=== PATIENT | female | born 1985 | race Caucasian/White ===

== ENCOUNTER 2022-08-06 08:09 | Emergency (ER) | payer BC, SELFPAY ==
[2022-08-06 08:20] VITALS: BP 102/70; PULSE 54; RESP 18; TEMP 36.7; O2SAT 97; BMI 25.9
--- NOTE | 2022-08-06 08:32 | EXP.UTC ---
Discharge Plan Disposition Patient Disposition: Home, Self-Care Condition: Good Prescriptions Prescriptions: New amoxicillin 875 mg tablet 875 mg PO BID Qty: 20 0RF innowaca-fziptwcgn-KJ 3.5-10,000-1 mg/mL-unit/mL-% drops,suspension 4 drp otic (ear) Q8H 7 Days Qty: 10 0RF Rx Instructions: in right ear as directed No Action hydrocodone-acetaminophen 5-325 mg tablet 1 tab PO Q4HP PRN (Reason: CRPS) gabapentin 300 mg capsule 600 mg PO DAILY Referrals Follow up/Referrals: Provider,Referral, MD [Primary Care Provider] - See instructions Activity Restrictions/Add. Instructions Additional Instructions/Restrictions: Use drops as prescribed Take oral medication as prescribed Follow up with your Family Doctor if no improvement or any worsening of symptoms Return if needed Clinical Impressions Clinical Impression: Otitis media Instructions Patient Instructions: Middle Ear Infection, DI for Otitis Externa Discharge ED Provider: Divya Forbes [facility] General Stated complaint: ear pain Mode of Arrival: Ambulatory Source of Information: Patient Limitations: No Limitations Time Seen by Provider: 08/06/22 08:32 Description of Symptoms (Recalled from Triage Doc. by RN): PATIENT C/O RIGHT EAR PAIN X 2 DAYS HEENT Symptoms (Recalled from RN notes): Yes Resp Symptoms (Recalled from RN notes): No Skin Symptoms (Recalled from RN notes): No MS Symptoms (Recalled from RN notes): No Functional Status (Recalled from RN notes): WNL History of Present Illness Provider Complaint: Patient states that she has been having pain in her right ear that has continued to get worse over the last couple of days and waking her up in the middle of the night hurting States that her ear is throbbing and starting to feel tender on the outside when she touches it so she came in to get it checked Related Data Home Medications Medication Instructions Recorded Confirmed gabapentin 300 mg capsule 600 mg PO DAILY CRPS 08/06/22 08/06/22 hydrocodone 5 mg-acetaminophen 325 1 tab PO Q4HP PRN CRPS 08/06/22 08/06/22 mg tablet Previous Rx's Medication Instructions Recorded amoxicillin 875 mg tablet 875 mg PO BID #20 tabs 08/06/22 scvhbtfh-cuxjltlwl-ztmjoptjn 3.5 4 drp otic (ear) Q8H 7 days #10 mL 08/06/22 mg-10,000 unit/mL-1 % ear drops,susp Allergies Allergy/AdvReac Type Severity Reaction Status Date / Time ciprofloxacin Allergy Verified 08/06/22 08:31 oxycodone [From Percocet] Allergy Verified 08/06/22 08:31 venlafaxine Allergy Verified 08/06/22 08:31 Worker's Comp Is this a Worker's Comp case?: No [facility] Disclaimer: The information contained in this section may have been updated after the patient was seen, as this information can be updated by other users. Medical History (Updated 08/06/22 @ 08:41 by Divya Forbes APRN) History of anemia Hypotension Migraine Urinary tract infection Surgical History (Updated 08/06/22 @ 08:33 by Ewelina Barnes RN) History of section History of hysterectomy History of tonsillectomy History of tubal ligation Social History Smoking Status: Unknown if ever smoked alcohol intake: never current occupational status: employed Travel in the last 8 weeks: None ROS Obtained: Yes All systems reviewed & no additional complaints except as documented and Yes Systems reviewed as appropriate & no additional complaints except as documented Constitutional Constitutional: Reports system reviewed and no additional complaints, except as documented and Reports as per HPI Eyes Eyes: Reports system reviewed and no additional complaints, except as documented and Reports as per HPI ENT Ears, Nose, Mouth, and Throat: Reports system reviewed and no additional complaints, except as documented, Reports as per HPI and Reports otalgia Cardiovascular Cardiovascular: Reports system reviewed and no additional complaints, except as documented and R
[2022-08-06 08:40] VITALS: BP 102/70; PULSE 54; RESP 18; TEMP 36.7; O2SAT 97
== END 2022-08-06 08:45 | disposition home or self-care (01) ==
PROVIDERS: Emergency Provider Nurse Practitioner
DX: H66.91 Otitis media, unspecified, right ear (principal)
CPT/HCPCS: 99204; 99212; G0463

== ENCOUNTER 2022-10-10 16:26 | Emergency (ER) | payer BC, SELFPAY ==
[2022-10-10 16:50] VITALS: BP 108/68; PULSE 67; RESP 19; TEMP 36.5; O2SAT 99; BMI 25.7
--- NOTE | 2022-10-10 16:50 | XR_ITS ---
PROCEDURE INFORMATION: Exam: XR Right Shoulder Exam date and time: 10/10/2022 4:58 PM Age: 37 years old Clinical indication: Patient HX: Right shoulder pain all day today, no known injury. ; Additional info: R shoulder pain, previous dislocation TECHNIQUE: Imaging protocol: Radiologic exam of the right shoulder. Views: 2 or more views. COMPARISON: No relevant prior studies available. FINDINGS: Bones/joints: No acute fracture or dislocation. Soft tissues: Normal. IMPRESSION: No acute osseous abnormality.
--- NOTE | 2022-10-10 16:51 | HMH.EDGENADL ---
Discharge Plan Disposition Patient Disposition: Home, Self-Care Chief Complaint: PAIN Prescriptions Prescriptions: No Action hydrocodone-acetaminophen 5-325 mg tablet 1 tab PO Q4HP PRN (Reason: CRPS) gabapentin 300 mg capsule 600 mg PO DAILY amoxicillin 875 mg tablet 875 mg PO BID Qty: 20 0RF lgpijqwc-dgwoywszf-WI 3.5-10,000-1 mg/mL-unit/mL-% drops,suspension 4 drp otic (ear) Q8H 7 Days Qty: 10 0RF Rx Instructions: in right ear as directed Referrals Follow up/Referrals: Provider,Referral, [Primary Care Provider] - See instructions Castillo Rome DO [Staff Physician] - See instructions Activity Restrictions/Add. Instructions Additional Instructions/Restrictions: At this time is felt you are safe to be discharged home. If new or worsening symptoms please not hesitate to return the emergency department. Please call and schedule an appointment with Dr. Rome for continued evaluation. Clinical Impressions Clinical Impression: Acute shoulder pain Discharge ED Provider: Noel Goldstein General Adult HPI General Chief complaint: PAIN Stated complaint: RT shoulder pain Time Seen by Provider: 10/10/22 16:38 History of Present Illness HPI narrative: Patient is a 37-year-old female with past medical history of scapular dyskinesia, previous right-sided shoulder dislocation, thoracic outlet syndrome, complex regional pain syndrome of her lower extremity on Lortab who presents emergency department for evaluation of shoulder pain. Patient states that this morning she had pain and she feels as if her shoulder is out . It is similar to previous dislocation pain. She has limited active range of motion at the shoulder secondary to this pain. She denies trauma. No other acute complaints at this time. Related Data Home Medications Medication Instructions Recorded Confirmed gabapentin 300 mg capsule 600 mg PO DAILY CRPS 08/06/22 08/06/22 hydrocodone 5 mg-acetaminophen 325 1 tab PO Q4HP PRN CRPS 08/06/22 08/06/22 mg tablet Previous Rx's Medication Instructions Recorded amoxicillin 875 mg tablet 875 mg PO BID #20 tabs 08/06/22 ndgfefvq-bsdpbocva-rfpbmkpjd 3.5 4 drp otic (ear) Q8H 7 days #10 mL 08/06/22 mg-10,000 unit/mL-1 % ear drops,susp Allergies Allergy/AdvReac Type Severity Reaction Status Date / Time ciprofloxacin Allergy Verified 08/06/22 08:31 oxycodone [From Percocet] Allergy Verified 08/06/22 08:31 venlafaxine Allergy Verified 08/06/22 08:31 [facility] Disclaimer: The information contained in this section may have been updated after the patient was seen, as this information can be updated by other users. Medical History (Updated 10/10/22 @ 17:54 by Noel Goldstein MD) History of anemia Hypotension Migraine Urinary tract infection Surgical History (Updated 08/06/22 @ 08:33 by Ewelina Barnes RN) History of section History of hysterectomy History of tonsillectomy History of tubal ligation Social History (Updated 08/06/22 @ 08:41 by Divya Forbes APRN) Smoking Status: Never smoker alcohol intake: never current occupational status: employed Travel in the last 8 weeks: None ROS Obtained: Yes Systems reviewed as appropriate & no additional complaints except as documented Physical Exam General General appearance: alert and in no apparent distress Head Head exam: atraumatic and normocephalic Eye Eye exam: Present PERRL ENT ENT exam: Present mucous membranes moist Neck Neck exam: Present normal inspection Chest Chest inspection: Present normal inspection and symmetric chest wall rise Respiratory Respiratory exam: Present normal lung sounds bilaterally; Absent respiratory distress Cardiovascular Cardiovascular exam: Present regular rate and normal rhythm Abdominal Exam Abdominal exam: Present soft Extremities Exam Extremities exam: Present normal inspection and other (Limited active range of motion of the shou
[2022-10-10 17:30] VITALS: BP 100/68; PULSE 54; RESP 18; O2SAT 98
[2022-10-10 18:00] VITALS: BP 101/70; PULSE 54; RESP 18; TEMP 36.8; O2SAT 98
--- NOTE | 2022-10-17 02:45 | PC.NURSE ---
chart accessed for demographics for ortho papers
== END 2022-10-10 18:00 | disposition home or self-care (01) ==
PROVIDERS: Emergency Provider Emergency Medicine
DX: M25.511 Pain in right shoulder (principal); G43.909 Migraine, unspecified, not intractable, without status migrainosus
CPT/HCPCS: 73030; 99283

== ENCOUNTER 2023-01-02 14:19 | Emergency (ER) | payer BC, SELFPAY ==
[2023-01-02 14:25] VITALS: BP 116/66; PULSE 74; RESP 22; TEMP 36.6; O2SAT 98; BMI 23.5
--- NOTE | 2023-01-02 14:41 | CA_ITS ---
FINAL REPORT TECHNIQUE: Color Doppler, duplex Doppler and compression sonography of the left lower extremity deep venous systems was performed. CLINICAL HISTORY: BRUISING TO LEFT LEG, CRPS, Hx- childhood vasculitits FINDINGS: There is no evidence of deep venous thrombosis from the level of the groin to the calf. The veins are patent and compressible. IMPRESSION: No evidence of deep venous thrombosis left lower extremity. Reviewed, Interpreted and Dictated by Messi Valentine III, MD Transcribed by Kiah Orozco Authenticated and [facility]
--- NOTE | 2023-01-02 14:50 | EXP.UTC ---
Discharge Plan Disposition Patient Disposition: Home, Self-Care Condition: Good Prescriptions Prescriptions: No Action hydrocodone-acetaminophen 5-325 mg tablet 1 tab PO Q4HP PRN (Reason: CRPS) gabapentin 300 mg capsule 600 mg PO DAILY amoxicillin 875 mg tablet 875 mg PO BID Qty: 20 0RF zwztalwa-zdyoxfuub-UD 3.5-10,000-1 mg/mL-unit/mL-% drops,suspension 4 drp otic (ear) Q8H 7 Days Qty: 10 0RF Rx Instructions: in right ear as directed Referrals Follow up/Referrals: Gadiel Anaya [Primary Care Provider] - See instructions Activity Restrictions/Add. Instructions Additional Instructions/Restrictions: Furhter instructions per your Physician Return if needed I was unable to contact them by phone make sure to contact them and they can request your results Straight to ER if any life threatening symptoms Clinical Impressions Clinical Impression: Contusion of left leg Qualifiers: Encounter type: initial encounter Qualified Code(s): S80.12XA - Contusion of left lower leg, initial encounter Instructions Patient Instructions: Contusion, DI for Contusion Discharge ED Provider: Divya Forbes [facility] [place] HPI General Stated complaint: DOCTOR SAID BLOOD WORK FOR PLATELETS Mode of Arrival: Ambulatory Source of Information: Patient Limitations: No Limitations Time Seen by Provider: 01/02/23 14:50 Description of Symptoms (Recalled from Triage Doc. by RN): PATIENT C/O BRUISING TO LEFT UPPER LEG X 1 WEEK. SHE STATES HER PAIN MANAGEMENT DOCTOR WANTED HER TO HAVE BLOOD WORK DONE INCLUDING A PLATELET COUNT HEENT Symptoms (Recalled from RN notes): No Resp Symptoms (Recalled from RN notes): No Skin Symptoms (Recalled from RN notes): No MS Symptoms (Recalled from RN notes): No Functional Status (Recalled from RN notes): WNL History of Present Illness Provider Complaint: Patient states that she has been having bruising to her left upper leg for about a week States that she seen her pain management doctor earlier today and they wanted her to come in and get some blood work/platelet count worried that she may have a blood clot but she wasnt sure what labs they wanted her to get besides the platelets he didnt give her a list but he wants to be called with the results Related Data Home Medications Medication Instructions Recorded Confirmed gabapentin 300 mg capsule 600 mg PO DAILY CRPS 08/06/22 08/06/22 hydrocodone 5 mg-acetaminophen 325 1 tab PO Q4HP PRN CRPS 08/06/22 08/06/22 mg tablet Previous Rx's Medication Instructions Recorded amoxicillin 875 mg tablet 875 mg PO BID #20 tabs 08/06/22 tgphzgbt-zprykwfei-vbyhjbacc 3.5 4 drp otic (ear) Q8H 7 days #10 mL 08/06/22 mg-10,000 unit/mL-1 % ear drops,susp Allergies Allergy/AdvReac Type Severity Reaction Status Date / Time ciprofloxacin Allergy Verified 08/06/22 08:31 oxycodone [From Percocet] Allergy Verified 08/06/22 08:31 venlafaxine Allergy Verified 08/06/22 08:31 Worker's Comp Is this a Worker's Comp case?: No [facility] Disclaimer: The information contained in this section may have been updated after the patient was seen, as this information can be updated by other users. Medical History (Updated 01/02/23 @ 15:54 by Divya Forbes APRN) History of anemia Hypotension Migraine Urinary tract infection Surgical History (Updated 08/06/22 @ 08:33 by Ewelina Barnes RN) History of section History of hysterectomy History of tonsillectomy History of tubal ligation Social History (Updated 08/06/22 @ 08:41 by Divya Forbes APRN) Smoking Status: Never smoker alcohol intake: never current occupational status: employed Travel in the last 8 weeks: None ROS Obtained: Yes All systems reviewed & no additional complaints except as documented and Yes Systems reviewed as appropriate & no additional complaints except as documented ENT Ears, Nose, Mouth, and Throat: Reports system reviewed and no additional compl
[2023-01-02 15:42] LABS: Basophils % 0.4 % (0.1-2.0); Eosinophils # 0.1 K/mm3 (0.0-0.4); Eosinophils % 1.6 % (0.1-12.0); Hematocrit 39.4 % (37.0-47.0); Hemoglobin 13.5 g/dL (12.2-16.2); Lymphocytes # 1.5 K/mm3 (0.7-4.5); Lymphocytes % 26.3 % (10-50); Mean Corpuscular HGB Conc 34.3 g/dL (31.8-35.4); Mean Corpuscular Hemoglobin 30.2 pg (27.0-31.2); Mean Corpuscular Volume 87.8 fl (81-99); Mean Platelet Volume 9.1 fl (7.4-10.4); Monocytes # 0.2 K/mm3 (0.1-1.0); Monocytes % 4.1 % (1.7-9.3); Neutrophils # 3.7 K/mm3 (1.8-7.8); Neutrophils % 67.6 % (37.0-80.0); Platelet Count 184 K/mm3 (142-424); Red Blood Count 4.48 M/mm3 (4.20-5.40); Red Cell Distribution Width 12.7 % (11.5-17.5); White Blood Count 5.5 K/mm3 (4.8-10.8)
[2023-01-02 15:54] VITALS: BP 116/66; PULSE 74; RESP 22; TEMP 36.6; O2SAT 98
== END 2023-01-02 15:57 | disposition home or self-care (01) ==
PROVIDERS: Emergency Provider Nurse Practitioner; PCP Anesthesiology Pain Medicine
DX: S70.12XA Contusion of left thigh, initial encounter (principal); X58.XXXA Exposure to other specified factors, initial encounter
CPT/HCPCS: 85025; 93971; 99212; 99214; G0463

== ENCOUNTER 2023-02-01 08:09 | Emergency (ER) | payer BC, SELFPAY ==
[2023-02-01 08:20] VITALS: BP 119/83; PULSE 80; RESP 20; TEMP 36.9; O2SAT 97; BMI 25.0
--- NOTE | 2023-02-01 08:30 | XR_ITS ---
FINAL REPORT TECHNIQUE: Chest PA & Lateral CLINICAL HISTORY: cough COMPARISON: None FINDINGS: 2 views of the chest were performed. The heart size is normal. The mediastinum is within normal limits. There is no acute cardiopulmonary process. There are no pleural effusions. There is no pneumothorax. The bony thorax appears intact. IMPRESSION: No acute cardiopulmonary process. Reviewed, Interpreted and Dictated by Kendall Singer MD Transcribed by Enedelia Lobo Authenticated and [facility]
--- NOTE | 2023-02-01 08:36 | EXP.UTC ---
Discharge Plan Disposition Patient Disposition: Home, Self-Care Condition: Good Prescriptions Prescriptions: New amoxicillin [amoxicillin] 875 mg tablet 875 mg PO Q12H Qty: 20 0RF methylprednisolone 4 mg Tablets,Dose Pack 4 mg PO DIRECTED Qty: 21 0RF albuterol sulfate [Ventolin HFA] 90 mcg/actuation HFA aerosol inhaler 2 puff inhalation Q6H PRN (Reason: shortness of breath or wheezing) Qty: 6.7 0RF guaifenesin [Mucinex] 600 mg tablet extended release 12hr 600 - 1,200 mg PO BIDP PRN (Reason: Congestion) Qty: 30 0RF promethazine-DM 6.25-15 mg/5 mL Syrup 5 ml PO Q6H PRN (Reason: Cough) Qty: 240 0RF No Action gabapentin 300 mg capsule 600 mg PO HS hydrocodone-acetaminophen 5-325 mg tablet 1 tab PO Q6HP PRN (Reason: Pain) methocarbamol 750 mg tablet 750 mg PO DAILY baclofen 10 mg tablet 10 mg PO DAILY Referrals Follow up/Referrals: Penny Armstrong APRN [Primary Care Provider] - See instructions Activity Restrictions/Add. Instructions Additional Instructions/Restrictions: Drink plenty of fluids. Take tylenol or ibuprofen for pain or fever. Take the medications as directed. Follow up with your regular doctor. GO TO THE ER FOR ANY WORSENING SYMPTOMS The cough medication (promethazine dm) will make you drowsy, so don't drive or operate heavy machinery after taking it. Clinical Impressions Clinical Impression: Acute bronchitis Instructions Patient Instructions: Acute Bronchitis, Promethazine Discharge ED Provider: Bob Ventura [facility] General Stated complaint: congested,dry cough Mode of Arrival: Ambulatory Source of Information: Patient Limitations: No Limitations Time Seen by Provider: 02/01/23 08:27 Description of Symptoms (Recalled from Triage Doc. by RN): PATIENT C/O CONGESTION AND DRY COUGH X 2 DAYS HEENT Symptoms (Recalled from RN notes): No Resp Symptoms (Recalled from RN notes): Yes Skin Symptoms (Recalled from RN notes): No MS Symptoms (Recalled from RN notes): No Functional Status (Recalled from RN notes): WNL History of Present Illness Provider Complaint: She states that she has ran a fever, had chills, malaise and fever for the past 2 days. She usually gets pneumonia once per year around this time and that is what she feels like is happening now. Related Data Home Medications Medication Instructions Recorded Confirmed gabapentin 300 mg capsule 600 mg PO HS CRPS 08/06/22 02/01/23 baclofen 10 mg tablet 10 mg PO DAILY 02/01/23 02/01/23 hydrocodone 5 mg-acetaminophen 325 1 tab PO Q6HP PRN Pain 02/01/23 02/01/23 mg tablet methocarbamol 750 mg tablet 750 mg PO DAILY 02/01/23 02/01/23 Previous Rx's Medication Instructions Recorded albuterol sulfate 90 mcg/actuation 2 puff inhalation Q6H PRN 02/01/23 aerosol inhaler (Ventolin HFA) shortness of breath or wheezing #6.7 grams amoxicillin 875 mg tablet 875 mg PO Q12H #20 tabs 02/01/23 guaifenesin 600 mg tablet, 600 - 1,200 mg PO BIDP PRN 02/01/23 extended release 12 hr (Mucinex) Congestion #30 tabs methylprednisolone 4 mg tablets in 4 mg PO DIRECTED #21 tabs 02/01/23 a dose pack promethazine-DM 6.25 mg-15 mg/5 mL 5 ml PO Q6H PRN Cough #240 mL 02/01/23 oral syrup Allergies Allergy/AdvReac Type Severity Reaction Status Date / Time ciprofloxacin Allergy Verified 08/06/22 08:31 oxycodone [From Percocet] Allergy Verified 08/06/22 08:31 tizanidine [From Zanaflex] Allergy Verified 02/01/23 08:33 venlafaxine Allergy Verified 08/06/22 08:31 Worker's Comp Is this a Worker's Comp case?: No [facility] Disclaimer: The information contained in this section may have been updated after the patient was seen, as this information can be updated by other users. Medical History (Updated 02/01/23 @ 09:10 by Bob Ventura APRN) History of anemia Hypotension Migraine Urinary tract infection Surgical History (Updated 08/06/22 @ 08:33 by Ewelina Barnes
[2023-02-01 08:43] VITALS: BP 119/83; PULSE 80; RESP 20; TEMP 36.9; O2SAT 97
== END 2023-02-01 09:14 | disposition home or self-care (01) ==
PROVIDERS: Emergency Provider Nurse Practitioner Family; PCP Nurse Practitioner Family
DX: J20.9 Acute bronchitis, unspecified (principal); R05.9 Cough, unspecified; R09.89 Other specified symptoms and signs involving the circulatory and respiratory systems
CPT/HCPCS: 71046; 99212; 99214; G0463

== ENCOUNTER 2023-02-16 16:24 | Emergency (ER) | payer BC, SELFPAY ==
--- NOTE | 2023-02-16 16:34 | ED_ITS ---
Discharge Plan Disposition Patient Disposition: Home, Self-Care Condition: Good Prescriptions Prescriptions: New prednisone 10 mg tablet 10 mg PO DIRECTED 9 Days Qty: 21 0RF Rx Instructions: Take 4 tablets daily for 3 days, then take 2 tablets daily for 3 days, then take 1 tablet daily for 3 days, then stop. benzonatate [benzonatate] 100 mg capsule 100 mg PO TIDP PRN (Reason: Cough) Qty: 30 0RF cefdinir 300 mg capsule 300 mg PO BID Qty: 20 0RF guaifenesin [Mucinex] 600 mg tablet extended release 12hr 600 - 1,200 mg PO BIDP PRN (Reason: Congestion) Qty: 30 0RF No Action gabapentin 300 mg capsule 600 mg PO HS baclofen 10 mg tablet 10 mg PO DAILY Referrals Follow up/Referrals: Penny Armstrong APRN [Primary Care Provider] - See instructions Activity Restrictions/Add. Instructions Additional Instructions/Restrictions: Drink plenty of fluids. Take tylenol or ibuprofen for pain or fever. Take the medications as directed. Follow up with your regular doctor. GO TO THE ER FOR ANY WORSENING SYMPTOMS Don't start the oral steroids until tomorrow, since you had the shot here today. Clinical Impressions Clinical Impression: Acute bronchitis Instructions Patient Instructions: Acute Bronchitis, DI for Acute Bronchitis Discharge ED Provider: Bob Ventura [facility] General Stated complaint: chest congestion, wheezing Time Seen by Provider: 02/16/23 16:34 History of Present Illness Provider Complaint: She is here today with continued complaints of cough and congestion. Related Data Home Medications Medication Instructions Recorded Confirmed gabapentin 300 mg capsule 600 mg PO HS CRPS 08/06/22 02/16/23 baclofen 10 mg tablet 10 mg PO DAILY 02/01/23 02/16/23 Previous Rx's Medication Instructions Recorded benzonatate 100 mg capsule 100 mg PO TIDP PRN Cough #30 caps 02/16/23 cefdinir 300 mg capsule 300 mg PO BID #20 caps 02/16/23 guaifenesin 600 mg tablet, 600 - 1,200 mg PO BIDP PRN 02/16/23 extended release 12 hr (Mucinex) Congestion #30 tabs prednisone 10 mg tablet 10 mg PO DIRECTED 9 days #21 02/16/23 tabs Allergies Allergy/AdvReac Type Severity Reaction Status Date / Time ciprofloxacin Allergy Verified 08/06/22 08:31 oxycodone [From Percocet] Allergy Verified 08/06/22 08:31 tizanidine [From Zanaflex] Allergy Verified 02/01/23 08:33 venlafaxine Allergy Verified 08/06/22 08:31 [facility] Disclaimer: The information contained in this section may have been updated after the patient was seen, as this information can be updated by other users. Medical History (Updated 02/16/23 @ 17:20 by Bob Ventura APRN) History of anemia Hypotension Migraine Urinary tract infection Surgical History (Updated 08/06/22 @ 08:33 by Ewelina Barnes RN) History of section History of hysterectomy History of tonsillectomy History of tubal ligation Social History (Updated 08/06/22 @ 08:41 by Divya Forbes APRN) Smoking Status: Never smoker alcohol intake: never current occupational status: employed Travel in the last 8 weeks: None ROS Obtained: Yes All systems reviewed & no additional complaints except as documented Constitutional Constitutional: Denies fever(s) and Reports poor appetite Eyes Eyes: Reports system reviewed and no additional complaints, except as documented ENT Ears, Nose, Mouth, and Throat: Reports as per HPI Cardiovascular Cardiovascular: Reports system reviewed and no additional complaints, except as documented and Denies chest pain Respiratory Respiratory: Denies shortness of breath, Reports chest congestion, Reports cough, Denies stridor and Denies wheezing Gastrointestinal Gastrointestingal: Reports system reviewed and no additional complaints, except as documented; Denies abdominal pain, diarrhea or vomiting Musculoskeletal Musculoskeletal: Reports system reviewed and no additional complaints, except as documented and Denies arthralgias Integumentary/Breasts Skin/Breast: Reports system reviewed and no additional complaints, except as documented and Denies rash Neurologic Neurologic: Denies paresthesias Allergic/Immunologic Allergic/Immunologic: Denies wheezing Physical Exam General General appearance: alert and in no apparent distress Eye Eye exam: Present normal appearance, PERRL and EOMI ENT ENT exam: Present mucous membranes moist and normal external ear exam Expanded ENT Exam External ear exam: Present normal external inspection TM/Canal exam: Bilateral TM: erythema and bulging Nose exam: Absent sinus tenderness Nasal speculum exam: Bilateral: normal Mouth exam: Present normal external inspection; Absent drooling Teeth exam: Present normal inspection Throat exam: Present tonsillar erythema and tonsillomegaly Neck Neck exam: Present normal inspection, full ROM and trachea midline; Absent tenderness, lymphadenopathy or thyromegaly Chest Chest inspection: Present normal inspection and symmetric chest wall rise; Absent tenderness or rash Respiratory Respiratory exam: Present normal lung sounds bilaterally; Absent respiratory distress, wheezes, stridor or accessory muscle use Cardiovascular Cardiovascular exam: Present regular rate, normal rhythm and normal heart sounds Abdominal Exam Abdominal exam: Present soft; Absent distention, tenderness, guarding, rebound or rigidity Extremities Exam Extremities exam: Present normal inspection, full ROM and normal capillary refill; Absent tenderness or calf tenderness Back Exam Back exam: Present normal inspection and full ROM; Absent tenderness Neurological Exam Neurological exam: Present alert and oriented X3 Psychiatric Psychiatric exam: Present normal affect and normal mood Skin Skin exam: Present warm, dry, intact and normal color Lymphatic Lymphatic Findings: no adenopathy Medical Decision Making Medical Records Medical records reviewed: No I reviewed the patient's medical records. Reji Inquiry Pt receiving controlled substance: No Radiology Data #1: Image(s): Chest Image Reviewed: Yes I reviewed the patient's radiology image and Yes I have reviewed radiologist's interpretation Preliminary Findings: No Infiltrates Seen PROCEDURE INFORMATION: Exam: XR Chest Exam date and time: 02/16/2023 4:55 PM Age: 37 years old Clinical indication: Cough and wheezing; Patient HX: Recent pneumonia dx, continued SOA, wheezing, cough; Additional info: Cough, congestion TECHNIQUE: Imaging protocol: Radiologic exam of the chest. Views: 2 views. COMPARISON: CR XR CHEST 2V 02/01/2023 8:35 AM FINDINGS: Lungs: Unremarkable. No consolidation. Pleural spaces: Unremarkable. No pleural effusion. No pneumothorax. Heart/Mediastinum: Unremarkable. No cardiomegaly. Bones/joints: Unremarkable. IMPRESSION: No acute findings.
[2023-02-16 16:35] VITALS: BP 108/72; PULSE 64; RESP 19; TEMP 36.8; O2SAT 99; BMI 24.9
--- NOTE | 2023-02-16 16:58 | XR_ITS ---
PROCEDURE INFORMATION: Exam: XR Chest Exam date and time: 02/16/2023 4:55 PM Age: 37 years old Clinical indication: Cough and wheezing; Patient HX: Recent pneumonia dx, continued SOA, wheezing, cough; Additional info: Cough, congestion TECHNIQUE: Imaging protocol: Radiologic exam of the chest. Views: 2 views. COMPARISON: CR XR CHEST 2V 02/01/2023 8:35 AM FINDINGS: Lungs: Unremarkable. No consolidation. Pleural spaces: Unremarkable. No pleural effusion. No pneumothorax. Heart/Mediastinum: Unremarkable. No cardiomegaly. Bones/joints: Unremarkable. IMPRESSION: No acute findings.
[2023-02-16 17:22] VITALS: BP 108/72; PULSE 64; RESP 19; TEMP 36.8; O2SAT 99
[2023-02-16] MEDS: cefTRIAXone 1GM VIAL 1 GM IM (17:30)
[2023-02-16] MEDS: DEXAMETHASONE 4MG/ML 1ML VIAL 8 MG IM (17:30)
[2023-02-16] MEDS: LIDOCAINE 1% 5ML PF VIAL IM (17:30)
== END 2023-02-16 17:54 | disposition home or self-care (01) ==
PROVIDERS: Emergency Provider Nurse Practitioner Family; PCP Nurse Practitioner Family
DX: J20.9 Acute bronchitis, unspecified (principal); R06.2 Wheezing; R05.8 Other specified cough; R09.89 Other specified symptoms and signs involving the circulatory and respiratory systems
CPT/HCPCS: 71046; 96372; 99212; 99214; G0463; J0696

== ENCOUNTER 2023-03-15 12:40 | Outpatient (CLI) | payer BC, SELFPAY ==
--- NOTE | 2023-03-15 12:44 | CT_ITS ---
FINAL REPORT TECHNIQUE: Axial imaging of the chest was obtained without contrast. Reformatted images were also obtained and reviewed.This study was performed with techniques to keep radiation doses as low as reasonably achievable, (ALARA). Individualized dose reduction technique using automated exposure control or adjustment of mA and/or kV according to the patient's size were employed. CLINICAL HISTORY: LT LOWER LOBE CONSOLIDATION,WHEEZING, PRODUCTIVE YELLOW COUGH FINDINGS: There is no axillary adenopathy. There is no hilar or mediastinal mass or adenopathy. Heart size is normal. There is no pericardial or pleural effusion. Limited images of the upper abdomen are unremarkable. No suspicious infiltrate or nodule is identified on lung window images. IMPRESSION: No acute process. Reviewed, Interpreted and Dictated by Tom Allen MD Transcribed by Sheyla Welch Authenticated and [facility]
== END 2023-03-15 23:59 ==
LOC: RAD 12:40
PROVIDERS: PCP Nurse Practitioner Family; Visit Provider Nurse Practitioner Family
DX: J18.1 Lobar pneumonia, unspecified organism (principal)
CPT/HCPCS: 71250

== ENCOUNTER 2023-10-05 08:11 | Emergency (ER) | payer BC, SELFPAY ==
[2023-10-05 09:15] VITALS: BP 114/75; PULSE 63; RESP 20; TEMP 36.7; O2SAT 98; BMI 26.5
--- NOTE | 2023-10-05 09:22 | EXP.UTC ---
Discharge Plan Disposition Patient Disposition: Home, Self-Care Condition: Good Prescriptions Prescriptions: New ondansetron 4 mg Tablet,Disintegrating 4 mg PO Q8H PRN (Reason: Nausea) Qty: 12 0RF No Action prednisone 10 mg tablet 10 mg PO DIRECTED 9 Days Qty: 21 0RF Rx Instructions: Take 4 tablets daily for 3 days, then take 2 tablets daily for 3 days, then take 1 tablet daily for 3 days, then stop. benzonatate [benzonatate] 100 mg capsule 100 mg PO TIDP PRN (Reason: Cough) Qty: 30 0RF cefdinir 300 mg capsule 300 mg PO BID Qty: 20 0RF guaifenesin [Mucinex] 600 mg tablet extended release 12hr 600 - 1,200 mg PO BIDP PRN (Reason: Congestion) Qty: 30 0RF gabapentin 300 mg capsule 600 mg PO HS baclofen 10 mg tablet 10 mg PO DAILY Referrals Follow up/Referrals: Melva Foley MD [Primary Care Provider] - See instructions Activity Restrictions/Add. Instructions Additional Instructions/Restrictions: Drink plenty of fluids. Take tylenol or ibuprofen for pain or fever. Take the medications as directed. Follow up with your regular doctor. GO TO THE ER FOR ANY WORSENING SYMPTOMS Clinical Impressions Clinical Impression: Acute viral syndrome Stand Alone Forms Stand Alone Forms: Work/School Release Instructions Patient Instructions: DI for Viral Syndrome, Ondansetron Print Language Print Language: Kyrgyz Discharge ED Provider: Bob Ventura [facility] HPI General Stated complaint: nausea, headache Mode of Arrival: Ambulatory Source of Information: Patient Limitations: No Limitations Time Seen by Provider: 10/05/23 09:22 Description of Symptoms (Recalled from Triage Doc. by RN): c/o nausea and medina since Sunday HEENT Symptoms (Recalled from RN notes): Yes Resp Symptoms (Recalled from RN notes): No Skin Symptoms (Recalled from RN notes): No MS Symptoms (Recalled from RN notes): No Functional Status (Recalled from RN notes): wnl Related Data Home Medications ?Medication ?Instructions ?Recorded ?Confirmed gabapentin 300 mg capsule 600 mg PO HS CRPS 08/06/22 02/16/23 baclofen 10 mg tablet 10 mg PO DAILY 02/01/23 02/16/23 Previous Rx's ?Medication ?Instructions ?Recorded benzonatate 100 mg capsule 100 mg PO TIDP PRN Cough #30 caps 02/16/23 cefdinir 300 mg capsule 300 mg PO BID #20 caps 02/16/23 guaifenesin 600 mg tablet, 600 - 1,200 mg (1 - 2 x 600 mg) PO 02/16/23 extended release 12 hr (Mucinex) BIDP PRN Congestion #30 tabs prednisone 10 mg tablet 10 mg PO DIRECTED 9 days #21 02/16/23 tabs ondansetron 4 mg disintegrating 4 mg PO Q8H PRN Nausea #12 tabs 10/05/23 tablet Allergies Allergy/AdvReac Type Severity Reaction Status Date / Time ciprofloxacin Allergy Verified 08/06/22 08:31 oxycodone [From Percocet] Allergy Verified 08/06/22 08:31 tizanidine [From Zanaflex] Allergy Verified 02/01/23 08:33 venlafaxine Allergy Verified 08/06/22 08:31 Worker's Comp Is this a Worker's Comp case?: No [facility] Disclaimer: The information contained in this section may have been updated after the patient was seen, as this information can be updated by other users. Medical History (Updated 10/05/23 @ 09:30 by Bob Ventura APRN) Hypotension History of anemia Urinary tract infection Migraine Surgical History (Updated 08/06/22 @ 08:33 by Ewelina Barnes RN) History of tubal ligation History of tonsillectomy History of hysterectomy History of section Social History (Updated 08/06/22 @ 08:41 by Divya Forbes APRN) Smoking Status: Never smoker alcohol intake: never current occupational status: employed Travel in the last 8 weeks: None ROS Obtained: Yes All systems reviewed & no additional complaints except as documented Constitutional Constitutional: Reports chills and Reports fever(s) Eyes Eyes: Denies eye discharge ENT Ears, Nose, Mouth, and Throat: Reports as per HPI Cardiovascular Cardiovascul
[2023-10-05 10:02] VITALS: BP 114/75; PULSE 63; RESP 16; TEMP 36.7; O2SAT 98
== END 2023-10-05 10:03 | disposition home or self-care (01) ==
PROVIDERS: Emergency Provider Nurse Practitioner Family; PCP Family Medicine Addiction Medicine
DX: R51.9 Headache, unspecified (principal); R11.0 Nausea; B34.9 Viral infection, unspecified
CPT/HCPCS: 87635; 99212; 99214; G0463

== ENCOUNTER 2024-02-09 08:04 | Emergency (ER) | payer BC, SELFPAY ==
--- NOTE | 2024-02-09 08:26 | ED_ITS ---
Discharge Plan Disposition Patient Disposition: Home, Self-Care Condition: Good Prescriptions Prescriptions: New ibuprofen 600 mg tablet 600 mg PO Q6HP PRN (Reason: Mild Pain) Qty: 30 0RF No Action prednisone 10 mg tablet 10 mg PO DIRECTED 9 Days Qty: 21 0RF Rx Instructions: Take 4 tablets daily for 3 days, then take 2 tablets daily for 3 days, then take 1 tablet daily for 3 days, then stop. benzonatate [benzonatate] 100 mg capsule 100 mg PO TIDP PRN (Reason: Cough) Qty: 30 0RF cefdinir 300 mg capsule 300 mg PO BID Qty: 20 0RF guaifenesin [Mucinex] 600 mg tablet extended release 12hr 600 - 1,200 mg PO BIDP PRN (Reason: Congestion) Qty: 30 0RF gabapentin 300 mg capsule 600 mg PO HS baclofen 10 mg tablet 10 mg PO DAILY ondansetron 4 mg Tablet,Disintegrating 4 mg PO Q8H PRN (Reason: Nausea) Qty: 12 0RF Referrals Follow up/Referrals: Castillo Rome DO [Staff Physician] - See instructions Melva Foley MD [Primary Care Provider] - See instructions Activity Restrictions/Add. Instructions Additional Instructions/Restrictions: Rest the extremity. Wear the arm sling for comfort, but only wear it for the next 2 days. If you wear it longer it will cause your shoulder to stiffen and you will have worse pain. Take ibuprofen for pain. I sent in a prescription to your pharmacy. Take it regularly for the next 3 days to help decrease the inflammation in your shoulder. Follow up with Dr. Rome (orthopedics). I put in a referral but you need to call his office and schedule an appointment. Follow up with your regular doctor. GO TO THE ER FOR ANY WORSENING SYMPTOMS Clinical Impressions Clinical Impression: shoulder, Right shoulder pain Instructions Patient Instructions: How to Use a Sling, DI for Shoulder Pain, DI for AC Joint Separation Print Language Print Language: Upper Sorbian Discharge ED Provider: Bob Ventura [facility] General Stated complaint: AO 02/03 right shoulder pain swelling weakness Time Seen by Provider: 02/09/24 08:25 History of Present Illness Provider Complaint: She states that yesterday morning she went to feed her farm animals and lifted a very heavy bucket with her right arm. This pulled her shoulder down and caused it to start having pain and decreased rom. She denies any other injury. She has had pain in that shoulder before, but never as bad as her symptoms are now. She denies any other injury or complaints. Related Data Home Medications ?Medication ?Instructions ?Recorded ?Confirmed gabapentin 300 mg capsule 600 mg PO HS CRPS 08/06/22 02/16/23 baclofen 10 mg tablet 10 mg PO DAILY 02/01/23 02/16/23 Previous Rx's ?Medication ?Instructions ?Recorded benzonatate 100 mg capsule 100 mg PO TIDP PRN Cough #30 caps 02/16/23 cefdinir 300 mg capsule 300 mg PO BID #20 caps 02/16/23 guaifenesin 600 mg tablet, 600 - 1,200 mg (1 - 2 x 600 mg) PO 02/16/23 extended release 12 hr (Mucinex) BIDP PRN Congestion #30 tabs prednisone 10 mg tablet 10 mg PO DIRECTED 9 days #21 02/16/23 tabs ondansetron 4 mg disintegrating 4 mg PO Q8H PRN Nausea #12 tabs 10/05/23 tablet ibuprofen 600 mg tablet 600 mg PO Q6HP PRN Mild Pain #30 02/09/24 tabs Allergies Allergy/AdvReac Type Severity Reaction Status Date / Time ciprofloxacin Allergy Verified 08/06/22 08:31 oxycodone (From Percocet) Allergy Verified 08/06/22 08:31 tizanidine (From Zanaflex) Allergy Verified 02/01/23 08:33 venlafaxine Allergy Verified 08/06/22 08:31 PFS PFSH Disclaimer: The information contained in this section may have been updated after the patient was seen, as this information can be updated by other users. Medical History (Updated 02/09/24 @ 09:03 by Bob Ventura APRN) Hypotension History of anemia Urinary tract infection Migraine Surgical History (Updated 08/06/22 @ 08:33 by Ewelina Barnes RN) History of tubal ligation History of tonsillectomy History of hysterectomy History of section Social History (Updated 08/06/22 @ 08:41 by Divya Forbes APRN) Smoking Status: Never smoker alcohol intake: never current occupational status: employed Travel in the last 8 weeks: None Have you lived/traveled outside [place] in past 30 days?: No Contact w/someone who lives/traveled outside US past 30 days?: No Exposure to someone with infectious disease in past 14 days?: No Do you have a fever (greater than 100.4 F or 38 C)?: No Have you tested positive for COVID-19: No Exposed to someone with COVID-19 in past 14 days?: No Do you have a sore throat?: No Do you have a cough?: No Do you have any weakness?: No Do you have any diarrhea?: No Are you experiencing any unusual bleeding?: No Do you have any muscle aches/pain?: No Do you have any abdominal pain?: No Are you experiencing loss of taste or smell?: No ROS Obtained: Yes All systems reviewed & no additional complaints except as documented Constitutional Constitutional: Denies chills and Denies fever(s) Eyes Eyes: Denies eye discharge ENT Ears, Nose, Mouth, and Throat: Denies dizziness, Denies otalgia and Denies sore throat Cardiovascular Cardiovascular: Denies chest pain Respiratory Respiratory: Denies shortness of breath, Denies chest congestion, Denies cough, Denies stridor and Denies wheezing Gastrointestinal Gastrointestingal: Denies nausea or vomiting Musculoskeletal Musculoskeletal: Reports as per HPI Integumentary/Breasts Skin/Breast: Denies rash Neurologic Neurologic: Denies dizziness and Denies paresthesias Allergic/Immunologic Allergic/Immunologic: Denies wheezing Physical Exam General General appearance: alert and in no apparent distress Head Head exam: atraumatic, normocephalic and normal inspection Eye Eye exam: Present normal appearance, PERRL and EOMI ENT ENT exam: Present normal exam, normal oropharynx, mucous membranes moist, TM's normal bilaterally and normal external ear exam Neck Neck exam: Present normal inspection, full ROM and trachea midline; Absent meningismus or lymphadenopathy Chest Chest inspection: Present normal inspection and symmetric chest wall rise; Absent tenderness Respiratory Respiratory exam: Present normal lung sounds bilaterally; Absent respiratory distress Cardiovascular Cardiovascular exam: Present regular rate and normal rhythm; Absent JVD Abdominal Exam Abdominal exam: Present soft and normal bowel sounds; Absent distention, tenderness or guarding Extremities Exam Extremities exam: Present normal capillary refill; Absent calf tenderness Expanded Upper Extremity Exam Right: Shoulder exam: Present tenderness; Absent full ROM, swelling, abrasion, laceration, ecchymosis, deformity, crepitus, dislocation, erythema or tenderness over AC joint Arm exam: Present normal inspection and full ROM; Absent tenderness Elbow exam: Present normal inspection and full ROM; Absent tenderness, pain w/ pronation/supination or tenderness over radial head Forearm/Wrist exam: Present normal inspection and full ROM; Absent tenderness Hand exam: Present normal inspection and full ROM; Absent tenderness Neuromotor exam: Normal wrist extension, thumb opposition, thumb IP flexion, thumb adduction and fingers 2-5 abduction Neurosensory exam: Normal radial nerve, ulnar nerve and median nerve Vascular exam: Normal capillary refill, radial pulse and ulnar pulse Back Exam Back exam: Present normal inspection; Absent tenderness Neurological Exam Neurological exam: Present alert and oriented X3 Psychiatric Psychiatric exam: Present normal affect and normal mood Skin Skin exam: Present warm, dry, intact and normal color Lymphatic Lymphatic Findings: no adenopathy Medical Decision Making Medical Records Medical records reviewed: No I reviewed the patient's medical records. Screening: Per USPSTF and CDC recommendations, given the prevalence of disease in our region, it is our hospital?s policy to screen for HIV and viral Hepatitis for all patients aged 18 and over and those with ongoing risk factors. Reji Inquiry Pt receiving controlled substance: No Radiology Data #1: Image(s): Shoulder Image Reviewed: Yes I reviewed the patient's radiology image and Yes I have reviewed radiologist's interpretation Preliminary Findings: No Fracture Seen Accession No. : [id number] Patient Name / ID : Cally Burks / [id number] Exam Date : 02/09/2024 08:35:08 ( Final ) Study Comment : Sex / Age : F / 38Y Creator : NEMESIO TOLEDO MD Dictator : Chemical Production Engineer : Reinsurance Analyst : NEMESIO TOLEDO MD Approver2 : Report Date : 02/09/2024 11:12:45 My Comment : PROCEDURE INFORMATION: Exam: XR Right Shoulder Exam date and time: 02/09/2024 8:35 AM Age: 38 years old Clinical indication: Pain; Shoulder; Right; Patient HX: PT was carrying a 5 gal bucket water when injured; Additional info: Injury TECHNIQUE: Imaging protocol: Radiologic exam of the right shoulder. Views: 2 or more views. Total images: 3 COMPARISON: CR XR SHOULDER RT MIN 2V 10/10/2022 4:58 PM FINDINGS: Bones/joints: No evidence of acute fracture or dislocation. Soft tissues: Soft tissues are within normal limits. IMPRESSION: No evidence of acute fracture or dislocation. Procedures Risk/Benefits of Procedure(s) Were Explained: Yes Orthopedic Splinting/Casting Injury #1: Side: right Upper Extremity Injury Location: shoulder, upper arm, elbow and forearm Upper Extremity Immobilizer: sling and applied by nurse/dr kemp Post Cast/Splinting Neuro Status: intact and no change Post Cast/Splinting Vasc Status: intact and no change
[2024-02-09 08:32] VITALS: BP 104/62; PULSE 72; RESP 18; TEMP 37; O2SAT 98; BMI 26.5
--- NOTE | 2024-02-09 08:36 | XR_ITS ---
PROCEDURE INFORMATION: Exam: XR Right Shoulder Exam date and time: 02/09/2024 8:35 AM Age: 38 years old Clinical indication: Pain; Shoulder; Right; Patient HX: PT was carrying a 5 gal bucket water when injured; Additional info: Injury TECHNIQUE: Imaging protocol: Radiologic exam of the right shoulder. Views: 2 or more views. Total images: 3 COMPARISON: CR XR SHOULDER RT MIN 2V 10/10/2022 4:58 PM FINDINGS: Bones/joints: No evidence of acute fracture or dislocation. Soft tissues: Soft tissues are within normal limits. IMPRESSION: No evidence of acute fracture or dislocation.
[2024-02-09 09:04] VITALS: BP 104/62; PULSE 72; RESP 18; TEMP 37
== END 2024-02-09 09:13 | disposition home or self-care (01) ==
PROVIDERS: Emergency Provider Nurse Practitioner Family; PCP Family Medicine Addiction Medicine
DX: M62.011 Separation of muscle (nontraumatic), right shoulder (principal); M25.511 Pain in right shoulder; M25.311 Other instability, right shoulder; M25.411 Effusion, right shoulder
CPT/HCPCS: 73030; 99212; G0381

== ENCOUNTER 2024-08-22 06:54 | Outpatient (CLI) | payer BC, SELFPAY ==
--- OUTSIDE RECORDS SUMMARY | 2024-06-24 09:07 | XMS_ITS | Encounter Summary ---
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 Name Role Phone Unavailable Primary Care Provider Unavailabl e Reason for Referral * Other (Routine) - Closed Specialty Diagnoses / Procedures Referred By Contact Referred To Contact Interventional Pain Medicine Diagnoses Complex regional pain syndrome i of right lower limb Procedures CARDIAC CATH - INJECTIONS Gadiel Anaya MD [address] [place] [address] Phone: tel: fax: [facility] NURSING SERVICE DIRECTOR [address] [place] [address] Phone: tel: Referral ID Status Reason Start Date Expiration Date Visits Re quested Visits Authorized [id number] Closed 06/17/2024 06/17/2025 1 1 Reason for Visit * Other (Routine) - Closed Specialty Diagnoses / Procedures Referred By Contact Referred To Contact Interventional Pain Medicine Diagnoses Complex regional pain syndrome i of right lower limb Procedures CARDIAC CATH - INJECTIONS Gadiel Anaya MD [address] [place] [address] Phone: tel: fax: [facility] NURSING SERVICE DIRECTOR [address] [place] [address] Phone: tel: Referral ID Status Reason Start Date Expiration Date Visits Re quested Visits Authorized [id number] Closed 06/17/2024 06/17/2025 1 1 Encounter Details Date Type Department Care Team (Latest Contact Info) Description 06/24/2024 9:07 AM EDT - 06/24/2024 11:59 PM EDT Hospital Encounter [facility] Cardiac Catheterization Lab [address] [place] [address] Gadiel Anaya MD [address] [place] [address] Complex regional pain syndrome i of right lower limb Discharge Disposition: Home or Self Care Social History Tobacco Use Types Packs/Day Years Used Date Smoking Tobacco: Never Smokeless Tobacco: Never Alcohol Use Standard Drinks/Week Comments Never 0 (1 standard drink = 0.6 oz pur e alcohol) Family and Community Support Answer [place] e Recorded Help with Day to Day Activities Not on file 06/12/2023 Feeling Lonely or Isolated Not on file 06/11 Educational Attainment Answer Date Hemal rded Speak language other than [place] Citizen at home Not on file 06/12/2023 Want help with school or training Not on file 06/12/2023 Substance Use Answer Date Recorded Used prescription meds for non-medical reasons N ot on file 06/12/2023 Used illegal drugs past 12 months Not on file 06/12/2023 Comments No Sex and Gender Information Value Date Recorded Sex Assigned at Not on file Legal Sex Female 5:38 PM CDT Gender Identity Not on file Sexual Orientation Not on file documented as of this encounter Last Filed Vital Signs Vital Sign Reading Time Taken Comments Blood Pressure 110/63 06/24/2024 10:45 AM EDT Pulse 57 06/24/2024 10:45 AM EDT Temperature 36.6 C (97.9 F) 06/24/2024 10:45 AM EDT Respiratory Rate 16 06/24/2024 10:45 AM EDT Oxygen Saturation 98% 06/24/2024 10:45 AM EDT Inhaled Oxygen Concentration - - Weight 76.7 kg (169 lb) 06/24/2024 9:17 AM EDT Height 162.6 cm (5' 4 ) 06/24/2024 9:17 AM EDT Body Mass Index 29.01 06/24/2024 9:17 AM EDT documented in this encounter Medications at Time of Discharge fluvoxaMINE (LUVOX) 25 MG tablet Take 2 tablets (50 mg total) by mouth nightly. gabapentin (NEURONTIN) 600 MG tablet Take 1 tablet (600 mg total) by mouth daily. HYDROcodone-aceta minophen (NORCO 5-325) 5-325 mg per tablet Take 1 tablet by mouth every 6 (six) hours as needed for pain. multivitamin per tablet Take 1 tablet by mouth daily. ondansetron (ZOFRAN) 4 MG tablet Take 1 tablet (4 mg total) by mouth every 8 (eight) hours as needed for nausea or vomiting. calcium citrate-vitamin D3 (CITRACAL-D3) 200 mg-6.25 mcg (250 unit) tablet Take by mouth. lactobacillus rhamnosus, GG, (CULTURELLE) 10 billion cell capsule Take 1 capsule by mouth daily. cholecalciferol, vitamin D3, 1,250 mcg (50,000 unit) tab Take 1 tablet (50,000 Units total) by mouth once a week. 07/15/2024 documented as of this encounter Progress Notes * Adri Aguilar RN - 06/24/2024 9:30 AM EDT 1052-Reinforced post procedural instructions including s/sx that warrant immediate attention, pt dc'd stable condition, in w/c accompanied by Rn to family vehicle documented in this encounter H&P Notes * Gadiel Anaya MD - 06/24/2024 9:30 AM EDT History of Present Illness History Of Present Illness Dayna Alamo is a 39 y.o. female presenting with left lower extremity pain, scheduled today for lumbar sympathetic block. Past Medical History She has a past medical history of Asthma, CRPS (complex regional pain syndrome type I), Hypotension, Pituitary adenoma (HCC), Renal stones, and Tubular adenoma. Surgical History She has a past surgical history that includes Tonsillectomy; section (N/A); Tubal ligation(N/A); and Hysterectomy. Social History She reports that she has never smoked. She has never used smokeless tobacco. She reports that she does not drink alcohol and does not use drugs. Family History Her Family history is unknown by patient. Allergies Cardamom (Elettaria Cardamomum), Naomi, Percocet [Oxycodone-Acetaminophen], Turmeric, Zanaflex [Tizanidine], and Latex Medications Current Outpatient Medications Medication Instructions calcium citrate-vitamin D3 (CITRACAL-D3) 200 mg-6.25 mcg (250 unit) tablet Take by mouth. cholecalciferol (vitamin D3) 50,000 Units, Weekly fluvoxaMINE (LUVOX) 50 mg, Every Night gabapentin (NEURONTIN) 600 mg, Daily HYDROcodone-acetaminophen (NORCO 5-325) 5-325 mg per tablet 1 tablet, Every 6 hours PRN lactobacillus rhamnosus, GG, (CULTURELLE) 10 billion cell capsule 1 capsule, Daily multivitamin per tablet 1 tablet, Daily ondansetron (ZOFRAN) 4 mg, Every 8 hours PRN Review of Systems Review of Systems Constitutional: Negative for activity change and appetite change. HENT: Negative. Eyes: Negative. Respiratory: Positive for cough. Cardiovascular: Positive for leg swelling. Gastrointestinal: Positive for constipation. Genitourinary: Positive for frequency. Musculoskeletal: Positive for arthralgias, back pain and gait problem. Skin: Negative. Neurological: Positive for weakness, numbness and headaches. Hematological: Negative. Psychiatric/Behavioral: Positive for agitation and sleep disturbance. All other systems reviewed and are negative. Last Recorded Vitals Blood pressure 124/67, pulse 64, temperature 98.1 ??F (36.7 ??C), resp. rate 17, height 1.626 m (5'4 ), weight 76.7 kg (169 lb), SpO2 96%. Physical Exam Diagnostic Results No visits with results within 1 Day(s) from this visit. Latest known visit with results is: No results found for any previous visit. CARDIAC CATH - INJECTIONS </PROCEDURE/> Lumbar facet block Under Fluoroscopy </LEVELS/> Lateral L4-5 and L5-S1 </SEDATION/> None </DIAGNOSIS/> Lumbosacral spondylosis. </PROCEDURE SUMMARY/> After explaining the risks and benefits of the procedure, an informed consent was obtained. The patient was transferred to the procedure room and placed in prone position. Prior to beginning the procedure, a timeout was performed. Noninvasive monitors were applied per the procedural room nurse prepped and draped in sterile fashion. Using fluoroscopic guidance, the target areas were visualized. The skin and tissues overly was numbed with mixture of 1% Lidocaine and bicarbonate using a 25 gauge 1.5 needle. A 25-gauge 3.5 inch spinal needle was advanced into the lumbar facet with negative aspiration for blood and/or CSF. 0.25 mL of Contrast was used to highlight the joint and ruled out blood vessels. Then, 0.5 mL of a mixture containing 4 mL of 0.25% bupivacaine and 80 mg of Kenalog into lumbar facet joints, for the levels as listed above. The needle was withdrawn and a dressing was used to cover the injection sites. Upon completion of the procedure, the needle was then withdrawn and the injection site covered with band aid. The patient was transferred to recovery area in stable condition. The patient was monitored per protocol and discharged from the clinic neurologically intact and with Patient was instructed to contact my office with any questions or difficulties. We will see the patient after 2-4 weeks to re-evaluate. Pre and post procedure pain levels are documented in the chart The patient???s vital signs were monitored with noninvasive monitor throughout the procedure and in the recovery area Specimens removed: None Estimated Blood loss : less than 1ml Assessment & Plan Active Problems: There are no active Hospital Problems. CRPS of the left lower extremity Lumbar sympathetic block under fluoroscopy Electronically signed by: Gadiel Anaya MD, 06/24/2024 at 10:17 AM documented in this encounter Procedure Notes * Gadiel Anaya MD - 06/24/2024 9:30 AM EDT Pre Sedation Assessment Allergies reviewed, medications reviewed, drug/alcohol assessment, family history reviewed, patientsummary reviewed, pertinent labs reviewed, problem list reviewed and social history reviewed. No history of anesthetic complications ASA: 2 Mallampati: II Sedation plan: moderate sedation Patient reassessed immediately prior to procedure; continue with plan Gadiel Anaya MD 06/24/2024 10:18 AM documented in this encounter Plan of Treatment Not on file documented as of this encounter Procedures Procedure Name Priority Date/Time Associated Diagnosis Comments CARDIAC CATH - INJECTIONS Routine 06/24/2024 10:39 AM EDT Complex regional pain syndrome i of right lower limb documented in this encounter Results * CARDIAC CATH - INJECTIONS (06/24/2024 10:39 AM EDT) Anatomical Region Laterality Modality Vascular Other Narrative 06/24/2024 10:48 AM EDT </PROCEDURE/> Lumbar sympathetic block Under Fluoroscopy </DIAGNOSIS/> Chronic regional pain syndrome (CRPS) of the lower extremity. </SEDATION/> 2 mg of Versed and 100 mics of fentanyl </PROCEDURE SUMMARY/> After explaining the risks and benefits of the procedure, an informed consent was obtained. The patient was transferred to the procedure room and placed in prone position. Prior to beginning the procedure, a timeout was performed. Noninvasive monitors were applied per the procedural room nurse prepped and draped in sterile fashion. Using fluoroscopic guidance, the L3 vertebral body and transverse process of L3 was identified were anesthetized with 1% lidocaine mixed with bicarbonate using a 27-gauge needle. A 22-gauge 6-inch Chiba needle was introduced to direct fluoroscopic guidance, confirming correct needle placement. Aspiration was negative for blood and/or CSF. 5 mL of Contrast w identify the spread of medication to the anterior border of the L3 vertebra. AP, lateral and oblique views were obtained careful aspiration, 8 mL of 1% lidocaine mixed with bicarbonate, 8 mL of bupivacaine 0.25%, and 10 mg dexamethazone was injected. Upon completion of the procedure, the needle was then withdrawn and the injection site covered with band aid. The patient was transferred to recovery area in stable condition. The patient was monitored per protocol and discharged from the clinic neurologically intact and with Patient was instructed to contact my office with any questions or difficulties. We will see the patient after 2-4 weeks to re-evaluate. Pre and post procedure pain levels are documented in the chart The patient s vital signs were monitored with noninvasive monitor throughout the procedure and in the recovery area Specimens removed: None Estimated Blood loss : less than 1ml us Gadiel Anaya MD CV CARDIAC CATH ORDERABLES Jeana castellano Result documented in this encounter Visit Diagnoses Diagnosis Complex regional pain syndrome i of right lower limb documented in this encounter Administered Medications Inactive Administered Medications - up to 3 most recent administrations Medication Order MAR Action Action Date Dose Rate Site BUPivacaine (PF) (MARCAINE) injection IMG once as needed, other - see admin instructions/comments, Starting on Sun06/24/24 at 1032, For 1 dose, Intra-op Given 06/24/2024 10:32 AM EDT 6 mLs dexAMETHasone (DECADRON) injection IMG once as needed, Starting on Sun06/24/24 at 1032, For 1 dose, Intra-op Given 06/24/2024 10:32 AM EDT 10 mg fentaNYL PF (SUBLIMAZE) injection IMG once as needed, intravenous, Starting on Sun06/24/24 at 1029, For 1 dose, Intra-op Given 06/24/2024 10:29 AM EDT 50 mcg iopamidoL (ISOVUE-M) 300 mg iodine /mL (61 %) intrathecal injection IMG once as needed, Starting on Sun06/24/24 at 1032, For 1 dose, Intra-op Given 06/24/2024 10:32 AM EDT 5 mLs lidocaine (PF) injection 10 mg/mL (1%) IMG once as needed, intradermal, Starting on Sun06/24/24 at 1030, For 1 dose, Intra-op Given 06/24/2024 10:30 AM EDT 20 mLs midazolam (PF) (VERSED) injection IMG once as needed, intravenous, Starting on Sun06/24/24 at 1029, For 1 dose, Intra-op Given 06/24/2024 10:29 AM EDT 2 mg sodium bicarbonate 1 mEq/mL (8.4 %) injection vial IMG once as needed, Starting on Sun06/24/24 at 1031, For 1 dose, Intra-op Given 06/24/2024 10:31 AM EDT 2 mEq documented in this encounter
--- OUTSIDE RECORDS SUMMARY | 2024-07-15 09:01 | XMS_ITS | Encounter Summary ---
Author Organization [employer] ([place], [place], [place], [place]) Address [address] [place] [address] Care Team Providers Care Computer Aided Design Operator Name Role Phone Unavailable Primary Care Provider Unavailabl e Reason for Referral * Other (Routine) - Closed Specialty Diagnoses / Procedures Referred By Contact Referred To Contact Interventional Pain Medicine Diagnoses Sacroiliitis, not elsewhere classified (HCC) Procedures CARDIAC CATH - INJECTIONS Gadiel Anaya MD [address] [place] [address] Phone: tel: fax: [facility]IE[facility] CLERK [address] [place] [address] Phone: tel: Referral ID Status Reason Start Date Expiration Date Visits Re quested Visits Authorized [id number] Closed 07/04/2024 07/04/2025 1 1 Reason for Visit * Other (Routine) - Closed Specialty Diagnoses / Procedures Referred By Contact Referred To Contact Interventional Pain Medicine Diagnoses Sacroiliitis, not elsewhere classified (HCC) Procedures CARDIAC CATH - INJECTIONS Gadiel Anaya MD [address] [place] [address] Phone: tel: fax: [facility] CLERK [address] [place] [address] Phone: tel: Referral ID Status Reason Start Date Expiration Date Visits Re quested Visits Authorized [id number] Closed 07/04/2024 07/04/2025 1 1 Encounter Details Date Type Department Care Team (Latest Contact Info) Description 07/15/2024 9:01 AM EDT - 07/15/2024 11:59 PM EDT Hospital Encounter [facility] Cardiac Catheterization Lab [address] [place] [address] Gadiel Anaya MD [facility] [place] [address] Sacroiliitis, not elsewhere classified (HCC) Discharge Disposition: Home or Self Care Social [...] Date Hemal rded Speak language other than [place] at home Not on file 06/12/2023 Want [...] Sign Reading Time Taken Comments Blood Pressure 101/63 07/15/2024 10:01 AM EDT Pulse 50 07/15/2024 10:01 AM EDT Temperature 36.9 C (98.4 F) 07/15/2024 10:01 AM EDT Respiratory Rate 18 07/15/2024 10:01 AM EDT Oxygen Saturation 96% 07/15/2024 10:01 AM EDT Inhaled Oxygen Concentration - - Weight 76.7 kg (169 lb) 07/15/2024 9:16 AM EDT Height 160 cm (5' 3 ) 07/15/2024 9:16 AM EDT Body Mass Index 29.94 07/15/2024 9:16 AM EDT documented in this encounter Medications at Time of Discharge cholecalciferol (Vitamin D3) 125 mcg (5,000 unit) tablet Take 6,000 Units by mouth daily. fluvoxaMINE (LUVOX) 25 MG tablet Take 2 [...] capsule Take 1 capsule by mouth daily. documented as of this encounter Progress Notes * Grace Bautista RN - 07/15/2024 9:45 AM EDT Patient tolerated her procedure. Vital signs were stable. Discharge instructions given to patient and her family and they verbalized an understanding. Patient was taken to her car via wheelchair. documented in this encounter H&P Notes * Gadiel Anaya MD - 07/15/2024 9:45 AM EDT I reviewed the H&P above, no changes Source Note - Gadiel Anaya MD - 06/24/2024 9:30 AM [...] at 10:17 AM documented in this encounter Plan of Treatment Not on file documented as of this encounter Procedures Procedure Name Priority Date/Time Associated Diagnosis Comments CARDIAC CATH - INJECTIONS Routine 07/15/2024 9:57 AM EDT Sacroiliitis, not elsewhere classified (HCC) documented in this encounter Results * CARDIAC CATH - INJECTIONS (07/15/2024 9:57 AM EDT) Anatomical Region Laterality Modality Vascular Other Narrative 07/15/2024 10:02 AM EDT </PROCEDURE/> Sacroiliac joint injection Under Fluoroscopy </SIDE/> Right side </SEDATION/> None </DIAGNOSIS/> Sacroiliac arthropathy. </PROCEDURE SUMMARY/> After explaining the risks and [...] bicarbonate using a 25 gauge 1.5 needle. Using C-arm fluoroscopic guidance, the most inferior aspect of the SI joint target area was detected. A 25-gauge 3.5G spinal needle was directed towards the inferior aspect of the Sacroiliac joint with the x-ray guidance. After Aspiration was negative for blood and 0.25 mL of Contrast was injected for arthrogram avoiding blood vessels was obtained, then I inject of 1 ml of 5ml of mixture containing 0.25% Bupivacaine and 40 mg of Kenalog. We repeat the procedure in the superior aspect of the SI joint and inject the same amount. Upon completion of the procedure, the needle [...] documented in this encounter Visit Diagnoses Diagnosis Sacroiliitis, not elsewhere classified (HCC) Sacroiliitis, not elsewhere classified documented in this encounter Administered Medications Inactive Administered Medications - up to 3 most recent administrations Medication Order MAR Action Action Date Dose Rate Site BUPivacaine (PF) (MARCAINE) injection IMG once as needed, other - see admin instructions/comments, Starting on Sun07/15/24 at 0954, For 1 dose, Intra-op Given 07/15/2024 9:54 AM EDT 2 mLs diazePAM (VALIUM) tablet 10 mg 10 mg Once, oral, On Sun07/15/24 at 1000, For 1 dose Given 07/15/2024 9:15 AM EDT 10 mg iopamidoL (ISOVUE-M) 300 mg iodine /mL (61 %) intrathecal injection IMG once as needed, Starting on Sun07/15/24 at 0954, For 1 dose, Intra-op Given 07/15/2024 9:54 AM EDT 3 mLs lidocaine (PF) injection 10 mg/mL (1%) IMG once as needed, intradermal, Starting on Sun07/15/24 at 0953, For 1 dose, Intra-op Given 07/15/2024 9:53 AM EDT 8 mLs lidocaine (PF) injection 10 mg/mL (1%) IMG once as needed, intradermal, Starting on Sun07/15/24 at 0954, For 1 dose, Intra-op Given 07/15/2024 9:54 AM EDT 2 mLs sodium bicarbonate 1 mEq/mL (8.4 %) injection vial IMG once as needed, Starting on Sun07/15/24 at 0953, For 1 dose, Intra-op Given 07/15/2024 9:53 AM EDT 2 mEq triamcinolone acetonide suspension (KENALOG-40) 40 mg/mL injection IMG once as needed, Starting on Sun07/15/24 at 0954, For 1 dose, Intra-op Given 07/15/2024 9:54 AM EDT 40 mg documented in this encounter
--- OUTSIDE RECORDS SUMMARY | 2024-07-17 08:00 | XMS_ITS | Encounter Summary ---
Author Organization [facility] Address [address] [id number] Care Team Providers Care International Account Executive Name Role Phone Penny Armstrong APRN Primary Care Provider [phone] Reason for Referral * Imaging (Routine) - Pending Review Specialty Diagnoses / Procedures Referred By Zeus jackson Referred To Contact Gastroenterology Diagnoses Encounter for screening colonoscopy Procedures Colonoscopy Colonoscopy Penny Armstrong APRN [address] [place] [address] Phone: tel: fax: Referral ID Status Reason Start Date Expiration Date Visits Requested Visits Authorized [id number] Pending Review Specialty Services Required 07/17/2024 01/16/2026 1 1 Reason for Visit * Reason Comments Annual Exam Gynecologic Exam [facility] sees [facility] Encounter Details Date Type Department Care Team (Latest Contact Info) Description 07/17/2024 8:00 AM EDT Office Visit [facility] [address] [place] [address] Penny Armstrong APRN [address] [place] [address] Annual physical exam (Primary Dx); Prolactinoma (CMS/HCC); Nontoxic multinodular goiter; Complex regional pain syndrome type 1, affecting unspecified site; Need for hepatitis C screening test; Encounter for screening colonoscopy; Need for Tdap vaccination; Screening for human immunodeficiency virus; Encounter for screening mammogram for breast cancer; Healthcare maintenance Social History Tobacco Use Types Packs/Day Years Used Date Smoking Tobacco: Never Passive Smoke Exposure: Never Smokeless Tobacco: Never Tobacco Cessation:Counseling Given: Not Answered PHQ-2 Answer Date Recorded Patient Health Questionnaire-2 Score 0 07/17/2024 Housing Stability Vital Sign Answer [place] e Recorded In the last 12 months, was t here a time when you were not able to pay the mortgage or rent on time? Patient refused 03/05/19 24 Number of Places Lived in the Last Year Not on f ile 03/05/2023 In the last 12 months, was t here a time when you did not have a steady place to sleep or slept in a half-way (including now)? Patient refused 03/05/2023 PHQ-9 Answer Date Recorded Patient Health Questionnaire-9 Score 0 07/17/2024 Humiliation, Afraid, Rape, and Kick questionnair e Answer Date Recorded Within the last year, have y ou been afraid of your partner or ex-partner? Patient declined 07/17/2024 Within the last year, have y ou been humiliated or emotionally abused in other ways by your partner or ex-partner? Patient declined 07/17/2024 Within the last year, have y ou been kicked, hit, slapped, or otherwise physically hurt by your partner or ex-partner? Patient declined 07/17/2024 Within the last year, have y ou been raped or forced to have any kind of sexual activity by your partner or ex-partner? Patient declined 07/17/2024 Hunger Vital Sign Answer Date Recorded Within the past 12 months, y ou worried that your food would run out before you got the money to buy more. Patient declined Within the past 12 months, t he food you bought just didn't last and you didn't have money to get more. Patient declined 06/2024 PRAPARE - Transportation Answer Date Re corded In the past 12 months, has l ack of transportation kept you from medical appointments or from getting medications? Patient declined 07/17/2024 In the past 12 months, has l ack of transportation kept you from meetings, work, or from getting things needed for daily living? Patient declined 07/17/2024 Housing Stability Vital Sign Answer [place] e Recorded In the last 12 months, was t here a time when you were not able to pay the mortgage or rent on time? Patient declined 07/18/19 Number of Times Moved in the Last Year Not on fi le 07/17/2024 At any time in the past 12 m [facility], were you homeless or living in a half-way (including now)? Patient declined 07/17/2024 Safety and Environment Answer Date Hemal rded Do you worry that your child may have been physically abused? Patient refused 03/05/2023 Do you worry that your child may have been sexually abused? Patient refused 03/05/2023 Are there any guns kept in o r around your home or where your child spends time? Patient refused 03/05/2023 Guns Unloaded or Locked Away Not on file Utilities Answer Date Recorded In the past 12 months has [facility] [employer], gas, oil, or water company threatened to shut off services in your home? Patient declined 07/17/2024 Comments Unknown Sex and Gender Information Value Date Recorded Sex Assigned at Not on file Legal Sex Female 7:55 PM EDT Gender Identity Not on file Sexual Orientation Not on file documented as of this encounter Last Filed Vital Signs Vital Sign Reading Time Taken Comments Blood Pressure 100/70 07/17/2024 8:04 AM EDT Pulse 62 07/17/2024 8:04 AM EDT Temperature 37 C (98.6 F) 07/17/2024 8:04 AM EDT Respiratory Rate 14 07/17/2024 8:04 AM EDT Oxygen Saturation 98% 07/17/2024 8:04 AM EDT Inhaled Oxygen Concentration - - Weight 77.8 kg (171 lb 8.3 oz) 07/17/2024 8:04 A M EDT Height 157.5 cm (5' 2 ) 07/17/2024 8:04 AM EDT Body Mass Index 31.37 07/17/2024 8:04 AM EDT documented in this encounter Functional Status * Over the past 2 weeks, how often have you been bothered by any of the following problems? Question Answer Date of Assessment Author Little interest or pleasure in doing things Not at all 07/17/2024 8:07 AM EDT Caroline Niño Feeling down, depressed, or hopeless Not at all 06/2024 8:07 AM Caroline Lin Patient Health Questionnaire-2 Score 0 0 06/2024 8:07 AM Caroline Lin * Question Answer Date of Assessment Author Trouble falling or staying a sleep, or sleeping too much Not at all 07/17/2024 8:07 AM Caroline Lin Feeling tired or having little energy Not at all 06/2024 8:07 AM Caroline Lin Poor appetite or overeating Not at all 07/17/2024 8: 07 AM Caroline Lin Feeling bad about yourself - or that you are a failure or have let yourself or your family down Not at all 07/17/2024 8:07 AM EDMaria Esther Inman Trouble concentrating on thi ngs, such as reading the newspaper or watching television Not at all 07/17/2024 8:07 AM Caroline Lin Moving or speaking so slowly that other people could have noticed? Or the opposite - being so fidgety or restless that you have been moving around a lot more than usual. Not at all 07/17/2024 8:07 AM Doug Lin Thoughts that you would be b ja off or hurting yourself in some way Not at all 07/17/2024 8:07 AM Caroline Lin Patient Health Questionnaire-9 Score 0 06/2024 8:07 AM Caroline Lin * Calculated C-SSRS Risk Score (Lifetime/Recent) Answer Date of Assessment Author No Risk Indicated 07/17/2024 8:07 AM Doug Lin * If you checked off any problems on this questionnaire so far, Question Answer Date of Assessment Author How difficult have these problems made it for you to do your work, take care of things at home, or get along with other people? Not difficult at all 07/17/2024 8:07 AM Caroline Lin * Question Answer Date of Assessment Author 1. Wish to be (Past 1 Month) No 025 8:07 AM Caroline Lin 2. Non-Specific Active Suici gemma Thoughts (Past 1 Month) No 07/17/2024 8:07 AM EDT Caroline Niño 6. Suicidal Behavior (Lifetime) No 8:07 AM EDT Caroline Niño documented as of this encounter Miscellaneous Notes * Progress Notes - Penny Armstrong, ONCOLOGY REGISTRAR - 07/17/2024 8:00 AM EDT Subjective Dayna Alamo HPI Ms. Alamo is here today for their annual visit. Former patient of Dr Issa. Will now transitioningcare over to myself as PCP. Hx of asthma. Uses albuterol as needed. Hx of CRPS. Follows with pain management. Hx of OCD. Currently taking Fluoxetine. Seeing Dr Aida Anderson. Hx of prolactinoma. Desires to have hormones and prolactin level checked today. Does not wish to have repeat MRI. Also has Hx of nontoxic multinodular goiter. Had formerly followed with Endo for [facility]of these conditions at [facility]. Has not been to see them since 2021. --FH reviewed with patient and updated in chart. --Denies any tobacco, alcohol, or drug use history. --Is s/p hysterectomy in 2019 due to AUB. Still has ovaries. --Reports that she had a Colonoscopy around 2020 at [facility] and had findings of tubular adenoma. It was recommended she follow up with repeat in 3-5 years. Would like to have next at . --Had mammogram completed in 06/2023 which revealed probably benign cyst. Recommended 6 months diagnostic. Pt reports that she was unable to get this scheduled due to insurance coverage. Now that shehas turned 39, is due to have screening mammograms anyway. Would like to get this scheduled. --Last Tdap vaccination: unknown --Is up to date on dental and vision screenings within the past year. Problem List[1] Past Medical History[2] Surgical History[3] Family History[4] Medications Ordered Prior to Encounter[5] Allergies[6] All medications have been reviewed today. The following portions of the patient's chart were reviewed in this encounter and updated as appropriate: past medical history, surgical history, family history, tobacco history, allergies, and medications Over the last 2 weeks, how often have you been bothered by any of the following problems? Little interest or pleasure in doing things: Not at all Feeling down, depressed, or hopeless: Not at all Trouble falling or staying asleep, or sleeping too much: Not at all Feeling tired or having little energy: Not at all Poor appetite or overeating: Not at all Feeling bad about yourself - or that you are a failure or have let yourself or your family down: Not at all Trouble concentrating on things, such as reading the newspaper or watching television: Not at all Moving or speaking so slowly that other people could have noticed? Or the opposite - being so fidgety or restless that you have been moving around a lot more than usual.: Not at all Thoughts that you would be better off or hurting yourself in some way: Not at all Patient Health Questionnaire-9 Score: 0 Review of Systems A 14 point ROS reviewed and is otherwise negative except as per HPI. Objective Vitals: 07/17/24 0804 BP: 100/70 Pulse: 62 Resp: 14 Temp: 37 ??C (98.6 ??F) SpO2: 98% Physical Exam Vitals reviewed. Constitutional: General: She is not in acute distress. Appearance: Normal appearance. Neck: Thyroid: Thyromegaly (thyroid fullness) present. No thyroid mass. Cardiovascular: Rate and Rhythm: Normal rate and regular rhythm. Pulmonary: Effort: Pulmonary effort is normal. Breath sounds: Normal breath sounds. No wheezing, rhonchi or rales. Musculoskeletal: Right lower leg: No edema. Left lower leg: No edema. Neurological: Mental Status: She is alert and oriented to person, place, and time. Psychiatric: Mood and Affect: Mood normal. Behavior: Behavior normal. Thought Content: Thought content normal. Judgment: Judgment normal. Assessment/Plan Diagnoses and all orders for this visit: Annual physical exam Established patient. No acute abnormal findings on physical exam today other than those noted above. Will order routine screening blood work to be completed, will assess results for any abnormalities/deficiencies, and will call patient with results when available. - CBC W/O Differential - Comprehensive Metabolic Panel, Plasma - Hemoglobin A1c - Lipid Profile, Plasma - TSH Reflex FT4 Prolactinoma (CMS/HCC) Reported history. No acute concerns regarding this today. Will update blood work in office today. - Prolactin level - Estradiol - FSH - Luteinizing hormone Nontoxic multinodular goiter Reported history. No acute concerns regarding this today. Will update blood work in office today. - TSH Reflex FT4 - Thyroid Peroxidase Antibody Complex regional pain syndrome type 1, affecting unspecified site Chronic, stable condition. Doing well on current medications managed by specialist. Encounter for screening colonoscopy Discussed benefits of routine screenings. Encouraged patient to consider updating CRC screening. Patient agreeable to plan. Will order for scheduling. - Colonoscopy; Future Need for Tdap vaccination Immunizations reviewed. I personally counseled patient on vaccines recommended for age. Recommendedpatient consider updating Tdap vaccination. Patient does wish to receive in clinic today. Ordered and administered. - Tdap (BoostRIX) 5-2.5-18.5 LF-MCG/0.5 vaccine 0.5 mL Need for hepatitis C screening test Due for a one time screening in low risk patient. Will order along with other routine blood work angelina collected. Will notify patient of results once available. - Hepatitis C Antibody w/Reflex to HCV Quant PCR Screening for human immunodeficiency virus Due for a one time screening in low risk patient. Will order along with other routine blood work angelina collected. Will notify patient of results once available. - HIV 1 & 2 Antibody/Antigen Screen w/Reflex to HIV 1/2 Differentiation Encounter for screening mammogram for breast cancer Discussed benefits of routine screenings. Encouraged patient to consider updating mammography screening. Patient agreeable to plan. Will order for scheduling. - Mammography Breast Screening Tomosynthesis Bilateral; Future Healthcare maintenance Healthcare maintenance discussed with patient. Patient counseled on the following measures: --Nutrition: Stressed importance of moderation in sodium/caffeine intake, saturated fat and cholesterol, caloric balance, sufficient intake of fresh fruits, vegetables, fiber, calcium, and iron. --Discussed the issue of vitamin and supplement use. --Exercise: Stressed the importance of regular exercise. --Substance Abuse: Discussed cessation/primary prevention of tobacco, alcohol, or other drug use; driving or other dangerous activities under the influence; availability of treatment for abuse. --Sexuality: Discussed sexually transmitted diseases, partner selection, use of condoms, avoidance of unintended and contraceptive alternatives. --Injury prevention: Discussed safety belts, safety helmets, and smoke detector use within the household. --Dental health: Discussed importance of regular tooth brushing, flossing, and dental visits. --BMI is above average. The patient received The patient received dietary education because they have an above normal BMI. and The patient received exercise education because they have an above normal BMI. because they have an above normal BMI. Penny Armstrong APRN [1] Patient Active Problem List Diagnosis Chronic insomnia Complex regional pain syndrome I Migraine without aura and without status migrainosus, not intractable Prolactinoma (CMS/HCC) OCD (obsessive compulsive disorder) Situational mixed anxiety and depressive disorder Hirsutism Nontoxic multinodular goiter [2] Past Medical History: Diagnosis Date Peripheral tear of medial meniscus, current injury, left knee, subsequent encounter Peripheral tear of medial meniscus of left knee as current injury, subsequent encounter Personal history of diseases of the blood and blood-forming organs and certain disorders involving the immune mechanism History of Henoch-Schonlein purpura Personal history of other diseases of the respiratory system History of asthma Personal history of other endocrine, nutritional and metabolic disease History of goiter [3] Past Surgical History: Procedure Laterality Date SECTION, LOW TRANSVERSE N/A section from [facility] HYSTERECTOMY N/A Hysterectomy from [facility] TONSILLECTOMY N/A Tonsillectomy from [facility] TUBAL LIGATION N/A Tubal ligation from [facility] [4] Family History Problem Relation Name Age of Onset Stroke Paternal Grandmother COPD Mother Coronary artery disease Maternal Grandfather Coronary artery disease Mother's Sister Hyperlipidemia Maternal Grandmother Hypertension Mother Hypertension Maternal Grandfather Hypertension Maternal Grandmother Hypothyroidism Mother Hypothyroidism Maternal Grandmother Hypothyroidism Mother's Sister [5] Current Outpatient Medications on File Prior to Visit Medication Sig Dispense Refill albuterol (2.5 MG/3ML) 0.083% nebulizer solution Take 3 mL (2.5 mg) by nebulization every 6 (six) hours if needed for wheezing. 75 mL 11 budesonide-formoterol (Symbicort) 80-4.5 MCG/ACT inhaler Inhale 2 puffs 1 (one) time each day. Rinse mouth with water after use to reduce aftertaste and incidence of candidiasis. Do not swallow. 6.9 g 0 Calcium Citrate 1040 MG tablet TAKE 3 TABLET Daily cholecalciferol (Vitamin D-3) 50 MCG (1999 UT) capsule TAKE 3 CAPSULE Daily gabapentin (Neurontin) 300 MG capsule Take 300 mg by mouth 2 (two) times a day. HYDROcodone-acetaminophen ([place]) 5-325 MG tablet polyethylene glycol (Miralax) 17 g packet Take 17 g by mouth twice a day. albuterol (2.5 MG/3ML) 0.083% nebulizer solution INHALE 1 UNIT BY NEBULIZATION ROUTE EVERY 8 HOURS NEEDED (Patient not taking: Reported on 07/17/2024) ascorbic acid (Vitamin C) 250 MG tablet Take 500 mg by mouth 1 (one) time each day. (Patient not taking: Reported on 07/17/2024) Baclofen 5 MG tablet Take 1 tablet (5 mg) by mouth every night. (Patient not taking: Reported on 07/17/2024) gabapentin (Neurontin) 100 MG capsule TAKE TAKE 1 TWICE DAILY (Patient not taking: Reported on 07/17/2024) methocarbamol (Robaxin) 750 MG tablet (Patient not taking: Reported on 07/17/2024) ondansetron ODT (Zofran-ODT) 4 MG disintegrating tablet (Patient not taking: Reported on 07/17/2024) No current facility-administered medications on file prior to visit. [6] Allergies Allergen Reactions Naomi Swelling SWELLING AND BLISTERS Latex Rash RASH Oxycodone-Acetaminophen Other - please document in the comment field shakes Tizanidine Hcl Other - please document in the comment field documented in this encounter Plan of Treatment Scheduled Orders Name Type Priority Associated Diagnoses Orde r Schedule Mammography Breast Screening Tomosynthesis Bilateral Imaging Routine Encounter for screening mammogram for breast cancer Expected: 07/17/2024 (Approximate), Expires: 01/18/2026 Colonoscopy Endoscopy Routine Encounter for screening colonoscopy Expected: 07/17/2024 (Approximate), Expires: 01/16/2026 documented as of this encounter Procedures Procedure Name Priority Date/Time Associated Diagnosis Comments ESTRADIOL, ADULT PREMENOPAUSAL, FEMALE Routine 07/17/2024 2:38 PM EDT Prolactinoma (CMS/HCC) THYROID PEROXIDASE ANTIBODY Routine 07/17/2024 2:14 PM EDT Nontoxic multinodular goiter LUTEINIZING HORMONE, SERUM Routine 07/17/2024 1:59 PM EDT Prolactinoma (CMS/HCC) FOLLICLE STIMULATING HORMONE, SERUM Routine 07/17/2024 1:59 PM EDT Prolactinoma (CMS/HCC) TSH REFLEX FT4 Routine 07/17/2024 1:32 PM EDT Annual physical exam Nontoxic multinodular goiter LIPID PROFILE, PLASMA Routine 07/17/2024 1:32 PM EDT Annual physical exam COMPREHENSIVE METABOLIC PANEL, PLASMA Routine 07/17/2024 1:32 PM EDT Annual physical exam HIV 1/2 ANTIBODY/ANTIGEN SCREEN W/REFLEX TO HIV 1/2 ANTIBODY DIFFERENTIATION Routine 07/17/2024 1:31 PM EDT Screening for human immunodeficiency virus HIV 1/2 ANTIBODY/ANTIGEN SCREEN WITH REFLEX TO HIV I/II DIFFERENTIATION Routine 07/17/2024 1:31 PM EDT Screening for human immunodeficiency virus HEPATITIS C ANTIBODY W/REFLEX TO HCV QUANT PCR Routine 07/17/2024 1:31 PM EDT Need for hepatitis C screening test PROLACTIN, SERUM Routine 07/17/2024 1:25 PM EDT Prolactinoma (CMS/HCC) CBC W/O DIFFERENTIAL Routine 07/17/2024 1:13 PM EDT Annual physical exam HEMOGLOBIN A1C Routine 07/17/2024 8:46 AM EDT Annual physical exam documented in this encounter Results * Estradiol (07/17/2024 2:38 PM EDT) Estradiol 199 pg/mL 07/17/2024 2:3 8 PM EDT [facility] Blood Venous blood specimen / Unknown 07/17/2024 8:47 AM EDT Narrative [facility] - 07/17/2024 2:38 PM EDT Females >17 Y (pg/mL): Follicular Phase 26 -233 Ovulatory Peak Phase 60 - 600 Luteal Phase 30 - 305 Post-Menopausal <138 Penny Ludin Patti ONCOLOGY REGISTRAR LAB BLOOD ORDERABLES Final Result Performing Organization Address [facility]/ZIP Co de Phone Number [facility] [address] [place] [address] * Thyroid Peroxidase Antibody (07/17/2024 2:14 PM EDT) Thyroid Peroxidase Antibody <5 <=8 IU/mL 07/17/2024 2:14 PM EDT [facility] Blood Venous blood specimen / Unknown 07/17/2024 8:47 AM EDT Penny Armstrong ONCOLOGY REGISTRAR LAB BLOOD ORDERABLES Final Result Performing Organization Address [facility] de Phone Number [facility] [address] [place] [address] * Luteinizing hormone (07/17/2024 1:59 PM EDT) Luteinizing Hormone 30 mIU/mL 07/17/2024 1:59 PM EDT [facility] Blood Venous blood specimen / Unknown 07/17/2024 8:47 AM EDT Narrative [facility] - 07/17/2024 1:59 PM EDT Female Reference Ranges: Allan Stage 1: < 9.4 mIU/mL Allan Stage 2: < 16.1 mIU/mL Allan Stage 3: < 23.1 mIU/mL Allan Stage 4-5: < 19.2 mIU/mL Adult Female >17 years: Follicular: 2.4 - 12.6 mIU/mL Midcycle: 14.0 - 95.6 mIU/mL Luteal: 1.0 - 11.5 mIU/mL Postmenopause: 7.7 - 58.5 mIU/mL Penny Armstrong APRN LAB BLOOD ORDERABLES Final Result [facility] [address] [place] [address] * FSH (07/17/2024 1:59 PM EDT) FSH 10.2 mIU/mL 07/17/2024 1:5 9 PM EDT [facility] Blood Venous blood specimen / Unknown 07/17/2024 8:47 AM EDT Narrative [facility] - 07/17/2024 1:59 PM EDT FSH Female Reference Ranges: Allan Stage 1: 0.6 - 8.4 mIU/mL Allan Stage 2: 0.6 - 8.9 mIU/mL Allan Stage 3: 0.5 - 8.9 mIU/mL Allan Stage 4-5: 0.7 - 9.3 mIU/mL Adult Female >17 years: Follicular: 3.5 - 12.5 mIU/mL Midcycle: 4.7 - 21.5 mIU/mL Luteal: 1.7 - 7.7 mIU/mL Postmenopause: 25.8 - 134.8 mIU/mL : low to undetectable Penny Armstrong APRN LAB BLOOD ORDERABLES Final Result [facility] [address] [place] [address] * TSH Reflex FT4 (07/17/2024 1:32 PM EDT) Thyroid Stimulating Hormone, Plasma 1.16 0.40 - 4.20 uIU/mL 07/17/2024 1:32 PM EDT [facility] Blood Venous blood specimen / Unknown 07/17/2024 8:47 AM EDT Narrative [facility] - 07/17/2024 1:32 PM EDT Trimester Specific Ranges TSH ( IU/mL) 1st Trimester 0.1 - 3.0 2nd Trimester 0.19 - 4.06 3rd Trimester 0.3 - 3.7 us Penny Armstrong ONCOLOGY REGISTRAR LAB BLOOD ORDERABLES Final Result [facility] [address] [place] [address] * (ABNORMAL) Lipid Profile, Plasma (07/17/2024 1:32 PM EDT) Cholesterol, Plasma 206(H) <200 mg/dL 07/17/2024 1:32 PM EDT [facility] Comment: Cholesterol Reference Range (age >17 years): Desirable <200 mg/dL Borderline 200 to 239 mg/dL Undesirable >239 mg/dL HDL 62 >=50 mg/dL 07/17/2024 1:32 PM EDT [facility] Comment: HDL Cholesterol Reference Ranges (age >17 years): Female, acceptable > or = 50 mg/dL Male, acceptable > or = 40 mg/dL Triglycerides, Plasma 61 <150 mg/dL 07/17/2024 1:32 PM EDT [facility] Comment: Triglyceride Reference Range (age >17 years): Desirable: <150 mg/dL Borderline high: 150 to 199 mg/dL High: 200 to 499 mg/dL Very high: >499 mg/dL Increased risk of pancreatitis: >1000 mg/dL Cholesterol/HDL Ratio 3 07/17/2024 1:32 PM EDT [facility] LDL, Calculated 133(H) <100 mg/dL 1:32 PM EDT [facility] Comment: LDL Cholesterol Reference Range (age >17 years): Optimal: <100 mg/dL Near or above optimal: 100 - 129 mg/dL Borderline high: 130 - 159 mg/dL High: 160 - 189 mg/dL Very high: >189 mg/dL LDL Cholesterol Reference Range (age <18 years): Desirable: <110 mg/dL Borderline: 110 - 129 mg/dL Undesirable: >130 mg/dL LDL Cholesterol is calculated using the Soto/NIH equation. Fasting greater than or equal to 12 hours? Unknown 07/17/2024 1:32 PM EDT [facility] Blood Venous blood specimen / Unknown 07/17/2024 8:47 AM EDT us Penny Armstrong ONCOLOGY REGISTRAR LAB BLOOD ORDERABLES Final Result [facility] [address] [place] [address] * Comprehensive Metabolic Panel, Plasma (07/17/2024 1:32 PM EDT) Glucose, Plasma 82 74 - 99 mg/dL 07/17/2024 1:32 PM EDT [facility] BUN, Plasma 17 7 - 21 mg/dL 07/17/2024 1:32 PM EDT [facility] Creatinine, Plasma 0.63 0.60 - 1.10 mg/dL 07/17/2024 1:32 PM EDT [facility] BUN/Creatinine Ratio 27 07/17/2024 1:32 PM EDT [facility] Sodium, Plasma 140 136 - 145 mmol/L 07/17/2024 1:32 PM EDT [facility] Potassium, Plasma 3.8 3.6 - 4.9 mmol/L 07/17/2024 1:32 PM EDT [facility] Chloride, Plasma 105 97 - 107 mmol/L 07/17/2024 1:32 PM EDT [facility] CO2, Plasma 25 22 - 29 mmol/L 07/17/2024 1:32 PM EDT [facility] Anion Gap 10 6 - 16 mmol/L 07/17/2024 1:32 PM EDT [facility] Total Calcium, Plasma 9.1 8.9 - 10.2 mg/dL 07/17/2024 1:32 PM EDT [facility] Total Protein 6.8 6.3 - 7.9 g/dL 07/17/2024 1:32 PM EDT [facility] Albumin, Plasma 4.4 3.5 - 5.2 g/dL 07/17/2024 1:32 PM EDT [facility] AST, Plasma 19 10 - 35 U/L 07/17/2024 1:32 PM EDT [facility] ALT, Plasma 12 10 - 35 U/L 07/17/2024 1:32 PM EDT [facility] Alkaline Phosphatase, Plasma 53 35 - 104 U/L 07/17/2024 1:32 PM EDT [facility] Total Bilirubin, Plasma 0.4 0.2 - 1.1 mg/dL 07/17/2024 1:32 PM EDT [facility] eGFRcr 115.2 mL/min/1.7 3m*2 07/17/2024 1:32 PM EDT [facility] Comment:Reported eGFRcr in m L/min/1.73m2 is based the CKD-EPI 2020 equation that does not use a race coefficient. Blood Venous blood specimen / Unknown 07/17/2024 8:47 AM EDT Penny Armstrong APRN LAB BLOOD ORDERABLES Final Result Performing Organization Address City/[facility]/ZIP Co de Phone Number [facility] [address] [place] [address] * HIV 1 & 2 Antibody/Antigen Screen (07/17/2024 1:31 PM EDT) Pathologist [facility] HIV 1 & 2 Antibody/Antigen Screen Non Reactive Non Reactive 07/17/2024 1:31 PM EDT [facility] Comment:Screening for HIV 1 & 2 antibodies, and P24 antigen is NONREACTIVE. No confirmatory testing is required. Blood Venous blood specimen / Unknown 07/17/2024 8:47 AM EDT Penny Armstrong ONCOLOGY REGISTRAR LAB BLOOD ORDERABLES Final Result Performing Organization Address City/[facility]/ZIP Co de Phone Number [facility] [address] [place] [address] * Hepatitis C Antibody w/Reflex to HCV Quant PCR (07/17/2024 1:31 PM EDT) Hepatitis C Antibody Negative Negative 07/17/2024 1:31 PM EDT [facility] Blood Venous blood specimen / Unknown 07/17/2024 8:47 AM EDT Penny Armstrong APRN LAB BLOOD ORDERABLES Final Result Performing Organization Address [facility]/ZIP Co de Phone Number [facility] [address] [place] [address] * Prolactin level (07/17/2024 1:25 PM EDT) Prolactin, Serum 11.9 4.4 - 23.3 ng/mL 07/17/2024 1:25 PM EDT [facility] Blood Venous blood specimen / Unknown 07/17/2024 8:47 AM EDT Narrative [facility] - 07/17/2024 1:25 PM EDT Performed by Alyssa electrochemiluminescent immunoassay which is traceable to the Prolactin 3rd IRP (WHO 84/500). Results obtained with different test methods or kits cannot be used interchangeably. Penny Armstrong APRN LAB BLOOD ORDERABLES Final Result Performing Organization Address [facility] Co de Phone Number [facility] [address] [place] [address] * CBC W/O Differential (07/17/2024 1:13 PM EDT) WBC Count 4.47 3.70 - 10.30 10*3/uL LAB HEMATOLOGY METHOD 07/17/2024 1:13 PM EDT [facility] RBC Count 4.28 3.90 - 5.20 10*6/uL LAB HEMATOLOGY METHOD 07/17/2024 1:13 PM EDT [facility] HGB 12.8 11.2 - 15.7 g/dL LAB HEMATOLOGY METHOD 07/17/2024 1:13 PM EDT [facility] HCT 38.5 34.0 - 45.0 % LAB HEMATOLOGY METHOD 07/17/2024 1:13 PM EDT [facility] Platelet Count 209 155 - 369 10*3/uL LAB HEMATOLOGY METHOD 07/17/2024 1:13 PM EDT [facility] MCV 90 79 - 98 fL LAB HEMATOLOGY METHOD 07/17/2024 1:13 PM EDT [facility] MCH 29.9 26.0 - 32.0 pg LAB HEMATOLOGY METHOD 07/17/2024 1:13 PM EDT [facility] MCHC 33.2 30.7 - 35.5 g/dL LAB HEMATOLOGY METHOD 07/17/2024 1:13 PM EDT [facility] RDW 12.5 11.5 - 14.5 % LAB HEMATOLOGY METHOD 07/17/2024 1:13 PM EDT [facility] MPV 11.9 8.8 - 12.5 fL LAB HEMATOLOGY METHOD 07/17/2024 1:13 PM EDT [facility] nRBC 0.0 <=0.0 per 100 WBCs LAB HEMATOLOGY METHOD 07/17/2024 1:13 PM EDT [facility] Blood Venous blood specimen / Unknown 07/17/2024 8:47 AM EDT us Penny Armstrong APRN LAB BLOOD ORDERABLES Final Result Performing Organization Address City/State/[facility] Co de Phone Number [facility] [address] [place] [address] * Hemoglobin A1c (07/17/2024 8:46 AM EDT) Hemoglobin A1c 4.7 <5.7 % 07/17/2024 2:30 PM EDT [facility] Blood Venous blood specimen / Unknown 07/17/2024 8:46 AM EDT 07/17/2024 8:47 AM EDT Narrative [facility] - 07/17/2024 2:30 PM EDT HA1C Interpretive Data: Diagnosis of Diabetes: Diabetic > or = 6.5% Pre-diabetic 5.7 to 6.4% Non-diabetic < or = 5.6% Glycemic Targets for Type I and Type II Diabetics: Non- Adults <7.0% Adults <6.0% Children and Adolescents <7.5% Source: [place] [employer]. Standards of medical care in diabetes,2017. Diabetes Care.2017:40 (suppl 1):S1-S135. 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) Nontoxic multinodular goiter Complex regional pain syndrome type 1, affecting unspecified site Need for hepatitis C screening test Special screening examination for other specified viral diseases Encounter for screening colonoscopy Need for Tdap vaccination Need for prophylactic vaccination with combined gpntdhlurh-boaabrk-jerioykhv (DTP) vaccine Screening for human immunodeficiency virus Special screening examination for other specified viral diseases Encounter for screening mammogram for breast cancer Healthcare maintenance documented in this encounter Additional Health Concerns Assessment Noted Time PHQ-9 Depression Total Score: 0 07/18/19 25 8:07 AM EDT A fall risk assessment has been complete d for the patient 03/22/2021 12:36 PM EST A Body Mass Index follow-up plan has been documented for the patient 03/05/2023 2:23 PM EST documented as of this encounter Care Teams International Account Executive Relationship Specialty Start Date End Date Penny Armstrong APRN [address] [place] [address] PCP - General Family Medicine 09/24/23 documented as of this encounter
--- OUTSIDE RECORDS SUMMARY | 2024-08-14 11:00 | XMS_ITS | Encounter Summary ---
Author Organization [facility] Address [address] [id number] Care Team Providers Care Checkering Machine Adjuster Name Role Phone Penny Armstrong APRN Primary Care Provider [phone] Reason for Referral * Consultation (Routine) - Authorized Specialty Diagnoses / Procedures Referred By Zeus jackson Referred To Contact General, Endocrine & Minimally Invasive Surgery / General Surgery Diagnoses Generalized abdominal pain Hernia Landon James MD [address] [place] [phone] Phone: tel: fax: Referral ID Status Reason Start Date Expiration Date Visits Requested Visits Authorized [id number] Authorized Specialty Services Required 08/14/2024 02/13/2026 1 1 * Imaging (Routine) - Authorized Specialty Diagnoses / Procedures Referred By Zeus jackson Referred To Contact Diagnoses Generalized abdominal pain Hernia Procedures CT Abdomen Pelvis wo IV Contrast Landon James MD [address] [place] [phone] Phone: tel: fax: Referral ID Status Reason Start Date Expiration Date V isits Requested Visits Authorized [id number] Authorized 08/14/2024 02/13/2026 1 1 Reason for Visit * Reason Comments Hernia Abdomen pain, nausea , dizzy, room spinning, started as little lump, starting to affect bowels, worse when laying down or rolling over, thinks possible hernia Care Gap Closure Postpone Covid vacci ne Encounter Details Date Type Department Care Team (Late st Contact Info) Description 08/14/2024 11:00 AM EDT Office Visit [facility] [address] [place] [phone] Landon James MD [address] [phone] Nausea (Primary Dx); Vertigo; Generalized abdominal pain; Hernia Social History Tobacco Use Types Packs/Day Years Used Date Smoking Tobacco: Never Passive Smoke Exposure: Past Smokeless Tobacco: Never Tobacco Cessation:Counseling Given: Not Answered Alcohol Use Standard Drinks/Week Comments Never 0 (1 standard drink = 0.6 oz pur e alcohol) PHQ-2 Answer Date Recorded Patient Health Questionnaire-2 [...] place to sleep or slept in a care home (including now)? Patient refused 03/05/2023 PHQ-9 Answer [...] your partner or ex-partner? Patient declined 07/17/2024 AUDIT-C Answer Date Recorded Q1: How often do you have a drink containing alcohol? Never 08/14/2024 Q2: How many drinks containi ng alcohol do you have on a typical day when you are drinking? Patient does not drink Q3: How often do you have si x or more drinks on one occasion? Never 08/14/2024 Hunger Vital Sign Answer Date Recorded Within [...] any time in the past 12 m [facility], were you homeless or living in a care home (including now)? Patient declined 07/17/2024 Safety and [...] Recorded In the past 12 months has th e electric, gas, oil, or water company threatened to shut off services in your home? Patient declined 07/17/2024 Comments No Sex and Gender Information Value Date Recorded Sex Assigned at Not on file Legal Sex Female 7:55 PM EDT Gender Identity Not on file Sexual Orientation Not on file documented as of this encounter Last Filed Vital Signs Vital Sign Reading Time Taken Comments Blood Pressure 101/62 08/14/2024 11:17 AM EDT Pulse 74 08/14/2024 11:17 AM EDT Temperature 36.8 C (98.2 F) 08/14/2024 11:17 AM EDT Respiratory Rate 18 08/14/2024 11:17 AM EDT Oxygen Saturation 99% 08/14/2024 11:17 AM EDT Inhaled Oxygen Concentration - - Weight 77.7 kg (171 lb 4.8 oz) 08/14/2024 11:17 AM EDT Height 160 cm (5' 3 ) 08/14/2024 11:17 AM EDT Body Mass Index 30.34 08/14/2024 11:17 AM EDT documented in this encounter Functional Status * AUDIT-C Score Answer Date of Assessment Author 0 08/14/2024 11:20 AM EDT Caitlyn Horne * Question Answer Date of Assessment Author Q1: How often do you have a drink containing alcohol? Never 08/14/2024 11:20 AM EDT Kam Duron Q2: How many drinks containing alcohol do you have on a typical day when you are drinking? Patient does not drink 08/14/2024 11:20 AM EDT Caitlyn Duron Q3: How often do you have six or more drinks on one occasion? Never 08/14/2024 11:20 AM EDT Kam Duron L * Calculated C-SSRS Risk Score (Lifetime/Recent) Answer Date of Assessment Author No Risk Indicated 08/14/2024 11:28 AM EDT Caitlyn Vallejo * Question Answer Date of Assessment Author 1. Wish to be (Past 1 Month) No 08/14/2024 11:28 AM EDT Kam Duron 2. Non-Specific Active Suici gemma Thoughts (Past 1 Month) No 08/14/2024 11:28 AM EDT Caitlyn Duron 6. Suicidal Behavior (Lifetime) No 11:28 AM EDT Caitlyn Duron documented as of this encounter Miscellaneous Notes * Progress Notes - Landon James MD - 08/14/2024 11:00 AM EDT Subjective Patient ID: Dayna Alamo is a 39 y.o. female. Chief Complaint Patient presents with Hernia Abdomen pain, nausea, dizzy, room spinning, started as little lump, starting to affect bowels, worse when laying down or rolling over, thinks possible hernia Care Gap Closure Postpone Covid vaccine HPI Has been having trouble with abdominal pain, nausea, dizziness and from spinning symptoms. First noted a little lump when laying down or rolling over and wonders if they are related. Right lower and upper quadrant abdominal pain, which intensified for past 2 weeks. Lump has been present for months and is growing. It's a supraumbilical hernia that seems to be where a post-op incision from davinci robot procedure in the past, hysterectomy. Has been having vertigo when going from sitting and standing. The following portions of the chart were reviewed this encounter and updated as appropriate: Tobacco Allergies Meds Problems Med Hx Surg Hx Fam Hx Review of Systems Constitutional: Negative for fatigue and fever. Respiratory: Negative for cough and shortness of breath. Cardiovascular: Negative for chest pain. Gastrointestinal: Positive for abdominal pain, constipation and nausea. Negative for diarrhea. Neurological: Negative for headaches. Objective Physical Exam Constitutional: Appearance: Normal appearance. She is not ill-appearing. HENT: Head: Normocephalic and atraumatic. Cardiovascular: Rate and Rhythm: Normal rate and regular rhythm. Heart sounds: Normal heart sounds. No murmur heard. Pulmonary: Effort: Pulmonary effort is normal. No respiratory distress. Breath sounds: Normal breath sounds. No wheezing or rhonchi. Neurological: General: No focal deficit present. Mental Status: She is alert. Mental status is at baseline. Psychiatric: Mood and Affect: Mood normal. Behavior: Behavior normal. Assessment/Plan Assessment & Plan Nausea Vertigo Generalized abdominal pain Hernia Strongly suspect abdominal pain is from hernia. She has a very likely post- surgical hernia above the umbilicus. Will get a CT scan and refer to surgery. Pain is more generalized. Nausea is with vertigo and with abdominal pain. Note to patient: The Century Cures Act makes medical notes like these available to patients inthe interest of transparency. However, be advised this is a medical document. It is intended as peer to peer communication. It is written in medical language and may contain abbreviations or verbiagethat are unfamiliar. It may appear blunt or direct. Medical documents are intended to carry relevant information, facts as evident, and the clinical opinion of the practitioner. documented in this encounter Plan of Treatment Scheduled Orders Name Type Priority Associated Diagnoses Orde r Schedule CT Abdomen Pelvis wo IV Contrast Imaging Routine Generalized abdominal pain Hernia Expected: 08/14/2024 (Approximate), Expires: 02/15/2026 Scheduled Referrals Name Type Priority Associated Diagnoses Order Schedule Ambulatory referral to General Surgery Outpatient Referral Routine Generalized abdominal pain Hernia 1 Occurrences starting 08/14/2024 until 02/15/2026 documented as of this encounter Visit Diagnoses Diagnosis Nausea- Primary Nausea alone Vertigo Dizziness and giddiness Generalized abdominal pain Abdominal pain, generalized Hernia documented in this encounter Additional Health Concerns Assessment Noted Time PHQ-9 Depression Total Score: 0 07/18/19 25 8:07 AM EDT A fall risk assessment has been complete d for the patient 03/22/2021 12:36 PM EST A Body Mass Index follow-up plan has been documented for the patient 08/14/2024 12:00 PM EDT documented as of this encounter Care Teams Checkering Machine Adjuster Relationship Specialty Start Date End Date Penny Armstrong APRN [address] [place] [phone] PCP - General Family Medicine 09/24/23 documented as of this encounter
--- OUTSIDE RECORDS SUMMARY | 2024-08-22 06:56 | XMS_ITS | Encounter Summary ---
Author Organization [facility] ([place], [place], [place], [place]) Address [address] [place] [address] Care Team Providers Care Storm Chaser Name Role Phone Unavailable Primary Care Provider Unavailabl e Encounter Details Date Type Department Care Team (Late st Contact Info) Description 08/25/2019 Transcribed Document [facility] [address] [place] [phone] ProviderLuh MD [address] [place] [id number] Social History Tobacco Use Types Packs/Day Years Used Date Smoking Tobacco: Never Assessed Comments Unknown Sex and Gender Information Value Date Recorded Sex Assigned at Not on file Legal Sex Female 5:38 PM CDT Gender Identity Not on file Sexual Orientation Not on file documented as of this encounter Miscellaneous Notes * Cerner Conversion Note - Historical ProviderMD - 08/25/2019 1:03 PM CDT DATE OF ADMISSION: 08/25/2019 HISTORY OF PRESENT ILLNESS: This is a 34-year-old female with a chief complaint of chronic left lower extremity pain for several years' duration, who is seen today for a followup visit. The patient is following up after we did a lumbar sympathetic block for her on July 09, 2019. She denies any complications from the procedure and reports she is getting ongoing relief of about 75%. The patient says that she has been able to increase her activity level and she is pleased with that. She says that after the flare up of knee pain that she had after an accident that she needed to repeat the lumbar sympathetic block. However, she says she normally does well with having that done once yearly. The patient says that she does continue, however, to have some moderate pain in the left lower extremity. She says that she is currently taking gabapentin for that and would like to have a refill of that today. She does say that she has to use a cane to help with mobility. She reports her pain is a burning sensation. She says that she does try to keep the lower extremity active in addition to doing injections here at the clinic and taking her gabapentin to help with the pain. She says that Dr. Anaya did start her on 100 mg during the day that seems to be helping with some neuropathic pain that she was having in the upper extremities. The patient says that the gabapentin 300 mg that she is taking 2 tablets at bedtime is helping her with the complex regional pain syndrome, discomfort that she is having in the left lower extremity. She reports that she is tolerating the medication well and she denies any adverse effects including toxic effect, sedation, driving problems, or GI problems. REVIEW OF SYSTEMS: The patient says she currently on antibiotics for sinus infection. Otherwise, constitutional, respiratory, cardiovascular, ophthalmology, gastrointestinal, genitourinary, ENT, musculoskeletal, integumentary, neurology, psychiatry, endocrine, hematology were not changed from her last visit on July 09, 2019. PHYSICAL EXAMINATION: VITAL SIGNS: Blood pressure 107/61, weight 141, height 63 inches, heart rate 65, respiratory rate 16, O2 saturation 100%, temperature 97.5. Pain level 6, hours of sleep 5 to 6. No change in physical and neurological exam. Muscle tone, power, sensory, and deep tendon reflexes were unchanged. The nurse's notes, vital signs, and medication were reviewed and evaluated. No sign of impairment or toxicity to medicine. The patient psych evaluation, urine drug screen, and TY were appropriate for taking opioid medication. ASSESSMENT: 1. Chronic left lower extremity pain consistent with complex regional pain syndrome type 1. 2. Status post crush injury 2008 of the left lower extremity. 3. Osteoarthritis of the bilateral knees. 4. Long-term use of high-risk medication on gabapentin. PLAN: 1. The patient has been fairly well controlled on current medication. The patient has a good compliance with pain clinic regulation in regard to urine drug screen, TY, psych evaluation. We spent more than half of the time discussing the risks, benefits of the medication, how to keep it in a safe place, not to share with other people, not to mix with alcohol, or self-escalate it. 2. I am pleased that the patient was able to get significant ongoing relief from the lumbar sympathetic block that we did for her on July 08. She has been able to increase her activity level and she is very pleased with results. We are going to continue to repeat those as needed. 3. We are going to continue the patient's gabapentin 100 mg in the morning and 600 mg at night. The patient was unable to tolerate any higher dose of that, so the dose is tolerable for her. She says it is giving her some help and relief, so we are going to continue that for now. 4. We are going to see the patient back in 3 months to re-evaluate. 5. The patient has been screened for symptoms or risk factors related to COVID-19 both prior to arrival for the visit and upon arrival at the clinic for the visit today. No risk factors or symptoms are identified at today's visit and the patient has been afebrile. 6. The assessment and plan for today's visit have been reviewed by Dr. Anaya, however, I have prescribed the medications for this patient's treatment plan today. /[id number] Suzan Maharaj APRN HUMBERTO/AQ / HUMBERTO / MODL CC: Anthony Pritchett MD Electronically signed by Yesy, [facility] Conversion Student Activities Director Lucas at 06/01/2022 10:34 AM CDT documented in this encounter Plan of Treatment Not on file documented as of this encounter Visit Diagnoses Not on filedocumented in this encounter
--- OUTSIDE RECORDS SUMMARY | 2024-08-22 06:56 | XMS_ITS | Encounter Summary ---
Author Organization [facility] ([place], [place], [place], [place]) Address [address] [place] [address] Care Team Providers Care Business Line Controller Name Role Phone Unavailable Primary Care Provider Unavailabl e Encounter Details Date Type Department Care Team (Late st Contact Info) Description 01/22/2020 Transcribed Document [facility] [place] Medicine [address] [place] [address] ProviderLuh MD [address] [place] [address] [id number] Social History Tobacco Use Types Packs/Day Years Used Date Smoking Tobacco: Never Assessed Comments Unknown Sex and Gender Information Value Date Recorded Sex Assigned at Not on file Legal Sex Female 5:38 PM CDT Gender Identity Not on file Sexual Orientation Not on file documented as of this encounter Miscellaneous Notes * Cerner Conversion Note - Historical ProviderMD - 01/22/2020 9:09 AM SCHOOL OFFICE MANAGER DATE OF ADMISSION: 01/21/2020 HISTORY OF PRESENT ILLNESS: This is a 34-year-old female with a chief complaint of chronic left lower extremity pain secondary to complex regional pain syndrome. The patient is status post crush injury in 2008 to the lower extremities. The patient had good response to multiple lumbar sympathetic blocks. She is now stabilized on her gabapentin. She is taking 300 mg take 2 of them at night and 100 mg in the morning. The patient is able to accomplish so many things at home and outside the house and following all the rule and regulation with regard to using controlled medicine in our clinic. She denied any major side effects to her medication which include toxic effects, sedation, driving problem, or GI problem. REVIEW OF SYSTEMS: Constitutional, respiratory, cardiovascular, ophthalmology, gastrointestinal, genitourinary, ENT, musculoskeletal, integumentary, neurology, psychiatry, endocrine, hematology were not changed from her last visit on December 15, 2019. PHYSICAL EXAMINATION: VITAL SIGNS: Blood pressure is 94/57, heart rate is 66, respirations 16, saturation 98%, temperature 97.8. Pain level 6. Hours of sleep 7. No change in physical and neurological exam. Muscle tone, power, sensory, and deep tendon reflexes were unchanged. The nurse's notes, vital signs, and medication were reviewed and evaluated. No sign of impairment or toxicity to medicine. The patient psych evaluation, urine drug screen, and TY were appropriate for taking opioid medication. ASSESSMENT: 1. Chronic left lower extremity pain secondary to complex regional pain syndrome type 1 in the left lower extremity. 2. The patient is status post a crush injury in 2008 to the left lower extremity. 3. Osteoarthritis, bilateral knee. 4. Long-term use of gabapentin. PLAN: 1. We are going to continue with gabapentin 100 mg take in the morning and 300 mg take 2 tablets at night. 2. Encouraged the patient to continue exercise to improve the range of movement of the lower extremities. 3. The patient is taking Robaxin 500 mg twice a day as needed. 4. Compound cream apply 3-4 times a day. 5. The patient has been fairly well controlled [...] to mix with alcohol, or self-escalate it. 6. I am going to give the patient refill for 2 months and then I will re-evaluate the patient after that. The patient has been screened for symptoms or risk factors related to COVID-19 both prior to arrival for the visit and upon arrival at the clinic for the visit today. No risk factors or symptoms are identified at today's visit and the patient has been afebrile. /[id number] Gadiel Anaya MD, JULIO C Pain Certified KR/AQ / KR / MODL CC: MD Joana Fountain Electronically signed by [facility], [facility] Conversion Maintenance Supervisor 2Nd Shift Cerner at 06/01/2022 10:30 AM CDT documented in this encounter Plan of Treatment Not on file documented as of this encounter Visit Diagnoses Not on filedocumented in this encounter
--- OUTSIDE RECORDS SUMMARY | 2024-08-22 06:56 | XMS_ITS | Patient Health Record ---
Author Organization [facility] Address [address] [facility] [address] [place] [address] Care Team Providers Care Grade And Center Marker Name Role Phone Rosalia Ovalle Unavailable [phone] Allergies Allergen (clinical drug ingredient) Drug/Non Drug Allergy documented on EMR Reaction Allergy Type Onset Date Status LATEX EXAM GLOVES (DISPOSABLE GLOVES) Unspecified Drug Allergy 03/20/2018 Active Reason For Referral No Information Medications Medication SIG (Take, Route, Frequency, Duration) Notes Start Date End Date Status Gabapentin 300 MG Capsule TAKE 1 CAPSULE BY MOUTH TWICE DAILY Oral; Duration: 30 Days Active HYDROcodone-Acetaminophen 5-325 MG Tablet TAKE 1 TABLET BY MOUTH DAILY NEEDED Oral; Duration: 30 Days Active Albuterol Sulfate (2.5 MG/3ML) 0.083% Nebulization Solution Inhalation; Duration: 6 Days Active Promethazine-DM 6.25-15 MG/5ML Syrup Oral; Duration: 12 Days Acti ve Social History Tobacco Use: Social History Observation Description Date Details (start date - stop date) Never Smoker NA - NA Social History Tobacco Use: Social Info Question Answer Notes Tobacco Control (Standard) Tobacco use: Nonsmoker Problems Problem Type SNOMED Code ICD Code Onset Dates Problem Status W/U Status Risk Notes Problem Noninflammatory disorder of the vagina (47169223) Bloody vaginal discharge (N89.8) 020 Active confirmed Vaginal discharge Problem Noninflammatory disorder of the vagina (52826883) Bloody vaginal discharge (N89.8) 020 Active confirmed Vaginal irritation Problem Gynecological examination abnormal (226468733731164) *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 exam with abnormal finding (Code also - abnormal finding(s) (Z01.411) 021 Active confirmed Annual with abnormal findings Problem Disorder of breast (42443367) Abnormal breast bud (N64.89) Active confirmed Skin disorder of breast Problem Gynecological examination normal (337274931339363) Cervical smear, as part of routine gynecological examination (Z01.419) Active confirmed Annual without abnormal findings Plan Of Treatment No Information Insurance Providers Payer Name Payer Address Payer Phone Subscriber Number Group Number Insured Name Patient Relationship to Insured Coverage Start Date Coverage End Date [employer] PPO [address] [place] [address] [id number] Dayna [place] Self - patient is the insured Medical (General) History Medical History History ICD Code anxiety chronic pelvic pain endometriosis fibroids obesity PCOS UTI yeast infection Tubular adenoma on colonoscopy Surgical History Surgery Date(Month/Year) 06-13-18 TRAVH BS BTL C/S tonsillectomy
--- OUTSIDE RECORDS SUMMARY | 2024-08-22 06:56 | XMS_ITS | Encounter Summary ---
Author Organization [facility] ([place], [place], [place], [place]) Address [address] [place] [address] Care Team Providers Care Spray Dyer Name Role Phone Unavailable Primary Care Provider Unavailabl e Encounter Details Date Type Department Care Team (Late st Contact Info) Description 07/09/2019 Transcribed Document [facility] [place] Family Medicine [address] [place] [address] ProviderLuh MD [address] [place] [address] [id number] Social History Tobacco Use Types Packs/Day Years Used Date Smoking Tobacco: Never Assessed Comments Unknown Sex and Gender Information Value Date Recorded Sex Assigned at Not on file Legal Sex Female 5:38 PM CDT Gender Identity Not on file Sexual Orientation Not on file documented as of this encounter Miscellaneous Notes * Cerner Conversion Note - Luh Oliveros MD - 07/09/2019 12:05 PM CDT DATE OF PROCEDURE: 07/09/2019 SURGEON: Gadiel Anaya MD, JULIO C Pain Certified PROCEDURE: Lumbar sympathetic block. DIAGNOSIS: Chronic regional pain syndrome (CRPS) of the lower extremity. SEDATION: 10/325 mg of Percocet and 10 mg of diazepam orally. PREPROCEDURE PAIN LEVEL: 8/10. POSTPROCEDURE PAIN LEVEL: 5/10. PROCEDURE SUMMARY: After discussing with the risks and benefits of the procedure, an informed consent was obtained. The patient was taken to the procedure room and placed prone on the procedure room table. Noninvasive monitors were applied by the procedural room nurse and monitored per standard protocol. Prior to the start of the procedure, a time-out was performed. The lumbar area was prepped and draped in sterile fashion. Using C-arm fluoroscopic guidance, the L2 vertebra was identified. The skin and tissues overlying the target area were anesthetized with 1% lidocaine mixed with bicarbonate and a 27-gauge needle. After negative aspiration, a 22-gauge 6-inch Chiba needle was introduced to the anterior side of the L2 vertebra bilaterally. 5 mL of Isovue was injected to verify needle placement. A spread of was visualized at the anterior border of the L2 vertebra and down to the L3 vertebra. AP, lateral and oblique views were obtained. After negative aspiration, 20 mL of a mixture containing 8 mL of 1% lidocaine mixed with bicarbonate, 8 mL of bupivacaine 0.5%, and 80 mg of Depo-Medrol were injected. Upon completion of the procedure, the needle was withdrawn and the procedural site covered with a dressing. The patient tolerated the procedure well and without incident. Upon completion of the procedure, the patient was transferred to recovery in stable condition. The patient was monitored per protocol and discharged from the clinic neurologically intact and with appropriate discharge instructions. The patient has been instructed to contact my office with any questions or difficulties. Pre and post procedure pain levels are documented in the chart. Total fluoroscopy time is 1 minute and 38 seconds. PLAN: We are going to continue with the same plan. 1. Hydrocodone 5/325 1-2 a day. 2. Gabapentin 100 mg take 1 in the morning and 1 at noon. 3. Continue with the compound cream. 4. I am going to see the patient after 1 month to re-evaluate her. We screened the patient for any signs and symptoms related to COVID-19 before we brought the patient to the clinic. /[id number] Gadiel Anaya MD, JULIO C Pain Certified ELAINE/JOE / KR / MODL /[id number] Electronically signed by Yesy, [facility] Conversion Box Covering Machine Operator Cerner at 06/01/2022 10:28 AM CDT documented in this encounter Plan of Treatment Not on file documented as of this encounter Visit Diagnoses Not on filedocumented in this encounter
--- OUTSIDE RECORDS SUMMARY | 2024-08-22 06:56 | XMS_ITS | Data Portability ---
Author Organization [facility] MONTICELLO CLOSED Address [address] [place] [address] Care Team Providers Care Shipping Support Name Role Phone GRACEDONYA NOVAK Pain Management JINA HEARN Primary Care Provider [phone] Assessment Encounter Date Assessment Date Assessment LastModified by Organization Details LastModified Time 09/28/2023 09/28/2023 Note to patient: The Cures Act makes medical notes like these available to patients in the interest of transparency. However, be advised this is a medical document. It is intended as peer to peer communication. It is written in medical language and may contain abbreviations or verbiage that are unfamiliar. It may appear blunt or direct. Medical documents are intended to carry relevant information, facts as evident, and the clinical opinion of the practitioner. [email or web address] Not available 09/27/2023 08:40:02 10/29/2023 10/29/2023 Note to patient: The Cures Act makes medical notes like these available to patients in the interest of transparency. However, be advised this is a medical document. It is intended as peer to peer communication. It is written in medical language and may contain abbreviations or verbiage that are unfamiliar. It may appear blunt or direct. Medical documents are intended to carry relevant information, facts as evident, and the clinical opinion of the practitioner. [email or web address] Not available 10/26/2023 07:57:11 Plan of Treatment Reminders Order Date Submit Date Provider Last Modified By Organization Details Last Modified Time Details Appointments None recorded. Lab TSH, serum, reflex free T4 2023 024 [facility], [address] [place] [address], [id number], 4 19:13:49 vitamin D, 25-hydroxy, total, serum 2023 024 [facility], [address] [place] [address], [address], 4 19:22:24 lipid panel, serum 2023 024 [facility], [address] [place] [address], [address], 4 19:20:33 CBC w/ auto diff 2023 024 [facility], [address] [place] [address], [address], 4 20:18:17 CMP, serum or plasma 2023 024 [facility], [address] [place] [address], [address], 4 19:20:30 glycohemogl obin, total, blood 2023 024 [facility], [address] [place] [address], [address], 4 19:03:00 iron + total iron-bindin g capacity (TIBC), serum 2023 024 [facility], [address] [place] [address], [address], 4 19:20:29 ferritin, serum or plasma 2023 024 [facility], [address] [place] [address], [address], 4 19:20:32 vitamin B12 + folate, serum or blood 2023 024 [facility], [address] [place], [address], 19:22:26 Referral None recorded. Procedures holter monitor placement (PROC) 2023 [email or web address] Not available 11:17:49 Surgeries None recorded. Imaging None recorded. Medication Orders duloxetine 30 mg capsule,del ayed release 2023 [facility], [address] [place] [address], [address], 11:31:00 Patient TargetsNo targets recorded. Patient Instructions Encounter Date Encounter Id Patient Instructions Last Modified By Organization Details Last Modified Time 09/28/2023 [id number] Body Mass Index: Care Instructions- Not available 09/28/2023 10:18:06 Reason for Referral None Reported. Results Created Date Observation Date Name Description Value Unit Range Abnormal Flag Note LastModifiedBy Organization Detail LastModifiedTime 09/28/1909/28/2023 GLYCO HEMOG LOBIN A1C glyco HGB A1C 4.6 % 0.0-5. 6 normal Not Available [facility] [address] [place] [address], [id number], 09/28/2023 19:03:00 09/28/19 24 09/28/2023 GLYCO HEMOG LOBIN A1C estimated avg. glucose 85 mg/dL _(fiordaliza c) normal A1c value s betwe en 5.7% to 6.4% indic ate predi abete s. Resul ts 6.5% or great er is diagn ostic of diabe gregory. Ameri can [employer]abe gregory [employer] iatio n (diab etes. org) Not Available [facility] [address] [place] [address], [address], 09/28/2023 19:03:00 09/28/19 24 09/28/2023 TSH WITH REFLE X FT4 TSH with reflex FT4 0.850 u[IU] /mL 0.270- 4.200 normal Not Available [facility] [address] [place] [address], [address], 09/28/2023 19:13:48 09/28/19 24 09/28/2023 IRON PANEL -TOTA L AND TIBC iron 78 ug/dL 37-145 normal Not Available [facility] [address] [place] [address], [address], 09/28/2023 19:20:29 09/28/19 24 09/28/2023 IRON PANEL -TOTA L AND TIBC total iron binding cap. 264 ug/dL _(fiordaliza c) 250-45 0 normal Not Available [facility] [address] [place] [address], [address], 09/28/2023 19:20:29 09/28/19 24 09/28/2023 IRON PANEL -TOTA L AND TIBC unsat.iron binding cap. 186 ug/dL 112-34 7 normal Not Available [facility] [address] [place] [address], [address], 09/28/2023 19:20:29 09/28/19 24 09/28/2023 IRON PANEL -TOTA L AND TIBC % saturation 30 %_(ca lc) 15-50 normal Not Available [facility] [address] [place] [address], [address], 09/28/2023 19:20:29 09/28/19 24 09/28/2023 COMP. METAB OLIC PANEL glucose 87 mg/dL 74-100 normal Not Available [facility] [address] [place] [address], [address], 09/28/2023 19:20:30 09/28/19 24 09/28/2023 COMP. METAB OLIC PANEL blood urea nitrogen 13 mg/dL 6-20 normal Not Available [facility] [address] [place] [address], [address], 09/28/2023 19:20:30 09/28/19 24 09/28/2023 COMP. METAB OLIC PANEL creatinine 0.70 mg/dL 0.50-0 .95 normal Not Available [facility] [address] [place] [address], [address], 09/28/2023 19:20:30 09/28/19 24 09/28/2023 COMP. METAB OLIC PANEL BUN/creatini ne ratio 19 (calc ) 10-20 normal Not Available [facility] [address] [place] [address], [address], 09/28/2023 19:20:30 09/28/19 24 09/28/2023 COMP. METAB OLIC PANEL sodium 140 mmol/ L 136-14 5 normal Not Available [facility] [address] [place] [address], [address], 09/28/2023 19:20:30 09/28/19 24 09/28/2023 COMP. METAB OLIC PANEL potassium 4.2 mmol/ L 3.4-5. 0 normal Not Available [facility] [address] [place] [address], [address], 09/28/2023 19:20:30 09/28/19 24 09/28/2023 COMP. METAB OLIC PANEL chloride 105 mmol/ L 98-107 normal Not Available [facility] [address] [place] [address], [address], 09/28/2023 19:20:30 09/28/19 24 09/28/2023 COMP. METAB OLIC PANEL carbon dioxide 25 mmol/ L 22-31 normal Not Available [facility] [address] [place] [address], [address], 09/28/2023 19:20:30 09/28/19 24 09/28/2023 COMP. METAB OLIC PANEL anion gap 10 (calc ) 7-25 normal Not Available [facility] [address] [place] [address], [address], 09/28/2023 19:20:30 09/28/19 24 09/28/2023 COMP. METAB OLIC PANEL calcium 9.3 mg/dL 8.6-10 .2 normal Not Available [facility] [address] [place] [address], [address], 09/28/2023 19:20:30 09/28/19 24 09/28/2023 COMP. METAB OLIC PANEL total protein 7.2 g/dL 6.4-8. 3 normal Not Available [facility] [address] [place] [address], [address], 09/28/2023 19:20:30 09/28/19 24 09/28/2023 COMP. METAB OLIC PANEL albumin 4.3 g/dL 3.5-5. 2 normal Not Available [facility] [address] [place] [address], [address], 09/28/2023 19:20:30 09/28/19 24 09/28/2023 COMP. METAB OLIC PANEL globulin 2.9 1.5-4. 5 normal Not Available [facility] [address] [place] [address], [address], 09/28/2023 19:20:30 09/28/19 24 09/28/2023 COMP. METAB OLIC PANEL albumin/glob ulin ratio 1.5 (calc ) 1.1-2. 5 normal Not Available [facility] [address] [place] [address], [address], 09/28/2023 19:20:30 09/28/19 24 09/28/2023 COMP. METAB OLIC PANEL bilirubin, total 0.5 mg/dL 0.1-1. 2 normal Not Available [facility] [address] [place] [address], [address], 09/28/2023 19:20:30 09/28/19 24 09/28/2023 COMP. METAB OLIC PANEL alkaline phosphatase 52 U/L 30-121 normal Not Available [facility] [address] [place] [address], [address], 09/28/2023 19:20:30 09/28/19 24 09/28/2023 COMP. METAB OLIC PANEL AST 25 U/L 0-32 normal Not Available [facility] [address] [place], [address], 09/28/2023 19:20:30 09/28/19 24 09/28/2023 COMP. METAB OLIC PANEL ALT 14 U/L 0-33 normal Not Available [facility] [address] [place], [address], 09/28/2023 19:20:30 09/28/19 24 09/28/2023 COMP. METAB OLIC PANEL GFR 112 >= 60 normal NOT E New calcu latio n for GFR (CKD- EPI 2020) is formu lated witho ut race adjus tment facto rs at the recom menda tion of the Janet Bautista y Analia lynch and Zach Cornejo ty of Nephr ology . This calcu latio n has not been valid ated in pregn ant women . For pedia tric patie nts refer to https ://candace vargas.romana kaba/kilo harris s/MARLYN QI/gf r_cal culat orPed Not Available [facility] [address] [place] [address], [address], 09/28/2023 19:20:30 09/28/19 24 09/28/2023 FELA TIN ferritin 36 NG/mL 13-157 normal Not Available [facility] [address] [place], [address], 09/28/2023 19:20:32 09/28/19 24 09/28/2023 LIPID PROFI LE HDL cholesterol 55 mg/dL 50-242 normal Not Available [facility] [address] [place], [address], 09/28/2023 19:20:33 09/28/19 24 09/28/2023 LIPID PROFI LE triglyceride s 57 mg/dL 0-149 normal TRIGL YCERI DE RANGE S NOAH L: < 150 BORDE RLINE HIGH: 150 - 199 HIGH: 200 - 499 VERY HIGH: > OR = 500 Not Available [facility] [address] [place] [address], [address], 09/28/2023 19:20:33 09/28/19 24 09/28/2023 LIPID PROFI LE cholesterol 164 mg/dL 0-199 normal ABDIRAHMAN STERO L (TOTA L) RANGE S PURNIMA ABLE: < 200 BORDE RLINE : 200 - 239 HIGHE R RISK: > 239 Not Available [facility] [address] [place] [address], [address], 09/28/2023 19:20:33 09/28/19 24 09/28/2023 LIPID PROFI LE LDL cholesterol 98 mg/dL _(fiordaliza c) 0-99 normal LDL ABDIRAHMAN STERO L RANGE S OPTIM AL: < 100 NEAR/ ABOVE OPTIM AL: 100 - 129 BORDE RLINE HIGH: 130 - 159 HIGH: 160 - 189 VERY HIGH: > OR = 190 Not Available [facility] [address] [place] [address], [address], 09/28/2023 19:20:33 09/28/19 24 09/28/2023 VITAM IN D 25-OH vitamin D 25-oh, total 51 NG/mL >=30 NG/mL normal Not Available [facility] [address] [place] [address], [address], 09/28/2023 19:22:24 09/28/19 24 09/28/2023 B12/F OLIC ACID PANEL folic acid 18.6 NG/mL 4.6-34 .8 normal Not Available [facility] [address] [place] [address], [address], 09/28/2023 19:22:26 09/28/19 24 09/28/2023 B12/F OLIC ACID PANEL vitamin B12 523 pg/mL 232-12 45 normal Not Available [facility] [address] [place] [address], [address], 09/28/2023 19:22:26 09/28/19 24 09/28/2023 COMPL ETE BLOOD COUNT white blood cells 3.5 10*3/ uL 3.8-10 .8 low Not Available [facility] [address] [place] [address], [address], 09/28/2023 20:18:17 09/28/19 24 09/28/2023 COMPL ETE BLOOD COUNT red blood cells 4.38 10*6/ uL 3.80-5 .20 normal Not Available [facility] [address] [place] [address], [address], 09/28/2023 20:18:17 09/28/19 24 09/28/2023 COMPL ETE BLOOD COUNT hemoglobin 13.3 g/dL 12.0-1 6.0 normal Not Available [facility] [address] [place] [address], [address], 09/28/2023 20:18:17 09/28/19 24 09/28/2023 COMPL ETE BLOOD COUNT hematocrit 38.0 % 35.0-4 7.0 normal Not Available [facility] [address] [place] [address], [address], 09/28/2023 20:18:17 09/28/19 24 09/28/2023 COMPL ETE BLOOD COUNT MCV 87 fL 80-100 normal Not Available [facility] [address] [place] [address], [address], 09/28/2023 20:18:17 09/28/19 24 09/28/2023 COMPL ETE BLOOD COUNT MCH 31 pg 26-35 normal Not Available [facility] [address] [place] [address], [address], 09/28/2023 20:18:17 09/28/19 24 09/28/2023 COMPL ETE BLOOD COUNT MCHC 35 g/dL 32-36 normal Not Available [facility] [address] [place] [address], [address], 09/28/2023 20:18:17 09/28/19 24 09/28/2023 COMPL ETE BLOOD COUNT RDW 12.9 % 11.0-1 5.0 normal Not Available [facility] [address] [place] [address], [address], 09/28/2023 20:18:17 09/28/19 24 09/28/2023 COMPL ETE BLOOD COUNT MPV 11.1 fL 6.2-10 .5 high Not Available [facility] [address] [place] [address], [address], 09/28/2023 20:18:17 09/28/19 24 09/28/2023 COMPL ETE BLOOD COUNT platelet count 189 10*3/ uL 150-40 0 normal Not Available [facility] [address] [place] [address], [address], 09/28/2023 20:18:17 09/28/19 24 09/28/2023 COMPL ETE BLOOD COUNT neutrophil,a bsolute 2.1 10*3/ uL 1.6-8. 4 normal Not Available [facility] [address] [place] [address], [address], 09/28/2023 20:18:17 09/28/19 24 09/28/2023 COMPL ETE BLOOD COUNT lymphocyte,a bsolute 1.1 10*3/ uL 0.4-5. 1 normal Not Available [facility] [address] [place] [address], [address], 09/28/2023 20:18:17 09/28/19 24 09/28/2023 COMPL ETE BLOOD COUNT monocyte,abs olute 0.2 10*3/ uL 0.0-1. 2 normal Not Available [facility] [address] [place] [address], [address], 09/28/2023 20:18:17 09/28/19 24 09/28/2023 COMPL ETE BLOOD COUNT eosinophil,a bsolute 0.1 10*3/ uL 0.0-0. 8 normal Not Available [facility] [address] [place] [address], [address], 09/28/2023 20:18:17 09/28/19 24 09/28/2023 COMPL ETE BLOOD COUNT basophil,abs olute 0.0 10*3/ uL 0.0-0. 3 normal Not Available [facility] [address] [place] [address], [address], 09/28/2023 20:18:17 09/28/19 24 09/28/2023 COMPL ETE BLOOD COUNT % neutrophils 59.6 % 42.0-7 8.0 normal Not Available [facility] [address] [place] [address], [address], 09/28/2023 20:18:17 09/28/19 24 09/28/2023 COMPL ETE BLOOD COUNT % lymphocytes 31.3 % 11.0-4 7.0 normal Not Available [facility] [address] [place] [address], [address], 09/28/2023 20:18:17 09/28/19 24 09/28/2023 COMPL ETE BLOOD COUNT % monocytes 6.4 % 0.0-11 .0 normal Not Available [facility] [address] [place] [address], [address], 09/28/2023 20:18:17 09/28/19 24 09/28/2023 COMPL ETE BLOOD COUNT % eosinophils 1.8 % 0.0-7. 0 normal Not Available [facility] [address] [place] [address], [address], 09/28/2023 20:18:17 09/28/19 24 09/28/2023 COMPL ETE BLOOD COUNT % basophils 0.9 % 0.0-3. 0 normal Not Available [facility] [address] [place] [address], [address], 09/28/2023 20:18:17 09/28/19 24 09/28/2023 COMPL ETE BLOOD COUNT nucleated red cells 0.0 % 0.0-0. 9 normal Not Available [facility] [address] [place], [address], 09/28/2023 20:18:17 09/28/19 24 09/28/2023 COMPL ETE BLOOD COUNT nucleated RBCs, absolute 0.00 10*3/ uL not estab. normal Not Available [facility] [address] [place], [address], 09/28/2023 20:18:17 06/17/19 20 06/16/2019 XR, knee, 4 or more view No observ ation record ed. [email or web address] [place] [address] (Main) 1 [facility] , [place], [address], 06/17/2019 16:35:45 11/30/19 24 10/28/[address] or place ment (PROC ) No observ ation record ed. BARCODE Not Available 2023 10:26:12 02/09/20 24 02/09/2024 XR, shoul justin, 2 or more view No observ ation record ed. [facility] (Med Record) [address], [place], [address], 02/11/2024 08:22:04 Result Notes None recorded. Problems Name Problem SNOMED Code Status Onset Date Resolution Date Notes Provider Name and Address Organization Details Recorded Time Pain in left knee Active 2019 Pamela reno, [facility] 0 13:57:38 Chronic pain syndrome 921870298 Active 2023 JINA HEARN MD [address] [place] [address], [address] , [facility] 4 07:59:28 Allergic rhinitis 88312623 Active 2023 JINA HEARN MD [address] [place] [address], [address], [facility] 4 10:05:01 Mild intermitte nt asthma 431820850 Active 2023 JINA HEARN MD [address] [place] [address], [address], [facility] 4 10:05:28 Obsessive- compulsive disorder 170162451 Active 2023 JINA HEARN MD [address] [place] [address], [address], [facility] 4 10:06:05 Vitamin D deficiency 12171824 Active 2023 JINA HEARN MD [address] [place] [address], [address], [facility] 4 10:14:21 Cobalamin deficiency 048386395 Active 2023 JINA HEARN MD [address] [place] [address], [address], [facility] 4 10:14:26 Iron deficiency anemia 71390270 Active 2023 JINA HEARN MD [address] [place] [address], [address], [facility] 4 10:14:30 Palpitatio ns 12216964 Active 2023 JINA HEARN MD [address] [place] [address], [address] 1, [facility] 4 10:14:53 History of vasculitis 744876022 Active 2023 History of IgA vasculitis JINA HEARN MD [address] [place] [address], [address], [facility] 4 10:36:16 Problem Notes None recorded. Procedures Surgical History Date Name Laterality Status Provider Name and Address Organization Details Recorded Time 06/18/19 24 Most Recent Mammogram completed JINA HEARN MD [address] [place] [address], [address], [facility] 09/25/2023 08:01:05 06/23/19 20 Injection Joint/Bursa, Major completed C KEY CRUZ PA-C [address] [place], [address], [facility] 06/23/2019 14:15:47 Total Hysterectomy completed [facility] 10/03/2023 16:13:55 Tonsillectomy completed [facility] 10/03/2023 16:14:03 Tubal Ligation completed [facility] 10/03/2023 16:14:10 section completed [facility] 10/03/2023 16:14:20 Imaging Results None recorded. Procedure Notes None recorded. Medical Equipment None Reported. Allergies Allergen ID Allergen Name Allergen Category Reaction Reaction Severity Criticality Documentation Date Start Date Code Code System Note Provider Name and Address Organization Details Recorded Time 122289 Zanaflex medicatio n vomiting Not available Not available 09/28/2023 95744 6 RxNorm [facility] 4 09:54:02 894355 acetamino phen / oxycodone medicatio n Not available Not available Not available 09/28/2023 38784 3 RxNorm anxio [facility] 4 09:54:26 Medications Name Sig Start Date Stop Date Status Note LastModified by Organization Details LastModified Time ketamine gabapentin lidocaine amitriptyli ne bupivacaine meloxicam # 10% 6% 5% 2% 2% 0.1% topical APPLY 1-2 GRAMS TO AFFECTED AREAS 3-4 TIMES DAILY 09/27 completed Not Available Not Available Not Available ketamine gabapentin lidocaine amitriptyli ne bupivacaine meloxicam 10% 6% 5% 2% 2% 0.1% topical # APPLY 1-2 GRAMS TO AFFECTED AREAS 3-4 TIMES DAILY 09/27 completed Not Available Not Available Not Available amoxicillin 500 mg capsule 09/27 completed Not Available Not Available Not Available promethazin e-DM 6.25 mg-15 mg/5 mL oral syrup 09/27 completed Not Available Not Available Not Available prednisone 10 mg tablet 09/27 completed Not Available Not Available Not Available gabapentin 600 mg tablet Take 1 tablet every day by oral route. 09/27 completed Not Available Not Available Not Available albuterol sulfate 2.5 mg/3 mL (0.083 %) solution for nebulizatio n 09/27 completed Not Available Not Available Not Available hydrocodone 5 mg-acetamin ophen 325 mg tablet TAKE 1 TABLET BY MOUTH DAILY NEEDED active Not Available Not Available No t Available meloxicam 15 mg tablet 09/27 completed Not Available Not Available Not Available methylpredn isolone 4 mg tablet 09/27 completed Not Available Not Available Not Available amoxicillin 875 mg tablet 09/27 completed Not Available Not Available Not Available methocarbam ol 750 mg tablet 09/27 completed Not Available Not Available Not Available baclofen 10 mg tablet TAKE 1 TABLET BY MOUTH EVERY DAY DIRECTED 09/27 completed Not Available Not Available Not Available benzonatate 100 mg capsule 09/27 completed Not Available Not Available Not Available gabapentin 300 mg capsule Take 2 capsules every day by oral route at bedtime. active Not Available Not Available No t Available Advil 200 mg tablet Take 1 tablet every day by oral route. 09/27 completed Not Available Not Available Not Available albuterol sulfate HFA 90 mcg/actuati on aerosol inhaler 09/27 completed Not Available Not Available Not Available ondansetron 4 mg disintegrat ing tablet active Not Available Not Available N ot Available cefdinir 300 mg capsule 09/27 completed Not Available Not Available Not Available duloxetine 30 mg capsule,del ayed release Take 1 capsule every day by oral route. 10/28 completed Not Available Not Available Not Available chlorhexidi ne gluconate 0.12 % mouthwash 09/27 completed Not Available Not Available Not Available calcium 900 mg once a day active Not Available Not Available No t Available Vitamin D3 600 mg once a day active Not Available Not Available No t Available Probiotic once a day active Not Available Not Available No t Available Multi For Her once a day active Not Available Not Available No t Available Vitals Date Recorded Body height Body mass index (BMI) Body weight Provider Name and Address Organization Details Last Updated DateTime 06/23/2019 162.56 cm 24 kg/m2 70731.93 g Pamela TOMPKINS [facility] 06/23/2019 13:55:41 Date Recorded Body weight Body mass index (BMI) Body height Body temperature Heart rate Oxygen saturation Oxygen saturation in Arterial blood by Pulse oximetry Systolic And Diastolic Provider Name and Address Organization Details Last Updated DateTime 4 64806.6 2 g 26.5 kg/m2 162.56 cm 97.1 [degF] 64 /min 98 % 98 % 122/78 mm[Hg] Joana Gonzáles [facility] 4 10:01:06 Date Recorded Body height Body mass index (BMI) Body weight Body temperature Heart rate Oxygen saturation Oxygen saturation in Arterial blood by Pulse oximetry Systolic And Diastolic Provider Name and Address Organization Details Last Updated DateTime 4 162.56 cm 27.2 kg/m2 56529.3 9 g 97.1 [degF] 68 /min 99 % 99 % 128/76 mm[Hg] Joana Gonzáles [facility] 4 10:51:50 Social History Question Answer Notes LastModified by Organizat ion Details LastModified Time Tobacco Smoking Status [facility] 13:57:46 What Is Your Level Of Caffeine Consumption? None [email or web address] Information not available 06/23/2019 How Much Tobacco Do You Chew? None [email or web address] Information not available 06/23/2019 What Is The Highest Grade Or Level Of School You Have Completed Or The Highest Degree You Have Received? [id number] Information not available 10/03/2023 Date Of Injury: 02/2019 [email or web address] Informati on not available 06/23/2019 Have You Been Treated For This Problem Before? Yes [email or web address] Information not available 06/23/2019 Will This Be Filed As Workers' Compensation? No [email or web address] Information not available 06/23/2019 What Was The Date Of Your Most Recent Tobacco Screening? 09/28/2023 Information not available 09/28/2023 How Many Children Do You Have? 2 Information not available 10/03/2023 What Is Your Relationship Status? Information not available 10/03/2023 Has Tobacco Cessation Counseling Been Provided? No Information not available 09/28/2023 Work Related Injury? No [email or web address] Information not available 06/23/2019 Sex: Unknown Functional Status Question Answer Note LastModified by Organizat ion Details LastModified Time Do you use any illicit or recreational drugs? No [email or web address] Information not available 06/23/2019 Do you or have you ever used any other forms of tobacco or nicotine? No Information not available 09/28/2023 What is your level of alcohol consumption? None [email or web address] Information not available 06/23/2019 Are you currently employed? No Information not available 10/03/2023 Do you or have you ever used e-cigarettes or vape? Never used electronic cigarettes [email or web address] Information not available 06/23/2019 Mental Status None recorded. Family History Relationship Description Onset Age of this Age Resolved Age Notes LastModified by Organization Details LastModified Time Father No current problems or disability [email or web address] Not available 06/22 13:57:42 Mother No current problems or disability [email or web address] Not available 06/22 13:57:42 Mother Asthma Not available 16:09:44 Mother Hypertensive disorder grandm other Not available 10/03/2023 16:11:42 Mother Disorder of stomach grandm other, aunt and great aunt Not available 10/03/2023 16:12:28 Mother Disorder of thyroid gland Not available 2023 16:13:11 Maternal Grandfather Malignant neoplastic disease Not available 2023 16:10:11 Maternal Grandmother Malignant neoplastic disease Not available 2023 16:10:11 Maternal Aunt Malignant neoplastic disease Not available 2023 16:10:11 Maternal Aunt Diabetes mellitus Not available 2023 16:10:20 Unspecified Relation Myocardial infarction aunt and grandf ather Not available 10/03/2023 16:10:44 Unspecified Relation Heart disease grandf ather and grandm other Not available 10/03/2023 16:11:05 Unspecified Relation Hyperlipidem ia grandm other Not available 10/03/2023 16:11:25 Unspecified Relation Kidney disease grandm other Not available 10/03/2023 16:11:56 Unspecified Relation Cerebrovascu lar accident grandm other Not available 10/03/2023 16:12:41 Unspecified Relation Disorder of thyroid gland aunt, grandm other and great aunt. Not available 10/03/2023 16:13:11 Unspecified Relation Tuberculosis grandm other Not available 10/03/2023 16:13:24 Sister Migraine Not available 0 10/03/2023 16:12:03 Sister Disorder of thyroid gland Not available 2023 16:13:11 Medical History Condition Response Arthritis Y Kidney Stones Y Asthma Y Blood Transfusion Y Gynecological History Statement/Question Response Date of Last Pap Smear Date of Last Mammogram Date of Last Colonoscopy Most Recent Mammogram 06/18/2023 # of Births 2 Obstetrics History GPAL:G 0 P 0 0 0 0 Immunizations Vaccine Type Date Status Note Provider Nam e and Address Organization Details Recorded Time Influenza, MDCK, quadrivalent, PF [facility] 09[facility] COVID-19, mRNA, LNP-S, PF, 30 mcg/0.3 mL dose 05/01/2020 completed Joana Gonzáles [facility] 09/28/2023 09:51:38 COVID-19, mRNA, LNP-S, PF, 30 mcg/0.3 mL dose 05/21/2020 completed Joana Gonzáles [facility] 09/28/2023 09:51:38 Influenza, split virus, quadrivalent, PF 11/26/2017 completed Joana Gonzáles [facility] 09/28/2023 09:51:38 Influenza, split virus, quadrivalent, PF 12/10/2019 completed Joana Gonzáles [facility] 09/28/2023 09:51:38 Past Encounters Encounter ID Performer Location Encounter Start Date Encounter Closed Date Diagnosis/Indication Diagnosis SNOMED-CT Code Diagnosis ICD10 Code Diagnosis Note [id number] C KEY CRUZ PA-C [facility] [address] [place] [id number] 06/23/2019 13:43:25 06/23/2019 14:36:33 Knee pain 12942176 M25.569 knee pain status post fall. possible medial meniscal tear. diagnostic injection revealed no benefit, if anything exacerbati on of her pain. Patient is a poor surgical candidate due to her complex regional pain syndrome and edwards positive physical exam. ultimately I don't feel there is any tool that orthopedic surgery has the offer that will be of benefit. She will call if in days from now the steroid does make a positive influence on her pain. Otherwise I would follow-up with her she. [id number] JINA HEARN MD [facility] [address] [place] [address] 09/28/2023 09:46:31 09/28/2023 10:35:35 Obsessive-compulsive disorder 860459435 F42.9 Patient identified triggers for anxiety and impact of anxiety and anxious thinking on functionin g. Discussed strategies to regulate symptoms and compliance with treatment. We discussed trial of duloxetine to see if that would also help with her chronic pain syndrome. She will follow-up in 1 month or sooner if needed. Endocrine/ metabolic screening [id number] Z13.228 Vitamin D deficiency 347 03736 E55.9 Cobalamin deficiency 190 578047 E53.8 Screening for cardiovascular system disease 553502071 Z13.6 Diabetes m ellitus screening [id number] Z13.1 Body mass index 25-29 - overweight 292190078 Z68.26 Iron defic iency anemia 95137927 D50.9 Palpitations 70626603 R0 0.2 ER precaution s discussed. Will place Holter monitor [id number] JINA HEARN MD [facility] [address] [place] [address] 10/29/2023 10:43:41 10/29/2023 10:59:03 Obsessive-compulsive disorder [id number] F42.9 Patient identified triggers for anxiety and impact of anxiety and anxious thinking on functionin g. Discussed strategies to regulate symptoms and compliance with treatment. Psych appointmen t Nov 12. States unable to tolerate duloxetine due to side effects. She is frustrated about trial and error approach of medication management . She would like to wait to see psychiatry on November 12. Palpitations [id number] R0 0.2 ER precaution s discussed. Pending Holter monitor results. We will contact her when we receive these results to determine further care. Health Concerns Section Related Observation LastModified by Organization Detai ls LastModified Time None Recorded Concern Status LastModified by Organization Details LastModified Time None Recorded Advance Directives Directive None Recorded Payers Insurance Date Sequence Insurance Name Policy Number Policy Wisdom Covered Member ID Wisdom Member ID Guarantor Name 10/26/2023 1 [employer] [id number] Eric Alamo [id number] 20 Dayna Alamo Notes Date Note Type Note Provider Name and Address Organization Details Recorded Time 06/23/2019 text/html 5 month history of left knee pain. Fell backwards in her shower in February, fell onto left knee. Patient rates pain 9 /10 on average. Pain is located on medial, anterior knee. Pain does radiate up/down leg. Patient endorses popping/grinding. Patient reports occasional swelling. Patient endorses catching/locking. Patient endorses feeling of instability/weaknes s. Patient complains pain with rest. Pain is exacerbated by pain at night, she has tried sleeping with a pillow between her knees, pain with straightening the knee, She was to use crutches for stability but using them today. is currently taking Advil, with relief. Currently taking gabapentin 600 mg at night for any pain. Previously received no injections . Tried two months of recent physical therapy with [facility] and no relief. No previous surgeries on this knee. Ludin CRUZ PA-C [facility] [place], [address], [facility] access hospital 06/23/2019 14:34:26 09/28/2023 text/html Presents to establish care. Past medical history significant for OCD, mild intermittent asthma, and chronic pain syndrome. She was previously taking fluoxetine for OCD from teenage years until age 29 when she became . States she would like to resume medication treatment. States at 1 point she restarted fluoxetine and had adverse reactions with increased anxiety. States when she was a teenager, she did try a different medication but cannot recall the name. She also complains of palpitations that have been occurring for the past year. States she has a quick second of a dropped heartbeat and a feeling of pain in her chest when this occurs. States only lasts a second. States she then gets a fluttery sensation afterwards that she describes as her heart trying to catch up. She reports she also gets the fluttery sensation about every other day. Reports the missed beat sensation about twice a month. No previous workup completed. She is also concerned about iron deficiency as she has spooning of her toenails. 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 Reports history of low vitamin D as well as B12 deficiency in the past. JINA HEARN MD [address] [place] [address], [phone], [facility] access hospital 09/28/2023 10:40:49 10/29/2023 text/html Presents to follow-up on OCD as well as palpitations. We started duloxetine to help with OCD as well as chronic pain. States that she only took the medication for 4 days and was unable to tolerate side effects. States it caused quite a bit of nausea and feeling dizzy and disoriented. States it was significant enough to the point where she could not drive. She has previously failed fluoxetine and 1 other medication that she cannot recall the name. She does have an upcoming appointment with psychiatry on November 12. States palpitations continue and are somewhat painful at times. She did complete Holter monitor but results are pending at this time. JINA HEARN MD [address] [place] [address], [phone], Critical access hospital 10/29/2023 11:02:00 OBGyn Episode No OBEpisode recorded.
--- OUTSIDE RECORDS SUMMARY | 2024-08-22 06:56 | XMS_ITS | Encounter Summary ---
Author Organization [facility] ([place], [place], [place], [place]) Address [address] [place] [address] Care Team Providers Care Day Haul Youth Supervisor Name Role Phone Unavailable Primary Care Provider Unavailabl e Encounter Details Date Type Department Care Team (Late st Contact Info) Description 01/27/2019 Transcribed Document [facility] [place] [address] [place] [address] ProviderLuh MD [address] [place] [id number] Social History Tobacco Use Types Packs/Day Years Used Date Smoking Tobacco: Never Assessed Comments Unknown Sex and Gender Information Value Date Recorded Sex Assigned at Not on file Legal Sex Female 5:38 PM CDT Gender Identity Not on file Sexual Orientation Not on file documented as of this encounter Miscellaneous Notes * Cerner Conversion Note - Luh Oliveros MD - 01/27/2019 5:04 PM VP PUBLISHER DEVELOPMENT DATE OF PROCEDURE: 01/27/2019 SURGEON: Gadiel Anaya MD, JULIO C Pain Certified PROCEDURE: Lumbar sympathetic block. DIAGNOSIS: Chronic regional pain syndrome (CRPS) of the lower extremity. SEDATION: 2 mg of Versed, 100 mcg of fentanyl. PREPROCEDURE PAIN LEVEL: 8/10. POSTPROCEDURE PAIN LEVEL: 4/10. PROCEDURE SUMMARY: After discussing with the risks [...] pain levels are documented in the chart. I encouraged the patient to see a sound art instructor as well as see the neurologist, then I will be happy to see the patient after one month to re-evaluate her. /[id number] Gadiel Anaya MD, JULIO C Pain Certified ELAINE/JOE / ELAINE / MODL /[id number] Electronically signed by Yesy [facility] Conversion Trim Stencil Maker Cerner at 06/01/2022 10:29 AM CDT documented in this encounter Plan of Treatment Not on file documented as of this encounter Visit Diagnoses Not on filedocumented in this encounter
--- OUTSIDE RECORDS SUMMARY | 2024-08-22 06:56 | XMS_ITS | Encounter Summary ---
Author Organization [facility] ([place], [place], [place], [place]) Address [address] [place] [address] Care Team Providers Care Senior Revenue Accountant Name Role Phone Unavailable Primary Care Provider Unavailabl e Encounter Details Date Type Department Care Team (Late st Contact Info) Description 02/24/2019 Transcribed Document [facility] [place] [address] [place] [address] ProviderLuh MD [address] [place] [address] [id number] Social History Tobacco Use Types Packs/Day Years Used Date Smoking Tobacco: Never Assessed Comments Unknown Sex and Gender Information Value Date Recorded Sex Assigned at Not on file Legal Sex Female 5:38 PM CDT Gender Identity Not on file Sexual Orientation Not on file documented as of this encounter Miscellaneous Notes * Cerner Conversion Note - Historical ProviderMD - 02/24/2019 3:39 PM INTERNET MARKETING CONSULTANT DATE OF ADMISSION: 02/24/2019 SUBJECTIVE: This is a 33-year-old female with a chief complaint of chronic right lower extremity pain, came today for followup. The patient has been responding well to the lumbar sympathetic block. The last one we did on January 27, 2019. The patient has her symptoms moving to a different extremities, so for that reason, we scheduled her to see a assistant manager airside operations and neurologist. She is going to see Rheumatology on March 05, 2019. We also sent her to see at the [facility] neurologist and they are going to see her on May of 2019. The patient had good response to the lumbar sympathetic block for her lower extremities, and her pain level is doing better, but still on 07/22. She denied any major aggravation of her pain or any neurological deficit. REVIEW OF SYSTEMS: Constitutional, respiratory, cardiovascular, ophthalmology, gastrointestinal, genitourinary, ENT, musculoskeletal, integumentary, neurology, psychiatry, endocrine, hematology were not changed from her last visit on January 27, 2019. PHYSICAL EXAMINATION: VITAL SIGNS: Blood pressure 96/53, heart rate is 60, respirations 16, saturation 98%, temperature 96.8. Pain level, 6. Hours of sleep, 6. No change in physical and neurological exam. Muscle tone power sensory and deep tendon reflexes were unchanged. The nurse's notes, vital signs, and medication were reviewed and evaluated. No sign of impairment or toxicity to medicine. The patient psych evaluation, urine drug screen, and TY were appropriate for taking opioid medication. ASSESSMENT: 1. Chronic lower extremity pain. The patient had a history of CRPS 1 to the lower extremities. 2. The patient had recent flare up of her lower extremities as well as now she has bilateral wrist pain. 3. The patient is status post injury in 2008 that causing her complex regional pain. 4. The patient is not tolerating opioid medication. PLAN: 1. I had a lengthy discussion with the patient in regard to her condition, I am pleased with the result of the repeated lumbar sympathetic block on January 27, 2019, that gave the patient good help and relief with her pain. 2. I encouraged the patient to keep her appointment with Rheumatology on March 05, 2019, as well as neurologist in the end of May. 3. I am going to send the patient for physical therapy to start the patient with increasing range of movement of back and increase the strength of the lower extremities. 4. I am going to start the patient on gabapentin 300 mg at night, can be increased to 600 mg at night and then later on, we are going to try to increase it to three times a day and then readjust the dose after that. /[id number] Gadiel Anaay MD, JULIO C Pain Certified ELAINE/JOE / KR / MODL CC: Anthony Pritchett MD Electronically signed by Interface, [facility] Conversion Passenger Relations Representative Cerner at 06/01/2022 10:10 AM CDT documented in this encounter Plan of Treatment Not on file documented as of this encounter Visit Diagnoses Not on filedocumented in this encounter
--- OUTSIDE RECORDS SUMMARY | 2024-08-22 06:56 | XMS_ITS | Encounter Summary ---
Author Organization [facility] ([place], [place], [place], [place]) Address [address] [place] [address] Care Team Providers Care Mate Relief Name Role Phone Unavailable Primary Care Provider Unavailabl e Encounter Details Date Type Department Care Team (Late st Contact Info) Description 01/20/2019 Transcribed Document [facility] [place] [address] [place] [address] ProviderLuh MD [address] [place] [address] [id number] Social History Tobacco Use Types Packs/Day Years Used Date Smoking Tobacco: Never Assessed Comments Unknown Sex and Gender Information Value Date Recorded Sex Assigned at Not on file Legal Sex Female 5:38 PM CDT Gender Identity Not on file Sexual Orientation Not on file documented as of this encounter Miscellaneous Notes * Cerner Conversion Note - Historical ProviderMD - 01/20/2019 7:18 AM DIAL SCREW ASSEMBLER DATE OF ADMISSION: 01/17/2019 HISTORY: This is a 33-year-old female with a chief complaint of chronic bilateral lower extremity pain for several years' duration. The patient is well known to our clinic. We evaluate her off and on for her symptoms related to complex regional syndrome for the lower extremities and we helped her with the lumbar sympathetic block. She had the first block on January 2016, followed by December 2017, and since that time, the patient is doing very well with the procedure. The patient cannot tolerate opioid, that was causing her more issue and problem. The patient is status post injury in 2008 that is causing her symptoms with the CRPS. The patient mentioned that recently she started feeling more of the pain in her fingers and she mentioned that there is a possibility that the CRPS now is spreading to the hand and fingers. She denied any swelling, discoloration, or aggravation of major symptoms of her CRPS except she had more of the leg pain and now she had more of bilateral hands and fingers pain. REVIEW OF SYSTEMS: OPHTHALMOLOGY: Sensitivity to light. GASTROINTESTINAL: Constipation. MUSCULOSKELETAL: Joint pain, muscle ache, joint stiffness, limping. INTEGUMENTARY: Bruising. Skin, hair, and nail changes. NEUROLOGY: Weakness, numbness, difficulty walking, burning, tingling. ENDOCRINE: Hot flashes, cold intolerance, and fatigue. Constitutional, respiratory, cardiovascular, ophthalmology, gastrointestinal, genitourinary, ENT, musculoskeletal, integumentary, neurology, psychiatry, endocrine, hematology were not changed from her last visit January 11, 2018. PHYSICAL EXAMINATION: VITAL SIGNS: Blood pressure 106/56, heart rate 62, temperature 96.2, respirations 16, saturation 98%, height 5 feet 4 inches, her weight is 130. Visual analogue scale of pain 7 to 8. I did not see much aggravation of her CRPS with no swelling, discoloration, or hair changes. The patient is alert, oriented to people, time, place. Patient has mild to moderate pain behavior and discomfort. The rest of physical examination including HEENT, heart, lungs and abdomen were unremarkable. ASSESSMENT: 1. Chronic lower extremities pain secondary to complex regional pain syndrome. 2. The patient is status post injury in 2008 causing her complex regional pain syndrome. 3. The patient is not tolerating opioid medication. PLAN: 1. I had a lengthy discussion with the patient in regard to her condition, I mentioned to her that since she had a good response to two lumbar sympathetic blocks in the past that gave her more than one year of help and relief, I am going to schedule her to repeat the lumbar sympathetic block to give the patient additional help and relief. 2. The patient mentioned that she thinks that the CRPS is now spreading to both fingers and hands and I did not see any major signs and symptoms related to CRPS. However, I mentioned to her that we need to rule out any major connective tissue disease or systemic disease that is causing aggravation of her problem. I am going to send her to Rheumatology consult to rule out any connective tissue disease that is causing the symptoms. I am also going to send her to the [facility] to rule out any systemic neurological deficit including multiple sclerosis that is causing these symptoms. 3. Once we get the patient some help and relief, we will start her on intense physical therapy to improve the range of movement of the upper and lower extremities. /[id number] Gadiel Anaya MD, JULIO C Pain Certified ELAINE/JOE / KR / MODL CC: Anthony Pritchett Electronically signed by Yesy, [facility] Conversion Fraud Investigator Cerner at 06/01/2022 10:09 AM CDT documented in this encounter Plan of Treatment Not on file documented as of this encounter Visit Diagnoses Not on filedocumented in this encounter
--- OUTSIDE RECORDS SUMMARY | 2024-08-22 06:56 | XMS_ITS | Encounter Summary ---
Author Organization [employer] ([place], [place], [place], [place]) Address [address] [place] [address] Care Team Providers Care Welt Drawer Name Role Phone Unavailable Primary Care Provider Unavailabl e Encounter Details Date Type Department Care Team (Late st Contact Info) Description 12/15/2019 Transcribed Document [facility] [place] [address] [place] [address] ProviderLuh MD [address] [place] [address] [id number] Social History Tobacco Use Types Packs/Day Years Used Date Smoking Tobacco: Never Assessed Comments Unknown Sex and Gender Information Value Date Recorded Sex Assigned at Not on file Legal Sex Female 5:38 PM CDT Gender Identity Not on file Sexual Orientation Not on file documented as of this encounter Miscellaneous Notes * Cerner Conversion Note - Historical ProviderMD - 12/15/2019 1:21 PM POT FISHER DATE OF ADMISSION: 12/15/2019 HISTORY OF PRESENT ILLNESS: This is a 34-year-old female with a chief complaint of chronic left lower extremity pain for several years' duration who is seen today for a followup visit. The patient is following up today for medication refills of her gabapentin. She is taking 100 mg in the morning and 600 mg at bedtime. The patient says that she is also having some pain in the right lower extremity from the knee down to the ankle. She says that she is having charley horses in her left thigh that is going down the back of her left leg, down towards her knee. She reports her pain is a burning stabbing sensation that is moderate. She says that she is using heat in addition to her gabapentin to help with her pain. The patient says that she is unable to tolerate cold or TENS unit. She says that Dr. Medeiros did want her to do physical therapy, however, she has not done that yet due to COVID. She says that her has some autoimmune disorder and she is concerned about him getting that. She says that she would be willing to do a medication for the muscle spasms. She says that she also has the home exercises from physical therapy that she did at home; however, she is unable to do the weightbearing. She says it causes her significant pain in her left leg. She reports that she did follow up with Dr. Medeiros who had done an MRI of the left knee. She says that he mentioned that there was no tear and she wanted to be sure that we had a copy of that report. The nurses were able to get that and the patient does have some strain in the vastus lateralis muscle with edema along the distal IT band. The patient says that she is continuing to have pain in that area. She reports that the compound cream is helping her significantly with that. The patient says that she is taking her medication as prescribed and she denies any adverse effects including toxic effect, sedation, driving problems, or GI problems. REVIEW OF SYSTEMS: Constitutional, respiratory, cardiovascular, ophthalmology, gastrointestinal, genitourinary, ENT, musculoskeletal, integumentary, neurology, psychiatry, endocrine, hematology were not changed from her last visit on November 17, 2019. PHYSICAL EXAMINATION: VITAL SIGNS: Blood pressure 123/62, weight 140, height 63 inches, heart rate 79, respiratory rate 16, O2 saturation 97%, temperature 97.9. Pain level 5 to 6. Hours of sleep 4 to 5. No change in physical and neurological exam. Muscle tone, power, sensory, and deep tendon reflexes were unchanged. The nurse's notes, vital signs, and medication were reviewed and evaluated. No sign of impairment or toxicity to medicine. The patient psych evaluation, urine drug screen, and TY were appropriate for taking opioid medication. ASSESSMENT: 1. Chronic left lower extremity pain due to complex regional pain syndrome type 1 of the lower extremities. 2. Status post crush injury in 2008 of the lower extremities. 3. Osteoarthritis of the bilateral knees. 4. Long-term use of gabapentin. PLAN: 1. The patient has been [...] mix with alcohol, or self-escalate it. 2. Continue gabapentin 100 mg in the morning and 300 mg 2 of those tablets at bedtime. 3. I have encouraged the patient to continue heat and other measures to help with her pain. 4. I have had a lengthy discussion with the patient in regard to physical therapy. I have educated her on some specific stretching exercises that she can do to help with sciatic nerve pain as well as some of the strain that she has in the vastus lateralis muscle. The patient has voiced understanding. 5. We are going to add Robaxin 500 mg twice daily as needed. 6. Continue compound cream 3 to 4 times daily as needed. 7. We are going to see the patient back in 1 month to re-evaluate. 8. The assessment and plan for today's visit have been reviewed by Dr. Anaya, however, I have prescribed the medications for this patient's treatment plan today. The patient has been screened for symptoms or risk factors related to COVID-19 both prior to arrival for the visit and upon arrival at the clinic for the visit today. No risk factors or symptoms are identified at today's visit and the patient has been afebrile. /[id number] ADITYA Knight/JOE / HUMBERTO / MODL CC: Anthony Pritchett MD documented in this encounter Plan of Treatment Not on file documented as of this encounter Visit Diagnoses Not on filedocumented in this encounter
--- OUTSIDE RECORDS SUMMARY | 2024-08-22 06:56 | XMS_ITS | Encounter Summary ---
Author Organization [employer] ([place], [place], [place], [place]) Address [address] [place] [address] Care Team Providers Care Body Art Technician Name Role Phone Unavailable Primary Care Provider Unavailabl e Encounter Details Date Type Department Care Team (Late st Contact Info) Description 11/17/2019 Transcribed Document [facility] [place] Family Medicine [address] [place] [address] ProviderLuh MD [address] [place] [phone] Social History Tobacco Use Types Packs/Day Years Used Date Smoking Tobacco: Never Assessed Comments Unknown Sex and Gender Information Value Date Recorded Sex Assigned at Not on file Legal Sex Female 5:38 PM CDT Gender Identity Not on file Sexual Orientation Not on file documented as of this encounter Miscellaneous Notes * Cerner Conversion Note - Historical ProviderMD - 11/17/2019 12:53 PM CDT DATE OF ADMISSION: 11/17/2019 HISTORY OF PRESENT ILLNESS: This is a 34-year-old female with a chief complaint of chronic left knee pain and left lower extremity pain for several years' duration, who is seen today for a followup visit. The patient is following up today for medication refills of her gabapentin. She reports that she also needs a refill of compound cream. The patient says that she is continuing to have left knee pain that is moderate. She reports it is a burning, aching, throbbing sensation. She says that she is doing home exercises and that her activity level is increased since her last visit. She says that she is taking her gabapentin 100 mg at noon, and 600 mg at bedtime. She says that she uses the compound cream several times daily. The patient says that she tolerates her medication well and does not have any adverse effects including toxic effect, sedation, driving problems or GI problems. She says that she feels like it is an adequate dose for her and it does give her some significant relief from her pain. She says that she does have a Neurology appointment scheduled on November [address] Anaya had referred her to. The patient says that she has had a rapid change since having an injection done with Orthopedic physician for the left knee in the past. She said that since then, she is having some indention in the lateral aspect of the knee. She says that she also has muscle wasting, but that is not new. She says that this indention is a new issue that is being progressively getting worse. She says that she has only had x-rays and Dr. Medeiros did an MRI. She says that we have not received a copy of the MRI. The patient says that she was hoping to determine if this was related to the CRPS or if this was a new issue. Otherwise, the patient says that she is doing well. REVIEW OF SYSTEMS: Constitutional, respiratory, cardiovascular, ophthalmology, gastrointestinal, genitourinary, ENT, musculoskeletal, integumentary, neurology, psychiatry, endocrine, hematology were not changed from her last visit on August 25, 2019. PHYSICAL EXAMINATION: VITAL SIGNS: Blood pressure 99/61, weight 140, height 63 inches, heart rate 61, respiratory rate 16, O2 saturation 99%, temperature 97.8. Pain level 5, hours of sleep 4 to 5. No change [...] due to complex regional pain syndrome type 1. 2. Status post crush injury 2008 in the left lower extremity. 3. Osteoarthritis of [...] self-escalate it. 2. Continue gabapentin 100 mg at noon, and 300 mg capsules two of those at bedtime. 3. Continue compound cream 3 to 4 times daily as needed. 4. I have reviewed the electronic medical record and the paper medical record for the patient to see if we have a copy of the MRI that was done by Dr. Medeiros's office. So we are going to contact them to see if we can get a copy of that so we can further evaluate that with her. 5. I have encouraged the patient to continue her home exercise program that she has been doing successfully. 6. We are going to bring the patient back in 1 month to re-evaluate. 7. I have made the patient aware that we can repeat the lumbar sympathetic block whenever she needs that done again. She says that she would like to postpone that for now. 8. The assessment and plan for today's [...] visit and the patient has been afebrile. /[id number] ADITYA Knight/JOE / HUMBERTO / MODL CC: Anthony Pritchett MD documented in this encounter Plan of Treatment Not on file documented as of this encounter Visit Diagnoses Not on filedocumented in this encounter
--- OUTSIDE RECORDS SUMMARY | 2024-08-22 06:56 | XMS_ITS | Encounter Summary ---
Author Organization [employer] ([place], [place], [place], [place]) Address [address] [place] [address] Care Team Providers Care C Software Developer Name Role Phone Unavailable Primary Care Provider Unavailabl e Encounter Details Date Type Department Care Team (Late st Contact Info) Description 07/03/2019 Transcribed Document [facility] Family Medicine [address] [place] [phone] ProviderLuh MD [address] [place] [address] [id number] Social History Tobacco Use Types Packs/Day Years Used Date Smoking Tobacco: Never Assessed Comments Unknown Sex and Gender Information Value Date Recorded Sex Assigned at Not on file Legal Sex Female 5:38 PM CDT Gender Identity Not on file Sexual Orientation Not on file documented as of this encounter Miscellaneous Notes * Cerner Conversion Note - Historical ProviderMD - 07/03/2019 2:07 PM CDT DATE OF ADMISSION: 07/03/2019 HISTORY OF PRESENT ILLNESS: She is a 34-year-old female with a chief complaint of chronic left lower extremity pain for several years' duration related to CRPS. The patient has been stable in her pain condition after we tried different lumbar sympathetic blocks, the last one in January 2019. She also has been stabilized on compound cream as well as gabapentin 300 mg take 2 of them at night and ibuprofen 600 mg twice a day. The patient mentioned she cannot take Neurontin during the day and she kept using it at night because she will have to be more focused during the day with her children. However, recently, she saw an orthopedic physician and was evaluated by him and she had left knee injection that flared up all her symptoms and now she has more severe symptoms in the left knee, left thigh, and leg. He also got x-ray to the knee which does not show any major injury or damage. The patient came today. She had more pain reached up to 9/10 to 10/10 with more localized in the left lower extremity besides her knee. She had a feeling of burning sensation and aching sensation. She mentioned that she might need to repeat the sympathetic block to give her quick help and relief. She also is asking if she can get some pain medicine until she get the injection to help her with her pain. She does not think gabapentin has given her much of help after this flare-up. REVIEW OF SYSTEMS: Not changed more from 06/16/2019 except for musculoskeletal more flare-up in the left lower extremity related to Orthopedic injecting her knee and flare-up of her CRPS. Constitutional, respiratory, cardiovascular, ophthalmology, gastrointestinal, genitourinary, ENT, integumentary, neurology, psychiatry, endocrine, hematology were not changed from 06/16/2019. PHYSICAL EXAMINATION: VITAL SIGNS: Her blood pressure 125/65, heart rate is 88, respirations 18, saturation 97%, temperature 97.4. Pain level 9/10 to 10/10. Hours of sleep is very little. Examination of the left lower extremity showed no swelling, some reddish discoloration; however, there is positive allodynia and paresthesia. Movement of the leg is mildly to moderately limited related to her pain. No change in physical and neurological exam. Muscle tone power sensory and deep tendon reflexes were unchanged. The nurse's notes, vital signs, and medication were reviewed and evaluated. No sign of impairment or toxicity to medicine. The patient psych evaluation, urine drug screen, and TY were appropriate for taking opioid medication. ASSESSMENT: 1. Chronic left lower extremity pain, more consistent with CRPS-1. 2. Status post crush injury in 2008, causing these symptoms. 3. The patient has symptoms related to osteoarthritis of the knees. 4. The patient has recent flare-up with Orthopedic after they injected her knee. 5. Long-term high-risk medication gabapentin. PLAN: 1. I had a lengthy discussion with the patient in regard to her condition, the patient clearly gave the same symptoms of flare-up from her CRPS-1 after she had knee injection a few days ago from her orthopedic physician. I am going to schedule her to repeat lumbar sympathetic block to see if that will give the patient some help and relief. 2. I am going to start the patient temporary on hydrocodone 5/325, take one or two a day. I gave her a dispense of 30 pills. 3. I am going to change the gabapentin 200 mg in the morning, 100 mg at noon, and 600 mg at night. 4. I am going to re-evaluate the patient after 2 to 4 weeks. We screened the patient for any signs and symptoms related to COVID-19. /[id number] Gadiel Anaya MD, JULIO C Pain Certified KR/AQ / KR / MODL CC: Dr. Anthony Pritchett Electronically signed by Yesy, [facility] Conversion Change House Attendant Cerner at 06/01/2022 10:24 AM CDT documented in this encounter Plan of Treatment Not on file documented as of this encounter Visit Diagnoses Not on filedocumented in this encounter
--- OUTSIDE RECORDS SUMMARY | 2024-08-22 06:56 | XMS_ITS | Encounter Summary ---
Author Organization [employer] ([place], [place], [place], [place]) Address [address] [place] [address] Care Team Providers Care Infantry Unit Leader Name Role Phone Unavailable Primary Care Provider Unavailabl e Encounter Details Date Type Department Care Team (Late st Contact Info) Description 06/16/2019 Transcribed Document [facility] [place] Family Medicine [address] [place] [address] ProviderLuh MD [address] [place] [address] [phone] Social History Tobacco Use Types Packs/Day Years Used Date Smoking Tobacco: Never Assessed Comments Unknown Sex and Gender Information Value Date Recorded Sex Assigned at Not on file Legal Sex Female 5:38 PM CDT Gender Identity Not on file Sexual Orientation Not on file documented as of this encounter Miscellaneous Notes * Cerner Conversion Note - Historical ProviderMD - 06/16/2019 1:52 PM CDT DATE OF ADMISSION: 06/16/2019 HISTORY OF PRESENT ILLNESS: This is a 34-year-old female with a chief complaint of chronic left lower extremity pain related to complex regional pain syndrome and history of arthritis, came today for followup. The patient mentioned that now most of her pain is more localized in the left knee and she does not think that the pain is related to irritation to the CRPS. She has been following up with us since 2016, and we managed the patient's pain with Celebrex and gabapentin. However, the patient mentioned that her physical therapy is making her pain worse and she is no longer taking the Celebrex. She was wishing if she can get left knee x-ray to help her to find out what is going on with her knee. She also saw Rheumatology, Dr. Pitts who told her that she is deficient for B12 and D and she had osteoarthritis. She is also reschedule for neurologist from May to November 2019. She denied any recent neurological deficit. She is using her gabapentin, which is a dose of 600 mg, takes one at night and she denied any major side effects to her medication which include toxic effects, sedation, driving problem, or GI problem. The patient had urine drug screen last visit which showed appropriate for the patient taking her medication. REVIEW OF SYSTEMS: Constitutional, respiratory, cardiovascular, ophthalmology, gastrointestinal, genitourinary, ENT, integumentary, neurology, psychiatry, hematology were not changed from March 24, 2019. MUSCULOSKELETAL: She had osteoarthritis of the knee. ENDOCRINE: She had deficiency of B12 and vitamin D. PHYSICAL EXAMINATION: VITAL SIGNS: Blood pressure 114/65, heart rate is 74, respirations 16, saturation 98%, temperature 97.6. Pain level 8. Hours of sleep 5. No change in physical and neurological exam. Muscle tone power sensory and deep tendon reflexes were unchanged. The nurse's notes, vital signs, and medication were reviewed and evaluated. No sign of impairment or toxicity to medicine. The patient psych evaluation, urine drug screen, and TY were appropriate for taking opioid medication. ASSESSMENT: 1. Chronic right lower extremity pain. Patient possibly had symptoms correlated to CRPS-1 to lower extremities. 2. The patient is status post crushing injury in 2008 causing these symptoms. 3. The patient has symptoms related to osteoarthritis to the right knee. 4. The patient on long-term high risk medication, gabapentin. PLAN: 1. I had a lengthy discussion with the patient regard to her condition, the patient used to have symptoms correlated with CRPS going all the way down to the left foot and she responded well to the lumbar sympathetic block to help her with her CRPS symptoms. However, the patient clearly has now different symptoms. It only radiated to the front of the left thigh to the knee without further radiation to her foot. She still have some allodynia and paresthesia around the thigh area and she has some issue and problem with her left knee. 2. I am going to send her for left knee x-ray to rule out any major injury to the knee that causing her pain. 3. I am going to send her for an orthopedic physician, Dr. Guan, to evaluate her. I am going to increase the gabapentin from 600 mg at night to 300 mg in the morning, 300 mg at noon, and 600 mg at night. 4. I am going to stop the Celebrex since the patient is not using it and start with ibuprofen 600 mg take it twice a day. 5. I am going to start with compound cream to apply to her thigh, apply three times a day. 6. The patient does not want to continue physical therapy because it hurts her more, so I encouraged her to continue home exercise, stretching, and walking. 7. I am going to see the patient after one month to re-evaluate her. We screen the patient for sign and symptoms for Covid 19 before bring the patient to the clinic /[id number] Gadiel Anaya MD, JULIO C Pain Certified KR/JOE / ELAINE / MODL CC: Anthony Pritchett MD Electronically signed by Yesy, [facility] Conversion Hygiene Teacher Cerner at 06/01/2022 10:12 AM CDT documented in this encounter Plan of Treatment Not on file documented as of this encounter Visit Diagnoses Not on filedocumented in this encounter
--- OUTSIDE RECORDS SUMMARY | 2024-08-22 06:56 | XMS_ITS | Encounter Summary ---
Author Organization [employer] ([place], [place], [place], [place]) Address [address] [place] [address] Care Team Providers Care Sand Slinger Operator Name Role Phone Unavailable Primary Care Provider Unavailabl e Encounter Details Date Type Department Care Team (Late st Contact Info) Description 03/24/2019 Transcribed Document [facility] [place] Family Medicine [address] [place] [address] ProviderLuh MD [address] [place] [address] [id number] Social History Tobacco Use Types Packs/Day Years Used Date Smoking Tobacco: Never Assessed Comments Unknown Sex and Gender Information Value Date Recorded Sex Assigned at Not on file Legal Sex Female 5:38 PM CDT Gender Identity Not on file Sexual Orientation Not on file documented as of this encounter Miscellaneous Notes * Cerner Conversion Note - Historical ProviderMD - 03/24/2019 1:48 PM DIRECTOR OF OCCUPATIONAL HEALTH DATE OF ADMISSION: 03/24/2019 HISTORY OF PRESENT ILLNESS: This is a 33-year-old female with a chief complaint of chronic left hip and right lower extremity pain related to CRPS, came today for followup. The patient had showed good response to the lumbar sympathetic block that gave her good help and relief. She was also placed on gabapentin that she has tolerated and gave her good help, and she is up now to 600 mg at night. We also scheduled the patient for neurologist and steamboat pilot consult, and she has followup with them. She has also started physical therapy, and she is going more periodically. She denied any major aggravation or any neurological symptoms. She denied any major side effects to her medication which include toxic effects, sedation, driving problem, or GI problem. REVIEW OF SYSTEMS: Constitutional, respiratory, cardiovascular, ophthalmology, gastrointestinal, genitourinary, ENT, musculoskeletal, integumentary, neurology, psychiatry, endocrine, hematology were not changed from February 24, 2019. PHYSICAL EXAMINATION: VITAL SIGNS: Blood pressure 112/63, heart rate is 61, respirations 16, saturation 98%, temperature 96.6. Pain level 5-6. Hours of sleep 6. No change in physical and neurological [...] pain. The patient had a history of CRPS-1 to the lower extremities. 2. The patient is status post crushing injury in 2008, causing complex regional pain. 3. The patient does not tolerate opioids. 4. The patient is able to tolerate gabapentin. PLAN: 1. The patient has been [...] mix with alcohol, or self-escalate it. 2. Since the patient has been stabilized on the gabapentin, I am going to change the tablet from 300 mg 2 tablets at night to 1 tablet of 600 mg 1 at night. 3. I am going to start the patient on anti-inflammatory medicine, Celebrex 200 mg once a day. 4. I am awaiting for the results of steamboat pilot and neurologist recommendations. to give me more idea about her peripheral joint and nerve issue and problem. 5. I am going to see the patient after 3 months to re-evaluate her. /[id number] Gadiel Anaya MD, JULIO C Pain Certified KR/JOE / KR / MODL CC: Anthony Pritchett MD documented in this encounter Plan of Treatment Not on file documented as of this encounter Visit Diagnoses Not on filedocumented in this encounter
--- OUTSIDE RECORDS SUMMARY | 2024-08-22 06:56 | XMS_ITS | Data Portability ---
Author Organization [facility] Address [address] [place] [id number] Care Team Providers Care District Captain Name Role Phone DHIRAJ JINA Primary Care Provider Assessment No assessment recorded. Plan of Treatment Reminders Order Date Submit Date Provider Last Modified By Organization Details Last Modified Time Details Appointments Office Visit15 2024 01:00P Dean Arguelles, [employer] MAN Not available Not available Not available Lab drug screen, urine - Meds: norco gabapenti n 2024 025 john Resendez MD [facility] ([facility] House [facility]), [address] [place] [address], [address], 07/11/2024 10:42:38 drug screen, urine - Meds: norco gabapenti n 2023 025 SHAHRIAR Resendez MD [facility] ([facility]), [address] [place] [address], [address], 03/20/2024 15:57:15 CBC w/ auto diff 2023 025 john Resendez MD [facility] ([facility]), [address] [place] [address], [address], 03/17/2024 11:53:35 hepatic function panel, serum 2023 025 john Resendez MD [facility] ([facility]), [address] [place], [address], 03/17/2024 11:53:35 gamma-glu tamyl transfera se (ggt), serum 2023 025 john Resendez MD [facility] ([facility]), [address] [place], [address], 03/17/2024 11:53:35 venipunct ure 2023 025 john Resendez MD [facility] ([facility]), [address] [facility], [place], [address], 03/17/2024 11:53:35 drug screen, urine - Meds: norco gabapenti n 2023 024 SHAHRIAR Resendez MD [facility] ([facility]), [address] [place], [address], 11/27/2023 08:37:49 Referral None recorded. Procedures facet joint injection , lumbar (PROC) - Order # [id number] Bilateral L4/5, L5/S1 2023 024 [email or web address] [facility], [address] [facility], [place], [address], 12/14/2023 15:39:15 facet joint injection , lumbar (PROC) - Order # [id number] Bilateral L4/5, L5/S1 #2 MBB 2023 024 [email or web address] [facility], [address] [place], [address], 05/15/2024 11:45:44 Surgeries None recorded. Imaging None recorded. Medication Orders hydrocodo ne 5 mg-acetam inophen 325 mg tablet 2024 025 [facility] #[id number], [address] , [place], [place], [id number], 07/09/2024 14:32:00 compounde d medicatio n 2024 025 [facility] #25491, [address], [place], [place], [id number], 07/09/2024 14:32:01 gabapenti n 300 mg capsule 2024 025 [facility] #43406, [address], [place], [place], [id number], 07/09/2024 14:32:01 hydrocodo ne 5 mg-acetam inophen 325 mg tablet 2024 025 [facility] #42492, [address], [id number], 07/09/2024 14:32:10 hydrocodo ne 5 mg-acetam inophen 325 mg tablet 2024 025 [facility] #70818, [address], [place], [place], [id number], 05/05/2024 12:41:01 gabapenti n 300 mg capsule 2024 025 [facility] #11341, [address] [place], [place], [id number], 05/05/2024 12:41:00 hydrocodo ne 5 mg-acetam inophen 325 mg tablet 2024 025 [facility] #70407, [address] [place], [place], [id number], 05/05/2024 12:40:59 gabapenti n 300 mg capsule 2024 025 [facility], [address] [place] [address], [address], 03/12/2024 14:33:18 hydrocodo ne 5 mg-acetam inophen 325 mg tablet 2024 025 [facility], [address] [place] [address], [address], 03/12/2024 14:33:15 hydrocodo ne 5 mg-acetam inophen 325 mg tablet 2024 025 [facility], [address] [place] [address], [address], 03/12/2024 14:33:10 Neuropath ic Pain Cream 3 2024 025 [facility], [address] [place], [address], 03/12/2024 14:31:32 gabapenti n 300 mg capsule 2023 024 [facility], [address] [place] [address], [address], 11/07/2023 15:00:08 hydrocodo ne 5 mg-acetam inophen 325 mg tablet 2023 024 [facility], [address] [place] [address], [address], 11/07/2023 15:00:11 hydrocodo ne 5 mg-acetam inophen 325 mg tablet 2023 024 [facility], [address] [place] [address], [address], 11/07/2023 15:00:03 gabapenti n 300 mg capsule 2023 024 [facility], [address] [place] [address], [address], 10/08/2023 13:13:17 hydrocodo ne 5 mg-acetam inophen 325 mg tablet 2023 024 [facility], [address] [place] [address], [address], 10/08/2023 13:13:13 Patient TargetsNo targets recorded. Patient Instructions Encounter Date Encounter Id Patient Instructions Last Modified By Organization Details Last Modified Time 11/07/[id number] CONSIDER COOL RF TO THE LEFT GTB [email or web address] Not available 11/07/2023 14:53:09 05/05/2024 [id number] 1. continue healthy lifestyles 2. stretching/yoga/w alking as tolerated 3. take pain medications as prescribed 4. call with any concerns [email or web address] Not available 05/05/2024 11:56:02 Patient seen today incident to a physician s previously established diagnosis and plan of care. Follow-up care provided today under the plan of care of: Gadiel Anaya MD and supervision of: Alexey Resendez MD. [email or web address] Not available 05/05/2024 11:56:20 Reason for Referral None Reported. Results Created Date Observation Date Name Description Value Unit Range Abnormal Flag Note LastModifiedBy Organization Detail LastModifiedTime 11/07/19 24 11/07/2023 GABAP ENTIN abnormal status abnormal Not Available Yg Resendez MD [facility] ([facility]) [address] [place] [address], [address], 11/27/2023 08:37:51 11/07/19 24 11/07/2023 GABAP ENTIN abnormal status low Not Available Yg Resendez MD [facility] ([facility]) [address] [place] [address], [address], 11/27/2023 08:37:51 11/07/19 24 11/26/2023 OPIAT E DEFIN ITIVE PANEL LC/MS codeine 0.0 NG/mL <75.0 Not Available Fauzia Resendez MD [facility] ([facility]) [address] [place] [address], [address], 11/27/2023 08:37:50 11/07/19 24 11/26/2023 OPIAT E DEFIN ITIVE PANEL LC/MS morphine 0 NG/mL <75.0 Not Available Fauzia Resendez MD [facility] ([facility]) [address] [place] [address], [address], 11/27/2023 08:37:50 11/07/19 24 11/26/2023 OPIAT E DEFIN ITIVE PANEL LC/MS 6-DALTON 0 NG/mL <15.0 Not Available Fauzia Resendez MD [facility] ([facility]) [address] [place] [address], [address], 11/27/2023 08:37:50 11/07/19 24 11/26/2023 OPIAT E DEFIN ITIVE PANEL LC/MS hydromorphon e 0 NG/mL <75.0 Not Available Yg Resendez MD [facility] ([facility]) [address] [place] [address], [address], 11/27/2023 08:37:50 11/07/19 24 11/26/2023 OPIAT E DEFIN ITIVE PANEL LC/MS hydrocodone 37.1 NG/mL <75.0 Not Available Yg Resendez MD [facility] ([facility]) [address] [place] [address], [address], 11/27/2023 08:37:50 11/07/19 24 11/26/2023 OPIAT E DEFIN ITIVE PANEL LC/MS norhydrocodo ne 119.7 NG/mL <75.0 abnormal Not Available Yg Resendez MD [facility] ([facility]) [address] [place] [address], [address], 11/27/2023 08:37:50 11/07/19 24 11/26/2023 GABAP ENTIN DEFIN ITIVE PANEL -LC/M S gabapentin >56736 NG/mL <5000. 0 abnormal Not Available Fauzia Resendez MD [facility] ([facility]) [address] [place] [address], [address], 11/27/2023 08:37:49 11/07/19 24 11/07/2023 D-PRE SUMPT FABIANA URINE DRUG REPOR T amphetamine NEGATI VE NG/mL <1000. 0 Not Available Fauzia Resendez MD [facility] ([facility]) [address] [place] [address], [address], 11/27/2023 08:37:49 11/07/19 24 11/07/2023 D-PRE SUMPT FABIANA URINE DRUG REPOR T benzodiazepi ne <3.3 NG/mL <200.0 Curre nt metho d may not detec t low level s of Klono pin Not Available Fauzia Resendez MD [facility] ([facility]) [address] [place] [address], [address], 11/27/2023 08:37:49 11/07/19 24 11/07/2023 D-PRE SUMPT FABIANA URINE DRUG REPOR T buprenorphin e NEGATI VE NG/mL <10.0 Not Available Fauzia Resendez MD [facility] ([facility]) [address] [place] [address], [address], 11/27/2023 08:37:49 11/07/19 24 11/07/2023 D-PRE SUMPT FABIANA URINE DRUG REPOR T cannabinoid NEGATI VE NG/mL <50.0 Not Available Fauzia Resendez MD [facility] ([facility]) [address] [place] [address], [address], 11/27/2023 08:37:49 11/07/19 24 11/07/2023 D-PRE SUMPT FABIANA URINE DRUG REPOR T cocaine NEGATI VE NG/mL <300.0 Not Available Fauzia Resendez MD [facility] ([facility]) [address] [place] [address], [address], 11/27/2023 08:37:49 11/07/19 24 11/07/2023 D-PRE SUMPT FABIANA URINE DRUG REPOR T ethanol NEGATI VE mg/dL <50.0 Not Available Fauzia Resendez MD [facility] ([facility]) [address] [place] [address], [address], 11/27/2023 08:37:49 11/07/19 24 11/07/2023 D-PRE SUMPT FABIANA URINE DRUG REPOR T methadone <0.8 NG/mL <300.0 Not Available Fauzia Resendez MD [facility] ([facility]) [address] [place] [address], [address], 11/27/2023 08:37:49 11/07/19 24 11/07/2023 D-PRE SUMPT FABIANA URINE DRUG REPOR T opiates 55.0 NG/mL <300.0 Opiat es inclu radha Codei ne,Mo rphin e, [place] morph one,H ydroc odone Not Available Fauzia Resendez MD [facility] ([facility]) [address] [place] [address], [address], 11/27/2023 08:37:49 11/07/19 24 11/07/2023 D-PRE SUMPT FABIANA URINE DRUG REPOR T oxycodone 5.0 NG/mL <300.0 Not Available Fauzia Resendez MD [facility] ([facility]) [address] [place] [address], [address], 11/27/2023 08:37:49 11/07/19 24 11/07/2023 D-PRE SUMPT FABIANA URINE DRUG REPOR T urine creatinine (validity test) 17.2 mg/dL 20.0 - 300.0 low Not Available Fauzia Resendez MD [facility] ([facility]) [address] [place] [address], [address], 11/27/2023 08:37:49 03/12/19 25 03/12/2024 GGT abnormal status high Not Available Yg Resendez MD [facility] ([facility]) [address] [place] [address], [address], 03/13/2024 11:37:50 03/12/19 25 03/12/2024 GGT abnormal status low Not Available Yg Resendez MD [facility] ([facility]) [address] [place] [address], [address], 03/13/2024 11:37:50 03/12/19 25 03/12/2024 GABAP ENTIN abnormal status abnormal Not Available Yg Resendez MD [facility] ([facility]) [address] [place] [address], [address], 03/20/2024 15:57:17 03/12/19 25 03/20/2024 OPIAT E DEFIN ITIVE PANEL LC/MS codeine 0.0 NG/mL <75.0 Not Available Fauzia Resendez MD [facility] ([facility]) [address] [place] [address], [address], 03/20/2024 15:57:16 03/12/19 25 03/20/2024 OPIAT E DEFIN ITIVE PANEL LC/MS morphine 0 NG/mL <75.0 Not Available Fauzia Resendez MD [facility] ([facility]) [address] [place] [address], [address], 03/20/2024 15:57:16 03/12/19 25 03/20/2024 OPIAT E DEFIN ITIVE PANEL LC/MS 6-DALTON 0 NG/mL <15.0 Not Available Fauzia Resendez MD [facility] ([facility]) [address] [place] [address], 470[address], 03/20/2024 15:57:16 03/12/19 25 03/20/2024 OPIAT E DEFIN ITIVE PANEL LC/MS hydromorphon e 0 NG/mL <75.0 Not Available Yg Resendez MD [facility] ([facility]) [address] [place] [address], [address]37, 03/20/2024 15:57:16 03/12/19 25 03/20/2024 OPIAT E DEFIN ITIVE PANEL LC/MS hydrocodone 349.7 NG/mL <75.0 abnormal Not Available Addi Resendez MD [facility] ([facility]) [address] [place] [address], 17[address], 03/20/2024 15:57:16 03/12/19 25 03/20/2024 OPIAT E DEFIN ITIVE PANEL LC/MS norhydrocodo ne 595.7 NG/mL <75.0 abnormal Not Available Yg Resendez MD [facility] ([facility]) [address] [place] [address], 9[address]99, 03/20/2024 15:57:16 03/12/19 25 03/20/2024 GABAP ENTIN DEFIN ITIVE PANEL -LC/M S gabapentin >62070 NG/mL <5000. 0 abnormal Not Available Fauzia Resendez MD [facility] ([facility]) [address] [place] [address], [address], 03/20/2024 15:57:16 03/12/19 25 03/13/2024 D-PRE SUMPT FABIANA URINE DRUG REPOR T amphetamine NEGATI VE NG/mL <1000. 0 Not Available Fauzia Resendez MD [facility] ([facility]) [address] [place] [address], [address], 03/20/2024 15:57:15 03/12/19 25 03/13/2024 D-PRE SUMPT FABIANA URINE DRUG REPOR T benzodiazepi ne <3.3 NG/mL <200.0 Curre nt metho d may not detec t low level s of Kl[place] pin Not Available Fauzia Resendez MD [facility] ([facility]) [address] [place] [address], [address], 03/20/2024 15:57:15 03/12/19 25 03/13/2024 D-PRE SUMPT FABIANA URINE DRUG REPOR T buprenorphin e NEGATI VE NG/mL <10.0 Not Available Fauzia Resendez MD [facility] ([facility]) [address] [place] [address], [address], 03/20/2024 15:57:15 03/12/19 25 03/13/2024 D-PRE SUMPT FABIANA URINE DRUG REPOR T cannabinoid NEGATI VE NG/mL <50.0 Not Available Fauzia Resendez MD [facility] ([facility]) [address] [place] [address], 713[address], 03/20/2024 15:57:15 03/12/19 25 03/13/2024 D-PRE SUMPT FABIANA URINE DRUG REPOR T cocaine NEGATI VE NG/mL <300.0 Not Available Fauzia Resendez MD [facility] ([facility]) [address] [place] [address], [address], 03/20/2024 15:57:15 03/12/19 25 03/13/2024 D-PRE SUMPT FABIANA URINE DRUG REPOR T ethanol NEGATI VE mg/dL <50.0 Not Available Fauzia Resendez MD [facility] ([facility]) [address] [place] [address], 227[address], 03/20/2024 15:57:15 03/12/19 25 03/13/2024 D-PRE SUMPT FABIANA URINE DRUG REPOR T methadone <0.8 NG/mL <300.0 Not Available Fauzia Resendez MD [facility] ([facility]) [address] [place] [address], 79456, 03/20/2024 15:57:15 03/12/19 25 03/13/2024 D-PRE SUMPT FABIANA URINE DRUG REPOR T opiates 232.0 NG/mL <300.0 Opiat es inclu radha Codei ne,Mo rphin e, [place] morph one,H ydroc odone Not Available Fauzia Resendez MD [facility] ([facility]) [address] [place] [address], [address], 03/20/2024 15:57:15 03/12/19 25 03/13/2024 D-PRE SUMPT FABIANA URINE DRUG REPOR T oxycodone 0 NG/mL <300.0 Not Available Fauzia Resendez MD [facility] ([facility]) [address] [place] [address], [address], 03/20/2024 15:57:15 03/12/19 25 03/13/2024 D-PRE SUMPT FABIANA URINE DRUG REPOR T urine creatinine (validity test) 40.8 mg/dL 20.0 - 300.0 Not Available Fauzia Resendez MD [facility] ([facility]) [address] [place] [address], [address]66, 03/20/2024 15:57:15 03/12/19 25 03/13/2024 RENAL FUNCT ION PANEL /HEPA TIC PANEL glucose 79.0 mg/dL 74.0 - 110.0 Not Available Fauzia Resendez MD [facility] ([facility]) [address] [place] [address], 10[address], 03/13/2024 11:37:49 03/12/19 25 03/13/2024 RENAL FUNCT ION PANEL /HEPA TIC PANEL BUN 17.0 mg/dL 4.0 - 25.0 Not Available Fauzia Resendez MD [facility] ([facility]) [address] [place] [address], [address], 03/13/2024 11:37:49 03/12/19 25 03/13/2024 RENAL FUNCT ION PANEL /HEPA TIC PANEL creatinine 0.7 mg/dL 0.6 - 1.8 Not Available Fauzia Resendez MD [facility] ([facility]) [address] [place] [address], [address], 03/13/2024 11:37:49 03/12/19 25 03/13/2024 RENAL FUNCT ION PANEL /HEPA TIC PANEL sodium 139 mEq/L 133 - 145 Not Available Fauzia Resendez MD [facility] ([facility]) [address] [place] [address], 87424, 03/13/2024 11:37:49 03/12/19 25 03/13/2024 RENAL FUNCT ION PANEL /HEPA TIC PANEL potassium 4.0 mEq/L 3.4 - 5.1 Not Available Fauzia Resendez MD [facility] ([facility]) [address] [place] [address], 65181, 03/13/2024 11:37:49 03/12/19 25 03/13/2024 RENAL FUNCT ION PANEL /HEPA TIC PANEL chloride 106.6 mEq/L 93.0 - 106.0 high Not Available Fauzia Resendez MD [facility] ([facility]) [address] [place] [address], 27344, 03/13/2024 11:37:49 03/12/19 25 03/13/2024 RENAL FUNCT ION PANEL /HEPA TIC PANEL eco2 25.0 mEq/L 24.6 - 35.8 Not Available Fauzia Resendez MD [facility] ([facility]) [address] [place] [address], 84741, 03/13/2024 11:37:49 03/12/19 25 03/13/2024 RENAL FUNCT ION PANEL /HEPA TIC PANEL calcium 9.1 mg/dL 8.3 - 10.1 Not Available Fauzia Resendez MD [facility] ([facility]) [address] [place], [address], 03/13/2024 11:37:49 03/12/19 25 03/13/2024 RENAL FUNCT ION PANEL /HEPA TIC PANEL phosphorus 3.8 mg/dL 2.3 - 4.8 Not Available Fauzia Resendez MD [facility]) [address] [place] [address], 40699, 03/13/2024 11:37:49 03/12/19 25 03/13/2024 RENAL FUNCT ION PANEL /HEPA TIC PANEL total protein 6.9 g/dL 6.0 - 8.5 Not Available Fauzia Resendez MD [facility]) [address] [place] [address], 05590, 03/13/2024 11:37:49 03/12/19 25 03/13/2024 RENAL FUNCT ION PANEL /HEPA TIC PANEL albumin 4.2 g/dL 3.3 - 4.9 Not Available Fauzia Resendez MD [facility]) [address] [place] [address], 54614, 03/13/2024 11:37:49 03/12/19 25 03/13/2024 RENAL FUNCT ION PANEL /HEPA TIC PANEL ALP 44.0 U/L 46.0 - 116.0 low Not Available Fauzia Resendez MD [facility]) [address] [place] [address], 36241, 03/13/2024 11:37:49 03/12/19 25 03/13/2024 RENAL FUNCT ION PANEL /HEPA TIC PANEL AST 18 U/L 6 - 40 Not Available Fauzia Resendez MD [facility]) [address] [place] [address], 82305, 03/13/2024 11:37:49 03/12/19 25 03/13/2024 RENAL FUNCT ION PANEL /HEPA TIC PANEL ALT 8 U/L 5 - 30 Not Available Fauzia Resendez MD [facility]) [address] [place], [address], 03/13/2024 11:37:49 03/12/19 25 03/13/2024 RENAL FUNCT ION PANEL /HEPA TIC PANEL total bilirubin 0.36 mg/dL 0.00 - 1.00 Not Available Fauzia Resendez MD [facility] ([facility]) [address] [place], [address], 03/13/2024 11:37:49 03/12/19 25 03/13/2024 RENAL FUNCT ION PANEL /HEPA TIC PANEL direct bilirubin 0.06 mg/dL 0.00 - 0.40 Not Available Fauzia Resendez MD [facility] ([facility]) [address] [place], [address], 03/13/2024 11:37:49 03/12/19 25 03/12/2024 CBC WITH DIFFE RENTI AL/PL ATELE T WBC 5.3 10 4.0 - 11.0 Not Available Fauzia Resendez MD [facility] ([facility]) [address] [place], [address], 03/13/2024 11:37:49 03/12/19 25 03/12/2024 CBC WITH DIFFE RENTI AL/PL ATELE T RBC 4.09 10 3.72 - 5.52 Not Available Fauzia Resendez MD [facility] ([facility]) [address] [place], [address], 03/13/2024 11:37:49 03/12/19 25 03/12/2024 CBC WITH DIFFE RENTI AL/PL ATELE T HGB 12.5 g/dL 11.0 - 16.6 Not Available Fauzia Resendez MD [facility]) [address] [place], [address], 03/13/2024 11:37:49 03/12/19 25 03/12/2024 CBC WITH DIFFE RENTI AL/PL ATELE T HCT 37.0 % 34.0 - 49.0 Not Available Fauzia Resendez MD [facility]) [address] [place] [address], 72665, 03/13/2024 11:37:49 03/12/19 25 03/12/2024 CBC WITH DIFFE RENTI AL/PL ATELE T MCV 90.5 fL 79.5 - 101.0 Not Available Fauzia Resendez MD [facility]) [address] [place] [address], 61349, 03/13/2024 11:37:49 03/12/19 25 03/12/2024 CBC WITH DIFFE RENTI AL/PL ATELE T MCH 30.6 pg 26.2 - 34.0 Not Available Fauzia Resendez MD [facility]) [address] [place] [address], 71837, 03/13/2024 11:37:49 03/12/19 25 03/12/2024 CBC WITH DIFFE RENTI AL/PL ATELE T MCHC 33.8 g/dL 31.3 - 36.0 Not Available Fauzia Resendez MD [facility]) [address] [place] [address], 36881, 03/13/2024 11:37:49 03/12/19 25 03/12/2024 CBC WITH DIFFE RENTI AL/PL ATELE T plt 182 10 115 - 421 Not Available Fauzia Resendez MD [facility]) [address] [place] [address], 50836, 03/13/2024 11:37:49 03/12/19 25 03/12/2024 CBC WITH DIFFE RENTI AL/PL ATELE T RDW-CV 12.3 % 11.3 - 16.1 Not Available Fauzia Resendez MD [facility]) [address] [place] [address], 88306, 03/13/2024 11:37:49 03/12/19 25 03/12/2024 CBC WITH DIFFE RENTI AL/PL ATELE T neut# 3.63 10 0.81 - 9.65 Not Available Fauzia Resendez MD [facility]) [address] [place] [address], 97717, 03/13/2024 11:37:49 03/12/19 25 03/12/2024 CBC WITH DIFFE RENTI AL/PL ATELE T lymph# 1.28 10 0.65 - 4.81 Not Available Fauzia Resendez MD [facility]) [address] [place] [address], 56703, 03/13/2024 11:37:49 03/12/19 25 03/12/2024 CBC WITH DIFFE RENTI AL/PL ATELE T mono# 0.25 10 0.10 - 1.13 Not Available Fauzia Resendez MD [facility]) [address] [place] [address], 24343, 03/13/2024 11:37:49 03/12/19 25 03/12/2024 CBC WITH DIFFE RENTI AL/PL ATELE T eo# 0.09 10 0.00 - 0.50 Not Available Fauzia Resendez MD [facility]) [address] [place] [address], 44388, 03/13/2024 11:37:49 03/12/19 25 03/12/2024 CBC WITH DIFFE RENTI AL/PL ATELE T baso# 0.01 10 0.00 - 0.09 Not Available Fauzia Resendez MD [facility]) [address] [place] [address], 07085, 03/13/2024 11:37:49 03/12/19 25 03/12/2024 CBC WITH DIFFE RENTI AL/PL ATELE T neut% 69.0 % 37.2 - 78.0 Not Available Fauzia Resendez MD [facility]) [address] [place] [address], 25505, 03/13/2024 11:37:49 03/12/19 25 03/12/2024 CBC WITH DIFFE RENTI AL/PL ATELE T lymph% 24.3 % 13.4 - 50.2 Not Available Fauzia Resendez MD [facility]) [address] [place], [address], 03/13/2024 11:37:49 03/12/19 25 03/12/2024 CBC WITH DIFFE RENTI AL/PL ATELE T mono% 4.8 % 3.4 - 12.0 Not Available Fauzia Resendez MD [facility]) [address] [place], [address], 03/13/2024 11:37:49 03/12/19 25 03/12/2024 CBC WITH DIFFE RENTI AL/PL ATELE T eo% 1.7 % 0.0 - 7.0 Not Available Fauzia Resendez MD [facility]) [address] [place] [address], 26963, 03/13/2024 11:37:49 03/12/19 25 03/12/2024 CBC WITH DIFFE RENTI AL/PL ATELE T baso% 0.2 % 0.0 - 3.0 Not Available Fauzia Resendez MD [facility]) [address] [place], [address], 03/13/2024 11:37:49 Result Notes None recorded. Problems Name Problem SNOMED Code Status Onset Date Resolution Date Notes Provider Name and Address Organization Details Recorded Time Opioid dependenc e 65050581 Active 2020 (F11.20)O pioid dependenc e, uncomplic ated Not Available [facility] 2 23:01:33 Complex regional pain syndrome, type II, lower limb 900840996 Active 2020 (G57.72)C ausalgia of left lower limb Not Available [facility] 2 23:01:33 Chronic pain following trauma 659120268 Active 2020 (G89.21)C hronic pain due to trauma Not Available [facility] 2 23:01:33 Pain of right shoulder joint 17806371142 773558 Active 2020 (M25.511) Pain in right shoulder Not Available [facility] 2 23:01:33 Lumbosacr al radiculop athy 2850228 Active 2021 (M54.16)R adiculopa thy, lumbar region Not Available [facility] 2 23:01:33 Muscle pain 19640343 Active 2020 (M79.10)M yalgia, unspecifi ed site Not Available [facility] 2 23:01:33 Long-term current use of opiate analgesic drug [id number] 4108 Active 2020 (z79.891) 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 2 09:27:37 Myofascia l pain syndrome of neck 739793292 Active 2023 Gadiel Anaya MD [facility] [place][note 2] [address], [place], [address] , [facility] 4 12:02:53 Greater trochante ricardo pain syndrome 4316714 Active 2023 Gadiel Anaya MD [facility] [place][note 2] [place], [address] , [facility] 4 11:16:14 Trochante ricardo bursitis of left hip 29393793069 9103 Active 2023 [place], [address] , [facility] 4 13:02:04 Cervical spondylos is without myelopath y 671958121 Active [address], [place], [address] , [facility] 4 13:02:20 Spondylos is without myelopath y 82828517 Active 2023 Gadiel Anaya [facility] [address] [facility] [place], [address] , [facility] 4 13:02:40 Lumbosacr al spondylos is without myelopath y 64478284 Active 2023 [place], [address] , [facility] 4 13:03:09 Complex regional pain syndrome type I of right lower limb 22114199734 9109 Active 2024 [place], [address] , [facility] 5 15:11:09 Inflammat ion of sacroilia c joint 81413651 Active 2024 MD [facility] [place], [address] , [facility] 5 10:19:55 Chronic pain syndrome 838063333 Active 2024 MD Marnie [facility] [place], [address] , [facility] 5 14:25:37 Lumbar spondylos is [id number] Active 2024 [place], [address] , [facility] 5 14:31:05 Notes:Crushing injury of lef t foot, Sequela - Problem Code: S97.82S Crushing injury of left ankle, Sequela - Problem Code: S97.02S Problem Notes None recorded. Procedures Surgical History Date Name Laterality Status Provider Name and Address Organization Details Recorded Time 10/08/19 24 Greater Trochanteric Bursa Steroid Injection completed Gadiel Anaya MD [address], [place], [address], [facility] 10/08/2023 13:01:51 06/28/19 24 Trigger Point Steroid Injections completed Gadiel Anaya MD [address], [place], [address], [facility] 06/28/2023 12:02:44 Imaging Results None recorded. Procedure Notes None recorded. Medical Equipment None Reported. Allergies Allergen ID Allergen Name Allergen Category Reaction Reaction Severity Criticality Documentation Date Start Date Code Code System Note Provider Name and Address Organization Details Recorded Time 96294 Zanaflex medicatio n Not available Not available Not available 06/14/20212020 40019 6 RxNorm Not Available [facility] 22:02:12 28834 andrew extract food,medi cation Not available Not available Not available 06/14/20212020 23904 1 RxNorm Not Available [facility] 22:02:12 Medications Name Sig Start Date Stop Date Status Note LastModified by Organization Details LastModified Time PainGel2 Apply 1-2 grams to affected area 3-4 times a day 04/29 completed Not Available Not Available Not Available Neuropath ic Pain Cream 3 Apply 1-2 grams to the affected ardea 3-4 times daily 2024 active Not Available Not Available Not Avai lable Neuropath ic Pain Cream 4 Apply 1-2 grams to affected area 3-4 times a day 2022 active Not Available Not Available Not Avai lable ketamine gabapenti n lidocaine amitripty line bupivacai ne meloxicam # 10% 6% 5% 2% 2% 0.1% topical APPLY 1-2 GRAMS TO AFFECTED AREAS 3-4 TIMES DAILY active Not Available Not Available No t Available Neuropath ic Pain Cream 4 Apply 1-2 gm to the affected area 3-4 times a day 2022 active Not Available Not Available Not Avai lable PainGel2 Apply 1-2 grams to affected area 3-4 times a day 2022 active Not Available Not Available Not Avai lable compounde d medicatio n Apply 1-2 gm to the affected area 3-4 times a day 2023 active Spoke to Baldemar at the pharmacy and he took a verbal over the phone. grr Not Available Not Available Not Available ketamine gabapenti n lidocaine amitripty line bupivacai ne meloxicam 10% 6% 5% 2% 2% 0.1% topical # APPLY 1-2 GRAMS TO AFFECTED AREAS 3-4 TIMES DAILY active Not Available Not Available No t Available compounde d medicatio n Apply 1-2 gm to the affected area 3-4 times a day 2024 active Spoke to Baldemar at the pharmacy and he took a verbal over the phone. grr Not Available Not Available Not Available amoxicill in 500 mg capsule active Not Available Not Available Not Available promethaz ine-DM 6.25 mg-15 mg/5 mL oral syrup active Not Available Not Available Not Available prednison e 10 mg tablet active Not Available Not Available Not Available Zyrtec-D 5 mg-120 mg tablet,ex tended release TAKE 1 TABLET BY MOUTH TWICE A DAY 08/08 completed Not Available Not Available Not Available albuterol sulfate 2.5 mg/3 mL (0.083 %) solution for nebulizat ion active Not Available Not Available Not Available etodolac 300 mg capsule TAKE 1 CAPSULE BY MOUTH EVERY 8 HOURS NEEDED 01/10 completed Not Available Not Available Not Available azithromy celeste 250 mg tablet TAKE 2 TABLETS BY MOUTH TODAY, THEN TAKE 1 TABLET DAILY FOR 4 DAYS 01/10 completed Not Available Not Available Not Available benzonata te 200 mg capsule TAKE 1 CAPSULE BY MOUTH 3 TIMES A DAY IF NEEDED FOR COUGH. DO NOT CRUSH OR CHEW. 01/10 completed Not Available Not Available Not Available hydrocodo ne 5 mg-acetam inophen 325 mg tablet Take 1 po daily prn 2024 active Not Available Not Available Not Avai lable meloxicam 15 mg tablet active Not Available Not Available Not Available prednison e 20 mg tablet TAKE 2 TABLETS BY MOUTH EVERY DAY 01/10 completed Not Available Not Available Not Available methylpre dnisolone 4 mg tablet active Not Available Not Available Not Available amoxicill in 500 mg tablet TAKE 1 TABLET BY MOUTH THREE TIMES DAILY UNTIL GONE active Not Available Not Available No t Available amoxicill in 875 mg tablet TAKE 1 TABLET BY MOUTH TWICE A DAY FOR 10 DAYS active Not Available Not Available No t Available methocarb jermaine 750 mg tablet Take 1 tablet twice a day by oral route. active PTC MED Not Available Not Available No t Available fluvoxami ne 25 mg tablet active Not Available Not Available Not Available baclofen 10 mg tablet TAKE 1 TABLET BY MOUTH EVERY DAY DIRECTED active Not Available Not Available No t Available benzonata te 100 mg capsule TAKE 1 CAPSULE BY MOUTH TWICE DAILY NEEDED FOR cough active Not Available Not Available No t Available gabapenti n 300 mg capsule TAKE 1 CAPSULE BY MOUTH TWICE A DAY 2024 active [facility] Not Available Not Available Not Available fluvoxami ne 50 mg tablet TAKE ONE TABLET BY MOUTH ONCE A DAY active Not Available Not Available No t Available gabapenti n 100 mg capsule TAKE 1 CAPSULE BY MOUTH TWICE A DAY 08/08 completed Not Available Not Available Not Available ibuprofen 600 mg tablet TAKE 1 TABLET BY MOUTH EVERY 6 HOURS NEEDED FOR MILD PAIN active Not Available Not Available No t Available methylpre dnisolone 4 mg tablets in a dose pack TAKE DIRECTED ON PACK FOR 6 DAYS active Not Available Not Available No t Available albuterol sulfate HFA 90 mcg/actua tion aerosol inhaler active Not Available Not Available Not Available ondansetr on 4 mg disintegr ating tablet DISSOLVE 1 TABLET ON THE TONGUE EVERY 8 HOURS NEEDED FOR NAUSEA active Not Available Not Available No t Available cefdinir 300 mg capsule active Not Available Not Available Not Available amoxicill in 875 mg-potass ium clavulana te 125 mg tablet TAKE 1 TABLET BY MOUTH TWICE DAILY FOR 10 DAYS active Not Available Not Available No t Available neomycin- polymyxin -hydrocor t 3.5 mg-10,000 unit/mL-1 % ear drops,ludwig p INSTILL 4 DROPS INTO THE AFFECTED EAR(S) EVERY 8 HOURS DIRECTED FOR 7 DAYS active Not Available Not Available No t Available metaxalon e 800 mg tablet TAKE 1/2-1 TABLET BY MOUTH 3 TIMES A DAY NEEDED 01/10 completed Not Available Not Available Not Available duloxetin e 30 mg capsule,d elayed release active Not Available Not Available Not Available chlorhexi dine gluconate 0.12 % mouthwash active Not Available Not Available No t Available baclofen 5 mg tablet Take 1 tablet twice a day by oral route as directed for 30 days. 03/02 completed Not Available Not Available Not Available [facility] COVID-19 Vaccine (PF) 30 mcg/0.3 mL IM susp (purple) 08/08 completed Not Available Not Available Not Available Vitals Date Recorded Body height Body mass index (BMI) Body weight Respiratory rate Heart rate Systolic And Diastolic Provider Name and Address Organization Details Last Updated DateTime 5 167.64 cm 25.6 kg/m2 12223.4 7 g 18 /min 82 /min 126/72 mm[Hg] [facility] 5 14:02:13 Date Recorded Body height Body temperature Respiratory rate Body mass index (BMI) Body weight Heart rate Systolic And Diastolic Provider Name and Address Organization Details Last Updated DateTime 5 167.64 cm 95.1 [degF] 18 /min 27 kg/m2 89670 g 70 /min 109/64 mm[Hg] [facility] 5 11:45:10 Date Recorded Body height Respiratory rate Body mass index (BMI) Body weight Body temperature Heart rate Systolic And Diastolic Provider Name and Address Organization Details Last Updated DateTime 5 167.64 cm 16 /min 27.3 kg/m2 86099.1 1 g 98.3 [degF] 66 /min 98/61 mm[Hg] [facility] 5 13:11:41 Date Recorded Body height Body mass index (BMI) Body weight Provider Name and Address Organization Details Last Updated DateTime 10/08/2023 167.64 cm 24.2 kg/m2 54471.14 g Roman [facility] 10/08/2023 12:57:45 Date Recorded Heart rate Respiratory rate Systolic And Diastolic Provider Name and Address Organization Details Last Updated DateTime 10/08/2023 60 /min 18 /min 116/79 mm[Hg] Raquel Duvallsarah [facility] 10/08/2023 13:01:49 Date Recorded Body height Heart rate Respiratory rate Body mass index (BMI) Body weight Systolic And Diastolic Provider Name and Address Organization Details Last Updated DateTime 167.64 cm 71 /min 18 /min 24.5 kg/m2 13079.3 2 g 136/84 mm[Hg] Chetna Dmitry-Sl eet [facility] 12:46:53 Social History None recorded. Functional Status None recorded. Mental Status None recorded. Family History Nothing Reported. Medical History No medical history recorded. Gynecological HistoryNo gynecological history recorded. Obstetrics History GPAL:G 0 P 0 0 0 0 Past Encounters Encounter ID Performer Location Encounter Start Date Encounter Closed Date Diagnosis/Indication Diagnosis SNOMED-CT Code Diagnosis ICD10 Code Diagnosis Note [id number] Suzan Maharaj APRN [address] [place], [place] [address] [place] [address] 08/30/2021 12:38:41 08/31/2021 16:45:43 Pain of right shoulder joint 1595791117 7803466 M25.511 patient has plans to f/u with ortho related to this issue soon, will await what he says Complex re gional pain syndrome, type II, lower limb 875246855 G57.72 patient gets at least 75% relief from NB for nearly 1 year and she has not been able to have due to deductible for extended period of time, pain is worse and needs to be repeated derek Muscle pain 82089209 M79 .10 has cramping at night especially , she says she is unable to tolerate the tizanidine , flexeril or robaxin due to SE, will try skelaxin to see if it will be effective [id number] Suzan Maharaj APRN [address] [place] [address] 10/26/2021 08:58:37 10/28/2021 15:20:29 Long-term current use of opiate analgesic drug 0118552339 78114 Z79.891 Complex re gional pain syndrome, type II, lower limb 594468942 G57.72 got 90% relief from the sympatheti c NB will repeat prn Spasm 82312712 R25.2 was not relieved with skelaxin or baclofen or flexeril, tizanidine , is still not relieved so is unable to walk more, will see to change tx plan [id number] Gadiel Anaya MD [address] [place] [address] 01/10/2022 12:41:06 02/22/2022 12:26:47 Chronic pain following trauma 870406112 G89.21 Complex re gional pain syndrome, type II, lower limb 743029156 G57.72 Long-term current use of opiate analgesic drug 9203737719 18803 Z79.891 Muscle pain 86482680 M79 .10 Pain of ri ght shoulder joint 1814188085 3672580 M25.386 [id number] Randi Arguelles DNP [employer] [address] [place] [address] 03/07/2022 14:31:40 03/20/2022 07:43:56 Complex regional pain syndrome, type II, lower limb 399526031 G57.72 Global Risk Assessment Score:Mode rate Risk.High Risk Assessment : Multiple Opioid Medication Medication Regimen (>2 controlled substances ) High Doses of Opioids to Manage Pain (>30 mg Morphine or equivalent ) Abnormal UDMs (including presence of licit/illi cit meds not prescribed Abnormal PC/DS Abnormal PDMP Physical symptoms suggesting substance abuse-misu se at [facility] Behavioral /psycholog ical symptoms suggesting substane abuse-misu se at [facility] History of legal or illegal substane use including treatments for abuse or dependence Personal History of alcoholism , illicit drug abuse/dive rsion, ALC abuse/phys ical abuse TY (prescript ion drug monitoring report):As of 03/01/2022 reviewed and is appropriat e Last fill 01/10/2022 Chronic pa in following trauma 194173530 G89.21 Long-term current use of opiate analgesic drug 7790125608 50991 Z79.159 [id number] Randi Arguelles DNP [employer] [address] [place] [address] 04/05/2022 13:53:47 04/18/2022 14:04:28 Complex regional pain syndrome, type II, lower limb 433329322 G57.72 Global Risk Assessment Score:Mode rate Risk.High Risk Assessment : Multiple Opioid Medication Medication Regimen (>2 controlled substances ) High Doses of Opioids to Manage Pain (>30 mg Morphine or equivalent ) Abnormal UDMs (including presence of licit/illi cit meds not prescribed Abnormal PC/DS Abnormal PDMP Physical symptoms suggesting substance abuse-misu se at OV's Behavioral /psycholog ical symptoms suggesting substane abuse-misu se at OV's History of legal or illegal substane use including treatments for abuse or dependence Personal History of alcoholism , illicit drug abuse/dive rsion, ALC abuse/phys ical abuse TY (prescript ion drug monitoring report):As of 04/01/2022 reviewed and is appropriat e Last fill 03/10/2022 Chronic pa in following trauma 037090532 G89.21 Long-term current use of opiate analgesic drug 9037969069 15243 Z79.847 [id number] Randi Arguelles DNP [employer] [address] [facility] [address] [place] [address] 06/12/2022 09:34:31 06/13/2022 16:05:34 Complex regional pain syndrome, type II, lower limb 765493174 G57.72 Global Risk Assessment Score:Mode rate Risk.High Risk Assessment : Multiple Opioid Medication Medication Regimen (>2 controlled substances ) High Doses of Opioids to Manage Pain (>30 mg Morphine or equivalent ) Abnormal UDMs (including presence of licit/illi cit meds not prescribed Abnormal PC/DS Abnormal PDMP Physical symptoms suggesting substance abuse-misu se at OV's Behavioral /psycholog ical symptoms suggesting substane abuse-misu se at OV's History of legal or illegal substane use including treatments for abuse or dependence Personal History of alcoholism , illicit drug abuse/dive rsion, ALC abuse/phys ical abuse TY (prescript ion drug monitoring report):As of 04/01/2022 reviewed and is appropriat e Last fill 03/10/2022 Chronic pa in following trauma 640771711 G89.21 Long-term current use of opiate analgesic drug 3187619397 93853 Z79.385 [id number] Randi Arguelles, [facility] [employer] [address] [facility] [address] [place] [address] 08/09/2022 10:20:42 08/18/2022 11:14:15 Long-term current use of opiate analgesic drug 2295157848 86544 Z79.891 Diagnostic /Lab: Order Presumptiv e UDT (necessary for rapid results) with Definitive confirmati on for chronic pain patient, to define treatment and reinforce therapeuti c compliance ; the following apply: [Presumpti ve UDT includes: (Amp, Judie, Kris, Bup, THC, DIAMOND, ETOH, Meth, Opi, Oxy )] *-Patient is receiving controlled medication s. *-Presumpt fabiana UDT to identify presence of illicit/no n-prescrib ed substance( s) - Confirm positive for ongoing safe prescribin g of controlled substances . *-Presumpt fabiana UDT to identify presence of licit/pres cribed substance( s)-Confirm unexpected results, identify specific drug(s) in large class and ensure appropriat e use of prescribed medication (s). *-Definiti ve UDT inadequate ly detected by Presumptiv e UDT (gabapenti n, pregabalin , tramadol, fentanyl, tapentadol and carisoprod ol). HP1 (CBC/Renal /Hepatic/G GT) CBC - ordered to monitor the effects of prescribed medication s. Renal/Hepa tic/GGT - ordered to monitor toxicity of renal hepatic function due to medication . Complex re gional pain syndrome, type II, lower limb 518610060 G57.72 Global Risk Assessment Score:Mode rate Risk.High Risk Assessment : Multiple Opioid Medication Medication Regimen (>2 controlled substances ) High Doses of Opioids to Manage Pain (>30 mg Morphine or equivalent ) Abnormal UDMs (including presence of licit/illi cit meds not prescribed Abnormal PC/DS Abnormal PDMP Physical symptoms suggesting substance abuse-misu se at OV's Behavioral /psycholog ical symptoms suggesting substane abuse-misu se at OV's History of legal or illegal substane use including treatments for abuse or dependence Personal History of alcoholism , illicit drug abuse/dive rsion, ALC abuse/phys ical abuse TY (prescript ion drug monitoring report):As of 08/09/2022 reviewed and is appropriat e Last fill Lumbosacra l radiculopathy 3283075 M54.16 [id number] Randi Arguelles DNP [employer] [address] [place] [address] 10/11/2022 09:53:50 10/17/2022 15:44:14 Lumbosacral radiculopathy 0768367 M54.16 Muscle pain 23411961 M79 .10 Complex re gional pain syndrome, type II, lower limb 657284581 G57.71 Global Risk Assessment Score:Mode rate Risk.High Risk Assessment : Multiple Opioid Medication Medication Regimen (>2 controlled substances ) High Doses of Opioids to Manage Pain (>30 mg Morphine or equivalent ) Abnormal UDMs (including presence of licit/illi cit meds not prescribed Abnormal PC/DS Abnormal PDMP Physical symptoms suggesting substance abuse-misu se at OV's Behavioral /psycholog ical symptoms suggesting substane abuse-misu se at OV's History of legal or illegal substane use including treatments for abuse or dependence Personal History of alcoholism , illicit drug abuse/dive rsion, ALC abuse/phys ical abuse TY (prescript ion drug monitoring report):As of 10/11/2022 reviewed and is appropriat e Last fill 09/15/2022 Fibromyalgia 966070900 M 79.7 [id number] Gadiel Anaya MD [address] [place] [address] 12/07/2022 09:09:34 12/07/2022 14:59:04 Lumbosacral radiculopathy 7365919 M54.16 Muscle pain 76653169 M79 .10 Complex re gional pain syndrome, type II, lower limb 172628554 G57.71 Long-term current use of opiate analgesic drug 5852905521 57303 Z79.891 Chronic pa in following trauma 268929074 G89.21 Opioid dependence 283685 00 F11.20 [id number] Gadiel Anaya MD [facility] [place] [address] 01/02/2023 12:33:57 01/03/2023 10:43:09 Complex regional pain syndrome, type II, lower limb 265232519 G57.71 Lumbosacra l radiculopathy 2735487 M54.16 Muscle pain 48982436 M79 .10 [id number] DAMIAN Del Valle [facility] [address] 03/05/2023 10:29:54 03/05/2023 11:46:50 Long-term current use of opiate analgesic drug 6130792048 57868 Z79.891 Diagnostic /Lab: Order Presumptiv e UDT (necessary for rapid results) with Definitive confirmati on for chronic pain patient, to define treatment and reinforce therapeuti c compliance ; the following apply: [Presumpti ve UDT includes: (Amp, Judie, Kris, Bup, THC, DIAMOND, ETOH, Meth, Opi, Oxy )] *-Patient is receiving controlled medication s. *-Presumpt fabiana UDT to identify presence of illicit/no n-prescrib ed substance( s) - Confirm positive for ongoing safe prescribin g of controlled substances . *-Presumpt fabiana UDT to identify presence of licit/pres cribed substance( s)-Confirm unexpected results, identify specific drug(s) in large class and ensure appropriat e use of prescribed medication (s). *-Definiti ve UDT inadequate ly detected by Presumptiv e UDT (gabapenti n, pregabalin , tramadol, fentanyl, tapentadol and carisoprod ol). Lumbosacra l radiculopathy 7406676 M54.16 Muscle pain 77610604 M79 .10 Complex re gional pain syndrome, type II, lower limb 602665165 G57.70 [id number] Randi Arguelles DNP APRN [facility] [address] 04/30/2023 10:42:18 04/30/2023 14:57:57 Complex regional pain syndrome, type II, lower limb 339465045 G57.71 Global Risk Assessment Score:Mode rate Risk.High Risk Assessment : Multiple Opioid Medication Medication Regimen (>2 controlled substances ) High Doses of Opioids to Manage Pain (>30 mg Morphine or equivalent ) Abnormal UDMs (including presence of licit/illi cit meds not prescribed Abnormal PC/DS Abnormal PDMP Physical symptoms suggesting substance abuse-misu se at OV's Behavioral /psycholog ical symptoms suggesting substane abuse-misu se at OV's History of legal or illegal substane use including treatments for abuse or dependence Personal History of alcoholism , illicit drug abuse/dive rsion, ALC abuse/phys ical abuse TY (prescript ion drug monitoring report):As of 04/30/2023 reviewed and is appropriat e Last fill 04/07/2023 Lumbosacra l radiculopathy 4333574 M54.16 Pain of ri ght shoulder joint 3795036752 1966829 M25.511 Long-term current use of opiate analgesic drug 4160276855 72813 Z79.891 Diagnostic /Lab: Order Presumptiv e UDT (necessary for rapid results) with Definitive confirmati on for chronic pain patient, to define treatment and reinforce therapeuti c compliance ; the following apply: [Presumpti ve UDT includes: (Amp, Judie, Kris, Bup, THC, DIAMOND, ETOH, Meth, Opi, Oxy )] *-Patient is receiving controlled medication s. *-Presumpt fabiana UDT to identify presence of illicit/no n-prescrib ed substance( s) - Confirm positive for ongoing safe prescribin g of controlled substances . *-Presumpt fabiana UDT to identify presence of licit/pres cribed substance( s)-Confirm unexpected results, identify specific drug(s) in large class and ensure appropriat e use of prescribed medication (s). *-Definiti ve UDT inadequate ly detected by Presumptiv e UDT (gabapenti n, pregabalin , tramadol, fentanyl, tapentadol and carisoprod ol). HP1 (CBC/Renal /Hepatic/G GT) CBC - ordered to monitor the effects of prescribed medication s. Renal/Hepa tic/GGT - ordered to monitor toxicity of renal hepatic function due to medication . Muscle pain 11569171 M79 .10 Pain of ri ght shoulder region 4524276965 M25.511 Fibromyalgia 606794595 M 79.7 [id number] Gadiel Anaya MD [address] [place] [address] 06/28/2023 11:24:44 07/06/2023 11:25:31 Pain of right shoulder joint 7551787284 2887449 M25.511 Lumbosacra l radiculopathy 5667061 M54.16 Complex re gional pain syndrome, type II, lower limb 268122069 G57.71 Myofascial pain syndrome of neck 374010395 M54.2 [id number] Gadiel Anaya MD [address] [place] [address] 09/05/2023 09:30:03 09/10/2023 09:17:48 Pain of right shoulder joint 3457840861 6113187 M25.511 Lumbosacra l radiculopathy 6660394 M54.16 Complex re gional pain syndrome, type II, lower limb 710436042 G57.71 Greater tr ochanteric pain syndrome 3475990 M70.62 [id number] Gadiel Anaya MD [address] [place], [place] [address] 10/08/2023 12:26:59 10/17/2023 09:38:16 Complex regional pain syndrome, type II, lower limb 575529974 G57.71 Lumbosacra l radiculopathy 9766917 M54.16 Pain of ri ght shoulder joint 0843485546 3313826 M25.511 Trochanter ic bursitis of left hip 2845538970 34356 M70.62 Lumbosacra l spondylosis without myelopathy 48275053 M47.559 [id number] Gadiel Anaya MD [address] [place] [address] 11/07/2023 12:35:09 11/20/2023 10:13:39 Complex regional pain syndrome, type II, lower limb 025945117 G57.71 Lumbosacra l radiculopathy 6899019 M54.16 Pain of ri ght shoulder joint 7646038001 8837040 M25.511 Long-term current use of opiate analgesic drug 9102711374 50076 Z79.891 Spondylosi s without myelopathy 48636815 M47.9 [id number] Gadiel Anaya MD [address] [address] 03/12/2024 13:40:09 05/19/2024 11:39:24 Complex regional pain syndrome, type II, lower limb 688209064 G57.70 Lumbosacra l radiculopathy 2753460 M54.16 Pain of ri ght shoulder joint 0686601756 3056502 M25.511 Long-term current use of opiate analgesic drug 9682126514 68781 Z79.891 Spondylosi s without myelopathy 72562411 M47.9 [id number] Randi Arguelles DNP [employer] [address] [place] [address] 05/05/2024 11:37:39 05/15/2024 10:19:33 Cervical spondylosis without myelopathy 553050239 M47.812 Complex re gional pain syndrome, type II, lower limb 765953222 G57.71 Global Risk Assessment Score:Mode rate Risk.High Risk Assessment : Multiple Opioid Medication Medication Regimen (>2 controlled substances ) High Doses of Opioids to Manage Pain (>30 mg Morphine or equivalent ) Abnormal UDMs (including presence of licit/illi cit meds not prescribed Abnormal PC/DS Abnormal PDMP Physical symptoms suggesting substance abuse-misu se at OV's Behavioral /psycholog ical symptoms suggesting substane abuse-misu se at OV's History of legal or illegal substane use including treatments for abuse or dependence Personal History of alcoholism , illicit drug abuse/dive rsion, ALC abuse/phys ical abuse TY (prescript ion drug monitoring report):As of 04/30/2023 reviewed and is appropriat e Last fill 04/07/2023 Chronic pain syndrome 37 [id number] G89.4 [id number] Gadiel Anaya MD [facility] [address] [address] 07/09/2024 13:02:01 07/21/2024 08:14:39 Pain of right shoulder joint [id number] M25.511 Lumbosacra l radiculopathy [id number] M54.16 Complex re gional pain syndrome, type II, lower limb [id number] G57.71 Long-term current use of opiate analgesic drug [id number] Z79.891 Diagnostic /Lab: Order Presumptiv e UDT (necessary for rapid results) with Definitive confirmati on for chronic pain patient, to define treatment and reinforce therapeuti c compliance ; the following apply: [Presumpti ve UDT includes: (Amp, Judie, Kris, Bup, THC, DIAMOND, ETOH, Meth, Opi, Oxy )] *-Patient is receiving controlled medication s. *-Presumpt fabiana UDT to identify presence of illicit/no n-prescrib ed substance( s) - Confirm positive for ongoing safe prescribin g of controlled substances . *-Presumpt fabiana UDT to identify presence of licit/pres cribed substance( s)-Confirm unexpected results, identify specific drug(s) in large class and ensure appropriat e use of prescribed medication (s). *-Definiti ve UDT inadequate ly detected by Presumptiv e UDT (gabapenti n, pregabalin , tramadol, fentanyl, tapentadol and carisoprod ol). Cervical s pondylosis without myelopathy [id number] M47.812 Chronic pain syndrome 37 [id number] G89.4 Lumbar spondylosis 07725 0009 M47.816 Health Concerns Section Related Observation LastModified by Organization Detai ls LastModified Time None Recorded Concern Status LastModified by Organization Details LastModified Time None Recorded Advance Directives Directive None Recorded Payers Insurance Date Sequence Insurance Name Policy Number Policy Wisdom Covered Member ID Wisdom Member ID Guarantor Name 07/25/2024 1 [employer] [id number] Eric Alamo [id number] 20 Dayna Alamo Notes Date Note Type Note Provider Name and Address Organization Details Recorded Time 10/08/2023 text/html This is 38 years old female with the chief complaint is a chronic lower back and left thigh pain for several years duration, scheduled today to have left greater Trochanter bursa injection. The patient also mentioned she has more of the lower back pain. She wishes to repeat the lumbar facet next visit. Gadiel Anaya MD [address] [facility] [facility], [place], [address], [facility] 10/08/2023 13:06:30 11/07/2023 text/html This is 38 years old female with a chief complaint is a chronic lower extremity pain, secondary to CRPS and lower back pain secondary to lumbar spondylosis today for follow up. We scheduled the patient for lumbar facet injection, unfortunately the patient didn t have the procedure yet. I am going to make another order to do that to help her more with her pain. The patient also mentioned the last left, GTB did not give her much of health and relief only for one week. I mentioned to her that we can do nerve ablation to the left GTB to give her more help and relieve. The patient is currently on hydrocodone 5/325 take one a day for breakthrough pain. She is also in gabapentin 300 mg take two tablets at night. She denied any major side effect to her medication which include toxic effect, sedation, driving problem or G.I. problem. Gadiel Anaya MD [address], [place], [address], [facility] 11/07/2023 14:54:55 03/12/2024 text/html This is 38 years old female with a chief complaint is a chronic lower extremity pain, secondary to CRPS and lower back pain secondary to lumbar spondylosis today for follow up. The patient had good response to sympathetic block, LS facets and GTB. I mentioned to her that we can do nerve ablation to the left GTB to give her more help and relieve. The patient is currently on hydrocodone 5/325 take one a day for breakthrough pain. She is also in gabapentin 300 mg take two tablets at night. She denied any major side effect to her medication which include toxic effect, sedation, driving problem or G.I. problem. She mentioned that recently was diagnosed with right shoulder seperation. Gadiel Anaya MD [address], [place], [address], [place] [facility] 03/12/2024 14:31:35 05/05/2024 text/html Patient RTC for the management of her chronic cervical pain.Patient reports has been about the same since last visit.Patient reports has to meet her deductible before she can schedule another procedure. Quality: burningImproves with the pain medsaggravating factors: life, any movement Patient is here for med refills today, reports compliance, states use of medication gives some relief and allows more physical function. Patient reports tolerating the medication well and denies any adverse effects including toxic effects, respiratory sedation, driving problems, or GI problems. Randi Arguelles DNP [facility] [address], [place], [address], [facility] 05/06/2024 07:23:27 07/09/2024 text/html The patient came today and she mentioned that she had a good response to the lumbar sympathetic block two weeks ago reached up to 80% relief of pain. However, her sacroiliac joint is bothering her so we scheduled her to have SI injection. The patient is doing more exercise at home to improve her mobility. We are going to refill her hydrocodone 5/325 once a day and gabapentin 300 mg twice a day. I am also going to write prescription for the compound cream to have it in [facility]. Gadiel Anaya MD [address], [place], [address], [facility] 07/09/2024 14:31:50 OBGyn Episode No OBEpisode recorded.
--- OUTSIDE RECORDS SUMMARY | 2024-08-22 06:57 | XMS_ITS | Encounter Summary ---
Author Organization Healthcare Address [address] [place] [address] Care Team Providers Care Cardiopulmonary Physical Therapist Name Role Phone Penny Armstrong POWDER MILL OPERATOR Primary Care Provider [phone] Encounter Details Date Type Department Care Team (Late st Contact Info) Description 07/18/2024 Results Follow-Up [facility] [address] [place] [address] Penny Armstrong APRN [address] [place] [address] Social History Tobacco Use Types Packs/Day Years Used Date Smoking Tobacco: Never Passive Smoke Exposure: Never Smokeless Tobacco: Never PHQ-2 Answer Date Recorded Patient Health Questionnaire-2 [...] place to sleep or slept in a correction (including now)? Patient refused 03/05/2023 PHQ-9 Answer [...] [facility] the [facility] were you homeless or living in a correction (including now)? Patient declined 07/17/2024 Safety and [...] on file documented as of this encounter Plan of Treatment Not on file documented as of this encounter Visit Diagnoses Not on filedocumented in this encounter Additional Health Concerns Assessment Noted Time PHQ-9 Depression Total Score: 0 07/18/19 25 8:07 AM EDT A fall risk assessment has been complete d for the patient 03/22/2021 12:36 PM EST A Body Mass Index follow-up plan has been documented for the patient 03/05/2023 2:23 PM EST documented as of this encounter Care Teams Cardiopulmonary Physical Therapist Relationship Specialty Start Date End Date Penny Armstrong, ADITYA [address] [place] [id number] PCP - General Family Medicine 09/24/23 documented as of this encounter
--- OUTSIDE RECORDS SUMMARY | 2024-08-22 06:57 | XMS_ITS | Encounter Summary ---
Author Organization [facility] ([place], [place], [place], [place]) Address [address] [place] [address] Care Team Providers Care Escalation Engineer Name Role Phone Unavailable Primary Care Provider Unavailabl e Encounter Details Date Type Department Care Team (Latest Contact Info) Description 07/15/2024 Travel Social History Tobacco Use Types Packs/Day Years [...] Date Hemal rded Speak language other than Spanish at home Not on file 06/12/2023 Want [...]
--- OUTSIDE RECORDS SUMMARY | 2024-08-22 06:57 | XMS_ITS | Clinical Summary ---
Author Organization [facility] Address [address] [place] [address] Care Team Providers Care Acquisitions Librarian Name Role Phone Penny Armstrong APRN Primary Care Provider Allergies Active Allergy Reactions Criticality Noted Date Comments Naomi Swelling High 06/20/2018 SWELLING AND BLISTERS Latex Rash Low 06/20/2018 RASH Oxycodone-Acetaminophe n Other - please document in the comment field Low 10/04/2015 shakes Tizanidine Hcl Other - please document in the comment field Low 07/01/2018 Medications gabapentin (Neurontin) 300 MG capsule Take 300 mg by mouth 2 (two) times a day. 08/17/19 21 Active cholecalciferol (Vitamin D-3) 50 MCG (1999 UT) capsule TAKE 3 CAPSULE Daily 05/04/19 21 Active Calcium Citrate 1040 MG tablet TAKE 3 TABLET Daily 05/04/19 21 Active polyethylene glycol (Miralax) 17 g packet Take 17 g by mouth twice a day. 07/07/19 19 Active HYDROcodone-acetam inophen (Ericson) 5-325 MG tablet 01/04/20 23 Active budesonide-formote rol (Symbicort) 80-4.5 MCG/ACT inhalerIndications :Wheezing Inhale 2 puffs 1 (one) time each day. Rinse mouth with water after use to reduce aftertaste and incidence of candidiasis. Do not swallow. 6.9 g 03/05/19 24 Active Additional Information Patient not taking.Reported on 08/14/2024 albuterol (2.5 MG/3ML) 0.083% nebulizer solutionIndication s:Wheezing Take 3 mL (2.5 mg) by nebulization every 6 (six) hours if needed for wheezing. 75 mL 11 03/05/19 24 Active fLuvoxaMINE (Luvox) 50 MG tablet Take 1 tablet by mouth daily. Active lactobacillus (Culturelle) capsule Take 1 capsule by mouth 1 time each day. Active ondansetron ODT (Zofran-ODT) 8 MG disintegrating tablet Dissolve 1 tablet on the tongue every 8 hours as needed for nausea or vomiting. 20 tablet 2 08/15/19 25 Active ondansetron ODT (Zofran-ODT) 4 MG disintegrating tablet Dissolve 1 tablet on the tongue every 8 hours as needed for nausea or vomiting. 20 tablet 07/19/19 25 025 Discontin ued(Reord er) Active Problems Problem Noted Date Diagnosed Date Hirsutism 02/03/2021 Overview (03/15/2021): Last Assessment & Plan: Suggests she might have excessive androgens but she has to be off of prednisone before we can test. I gave her order for needed tests Nontoxic multinodular goiter 02/03/2021 Overview (03/15/2021): Last Assessment & Plan: Not particularly worrisome but will check tft Chronic insomnia 11/10/2020 Complex regional pain syndrome I 05/03/2020 Prolactinoma 05/03/2020 OCD (obsessive compulsive disorder) 05/15/2016 Migraine without aura and wi thout status migrainosus, not intractable 10/04/2015 Situational mixed anxiety and depressive disorde r 10/04/2015 Encounters Date Type Department Care Team Description 08/14/2024 11:00 AM EDT Office Visit [facility] [address] [phone] Landon James MD Nausea (Primary Dx); Vertigo; Generalized abdominal pain; Hernia 08/14/2024 Travel 07/18/2024 Refill [facility] [address] [phone] Penny Armstrong, ADITYA 07/18/2024 Results Follow-Up [facility] [address] [place] [phone] Penny Armstrong APRN 07/17/2024 8:00 AM EDT Office Visit [facility] [address] [phone] Penny Armstrong, PACKER INSPECTOR Annual physical exam (Primary Dx); Prolactinoma (CMS/HCC); Nontoxic multinodular goiter; Complex regional pain syndrome type 1, affecting unspecified site; Need for hepatitis C screening test; Encounter for screening colonoscopy; Need for Tdap vaccination; Screening for human immunodeficiency virus; Encounter for screening mammogram for breast cancer; Healthcare maintenance 07/17/2024 Travel from Last 3 Months Immunizations Immunization Administration Dates Next Due Influenza, injectable, MDCK, preservative free, quadrivalent 11/13/2018 Influenza, injectable, quadrivalent, preservativ e free 12/10/2019,11/26/2017 Tdap 07/17/2024 Family History Medical History Relation Name Comments agent orange Father Coronary artery disease Maternal Grandfather Hypertension Maternal Grandfather Hyperlipidemia Maternal Grandmother Hypertension Maternal Grandmother Hypothyroidism Maternal Grandmother COPD Mother Hypertension Mother Hypothyroidism Mother Coronary artery disease Mother's Sister 1 Hypothyroidism Mother's Sister 2 Stroke Paternal Grandmother Relation Name Status Comments Father Maternal Grandfather Maternal Grandmother Mother Mother's Sister 1 Mother's Sister 2 Paternal Grandmother Social History Tobacco Use Types Packs/Day Years [...] place to sleep or slept in a custodial (including now)? Patient refused 03/05/2023 PHQ-9 Answer [...] or rent on time? Patient declined 07/18/19 25 Number of Times Moved in the Last Year Not on fi le 07/17/2024 At any time in the past 12 m [facility], were you homeless or living in a custodial (including now)? Patient declined 07/17/2024 Safety and [...] Recorded In the past 12 months has [employer], oil, or water [employer] threatened to shut off services in your home? Patient declined 07/17/2024 Comments No Sex and Gender Information Value Date Recorded Sex Assigned at Not on file Legal Sex Female 7:55 PM EDT Gender Identity Not on file Sexual Orientation Not on file Last Filed Vital Signs Vital Sign Reading [...] Mass Index 30.34 08/14/2024 11:17 AM EDT Plan of Treatment Health Maintenance Due Date Last Done Comments [facility]-/Child/Adol SDOH Screenings 1984 [facility]-Varicella Vaccines (1 of 2 - 13+ 2-dose series) 1997 HPV Vaccines (1 - 3-dose series) 04/23/1999 [facility]-Hepatitis B Vaccines (1 of 3 - 19+ 3-dose series) 04/23/2003 [id number] Vaccine (3 - 2023- season) 2023 05/21/2020, 05/01/2020 [facility]-Influenza Vaccine (#1) 10/13/202412/09, 11/13/2018, 11/26/2017 [facility]- SDOH Screenings 01/16/2025 [facility]-Adult SDOH Screenings 01/16/2025 07/17/2024 [facility]-Depression Screening 07/17/2025 07/17/2024, 0606/2024 [facility]-Zoster Vaccines (1 of 2) 2034 [facility]-DTaP,Tdap,and Td Vaccines (2 - Td or Tdap) 07/17/2034 07/17/2024 [facility]-HIV Screening Completed 07/17/2024 [facility]-Hepatitis C Screening Completed 07/17/2024 [facility]-Obesity Intervention Completed 025, 07/17/2024, 07/17/2024, Additional history exists [facility]-HIB Vaccines Aged Out No longer e ligible based on patient's age to complete this topic [facility]-Hepatitis A Vaccines Aged Out No longer eligible based on patient's age to complete this topic [facility]-IPV Vaccines Aged Out No longer e ligible based on patient's age to complete this topic [facility]-Pneumococcal Vaccine: Pediatrics (0 to 5 Years) and At-Risk Patients (6 to 49 Years) Aged Out No longer eligible based on patient's age to complete this topic [facility]-Rotavirus Vaccines Aged Out No lo nger eligible based on patient's age to complete this topic Procedures Procedure Name Priority Date/Time Associated Diagnosis [...] Annual physical exam HIV 1/2 ANTIBODY/ANTIGEN SCREEN WITH REFLEX TO HIV I/II DIFFERENTIATION Routine 07/17/2024 1:31 PM EDT Screening for human immunodeficiency virus HIV 1/2 ANTIBODY/ANTIGEN SCREEN W/REFLEX TO HIV [...] 07/17/2024 8:46 AM EDT Annual physical exam from Last 3 Months Results * Estradiol (07/17/2024 2:38 PM EDT) Estradiol 199 pg/mL 07/17/2024 2:3 8 PM EDT [facility] Blood Venous blood specimen / Unknown 07/17/2024 8:47 AM EDT Narrative [facility] - 07/17/2024 2:38 PM EDT Females >17 Y (pg/mL): Follicular Phase 26 -233 Ovulatory Peak Phase 60 - 600 Luteal Phase 30 - 305 Post-Menopausal <138 us Penny Armstrong PACKER INSPECTOR LAB BLOOD ORDERABLES Final Result [facility] [address] [place] [address] * Thyroid Peroxidase Antibody (07/17/2024 2:14 PM EDT) Thyroid Peroxidase Antibody <5 <=8 IU/mL 07/17/2024 2:14 PM EDT [facility] Blood Venous blood specimen / Unknown 07/17/2024 8:47 AM EDT Penny Armstrong APRN LAB BLOOD ORDERABLES Final Result Performing Organization Address [facility] de Phone Number [facility] [address] [place] [address] * Luteinizing hormone (07/17/2024 1:59 PM EDT) Luteinizing Hormone 30 mIU/mL 07/17/2024 1:59 PM EDT [facility] Blood Venous blood specimen / Unknown 07/17/2024 8:47 AM EDT Narrative [facility] - 07/17/2024 1:59 PM EDT Female Reference Ranges: Allan Stage 1: < 9.4 mIU/mL Allan Stage 2: < 16.1 mIU/mL Allan Stage 3: < 23.1 mIU/mL Allan Stage 4-5: < 19.2 mIU/mL Adult Female >17 years: Follicular: 2.4 - 12.6 mIU/mL Midcycle: 14.0 - 95.6 mIU/mL Luteal: 1.0 - 11.5 mIU/mL Postmenopause: 7.7 - 58.5 mIU/mL us Penny Armstrong APRN LAB BLOOD ORDERABLES Final Result Performing Organization Address [facility] Co de Phone Number [facility] [address] [place] [address] * FSH (07/17/2024 1:59 PM EDT) FSH 10.2 mIU/mL 07/17/2024 1:5 9 PM EDT [facility] Blood Venous blood specimen / Unknown 07/17/2024 8:47 AM EDT Narrative [facility] - 07/17/2024 1:59 PM EDT [...] Armstrong APRN LAB BLOOD ORDERABLES Final Result [facility] [address] [place] [address] * TSH Reflex FT4 (07/17/2024 1:32 PM EDT) Thyroid Stimulating Hormone, Plasma 1.16 0.40 - 4.20 uIU/mL 07/17/2024 1:32 PM EDT [facility] Blood Venous blood specimen / Unknown 07/17/2024 8:47 AM EDT Narrative [facility] - 07/17/2024 1:32 PM EDT Trimester Specific Ranges TSH ( IU/mL) 1st Trimester 0.1 - 3.0 2nd Trimester 0.19 - 4.06 3rd Trimester 0.3 - 3.7 us Penny Armstrong PACKER INSPECTOR LAB BLOOD ORDERABLES Final Result [facility] [address] [place] [address] * (ABNORMAL) Lipid Profile, Plasma (07/17/2024 1:32 PM EDT) Cholesterol, Plasma 206(H) <200 mg/dL 07/17/2024 1:32 PM EDT [facility] Comment: Cholesterol Reference Range (age >17 years): Desirable <200 mg/dL Borderline 200 to 239 mg/dL Undesirable >239 mg/dL HDL 62 >=50 mg/dL 07/17/2024 1:32 PM EDT [facility] Comment: HDL Cholesterol Reference Ranges (age >17 years): Female, acceptable > or = 50 mg/dL Male, acceptable > or = 40 mg/dL Triglycerides, Plasma 61 <150 mg/dL 07/17/2024 1:32 PM EDT [facility] Comment: Triglyceride Reference Range (age >17 years): Desirable: <150 mg/dL Borderline high: 150 to 199 mg/dL High: 200 to 499 mg/dL Very high: >499 mg/dL Increased risk of pancreatitis: >1000 mg/dL Cholesterol/HDL Ratio 3 07/17/2024 1:32 PM EDT [facility] LDL, Calculated 133(H) <100 mg/dL 1:32 PM EDT [facility] Comment: LDL Cholesterol Reference Range [...] 12 hours? Unknown 07/17/2024 1:32 PM EDT [facility] Blood Venous blood specimen / Unknown 07/17/2024 8:47 AM EDT us Penny Armstrong PACKER INSPECTOR LAB BLOOD ORDERABLES Final Result [facility] [address] [place] [address] * Comprehensive Metabolic Panel, Plasma (07/17/2024 1:32 PM EDT) Glucose, Plasma 82 74 - 99 mg/dL 07/17/2024 1:32 PM EDT [facility] BUN, Plasma 17 7 - 21 mg/dL 07/17/2024 1:32 PM EDT [facility] Creatinine, Plasma 0.63 0.60 - 1.10 mg/dL 07/17/2024 1:32 PM EDT [facility] BUN/Creatinine Ratio 27 07/17/2024 1:32 PM EDT [facility] Sodium, Plasma 140 136 - 145 mmol/L 07/17/2024 1:32 PM EDT [facility] Potassium, Plasma 3.8 3.6 - 4.9 mmol/L 07/17/2024 1:32 PM EDT [facility] Chloride, Plasma 105 97 - 107 mmol/L 07/17/2024 1:32 PM EDT [facility] CO2, Plasma 25 22 - 29 mmol/L 07/17/2024 1:32 PM EDT [facility] Anion Gap 10 6 - 16 mmol/L 07/17/2024 1:32 PM EDT [facility] Total Calcium, Plasma 9.1 8.9 - 10.2 mg/dL 07/17/2024 1:32 PM EDT [facility] Total Protein 6.8 6.3 - 7.9 g/dL 07/17/2024 1:32 PM EDT [facility] Albumin, Plasma 4.4 3.5 - 5.2 g/dL 07/17/2024 1:32 PM EDT [facility] AST, Plasma 19 10 - 35 U/L 07/17/2024 1:32 PM EDT [facility] ALT, Plasma 12 10 - 35 U/L 07/17/2024 1:32 PM EDT [facility] Alkaline Phosphatase, Plasma 53 35 - 104 U/L 07/17/2024 1:32 PM EDT [facility] Total Bilirubin, Plasma 0.4 0.2 - 1.1 mg/dL 07/17/2024 1:32 PM EDT [facility] eGFRcr 115.2 mL/min/1.7 3m*2 07/17/2024 1:32 PM EDT [facility] Comment:Reported eGFRcr in m L/min/1.73m2 is based the CKD-EPI 2020 equation that does not use a race coefficient. Blood Venous blood specimen / Unknown 07/17/2024 8:47 AM EDT us Penny C Patti PACKER INSPECTOR LAB BLOOD ORDERABLES Final Result Performing Organization Address City/[facility]/ZIP Co de Phone Number [facility] [address] [place] [address] * HIV 1 & 2 Antibody/Antigen Screen (07/17/2024 1:31 PM EDT) HIV 1 & 2 Antibody/Antigen Screen Non Reactive Non Reactive 07/17/2024 1:31 PM EDT [facility] Comment:Screening for HIV 1 & 2 antibodies, and P24 antigen is NONREACTIVE. No confirmatory testing is required. Blood Venous blood specimen / Unknown 07/17/2024 8:47 AM EDT us Penny Armstrong PACKER INSPECTOR LAB BLOOD ORDERABLES Final Result Performing Organization Address City/[facility]/ZIP Co de Phone Number [facility] [address] [place] [address] * Hepatitis C Antibody w/Reflex to HCV Quant PCR (07/17/2024 1:31 PM EDT) Hepatitis C Antibody Negative Negative 07/17/2024 1:31 PM EDT [facility] Blood Venous blood specimen / Unknown 07/17/2024 8:47 AM EDT us Penny Armstrong PACKER INSPECTOR LAB BLOOD ORDERABLES Final Result Performing Organization Address City/[facility]/ZIP Co de Phone Number [facility] [address] [place] [address] * Prolactin level (07/17/2024 1:25 PM EDT) Prolactin, Serum 11.9 4.4 - 23.3 ng/mL 07/17/2024 1:25 PM EDT [facility] Blood Venous blood specimen / Unknown 07/17/2024 8:47 AM EDT Narrative [facility] - 07/17/2024 1:25 PM EDT Performed by Alyssa electrochemiluminescent immunoassay which is traceable to the Prolactin 3rd IRP (WHO 84/500). Results obtained with different test methods or kits cannot be used interchangeably. us Penny Armstrong APRN LAB BLOOD ORDERABLES Final Result [facility] [address] [place] [address] * CBC W/O Differential (07/17/2024 1:13 PM EDT) WBC Count 4.47 3.70 - 10.30 10*3/uL LAB HEMATOLOGY METHOD 07/17/2024 1:13 PM EDT [facility] RBC Count 4.28 3.90 - 5.20 10*6/uL LAB HEMATOLOGY METHOD 07/17/2024 1:13 PM EDT [facility] HGB 12.8 11.2 - 15.7 g/dL LAB HEMATOLOGY METHOD 07/17/2024 1:13 PM EDT [facility] HCT 38.5 34.0 - 45.0 % LAB HEMATOLOGY METHOD 07/17/2024 1:13 PM EDT [facility] Platelet Count 209 155 - 369 10*3/uL LAB HEMATOLOGY METHOD 07/17/2024 1:13 PM EDT [facility] MCV 90 79 - 98 fL LAB HEMATOLOGY METHOD 07/17/2024 1:13 PM EDT [facility] MCH 29.9 26.0 - 32.0 pg LAB HEMATOLOGY METHOD 07/17/2024 1:13 PM EDT [facility] MCHC 33.2 30.7 - 35.5 g/dL LAB HEMATOLOGY METHOD 07/17/2024 1:13 PM EDT [facility] RDW 12.5 11.5 - 14.5 % LAB HEMATOLOGY METHOD 07/17/2024 1:13 PM EDT [facility] MPV 11.9 8.8 - 12.5 fL LAB HEMATOLOGY METHOD 07/17/2024 1:13 PM EDT [facility] nRBC 0.0 <=0.0 per 100 WBCs LAB HEMATOLOGY METHOD 07/17/2024 1:13 PM EDT [facility] Blood Venous blood specimen / Unknown 07/17/2024 8:47 AM EDT us Penny Armstrong PACKER INSPECTOR LAB BLOOD ORDERABLES Final Result [facility] [address] [place] [address] * Hemoglobin A1c (07/17/2024 8:46 AM EDT) Hemoglobin A1c 4.7 <5.7 % 07/17/2024 2:30 PM EDT [facility] Blood Venous blood specimen / Unknown 07/17/2024 8:46 AM EDT 07/17/2024 8:47 AM EDT Narrative [facility] - 07/17/2024 2:30 PM EDT HA1C Interpretive Data: Diagnosis of Diabetes: Diabetic > or = 6.5% Pre-diabetic 5.7 to 6.4% Non-diabetic < or = 5.6% Glycemic Targets for Type I and Type II Diabetics: Non- Adults <7.0% Adults <6.0% Children and Adolescents <7.5% Source: [place] [employer]. Standards of medical care in diabetes,2017. Diabetes Care.2017:40 (suppl 1):S1-S135. us Penny Armstrong PACKER INSPECTOR LAB BLOOD ORDERABLES Final Result Performing Organization Address City/[facility]/ZIP Co de Phone Number [facility] [address] [place] [address] from Last 3 Months Insurance ANTHEM Care Teams Acquisitions Librarian Relationship Specialty Start Date End Date Penny Armstrong, PACKER INSPECTOR [address] [place] [address] PCP - General Family Medicine 09/24/23
--- OUTSIDE RECORDS SUMMARY | 2024-08-22 06:57 | XMS_ITS | Encounter Summary ---
Author Organization Healthcare Address [address] [place] [address] Care Team Providers Care Piece Dyeing Machine Tender Name Role Phone Penny Armstrong APRN Primary Care Provider [phone] Encounter Details Date Type Department Care Team (Latest Contact Info) Description 07/17/2024 Travel Social History Tobacco Use Types Packs/Day [...] place to sleep or slept in a jail (including now)? Patient refused 03/05/2023 PHQ-9 Answer [...] any time in the past 12 m [facility], were you homeless or living in a jail (including now)? Patient declined 07/17/2024 Safety and [...] on file documented as of this encounter Functional Status * Over the past 2 weeks, how often have you been bothered by any of the following problems? Question Answer Date of Assessment Author Little interest or pleasure in doing things Not at all 07/17/2024 8:07 AM EDT Caroline Niño Feeling down, depressed, or hopeless Not at all 06/2024 8:07 AM EDCaroline Inman Patient Health Questionnaire-2 Score 0 06/0 06/2024 8:07 AM EDCaroline Inman * Question Answer Date of Assessment Author Trouble falling or staying a sleep, or sleeping too much Not at all 07/17/2024 8:07 AM Caroline Lin Feeling tired or having little energy Not at all 06/2024 8:07 AM EDCaroline Inman Poor appetite or overeating Not at all 07/17/2024 8: 07 AM EDCaroline Inman Feeling bad about yourself - or that [...] Caroline Lin Patient Health Questionnaire-9 Score 0 060 06/2024 8:07 AM Caroline Lin * Calculated C-SSRS Risk Score (Lifetime/Recent) Answer Date of Assessment Author No Risk Indicated 07/17/2024 8:07 AM EDDoug Inman * If you checked off any problems [...] Caroline Niño documented as of this encounter Plan of [...] documented as of this encounter Care Teams Piece Dyeing Machine Tender Relationship Specialty Start Date End Date Penny Armstrong, ADITYA [address] [place] [address] PCP - General Family Medicine 09/24/23 documented as of this encounter
--- OUTSIDE RECORDS SUMMARY | 2024-08-22 06:57 | XMS_ITS | Encounter Summary ---
Author Organization [employer] ([place], [place], [place], [place]) Address [address] [place] [address] Care Team Providers Care Photographic Intelligence Officer Name Role Phone Unavailable Primary Care Provider Unavailabl e Encounter Details Date Type Department Care Team (Latest Contact Info) Description 06/24/2024 Travel Social History Tobacco Use Types Packs/Day [...] Date Hemal rded Speak language other than Urdu at home Not on file 06/12/2023 Want [...]
--- OUTSIDE RECORDS SUMMARY | 2024-08-22 06:57 | XMS_ITS | Referral Summary ---
Author Organization [employer] ([place], [place], [place], [place]) Address [address] [place] [address] Care Team Providers Care Studio Technician Video Operator Name Role Phone Unavailable Primary Care Provider Unavailabl e Encounters Date Type Department Care Team Description 07/15/2024 Travel 07/15/2024 9:01 AM EDT - 07/15/2024 11:59 PM EDT Hospital Encounter [facility] [address] [place] [address] Gadiel Anaya MD Sacroiliitis, not elsewhere classified (HCC) Discharge Disposition: Home or Self Care 06/24/2024 Travel 06/24/2024 9:07 AM EDT - 06/24/2024 11:59 PM EDT Hospital Encounter [facility] [address] [place] [address] Gadiel Anaya MD Complex regional pain syndrome i of right lower limb Discharge Disposition: Home or Self Care 06/19/2024 Travel from Last 3 Months Allergies Active Allergy Reactions Criticality Noted Date Comments Cardamom (Elettaria Cardamomum) 06/12 Naomi 12/11/2023 Latex Dermatitis,Rash Low 12/04/2023 Oxycodone-Acetaminophen Nausea Only 06/19/2023 Turmeric 06/24/2024 Tizanidine Nausea And Vomiting 06/19/2023 Medications gabapentin (NEURONTIN) 600 MG tablet Take 1 tablet (600 mg total) by mouth daily. Active HYDROcodone-leighann taminophen (NORCO 5-325) 5-325 mg per tablet Take 1 tablet by mouth every 6 (six) hours as needed for pain. Active calcium citrate-vitamin D3 (CITRACAL-D3) 200 mg-6.25 mcg (250 unit) tablet Take by mouth. Active fluvoxaMINE (LUVOX) 25 MG tablet Take 2 tablets (50 mg total) by mouth nightly. Active multivitamin per tablet Take 1 tablet by mouth daily. Active lactobacillus rhamnosus, GG, (CULTURELLE) 10 billion cell capsule Take 1 capsule by mouth daily. Active ondansetron (ZOFRAN) 4 MG tablet Take 1 tablet (4 mg total) by mouth every 8 (eight) hours as needed for nausea or vomiting. Active cholecalciferol (Vitamin D3) 125 mcg (5,000 unit) tablet Take 6,000 Units by mouth daily. Active Social History Tobacco Use Types Packs/Day Years Used Date Smoking Tobacco: Never Smokeless Tobacco: Never Tobacco Cessation:Counseling Given: Not Answered Alcohol Use Standard Drinks/Week Comments Never 0 (1 standard drink = 0.6 oz pur e alcohol) Family and Community Support Answer [place] e Recorded Help with Day to Day Activities Not on file 06/12/2023 Feeling Lonely or Isolated Not on file 06/11 Educational Attainment Answer Date Hemal rded Speak language other than Sammarinese at home Not on file 06/12/2023 Want [...] Mass Index 29.94 07/15/2024 9:16 AM EDT Plan of Treatment Not on file Procedures Procedure Name Priority Date/Time Associated Diagnosis Comments CARDIAC CATH - INJECTIONS Routine 07/15/2024 9:57 AM EDT Sacroiliitis, not elsewhere classified (HCC) CARDIAC CATH - INJECTIONS Routine 06/24/2024 10:39 AM EDT Complex regional pain syndrome i of right lower limb from Last 3 Months Results * CARDIAC CATH - INJECTIONS (07/15/2024 [...] Anaya MD CV CARDIAC CATH ORDERABLES Jeana nona Result * CARDIAC CATH - INJECTIONS (06/24/2024 10:39 [...] CV CARDIAC CATH ORDERABLES Jeana castellano Result from Last 3 Months Insurance BLUE CROSS/BLUE SHIELD
--- OUTSIDE RECORDS SUMMARY | 2024-08-22 06:57 | XMS_ITS | Encounter Summary ---
Author Organization [facility] Address [address] [place] [id number] Care Team Providers Care Tanker Service Attendant Name Role Phone Penny Armstrong APRN Primary Care Provider [phone] Encounter Details Date Type Department Care Team (Latest Contact Info) Description 08/14/2024 Travel Social History Tobacco Use Types Packs/Day Years Used Date Smoking Tobacco: Never Passive Smoke Exposure: Past Smokeless Tobacco: Never Alcohol Use Standard Drinks/Week [...] place to sleep or slept in a longterm (including now)? Patient refused 03/05/2023 PHQ-9 Answer [...] any time in the past [address] [facility], were you homeless or living in a longterm (including now)? Patient declined 07/17/2024 Safety and [...] as of this encounter Functional Status * AUDIT-C Score Answer Date of Assessment Author 0 08/14/2024 11:20 AM EDT Caitlyn Horne * Question Answer Date of Assessment Author Q1: How often do you have a drink containing alcohol? Never 08/14/2024 11:20 AM EDT Kam Duron L Q2: How many drinks containing alcohol do you have on a typical day when you are drinking? Patient does not drink 08/14/2024 11:20 AM EDT Caitlyn Duron L Q3: How often do you have six [...] Caitlyn Duron documented as of this encounter Plan of [...] documented as of this encounter Care Teams Tanker Service Attendant Relationship Specialty Start Date End Date Penny Armstrong [place] [address] PCP - General Family Medicine 09/24/23 documented as of this encounter
--- OUTSIDE RECORDS SUMMARY | 2024-08-22 06:57 | XMS_ITS | Clinical Summary ---
Author Organization [facility] ([place], [place], [place], [place]) Address [address] [place] [address] Care Team Providers Care Pan Shover Name Role Phone Unavailable Primary Care Provider Unavailabl e Allergies Active Allergy Reactions Criticality Noted Date [...] Take 6,000 Units by mouth daily. Active Encounters Date Type Department Care Team Description 07/15/2024 9:01 AM EDT - 07/15/2024 11:59 PM EDT Hospital Encounter [facility] Cardiac Catheter[facility] Lab [address] [address] Gadiel Anaya MD Sacroiliitis, not elsewhere classified (HCC) Discharge Disposition: Home or Self Care 07/15/2024 Travel 06/24/2024 9:07 AM EDT - 06/24/2024 11:59 PM EDT Hospital Encounter [facility] Cardiac Catheter[facility] Lab [address] [place] [address] Gadiel Anaya MD Complex regional pain syndrome i of right lower limb Discharge Disposition: Home or Self Care 06/24/2024 Travel 06/19/2024 Travel from Last 3 Months Social History Tobacco Use Types Packs/Day Years [...] Date Hemal rded Speak language other than Guinean at home Not on file 06/12/2023 Want [...] 07/15/2024 9:16 AM EDT Plan of Treatment Health Maintenance Due Date Last Done Comments Depression Screening (12+) 1996 HIV Screening 04/23/1999 Hepatitis C Screening 2002 DTAP/TDAP/TD VACCINES (1 - Tdap) 04/23/2003 Pap Smear 2005 COVID-19 VACCINE (3 - 2023-2 5 season) 2023 05/21/2020, 05/01/2020 Influenza Vaccine (#1) 2024 11/13/2018 Breast Cancer Screening 06/17/2025 06/18/2023 Tobacco Cessation Counseling and Screening (12+) 07/15/2025 07/15/2024 Pneumococcal Vaccine: 0-49 Years Aged Out No longer eligible b ased on patient's age to complete this topic [...] CV CARDIAC CATH ORDERABLES Jeana castellano Result * CARDIAC CATH - INJECTIONS (06/24/2024 [...]
--- OUTSIDE RECORDS SUMMARY | 2024-08-22 06:57 | XMS_ITS | Encounter Summary ---
Author Organization [facility] Address [address] [place] [address] Care Team Providers Care Lime Plant Operator Name Role Phone Penny Armstrong LARRY OPERATOR Primary Care Provider [phone] Encounter Details Date Type Department Care Team (Late st Contact Info) Description 07/18/2024 Refill [facility] [address] [place] [address] Penny Armstrong APRN [address] [place] [address] Social History Tobacco Use Types [...] place to sleep or slept in a retirement (including now)? Patient refused 03/05/2023 PHQ-9 Answer [...] any time in the past 12 m [facility], were you homeless or living in a retirement (including now)? Patient declined 07/17/2024 Safety and [...] the past 12 months has th e i[employer], gas, oil, or water company threatened to [...] documented as of this encounter Care Teams Lime Plant Operator Relationship Specialty Start Date End Date Penny Armstrong, LARRY OPERATOR [address] [place] [address] PCP - General Family Medicine 09/24/23 documented as of this encounter
--- OUTSIDE RECORDS SUMMARY | 2024-08-22 06:57 | XMS_ITS | Continuity of Care Document ---
Author Organization [facility] Address [facility] [place] [address] Care Team Providers Care Sexton Helper Name Role Phone DHIRAJCHEOJINA Primary Care Provider [phone] Assessment No assessment recorded. Plan of Treatment Reminders Order Date Submit Date Provider Last Modified By Organization Details Last Modified Time Details Appointments Office Visit15 2024 01:00P Dean Arguelles DNP WINDOW GLASS INSTALLER Not available Not available Not available Lab drug screen, urine - Meds: norco gabapenti n 2024 025 john Resendez MD [facility] ([facility]), [address] [place] [address], [place], [address], 07/11/2024 10:42:38 Referral None recorded. Procedures None recorded. Surgeries None recorded. Imaging None recorded. Medication Orders hydrocodo ne 5 mg-acetam inophen 325 mg tablet 2024 025 [facility] #[id number], [address], [place], [place], [id number], 07/09/2024 14:32:00 compounde d medicatio n 2024 025 [id number], [address] [place], [place], [id number], 07/09/2024 14:32:01 gabapenti n 300 mg capsule 2024 025 [facility], [address] [place], [place], [id number], 07/09/2024 14:32:01 hydrocodo ne 5 mg-acetam inophen 325 mg tablet [address] [facility] #[facility]37, [address], [place], [id number], 07/09/2024 14:32:10 Patient TargetsNo targets recorded. Patient InstructionsNo instructions recorded. Reason for Referral None Reported. Problems Name Problem SNOMED Code Status Onset Date Resolution Date Notes Provider Name and Address Organization Details Recorded Time Opioid dependenc e 14500106 Active 2020 (F11.20)O pioid dependenc e, uncomplic ated Not Available [facility] 2 23:01:33 Complex regional pain syndrome, type II, lower limb 595099816 Active 2020 (G57.72)C ausalgia of left lower limb Not Available [facility] 2 23:01:33 Chronic pain following trauma 463393865 Active 2020 (G89.21)C hronic pain due to trauma Not Available [facility] 2 23:01:33 Pain of right shoulder joint 82696755279 651385 Active 2020 (M25.511) Pain in right shoulder Not Available [facility] 2 23:01:33 Lumbosacr al radiculop athy 7276226 Active 2021 (M54.16)R adiculopa thy, lumbar region Not Available [facility] 2 23:01:33 Muscle pain 45230878 Active 2020 (M79.10)M yalgia, unspecifi ed site Not Available [facility] 2 23:01:33 Long-term current use of opiate analgesic drug 04910657336 4108 Active 2020 (z79.891) 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 2 09:27:37 Myofascia l pain syndrome of neck 693150774 Active 2023 MD [address], [place], [address] , [facility] 4 12:02:53 Greater trochante ricardo pain syndrome 1437761 Active [address], [place], [address] , [facility] 4 11:16:14 Trochante ricardo bursitis of left hip 10316186036 9103 Active [address], [place], [address] , [facility] 4 13:02:04 Cervical spondylos is without myelopath y 298298989 Active [address], [place], [address] , [facility] 4 13:02:20 Spondylos is without myelopath y 62003067 Active 2023 [place], [address] , [facility] 4 13:02:40 Lumbosacr al spondylos is without myelopath y 33677044 Active 2023 [place], [address] , [facility] 4 13:03:09 Complex regional pain syndrome type I of right lower limb 54239786772 9109 Active [address], [place], [address] , [facility] 15:11:09 Inflammat ion of sacroilia c joint 23265687 Active [address], [place], [address] , [facility] 10:19:55 Chronic pain syndrome 977695681 Active 2024 [place], [address] , [facility] 14:25:37 Lumbar spondylos is 863938835 Active 2024 [place], [address] , [facility] 14:31:05 Notes:Crushing injury of lef t foot, Sequela - Problem Code: S97.82S Crushing injury of left ankle, Sequela - Problem Code: S97.02S Problem Notes None recorded. Procedures Surgical History Date Name Laterality Status Provider Name and Address Organization Details Recorded Time 10/08/19 24 Greater Trochanteric Bursa Steroid Injection completed MD Marnie [address] [place], [address], [facility] 10/08/2023 13:01:51 06/28/19 24 Trigger Point Steroid Injections completed Gadiel Anaya MD [address] [place], [address], [facility] 06/28/2023 12:02:44 Imaging Results None recorded. Procedure Notes None recorded. Medical Equipment None Reported. Allergies Allergen ID Allergen Name Allergen Category Reaction Reaction Severity Criticality Documentation Date Start Date Code Code System Note Provider Name and Address Organization Details Recorded Time 03328 Zanaflex medicatio n Not available Not available Not available 06/14/20212020 01600 6 RxNorm Not Available [facility] 22:02:12 05576 andrew extract food,medi cation Not available Not available Not available 06/14/20212020 45676 1 RxNorm Not Available [facility] 22:02:12 Medications Name Sig Start Date Stop [...] Not Avai lable Neuropath ic Pain Cream 3 Apply 1-2 [...] grr Not Available Not Available Not Available Neuropath ic Pain Cream 4 Apply 1-2 grams to affected area 3-4 times a day 2022 active Not Available Not Available Not Avai lable amoxicill in 500 mg capsule active Not [...] completed Not Available Not Available Not Available [facility] Vaccine (PF) 30 mcg/0.3 mL IM susp (purple) 08/08 completed Not Available Not Available Not Available Vitals Date Recorded Body height Respiratory rate Body mass index (BMI) Body weight Body temperature Heart rate Systolic And Diastolic Provider Name and Address Organization Details Last Updated DateTime 5 167.64 cm 16 /min 27.3 kg/m2 19206.1 1 g 98.3 [degF] 66 /min 98/61 mm[Hg] [facility] 13:11:41 Social History None recorded. Functional Status None recorded. Mental Status None recorded. Family History Nothing Reported. Medical History No medical history recorded. Gynecological HistoryNo gynecological history recorded. Obstetrics History GPAL:G 0 P 0 0 0 0 Past Encounters Encounter ID Performer Location Encounter Start Date Encounter Closed Date Diagnosis/Indication Diagnosis SNOMED-CT Code Diagnosis ICD10 Code Diagnosis Note [id number] Gadiel Anaya MD [facility] [address] [place] [address] 07/09/2024 13:02:01 07/21/2024 08:14:39 Pain of right shoulder joint 3421844100 0728781 M25.511 Lumbosacra l radiculopathy 4660164 M54.16 Complex re gional pain syndrome, type II, lower limb 620275948 G57.71 Long-term current use of opiate analgesic drug 8362110170 77366 Z79.891 Diagnostic /Lab: Order Presumptiv e UDT (necessary for rapid results) with Definitive confirmati on for chronic pain patient, to define treatment and reinforce therapeuti c compliance ; the following apply: [Presumpti ve UDT includes: (Amp, Judie, Kris, Bup, THC, DIAMOND, ETOH, Meth, Opi, Oxy )] *-Patient is receiving controlled medication s. *-Presumpt catherine UDT to identify presence of illicit/no n-prescrib ed substance( s) - Confirm positive for ongoing safe prescribin g of controlled substances . *-Presumpt catherine UDT to identify presence of licit/pres cribed substance( s)-Confirm unexpected results, identify specific drug(s) in large class and ensure appropriat e use of prescribed medication (s). *-Definiti ve UDT inadequate ly detected by Presumptiv e UDT (gabapenti n, pregabalin , tramadol, fentanyl, tapentadol and carisoprod ol). Cervical s pondylosis without myelopathy 815368647 M47.812 Chronic pain syndrome 37 7052292 G89.4 Lumbar spondylosis 02862 0009 M47.816 Health Concerns Section Related Observation LastModified by Organization Detai ls LastModified Time None Recorded Concern Status LastModified by Organization Details LastModified Time None Recorded Payers Encounter Date Sequence Insurance Name Policy Number Policy Wisdom Covered Member ID Wisdom Member ID Guarantor Name 07/09/2024 1 [employer] [id number] Eric Alamo [id number] 20 Dayna Alamo Notes Date Note Type Note Provider Name and Address Organization Details Recorded Time 07/09/2024 text/html The patient came today and [...] the compound cream to have it in [facility]. Gadiel Anaya MD [address] [facility], [place], [address], [facility] 07/09/2024 14:31:50 OBGyn Episode No OBEpisode recorded.
--- NOTE | 2024-08-22 07:05 | CT_ITS ---
FINAL REPORT TECHNIQUE: Noncontrast CT exam of the abdomen and pelvis. This study was performed with techniques to keep radiation doses as low as reasonably achievable (ALARA). Individualized dose reduction techniques using automated exposure control or adjustment of mA and/or kV according to the patient's size were employed. CLINICAL HISTORY: ABDOMINAL PAIN COMPARISON: None FINDINGS: Abdomen: Lung bases are clear. Liver, spleen, pancreas and adrenal glands have a normal CT appearance in their limited unenhanced state. There is a small 3 mm nonobstructing right renal stone present. No hydronephrosis is noted. No obvious renal mass is present. No ureteral stones are present. Moderate fecal impaction is noted in the colon. Pelvis: No distal ureteral stones are seen. The appendix is normal in appearance. Bladder is unremarkable. No fluid collection or adenopathy is seen. There is a cystic mass in the left ovary measuring up to 3.3 cm in size, benign appearing. Follow-up ultrasound is recommended in 2 months. The right ovary is not well-visualized. The uterus has been surgically resected. IMPRESSION: 1. No acute intra-abdominal or pelvic inflammatory changes identified. 2. Moderate fecal impaction. 3. Cystic mass in the left ovary measuring up to 3.3 cm in size, benign appearing. Follow-up ultrasound in 2 months is recommended. Reviewed, Interpreted and Dictated by Tmo Allen MD Transcribed by Enedelia Lobo Authenticated and [facility]
== END 2024-08-22 23:59 | disposition home or self-care (01) ==
LOC: RAD 06:55
PROVIDERS: PCP Nurse Practitioner Family; Visit Provider Family Medicine
DX: K43.9 Ventral hernia without obstruction or gangrene (principal); K42.9 Umbilical hernia without obstruction or gangrene; K56.41 Fecal impaction; N83.202 Unspecified ovarian cyst, left side
CPT/HCPCS: 74176

== ENCOUNTER 2024-09-30 09:12 | Outpatient (CLI) | payer BC, SELFPAY ==
--- OUTSIDE RECORDS SUMMARY | 2024-08-14 11:00 | XMS_ITS | Encounter Summary ---
Author Organization Healthcare Address [address] [place] [address] Care Team Providers Care Candy Separator Hard Name Role Phone Penny Armstrong APRN Primary Care Provider [phone] Reason for Referral * Consultation (Routine) - Authorized Specialty Diagnoses / Procedures Referred By eZus jackson Referred To Contact General, Endocrine & Minimally Invasive Surgery / General Surgery Diagnoses Generalized abdominal pain Hernia Landon James MD [address] [place] [phone] Phone: tel: fax: Referral ID Status Reason Start Date Expiration Date Visits Requested Visits Authorized [id number] Authorized Specialty Services Required 08/14/2024 02/13/2026 1 1 * Imaging (Routine) - Authorized Specialty Diagnoses / Procedures Referred By Zeus jackson Referred To Contact Diagnoses Generalized abdominal pain Hernia Procedures CT Abdomen Pelvis wo IV Contrast Landon James MD [address] [place] [phone] Phone: tel: fax: Referral ID Status Reason Start Date Expiration Date V isits Requested Visits Authorized [id number] Authorized 08/14/2024 02/13/2026 1 1 Reason for Visit * Reason Comments Hernia Abdomen pain, nausea , dizzy, room spinning, started as little lump, starting to affect bowels, worse when laying down or rolling over, thinks possible hernia Care Gap Closure Postpone Covid vacci ne Encounter Details Date Type Department Care Team (Late st Contact Info) Description 08/14/2024 11:00 AM EDT Office Visit [facility] [address] [place] [phone] Landon James MD [address] [place] [phone] Nausea (Primary Dx); Vertigo; Generalized abdominal [...] place to sleep or slept in a senior care (including now)? Patient refused 03/05/2023 PHQ-9 Answer [...] any time in the past 12 m [facility], were you homeless or living in a senior care (including now)? Patient declined 07/17/2024 Safety and [...] the past 12 months has th e [employer], gas, oil, or water company threatened to [...] No 08/14/2024 11:28 AM EDT Kam Duron L 2. Non-Specific Active Suici gemma Thoughts (Past [...] with abdominal pain. Note to patient: The Cures Act makes medical notes like these [...] documented in this encounter Plan of Treatment Upcoming Encounters Date Type Department Care Team (Late st Contact Info) Description 10/23/2024 10:00 AM EDT Office Visit [facility] [address] [place] [address] Albina Bonilla MD [address] [place] [address] Scheduled Orders Name Type Priority Associated Diagnoses [...] documented as of this encounter Care Teams Candy Separator Hard Relationship Specialty Start Date End Date Penny Armstrong, CHIEF OF HOSPITAL MEDICINE [address] [place] [phone] PCP - General Family Medicine 09/24/23 documented as of this encounter
--- OUTSIDE RECORDS SUMMARY | 2024-09-01 13:00 | XMS_ITS | Encounter Summary ---
Author Organization [employer] ([place], [place], [place], [place]) Address [address] [place] [address] Care Team Providers Care Assessment Director Name Role Phone Landon James MD Primary Care Provider [phone] Reason for Visit * Reason Comments Hernia New patient here for a supraumbilical hernia and small umbilical hernia referred from Dr. Landon James. Patient states that she is not sure how long she has had the hernias, she did notice a bulge approximately 6 months ago. She states the bulge has gotten bigger since she first noticed it. She believes she has a bowel impaction, she has not had a good bowel movement for 3 weeks, she has had some small bowel movements during this time.. Very sick when she eats nausea and vomiting and feels bloated. * Surgical (Routine) - Closed Specialty Diagnoses / Procedures Referred By Contnallely t Referred To Contact General Surgery Diagnoses Supraumbilical hernia Umbilical hernia without obstruction and without gangrene Landon James MD [address] [place] [phone] Phone: tel: fax: [facility] [address] [place] [address] [address] Phone: tel: fax: Referral ID Status Reason Start Date Expiration Date V isits Requested Visits Authorized [id number] Closed Specialty Services Required 08/29/2024 08/29/2025 1 1 Encounter Details Date Type Department Care Team (Late st Contact Info) Description 09/01/2024 1:00 PM EDT Office Visit [facility] [address] [facility] [address] [place] [phone] Landon James MD [address] [place] [phone] Debo Kline DO [address] [facility] [address] [place] [address] [id number] Other constipation (Primary Dx); Supraumbilical hernia; Umbilical hernia without obstruction and without gangrene; Umbilical hernia Social History Tobacco Use Types Packs/Day Years Used Date Smoking Tobacco: Never Smokeless Tobacco: Never Tobacco Cessation:Counseling Given: Not Answered Alcohol Use Standard Drinks/Week Comments Never 0 (1 standard drink = 0.6 oz pur e alcohol) Family and Community Support Answer Isreal e Recorded Help with Day to Day Activities Not on file 06/12/2023 Feeling Lonely or Isolated Not on file 06/11 Educational Attainment Answer Date Hemal rded Speak language other than Albanian at home Not on file 06/12/2023 Want [...] Sign Reading Time Taken Comments Blood Pressure 104/67 09/01/2024 1:05 PM EDT Pulse 51 09/01/2024 1:05 PM EDT Temperature - - Respiratory Rate - - Oxygen Saturation - - Inhaled Oxygen Concentration - - Weight 78.9 kg (174 lb) 09/01/2024 1:05 PM EDT Height 160 cm (5' 3 ) 09/01/2024 1:05 PM EDT Body Mass Index 30.82 09/01/2024 1:05 PM EDT documented in this encounter Progress Notes * Debo Kline DO - 09/01/2024 1:00 PM EDT Subjective: Chief Complaint Patient presents with Hernia New patient here for a supraumbilical hernia and small umbilical hernia referred from Dr. Landon James. Patient states that she is not sure how long she has had the hernias, she did notice a bulge approximately 6 months ago. She states the bulge has gotten bigger since she first noticed it. She believes she has a bowel impaction, she has not had a good bowel movement for 3 weeks, she has had some small bowel movements during this time.. Very sick when she eats nausea and vomiting and feels bloated. 39 YOF with history of CRPS who presents due to abdominal pain. She began having worsening abdominal pain a few months ago. She saw her PCP and underwent imaging which noted two hernias: supraumbilical and umbilical hernias. She states that she is not sure how long she has had her hernias but she did notice a bulge approximately 6 months ago. This has enlarged since she first noticed this area. Additionally she has chornic constipation but this has been worse over the past two months. She has been taking miralax daily. She usually has small, rabbit pellets and her last real BM was 3 weeks ago. She continues to pass flatus frequently. When she has pain at the sites of her hernias, she alsogets nauseated. Previous robotic hysterectomy, c section with tubal. Does not take blood thinners. Current Outpatient Medications: albuterol 2.5 mg /3 mL (0.083 %) nebulizer solution, Inhale 3 mLs (2.5 mg total) by nebulization every 6 (six) hours as needed for wheezing., Disp: , Rfl: calcium citrate-vitamin D3 (CITRACAL-D3) 200 mg-6.25 mcg (250 unit) tablet, Take by mouth., Disp: ,Rfl: cholecalciferol (Vitamin D3) 125 mcg (5,000 unit) tablet, Take 6,000 Units by mouth daily., Disp: ,Rfl: fluvoxaMINE (LUVOX) 25 MG tablet, Take 2 tablets (50 mg total) by mouth nightly., Disp: , Rfl: gabapentin (NEURONTIN) 600 MG tablet, Take 1 tablet (600 mg total) by mouth daily., Disp: , Rfl: HYDROcodone-acetaminophen (NORCO 5-325) 5-325 mg per tablet, Take 1 tablet by mouth every 6 (six) hours as needed for pain., Disp: , Rfl: multivitamin per tablet, Take 1 tablet by mouth daily., Disp: , Rfl: ondansetron (ZOFRAN) 4 MG tablet, Take 2 tablets (8 mg total) by mouth every 8 (eight) hours as needed for nausea or vomiting., Disp: , Rfl: polyethylene glycol (GLYCOLAX) 17 gram packet, Take 17 g by mouth 2 (two) times daily., Disp: , Rfl: Allergies Allergen Reactions Cardamom (Elettaria Cardamomum) Naomi Percocet [Oxycodone-Acetaminophen] Nausea Only Turmeric Zanaflex [Tizanidine] Nausea And Vomiting Latex Dermatitis and Rash Past Surgical History: Procedure Laterality Date SECTION N/A HYSTERECTOMY MOUTH SURGERY TONSILLECTOMY TUBAL LIGATION Bilateral Active Ambulatory Problems Diagnosis Date Noted Cervicalgia 06/28/2023 Resolved Ambulatory Problems Diagnosis Date Noted No Resolved Ambulatory Problems Past Medical History: Diagnosis Date Asthma Chronic insomnia Complex regional pain syndrome I CRPS (complex regional pain syndrome type I) Hirsutism History of Henoch-Schonlein purpura Hypotension Migraine without aura and without status migrainosus, not intractable Nontoxic multinodular goiter OCD (obsessive compulsive disorder) Pituitary adenoma (HCC) Prolactinoma (HCC) Renal stones Situational mixed anxiety and depressive disorder Tubular adenoma Family History Problem Relation Name Age of Onset COPD Mother Hypertension Mother Hypothyroidism Mother Other Father Agent Lamb Exposure Coronary artery disease Maternal Aunt Hypothyroidism Maternal Aunt Hypertension Maternal Grandmother Hyperlipidemia Maternal Grandmother Hypothyroidism Maternal Grandmother Coronary artery disease Maternal Grandfather Hypertension Maternal Grandfather Stroke Paternal Grandmother Social History Tobacco Use Smoking status: Never Smokeless tobacco: Never Vaping Use Vaping status: Never Used Substance Use Topics Alcohol use: Never Drug use: Never Review of Systems Constitutional: Positive for fatigue and unexpected weight change. HENT: Positive for dental problem. Eyes: Negative. Respiratory: Negative. Cardiovascular: Negative. Gastrointestinal: Positive for abdominal pain, constipation, nausea and vomiting. Endocrine: Negative. Genitourinary: Positive for urgency. Musculoskeletal: Negative. Skin: Negative. Allergic/Immunologic: Negative. Neurological: Negative. Hematological: Negative. Psychiatric/Behavioral: Negative. Objective: BP 104/67 Pulse 51 Ht 1.6 m (5' 3 ) Wt 78.9 kg (174 lb) BMI 30.82 kg/m?? Physical Exam Physical exam Constitutional: Pleasant, no acute distress HEENT: PERRL, EOMI CV: Regular rate Lung: Equal rise and fall of chest wall, no distress Abdomen: Soft, nondistended, tender at umbilicus with palpable hernia, incarcerated - suspect omentum, not reducible. Only one palpable hernia felt. Further exam aborted due to pain to palpation. Skin: Previous healed port site incisions, one which is above the level of her hernia. Psych: Good thought, judgement Neuro: AAOx3 Assessment: Assessment 1. Supraumbilical hernia 2. Umbilical hernia without obstruction and without gangrene Plan: 39 year old female who presents with supraumbilical and umbilical hernias, incisional, non-reducible, total < 3 cm and constipation - Note from PCP on 08/14/24 reviewed. - Labs (CBC/CMP/HbgA1c) from 08/05/24 reviewed noting normal WBC, Hgb, CMP, HgA1c . - Recent imaging CT report reviewed but images not available. Two hernias - umbilical and supraumbilical. - With her hernias, we discussed watchful waiting vs surgery. Discussed possible other smaller hernias that are asymptomatic as well along midline that we can sometimes see better with laparoscopic surgery. - Secondary to their history, physical, labs, and imaging, umbilical hernia (s) repair is recommended. Suspect hernia is incarcerated with omentum. - We discussed open, laparoscopic, and robotic umbilical hernia repair. Risks, benefits, alternatives to surgery were discussed. Differences and similarities between surgical approaches were discussed. Risks including but not limited to bleeding, infection, injury to surrounding structures, mesh infection, chronic pain, recurrence, conversion to open, wound dehiscence, non-resolution of her pain were discussed with patient. - Discussed bowel regimen - increasing to miralax BID and colace BID. Discussed colonoscopy as wellwith her change in bowel habits, she is having this scheduled with outside provider who she is established with. Instructed patient if her constipation does not resolve in the next few days, to let us know so we can assist in treatment. - Due to her CRPS, patient has significant difficulty with pain postoperatively and resumption of urinary function, due to this, recommend at least 24 but may good 48 hours post procedure in patient after surgery. - Postoperative restrictions, average return to work time, and pain control were discussed. Narcotic pain medications already prescribed to her and discussed no narcotics will be prescribed, by me, at discharge. - Will need preoperative anesthesia evaluation. - Patient would like to move forward with robotic umbilical hernia (s) repair with mesh, possible open. - All questions answered. Patient instructed to call with questions/concerns. Debo Kline DO documented in this encounter Plan of Treatment Not on file documented as of this encounter Visit Diagnoses Diagnosis Other constipation- Primary Supraumbilical hernia Umbilical hernia without obstruction and without gangrene documented in this encounter Care Teams Assessment Director Relationship Specialty Start Date End Date Landon James MD [address] [place] [phone] PCP - General Family Medicine 08/29/24 documented as of this encounter
[2024-09-30 08:55] VITALS: BMI 29.2
--- OUTSIDE RECORDS SUMMARY | 2024-09-30 09:20 | XMS_ITS | Clinical Summary ---
Author Organization [facility] Address [address] [place] [id number] Care Team Providers Care Aluminum Can Collector Name Role Phone Melva Foley MD Primary Care Provider [phone] Allergies Active Allergy Reactions Criticality Noted Date Comments Naomi Swelling 06/20/2018 SWELLING AND BLISTERS Latex Rash Low 06/20/2018 RASH Oxycodone-Acetaminophe n Other (See Comments) 10/04/2015 shakes Tramadol Anxiety,Other (See Comments) Low 07/01/2018 migraines Tizanidine Hcl Nausea And Vomiting 07/01/2018 Medications * This document contains information received from the source organization and may not represent a complete record from that organization. ondansetron ODT (ZOFRAN-ODT) 4 MG disintegrating tablet 1 Active gabapentin (NEURONTIN) 300 MG capsule 1 Active albuterol sulfate HFA 108 (90 Base) MCG/ACT inhaler Inhale 2 puffs Every 4 (Four) Hours As Needed for Wheezing. Active multivitamin with minerals tablet tablet Take 1 tablet by mouth Daily. Active calcium citrate-vitamin d (CITRACAL) 200-250 MG-UNIT tablet tablet Take by mouth Daily. Active HYDROcodone-acetami nophen (NORCO) 5-325 MG per tablet Take 1 tablet by mouth. Active Cholecalciferol 25 MCG (1000 UT) tablet Take 2 tablets by mouth Daily. Active ibuprofen (ADVIL,MOTRIN) 600 MG tablet Take 1 tablet by mouth Every 6 (Six) Hours As Needed for Mild Pain. Active fluvoxaMINE (LUVOX) 50 MG tablet Take 1 tablet by mouth Daily. 90 tablet 2 4 Active Active Problems Problem Noted Date Diagnosed Date Hirsutism 02/03/2021 Assessment & Plan (02/03/2021 12:42 PM EST): Suggests she might have excessive androgens but she has to be off of prednisone before we can test. I gave her order for needed tests Nontoxic multinodular goiter 02/03/2021 Assessment & Plan (02/03/2021 12:43 PM EST): Not particularly worrisome but will check tft OCD (obsessive compulsive disorder) 05/15/2016 Situational mixed anxiety and depressive disorde r 10/04/2015 Migraine without aura and wi thout status migrainosus, not intractable 10/04/2015 Chronic insomnia Resolved Problems Problem Noted Date Diagnosed Date Resolved Date Chronic pelvic pain in female 07/01/2018 07/02/2018 Pelvic pain 07/01/2018 07/02/2018 Immunizations Immunization Administration Dates Next Due Fluzone (or Fluarix & Flulaval for VFC) >6mos ,11/26/2017 Influenza Injectable Mdck Pf Quad 11/13/2018 Family History Medical History Relation Name Comments Diabetes Maternal Aunt Heart disease Maternal Aunt Heart disease Maternal Grandfather Arthritis Maternal Grandmother Gout Maternal Grandmother Kidney disease Maternal Grandmother Arthritis Mother Asthma Mother Cancer Mother Gout Mother Ovarian cancer Mother Relation Name Status Comments Maternal Aunt Maternal Grandfather Maternal Grandmother Mother Social History Tobacco Use Types Packs/Day Years Used Date Smoking Tobacco: Never Smokeless Tobacco: Never Alcohol Use Standard Drinks/Week Comments No 0 (1 standard drink = 0.6 oz pur e alcohol) PHQ-2 Answer Date Recorded Patient Health Questionnaire-9 Score 1 02/11/2024 Comments No Sex and Gender Information Value Date Recorded Sex Assigned at Not on file Legal Sex Female 10:09 AM EDT Gender Identity Not on file Sexual Orientation Not on file Last Filed Vital Signs Vital Sign Reading Time Taken Comments Blood Pressure 112/74 02/11/2024 11:57 AM EST Pulse 75 02/11/2024 11:57 AM EST Temperature 36.8 C (98.3 F) 07/06/2018 3:01 PM EDT Respiratory Rate 18 07/06/2018 3:01 PM EDT Oxygen Saturation 98% 02/11/2024 11:57 AM EST Inhaled Oxygen Concentration - - Weight 73.5 kg (162 lb 1.6 oz) 02/11/2024 11:57 AM EST Height 162.6 cm (5' 4.02 ) 02/11/2024 11:[address] Body Mass Index 27.81 02/11/2024 11:57 AM EST Plan of Treatment Health Maintenance Due Date Last Done Comments Annual Gynecologic Pelvic an d Breast Exam 1984 TDAP/TD VACCINES (1 - Tdap) 04/23/2003 ANNUAL PHYSICAL 10/04/2015 HEPATITIS C SCREENING 10/04/2015 COVID-19 Vaccine (2023-2 5 season) 2023 05/21/2020, 05/01/2020 INFLUENZA VACCINE 11/12/2024 12/10/2019, 11/13/2018, 11/26/2017 MAMMOGRAM 06/17/2025 06/18/2023 Pneumococcal Vaccine 0-49 Aged Out No longer eligible based on patient's age to complete this topic Procedures Procedure Name Priority Date/Time Associated Diagnosis Comments MAMMO DIAGNOSTIC DIGITAL TOMOSYNTHESIS BILATERAL W CAD Routine 06/18/2023 1:31 PM EDT Breast pain from Last 3 Months or Most Recently Relevant to Health Maintenance Results * Mammo Diagnostic Digital Tomosynthesis Bilateral With CAD (06/18/2023 1:31 PM EDT) Anatomical Region Laterality Modality Breast Bilateral Mammography 06/18/2023 1:23 PM EDT Impressions 06/18/2023 1:55 PM EDT Incidental probable complicated cyst, no suspicious imaging correlate for focal pain/palpable. ACR BI-RADS CATEGORY: 3, PROBABLY BENIGN RECOMMENDATION: Single 6-month diagnostic targeted ultrasound of the left is recommended to document stability of the small probable complicated cyst. As no suspicious imaging correlate is identified for the patient's palpable area of concern, further clinical evaluation correlation is recommended. A repeat clinical breast exam in 2-3 months time can be considered based on clinical concern. Further decision to pursue biopsy should also be decided on clinical exam findings. It was discussed with the patient at the area were to become firmer or larger that she should return to her physician. CAD was utilized. The standard false-negative rate of mammography is between 10% and 25%. Complex patterns or increased breast density will markedly elevate the false-negative rate of mammography. A letter, in lay terminology, with the results of this exam was given to the patient at the time of the visit. _ Physician Order Diagnostic 6 Month follow up with Breast Ultrasound Diagnosis: Abnormal Mammogram This report was finalized on 06/18/2023 1:55 PM by Ester Walton MD. Narrative 06/18/2023 1:55 PM EDT BILATERAL DIGITAL DIAGNOSTIC MAMMOGRAM WITH TOMOSYNTHESIS AND DIAGNOSTIC TARGETED LEFT BREAST ULTRASOUND CLINICAL HISTORY: Patient is a 38-year-old female who presents with focal pain and palpable area of concern lower outer quadrant on the left. The patient does not feel the area of palpable concern today. TECHNIQUE: 2D and tomosynthesis CC and MLO views were obtained. COMPARISON: No priors, baseline. MAMMOGRAM FINDINGS: The breasts are heterogeneously dense. There are no worrisome masses, areas of distortion or suspicious microcalcifications in either breast. A palpable marker was not placed today as the patient was not able to palpate the area of concern. ULTRASOUND FINDINGS: Targeted ultrasound was performed by myself as well as the technologist for assurance. At the 4 o'clock position of the left breast 4 cm from the nipple there is a subcentimeter probable complicated cyst identified. This is incidental and does not correlate with the patient's palpable or painful area of concern. A mildly prominent palpable rubbery ridge is identified in the lower outer quadrant which correlates with normal tissue. Teresa Knight Dean IM MAMMOGRAPHY ORDERABLES Fi nal Result from Last 3 Months or Most Recently Relevant to Health Maintenance Insurance Advance Directives * CPR (Attempt to Resuscitate) (Latest Code Status on File) Date Activated Date Inactivated Comments 07/01/2018 2:29 PM 07/02/2018 1:39 PM Question Answer Comments Code Status (Patient has no pulse and is not breathing): CPR (Attempt to Resuscitate) Medical Interventions (Patie nt has pulse or is breathing): Full Level Of Support Discussed With: Patient Care Teams Aluminum Can Collector Relationship Specialty Start Date End Date Melva Foley MD [address] [address] PCP - General Family Medicine 11/13/23
--- OUTSIDE RECORDS SUMMARY | 2024-09-30 09:20 | XMS_ITS | Patient Health Record ---
Author Organization [facility] Address [address] [facility] [address] [place] [address] Care Team Providers Care Track Maintainer Name Role Phone Rosalia Ovalle Unavailable [phone] Allergies Allergen (clinical drug ingredient) Drug/Non Drug [...] Notes Problem Noninflammatory disorder of the vagina (61884034) Bloody vaginal discharge (N89.8) 020 Active confirmed Vaginal discharge Problem Noninflammatory disorder of the vagina (68583247) Bloody vaginal discharge (N89.8) 020 Active confirmed Vaginal irritation Problem Gynecological examination abnormal (894507490715611) *Behavioral Psychologist exam with abnormal finding (Code also - abnormal finding(s) (Z01.411) 021 Active confirmed Annual with abnormal findings Problem Disorder of breast (56944626) Abnormal breast bud (N64.89) Active confirmed Skin disorder of breast Problem Gynecological examination normal (937773445236669) Cervical smear, as part of routine gynecological examination (Z01.419) Active confirmed Annual without abnormal findings Plan Of Treatment No Information Insurance Providers Payer Name Payer Address Payer Phone Subscriber Number Group Number Insured Name Patient Relationship to Insured Coverage Start Date Coverage End Date Akhil PPO [address] [place] [address] [id number] Dayna [place] Self - patient is the insured Medical (General) History Medical History History ICD Code anxiety chronic pelvic pain endometriosis fibroids obesity PCOS UTI yeast infection Tubular adenoma on colonoscopy Surgical History Surgery Date(Month/Year) 06-13-18 TRAVH BS BTL C/S tonsillectomy
--- OUTSIDE RECORDS SUMMARY | 2024-09-30 09:20 | XMS_ITS | Referral Summary ---
Author Organization [employer] ([place], [place], [place], [place]) Address [address] [place] [address] Care Team Providers Care Surgical Coder Name Role Phone Landon James MD Primary Care Provider [phone] Encounters Date Type Department Care Team Description 09/08/2024 Telephone [facility] [address] [address] Debo Kline DO Procedure 09/01/2024 Travel 09/01/2024 1:00 PM EDT Office Visit [facility] [address] [address] Landon James MD Douglass, Rebecca, DO Other constipation (Primary Dx); Supraumbilical hernia; Umbilical hernia without obstruction and without gangrene; Umbilical hernia 08/29/2024 Orders Only [facility] [address] [phone] ProviderLuh MD 08/29/2024 Outside Orders [address] [address] Landon James MD Supraumbilical hernia (Primary Dx); Umbilical hernia without obstruction and without gangrene 07/15/2024 Travel 07/15/2024 9:01 AM EDT - 07/15/2024 11:59 PM EDT Hospital Encounter [facility] Cardiac Catheterization Lab [address] [place] [address] Gadiel Anaya MD Sacroiliitis, not elsewhere classified (HCC) Discharge Disposition: Home or Self Care from Last 3 Months Allergies Active Allergy Reactions Criticality Noted Date Comments Cardamom (Elettaria Cardamomum) 06/12 Naomi 12/11/2023 Latex Dermatitis,Rash Low 12/04/2023 Oxycodone-Acetaminophen Nausea Only 06/19/2023 Turmeric 06/24/2024 Tizanidine Nausea And Vomiting 06/19/2023 Medications gabapentin (NEURONTIN) 600 MG tablet Take 1 tablet (600 mg total) by mouth daily. Active HYDROcodone-ac etaminophen (NORCO 5-325) 5-325 mg per tablet Take 1 tablet by mouth every 6 (six) hours as needed for pain. Active calcium citrate-vitami n D3 (CITRACAL-D3) 200 mg-6.25 mcg (250 unit) tablet Take by mouth. Activ e fluvoxaMINE (LUVOX) 25 MG tablet Take 2 tablets (50 mg total) by mouth nightly. Active multivitamin per tablet Take 1 tablet by mouth daily. Active ondansetron (ZOFRAN) 4 MG tablet Take 2 tablets (8 mg total) by mouth every 8 (eight) hours as needed for nausea or vomiting. Active cholecalcifero l (Vitamin D3) 125 mcg (5,000 unit) tablet Take 6,000 Units by mouth daily. Active albuterol 2.5 mg /3 mL (0.083 %) nebulizer solution Inhale 3 mLs (2.5 mg total) by nebulization every 6 (six) hours as needed for wheezing. Active polyethylene glycol (GLYCOLAX) 17 gram packet Take 17 g by mouth 2 (two) times daily. Active lactobacillus rhamnosus, GG, (CULTURELLE) 10 billion cell capsule Take 1 capsule by mouth daily. 025 Discontin ued(Per Patient: Not Taking) budesonide-for moteroL (SYMBICORT) 80-4.5 mcg/actuation inhaler Inhale 2 puffs by mouth 2 (two) times daily. 025 Discontin ued(Per Patient: Not Taking) Active Problems Problem Noted Date Diagnosed Date Umbilical hernia 09/01/2024 Cervicalgia 06/28/2023 Social History Tobacco Use Types Packs/Day Years [...] Date Hemal rded Speak language other than British at home Not on file 06/12/2023 Want [...] Pulse 51 09/01/2024 1:05 PM EDT Temperature 36.9 C (98.4 F) 07/15/2024 10:01 AM EDT Respiratory Rate 18 07/15/2024 10:01 AM EDT Oxygen Saturation 96% 07/15/2024 10:01 AM EDT Inhaled Oxygen Concentration - - Weight 78.9 kg (174 lb) 09/01/2024 1:05 PM EDT Height 160 cm (5' 3 ) 09/01/2024 1:05 PM EDT Body Mass Index 30.82 09/01/2024 1:05 PM EDT Plan of Treatment Not on file Procedures Procedure Name Priority Date/Time Associated Diagnosis Comments CT ABDOMEN/PELVIS WITHOUT IV CONTRAST Routine 08/22/2024 10:10 AM EDT CARDIAC CATH - INJECTIONS Routine 07/15/2024 9:57 AM EDT Sacroiliitis, not elsewhere classified (HCC) from Last 3 Months Results * CT ABDOMEN/PELVIS WITHOUT IV CONTRAST (08/22/2024 10:10 AM EDT) Anatomical Region Laterality Modality Abdomen, Pelvis Computed Tomogra phy Historical Provider MD MAE CT ORDERABLES Final R esult * CARDIAC CATH - INJECTIONS (07/15/2024 9:57 [...] Estimated Blood loss : less than 1ml Gadiel Anaya MD CV CARDIAC CATH ORDERABLES Jeana l Result from Last 3 Months Insurance BLUE CROSS/BLUE SHIELD Care Teams Surgical Coder Relationship Specialty Start Date End Date Landon James MD [address] [place] [phone] PCP - General Family Medicine 08/29/24
--- OUTSIDE RECORDS SUMMARY | 2024-09-30 09:20 | XMS_ITS | Encounter Summary ---
Author Organization [employer] ([place], [place], [place], [place]) Address [address] [place] [address] Care Team Providers Care Python Engineer Name Role Phone Landon James MD Primary Care Provider [phone] Encounter Details Date Type Department Care Team (Late st Contact Info) Description 02/24/2019 Transcribed Document [facility] [place] Family Medicine [facility] [place] [address] ProviderLuh MD [address] [place] [address] Social History Tobacco Use Types Packs/Day Years Used Date Smoking Tobacco: Never Assessed Comments Unknown Sex and Gender Information Value Date Recorded Sex Assigned at Not on file Legal Sex Female 5:38 PM CDT Gender Identity Not on file Sexual Orientation Not on file documented as of this encounter Miscellaneous Notes * Cerner Conversion Note - Luh Oliveros MD - 02/24/2019 3:39 PM CLINIC MD ASSOCIATE DATE OF ADMISSION: 02/24/2019 SUBJECTIVE: This is [...] reason, we scheduled her to see a business professor and neurologist. She is going to see Rheumatology on March 05, 2019. We also sent her to see at the [facility] neurologist and they are going to [...] and then readjust the dose after that. /[id number] Gadiel Anaya MD, JULIO C Pain Certified KR/AQ / KR / MODL CC: Anthony Pritchett MD Electronically signed by Yesy, [facility] Conversion Grinder Machine Knife Setter Cerner at 06/01/2022 10:10 AM CDT documented in this encounter Plan of Treatment Not on file documented as of this encounter Visit Diagnoses Not on filedocumented in this encounter Care Teams Python Engineer Relationship Specialty Start Date End Date Landon James MD [address] [place] [address] PCP - General Family Medicine 08/29/24 documented as of this encounter
--- OUTSIDE RECORDS SUMMARY | 2024-09-30 09:20 | XMS_ITS | Encounter Summary ---
Author Organization [employer] ([place], [place], [place], [place]) Address [address] [place] [address] Care Team Providers Care Knitting Demonstrator Name Role Phone Landon James MD Primary Care Provider [phone] Encounter Details Date Type Department Care Team (Late st Contact Info) Description 07/09/2019 Transcribed Document [facility] Family [place] [address] ProviderLuh MD [address] [place] [address] Social History Tobacco Use Types Packs/Day Years [...] we brought the patient to the clinic. /[id number] Gadiel Anaya MD, JULIO C Pain Certified ELAINE/JOE / ELAINE / MODL /[id number] documented in this encounter Plan of Treatment Not on file documented as of this encounter Visit Diagnoses Not on filedocumented in this encounter Care Teams Knitting Demonstrator Relationship Specialty Start Date End Date Landon James MD [address] [place] [address] PCP - General Family Medicine 08/29/24 documented as of this encounter
--- OUTSIDE RECORDS SUMMARY | 2024-09-30 09:20 | XMS_ITS | Encounter Summary ---
Author Organization [employer] ([place], [place], [place], [place]) Address [address] [place] [address] Care Team Providers Care Hospice Music Therapy Name Role Phone Landon James MD Primary Care Provider [phone] Encounter Details Date Type Department Care Team (Late st Contact Info) Description 01/27/2019 Transcribed Document [facility] [place] [facility] Family Medicine [facility] [place] [address] ProviderLuh MD [address] [place] [address] Social History Tobacco Use Types Packs/Day Years Used Date Smoking Tobacco: Never Assessed Comments Unknown Sex and Gender Information Value Date Recorded Sex Assigned at Not on file Legal Sex Female 5:38 PM CDT Gender Identity Not on file Sexual Orientation Not on file documented as of this encounter Miscellaneous Notes * Cerner Conversion Note - Luh Oliveros MD - 01/27/2019 5:04 PM CRANE MAN DATE OF PROCEDURE: 01/27/2019 SURGEON: Gadiel Anaya [...] I encouraged the patient to see a cloth covered helmet puller as well as see the neurologist, then I will be happy to see the patient after one month to re-evaluate her. /[id number] Gadiel Anaya MD, JULIO C Pain Certified ELAINE/JOE / ELAINE / MODL /[id number] Electronically signed by Derek Hayward Conversion Electric Motor Control Assembler Cerner at 06/01/2022 10:29 AM CDT documented in this encounter Plan of Treatment Not on file documented as of this encounter Visit Diagnoses Not on filedocumented in this encounter Care Teams Hospice Music Therapy Relationship Specialty Start Date End Date Landon James MD [address] [place] [phone] PCP - General Family Medicine 08/29/24 documented as of this encounter
--- OUTSIDE RECORDS SUMMARY | 2024-09-30 09:20 | XMS_ITS | Encounter Summary ---
Author Organization [email or web address] ([place], [place], [place], [place]) Address [address] [place] [address] Care Team Providers Care Preschool Assistant Principal Name Role Phone Landon James MD Primary Care Provider [phone] Reason for Visit * Reason Onset Date Comments Procedure 09/08/2024 Encounter Details Date Type Department Care Team (Late st Contact Info) Description 09/08/2024 Telephone [facility] [address] [facility] [address] [address] Debo Kline DO [address] [facility] [address] [place] [address] Procedure Social History Tobacco Use Types Packs/Day Years [...] Date Hemal rded Speak language other than Norwegian at home Not on file 06/12/2023 Want [...] as of this encounter Miscellaneous Notes * Telephone Encounter - Lilliana Brandon - 09/08/2024 8:15 AM EDT Pt called and left voicemail on sánchez's phone on Sunday09/05/2024. She stated she needed to cancelher surgery because something else needs to be taken care of before surgery. Pt did not state what had came up. Attempted to reach patient and left a voicemail, Called surgery scheduling this AM 09/08/2024 to cancel her surgery for 09/12/2024. documented in this encounter Plan of Treatment Not on file documented as of this encounter Visit Diagnoses Not on filedocumented in this encounter Care Teams Preschool Assistant Principal Relationship Specialty Start Date End Date Landon James MD [address] [place] [phone] PCP - General Family Medicine 08/29/24 documented as of this encounter
--- OUTSIDE RECORDS SUMMARY | 2024-09-30 09:20 | XMS_ITS | Encounter Summary ---
Author Organization [employer] ([place], [place], [place], [place]) Address [address] [place] [address] Care Team Providers Care Optical Instrument Specialist Name Role Phone Landon James MD Primary Care Provider [phone] Encounter Details Date Type Department Care Team (Late st Contact Info) Description 01/20/2019 Transcribed Document [facility] [place] [address] ProviderLuh MD [address] [place] [address] Social History Tobacco Use Types Packs/Day Years Used Date Smoking Tobacco: Never Assessed Comments Unknown Sex and Gender Information Value Date Recorded Sex Assigned at Not on file Legal Sex Female 5:38 PM CDT Gender Identity Not on file Sexual Orientation Not on file documented as of this encounter Miscellaneous Notes * Cerner Conversion Note - Luh Oliveros MD - 01/20/2019 7:18 AM DIRECTOR OF COMMUNITY LIFE DATE OF ADMISSION: 01/17/2019 HISTORY: This is [...] also going to send her to the [facility] Neurology to rule out any systemic neurological deficit including multiple sclerosis that is causing these symptoms. 3. Once we get the patient some help and relief, we will start her on intense physical therapy to improve the range of movement of the upper and lower extremities. /[id number] Gadiel Anaya MD, JULIO C Pain Certified KR/AQ / KR / MODL CC: Anthony Pritchett Electronically signed by Interface, [facility] Conversion Veneer Trimmer Cerner at 06/01/2022 10:09 AM CDT documented in this encounter Plan of Treatment Not on file documented as of this encounter Visit Diagnoses Not on filedocumented in this encounter Care Teams Optical Instrument Specialist Relationship Specialty Start Date End Date Landon James MD [address] [place] [phone] PCP - General Family Medicine 08/29/24 documented as of this encounter
--- OUTSIDE RECORDS SUMMARY | 2024-09-30 09:20 | XMS_ITS | Encounter Summary ---
Author Organization [employer] ([place], [place], [place], [place]) Address [address] [place] [address] Care Team Providers Care Field Sales Agent Name Role Phone Landon James MD Primary Care Provider [phone] Reason for Referral * Surgical (Routine) - Closed Specialty Diagnoses / Procedures Referred By Contac t Referred To Contact General Surgery Diagnoses Supraumbilical hernia Umbilical hernia without obstruction and without gangrene Landon James MD [address] [place] [address] Phone: tel: fax: [facility] [address] [place] [address] [address] Phone: tel: fax: Referral ID Status Reason Start Date Expiration Date V isits Requested Visits Authorized [id number] Closed Specialty Services Required 08/29/2024 08/29/2025 1 1 Encounter Details Date Type Department Care Team (Latest Contact Info) Description 08/29/2024 Outside Orders [facility] [address] [place] [address] [address] Landon James MD [address] [place] [address] Supraumbilical hernia (Primary Dx); Umbilical hernia without obstruction and without gangrene Social History Tobacco Use Types Packs/Day Years [...] Date Hemal rded Speak language other than Mosotho at home Not on file 06/12/2023 Want [...] as of this encounter Plan of Treatment Scheduled Referrals Name Type Priority Associated Diagnoses Orde r Schedule Ambulatory referral to General Surgery Outpatient Referral Routine Supraumbilical hernia Umbilical hernia without obstruction and without gangrene Expected: 08/29/2024, Expires: 08/29/2025 documented as of this encounter Visit Diagnoses Diagnosis Supraumbilical hernia- Primary Umbilical hernia without obstruction and without gangrene documented in this encounter Care Teams Field Sales Agent Relationship Specialty Start Date [place] [address] PCP - General Family Medicine 08/29/24 documented as of this encounter
--- OUTSIDE RECORDS SUMMARY | 2024-09-30 09:20 | XMS_ITS | Encounter Summary ---
Author Organization [employer] ([place], [place], [place], [place]) Address [address] [place] [address] Care Team Providers Care Shipping Track Supervisor Name Role Phone Landon James MD Primary Care Provider [phone] Encounter Details Date Type Department Care Team (Latest Contact Info) Description 09/01/2024 Travel Social History Tobacco Use Types Packs/Day [...] Date Hemal rded Speak language other than Azerbaijani at home Not on file 06/12/2023 Want [...] on filedocumented in this encounter Care Teams Shipping Track Supervisor Relationship Specialty Start Date End Date Landon James MD [address] [place] [address] PCP - General Family Medicine 08/29/24 documented as of this encounter
--- OUTSIDE RECORDS SUMMARY | 2024-09-30 09:20 | XMS_ITS | Encounter Summary ---
Author Organization [employer] ([place], [place], [place], [place]) Address [address] [place] [address] Care Team Providers Care Yard Brakeman Name Role Phone Landon James MD Primary Care Provider [phone] Encounter Details Date Type Department Care Team (Late st Contact Info) Description 08/29/2024 Orders Only [facility] [address] [place] [address] [place] [address] ProviderLuh MD [address] [place] [address] Social History Tobacco Use Types Packs/Day Years [...] Date Hemal rded Speak language other than Congolese at home Not on file 06/12/2023 Want [...] IV CONTRAST Routine 08/22/2024 10:10 AM EDT documented in this encounter Results * CT ABDOMEN/PELVIS WITHOUT IV CONTRAST (08/22/2024 10:10 AM EDT) Anatomical Region Laterality Modality Abdomen, Pelvis Computed Tomogra phy us Historical Provider MD MAE CT ORDERABLES Final R esult documented in this encounter Visit Diagnoses Not on filedocumented in this encounter Care Teams Yard Brakeman Relationship Specialty Start Date End Date Landon James MD [address] [place] [phone] PCP - General Family Medicine 08/29/24 documented as of this encounter
--- OUTSIDE RECORDS SUMMARY | 2024-09-30 09:20 | XMS_ITS | Clinical Summary ---
Author Organization [employer] ([place], [place], [place], [place]) Address [address] [place] [address] Care Team Providers Care Fire Support Specialist Name Role Phone Landon James MD Primary Care Provider [phone] Allergies Active Allergy Reactions Criticality Noted Date [...] Diagnosed Date Umbilical hernia 09/01/2024 Cervicalgia 06/28/2023 Encounters Date Type Department Care Team Description 09/08/2024 Telephone [facility] [address] [address] Debo Kline DO Procedure 09/01/2024 1:00 PM EDT Office Visit [address] [phone] Landon James MD Douglass, Rebecca, DO Other constipation (Primary Dx); Supraumbilical hernia; Umbilical hernia without obstruction and without gangrene; Umbilical hernia 09/01/2024 Travel 08/29/2024 Orders Only [facility] [address] [phone] Luh Oliveros MD 08/29/2024 Outside Orders [address] [phone] Landon James MD Supraumbilical hernia (Primary Dx); Umbilical hernia without obstruction and without gangrene 07/15/2024 9:01 AM EDT - 07/15/2024 11:59 PM EDT Hospital Encounter [facility] Cardiac Catheterization Lab [address] [place] [address] Gadiel Anaya MD Sacroiliitis, not elsewhere classified (HCC) Discharge Disposition: Home or Self Care 07/15/2024 Travel from Last 3 Months Family History Medical History Relation Name Comments Other Father Agent [place] Ex posure Coronary artery disease Maternal Aunt Hypothyroidism Maternal Aunt Coronary artery disease Maternal Grandfather Hypertension Maternal Grandfather Hyperlipidemia Maternal Grandmother Hypertension Maternal Grandmother Hypothyroidism Maternal Grandmother COPD Mother Hypertension Mother Hypothyroidism Mother Stroke Paternal Grandmother Relation Name Status Comments Father Maternal Aunt Maternal Grandfather Maternal Grandmother Mother Paternal Grandmother Social History Tobacco Use Types [...] 09/01/2024 1:05 PM EDT Plan of Treatment Health Maintenance Due Date Last Done Comments Depression Screening (12+) 1996 HIV Screening 04/23/1999 Hepatitis C Screening 2002 Pap Smear 2005 COVID-19 VACCINE (3 - 2023-2 5 season) 2023 05/21/2020, 05/01/2020 Influenza Vaccine (#1) 2024 11/13/2018 Breast Cancer Screening 06/17/2025 06/18/2023 Tobacco Cessation Counseling and Screening (12+) 09/01/2025 09/01/2024 Lipid Panel 07/18/2027 07/17/2024 DTAP/TDAP/TD VACCINES (2 - T d or Tdap) 07/17/2034 07/17/2024 Pneumococcal Vaccine: 0-49 Years Aged Out No [...] Months Insurance BLUE CROSS/BLUE SHIELD Care Teams Fire Support Specialist Relationship Specialty Start Date End Date Landon James MD [address] [place] [phone] PCP - General Family Medicine 08/29/24
--- OUTSIDE RECORDS SUMMARY | 2024-09-30 09:20 | XMS_ITS | Encounter Summary ---
Author Organization [employer] ([place], [place], [place], [place]) Address [address] [place] [address] Care Team Providers Care Assistant Operator Name Role Phone Landon James MD Primary Care Provider [phone] Encounter Details Date Type Department Care Team (Late st Contact Info) Description 03/24/2019 Transcribed Document [facility] [place] [facility] [place] [address] ProviderLuh MD [address] [place] [address] Social History Tobacco Use Types Packs/Day Years Used Date Smoking Tobacco: Never Assessed Comments Unknown Sex and Gender Information Value Date Recorded Sex Assigned at Not on file Legal Sex Female 5:38 PM CDT Gender Identity Not on file Sexual Orientation Not on file documented as of this encounter Miscellaneous Notes * Cerner Conversion Note - Luh Oliveros MD - 03/24/2019 1:48 PM LEATHER TOGGLER DATE OF ADMISSION: 03/24/2019 HISTORY OF PRESENT [...] also scheduled the patient for neurologist and journeyman operator assistant consult, and she has followup with them. [...] I am awaiting for the results of journeyman operator assistant and neurologist recommendations. to give me more idea about her peripheral joint and nerve issue and problem. 5. I am going to see the patient after 3 months to re-evaluate her. /[id number] Gadiel Anaya MD, JULIO C Pain Certified KR/JOE / ELAINE / MODL CC: Anthony Pritchett MD Electronically signed by Yesy, [facility] Conversion Net Web Application Developer Cerner at 06/01/2022 10:04 AM CDT documented in this encounter Plan of Treatment Not on file documented as of this encounter Visit Diagnoses Not on filedocumented in this encounter Care Teams Assistant Operator Relationship Specialty Start Date End Date Landon James MD [address] [place] [address] PCP - General Family Medicine 08/29/24 documented as of this encounter
--- OUTSIDE RECORDS SUMMARY | 2024-09-30 09:20 | XMS_ITS | Encounter Summary ---
Author Organization [employer] ([place], [place], [place], [place]) Address [address] [place] [address] Care Team Providers Care Calibration Engineer Name Role Phone Landon James MD Primary Care Provider [phone] Encounter Details Date Type Department Care Team (Late st Contact Info) Description 08/25/2019 Transcribed Document [facility] Family Medicine [facility] [place] [address] ProviderLuh MD [address] [place] [address] Social History Tobacco Use Types Packs/Day Years Used Date Smoking Tobacco: Never Assessed Comments Unknown Sex and Gender Information Value Date Recorded Sex Assigned at Not on file Legal Sex Female 5:38 PM CDT Gender Identity Not on file Sexual Orientation Not on file documented as of this encounter Miscellaneous Notes * Cerner Conversion Note - Luh Oliveros MD - 08/25/2019 1:03 PM CDT DATE OF [...] medications for this patient's treatment plan today. /[id number] Suzan Maharaj APRN HUMBERTO/AQ / HUMBERTO / MODL CC: Anthony Pritchett MD documented in this encounter Plan of Treatment Not on file documented as of this encounter Visit Diagnoses Not on filedocumented in this encounter Care Teams Calibration Engineer Relationship Specialty Start Date End Date Landon James MD [address] [place] [phone] PCP - General Family Medicine 08/29/24 documented as of this encounter
--- OUTSIDE RECORDS SUMMARY | 2024-09-30 09:20 | XMS_ITS | Encounter Summary ---
Author Organization [employer] ([place], [place], [place], [place]) Address [address] [place] [address] Care Team Providers Care Tire Specialist Name Role Phone Landon James MD Primary Care Provider [phone] Encounter Details Date Type Department Care Team (Late st Contact Info) Description 07/03/2019 Transcribed Document [facility] [place] [address] ProviderLuh MD [address] [place] [address] Social History Tobacco Use Types Packs/Day Years Used Date Smoking Tobacco: Never Assessed Comments Unknown Sex and Gender Information Value Date Recorded Sex Assigned at Not on file Legal Sex Female 5:38 PM CDT Gender Identity Not on file Sexual Orientation Not on file documented as of this encounter Miscellaneous Notes * Cerner Conversion Note - Luh Oliveros MD - 07/03/2019 2:07 PM CDT DATE OF [...] any signs and symptoms related to COVID-19. /[id number] Gadiel Anaya MD, JULIO C Pain Certified KR/AQ / KR / MODL CC: Dr. Anthony Pritchett Electronically signed by [facility], [facility] Conversion President Of [employer] [place] Cerner at 06/01/2022 10:24 AM CDT documented in this encounter Plan of Treatment Not on file documented as of this encounter Visit Diagnoses Not on filedocumented in this encounter Care Teams Tire Specialist Relationship Specialty Start Date End Date Landon James MD [address] [place], [place] [address] [address] PCP - General Family Medicine 08/29/24 documented as of this encounter
--- OUTSIDE RECORDS SUMMARY | 2024-09-30 09:20 | XMS_ITS | Encounter Summary ---
Author Organization [employer] ([place], [place], [place], [place]) Address [address] [place] [address] Care Team Providers Care Town Administrator Name Role Phone Landon James MD Primary Care Provider [phone] Encounter Details Date Type Department Care Team (Late st Contact Info) Description 06/16/2019 Transcribed Document [facility] [place] [address] ProviderLuh MD [address] [place] [address] Social History Tobacco Use Types Packs/Day Years Used Date Smoking Tobacco: Never Assessed Comments Unknown Sex and Gender Information Value Date Recorded Sex Assigned at Not on file Legal Sex Female 5:38 PM CDT Gender Identity Not on file Sexual Orientation Not on file documented as of this encounter Miscellaneous Notes * Cerner Conversion Note - Luh Oliveros MD - 06/16/2019 1:52 PM CDT DATE OF [...] before bring the patient to the clinic /[id number] Gadiel Anaya MD, JULIO C Pain Certified KR/JOE / KR / MODL CC: Anthony Pritchett MD Electronically signed by Interface, [facility] Conversion Manager Chemistry Cerner at 06/01/2022 10:12 AM CDT documented in this encounter Plan of Treatment Not on file documented as of this encounter Visit Diagnoses Not on filedocumented in this encounter Care Teams Town Administrator Relationship Specialty Start Date End Date Landon James MD [address] [place] [phone] PCP - General Family Medicine 08/29/24 documented as of this encounter
--- OUTSIDE RECORDS SUMMARY | 2024-09-30 09:21 | XMS_ITS | Encounter Summary ---
Author Organization Healthcare Address [address] [id number] Care Team Providers Care Wood Hacker Name Role Phone Penny Armstrong PORCELAIN FINISH SPRAYER Primary Care Provider [phone] Encounter Details Date Type Department Care Team (Late st Contact Info) Description 07/18/2024 Results Follow-Up [facility] [address] [place] [address] Penny Armstrong, PORCELAIN FINISH SPRAYER [address] [place] [address] Social History Tobacco Use Types [...] place to sleep or slept in a long term (including now)? Patient refused 03/05/2023 PHQ-9 Answer [...] any time in the past 12 m [facility], were you homeless or living in a long term (including now)? Patient declined 07/17/2024 Safety and [...] Never 08/14/2024 11:20 AM EDT Kam Duron * Calculated C-SSRS Risk Score (Lifetime/Recent) Answer [...] as of this encounter Plan of Treatment Upcoming Encounters Date Type Department Care Team (Late st Contact Info) Description 10/23/2024 10:00 AM EDT [facility] Surgery [address], [address] [place] [address] Albina Bonilla MD [address] [place] [address] documented as of this encounter Visit Diagnoses [...] documented as of this encounter Care Teams Wood Hacker Relationship Specialty Start Date End Date Penny Armstrong, PORCELAIN FINISH SPRAYER [address] [place] [phone] PCP - General Family Medicine 09/24/23 documented as of this encounter
--- OUTSIDE RECORDS SUMMARY | 2024-09-30 09:21 | XMS_ITS | Encounter Summary ---
Author Organization Healthcare Address [address] [place] [address] Care Team Providers Care Stunt Woman Name Role Phone Penny Armstrong APRN Primary Care Provider [phone] Reason for Visit * Reason Onset Date Comments HCN Clinical Concern/Question 08/25/2024 Encounter Details Date Type Department Care Team (Late st Contact Info) Description 08/25/2024 Telephone [facility] [address] [place] [address] Landon James MD [address] [place] [address] HCN Clinical Concern/Question Social History Tobacco Use Types Packs/Day Years [...] place to sleep or slept in a nursing home (including now)? Patient refused 03/05/2023 PHQ-9 [...] any time in the past 12 m [facility], were you homeless or living in a nursing home (including now)? Patient declined 07/17/2024 Safety [...] Recorded In the past 12 months has e electric, gas, oil, or water company threatened to shut off services in your home? Patient declined 07/17/2024 Comments No Sex and Gender Information Value Date Recorded Sex Assigned at Not on file Legal Sex Female 7:55 PM EDT Gender Identity Not on file Sexual Orientation Not on file documented as of this encounter Miscellaneous Notes * Telephone Encounter - Caitlyn Duron - 08/26/2024 11:07 AM EDT Called pt and informed of results and information from Dr. James on CT scan. Pt voiced understanding. * Telephone Encounter - Margot Knox - 08/25/2024 4:47 PM EDT Clinical Concern/Question Reason for Call: Caitlyn called/ patient called back about Same Day results Best contact number: [phone] (mobile) Optimal time of day to reach caller: ANYTIME Additional comments/information from caller: None Note: Please do not reply to this message. Follow-up communication and further actions as a result of this message need to be communicated with the patient directly, if the patient is not active onMyChart. If the patient is active on MyChart, they will receive notification of the communication/outcome via [employer]. documented in this encounter Plan of Treatment Upcoming Encounters Date Type Department Care Team (Late st Contact Info) Description 10/23/2024 10:00 AM EDT Office Visit [facility] General Surgery [address], [address]st [place] [address] Albina Bonilla MD [address] [place] [address] documented as of this encounter [...] documented as of this encounter Care Teams Stunt Woman Relationship Specialty Start Date End Date Penny Armstrong APRN [address] [place] [address] PCP - General Family Medicine 09/24/23 documented as of this encounter
--- OUTSIDE RECORDS SUMMARY | 2024-09-30 09:21 | XMS_ITS | Encounter Summary ---
Author Organization Healthcare Address [address] [id number] Care Team Providers Care Health Therapist Name Role Phone Patti Penny Noland APRN Primary Care Provider [phone] Reason for Visit * Reason Onset Date Comments HCN Clinical Concern/Question 08/27/2024 Encounter Details Date Type Department Care Team (Late st Contact Info) Description 08/27/2024 Telephone [facility] [address], [address] [place] [address] None, None [address] [id number] HCN Clinical Concern/Question Social History Tobacco Use [...] time in the past 12 m [facility], were you homeless or living in a [...] encounter Miscellaneous Notes * Telephone Encounter - Mahogany Harper - 08/27/2024 9:46 AM EDT I called and talked with patient about her concerns with taking antibiotics for dental infection. Iexplained to her that no date has been determined for her consult visit to assess hernia surgery. Itold her to proceed with antibiotic treatment. * Telephone Encounter - Cande Jerez - 08/27/2024 9:16 AM EDT Clinical Concern/Question Reason for Call: Patient is calling she has not been seen yet but she needs to get some dental workdone and they wanted to put her on antibiotic. She just wanted to check to make sure that it would not case her to have wait longer to have her hernia surgery after she has her 1st visit in the clinic. Please call patient back with info. Thank you Best contact number: [phone] (mobile) Optimal time of day to reach caller: ANYTIME Additional comments/information from caller: None Note: Please do not reply to this message. Follow-up communication and further actions as a result of this message need to be communicated with the patient directly, if the patient is not active onMyChart. If the patient is active on MyChart, they will receive notification of the communication/outcome via [employer]. documented in this encounter Plan of Treatment Upcoming Encounters Date Type Department Care Team (Late st Contact Info) Description 10/23/2024 10:00 AM EDT Office Visit [facility] General Surgery [address], [address] [place] [address] Albina Bonilla MD [address] [place] [address] documented as of this encounter [...] documented as of this encounter Care Teams Health Therapist Relationship Specialty Start Date End Date Penny Armstrong APRN [address] [place] [phone] PCP - General Family Medicine 09/24/23 documented as of this encounter
--- OUTSIDE RECORDS SUMMARY | 2024-09-30 09:21 | XMS_ITS | Encounter Summary ---
Author Organization [employer] ([place], [place], [place], [place]) Address [address] [place] [address] Care Team Providers Care Automatic Hemmer Name Role Phone Landon James MD Primary Care Provider [phone] Encounter Details Date Type Department Care Team (Late st Contact Info) Description 11/17/2019 Transcribed Document [facility] [place] [address] ProviderLuh MD [address] [place] [address] Social History Tobacco Use Types Packs/Day Years Used Date Smoking Tobacco: Never Assessed Comments Unknown Sex and Gender Information Value Date Recorded Sex Assigned at Not on file Legal Sex Female 5:38 PM CDT Gender Identity Not on file Sexual Orientation Not on file documented as of this encounter Miscellaneous Notes * Cerner Conversion Note - Luh Oliveros MD - 11/17/2019 12:53 PM CDT DATE OF [...] visit and the patient has been afebrile. /[id number] Suzan Maharaj APRN HUMBERTO/AQ / HUMBERTO / MODL CC: Anthony Pritchett MD documented in this encounter Plan of Treatment Not on file documented as of this encounter Visit Diagnoses Not on filedocumented in this encounter Care Teams Automatic Hemmer Relationship Specialty Start Date End Date Landon James MD [address] [place] [address] PCP - General Family Medicine 08/29/24 documented as of this encounter
--- OUTSIDE RECORDS SUMMARY | 2024-09-30 09:21 | XMS_ITS | Encounter Summary ---
Author Organization [employer] ([place], [place], [place], [place]) Address [address] [place] [address] Care Team Providers Care Banquet Attendant Name Role Phone Landon James MD Primary Care Provider [phone] Encounter Details Date Type Department Care Team (Late st Contact Info) Description 12/15/2019 Transcribed Document [facility] [place] [facility] [place] [address] ProviderLuh MD [address] [place] [address] Social History Tobacco Use Types Packs/Day Years Used Date Smoking Tobacco: Never Assessed Comments Unknown Sex and Gender Information Value Date Recorded Sex Assigned at Not on file Legal Sex Female 5:38 PM CDT Gender Identity Not on file Sexual Orientation Not on file documented as of this encounter Miscellaneous Notes * Cerner Conversion Note - Luh Oliveros MD - 12/15/2019 1:21 PM ROLLER COASTER DESIGNER DATE OF ADMISSION: 12/15/2019 HISTORY OF PRESENT [...] visit and the patient has been afebrile. /[id number] Suzan Maharaj APRN HUMBERTO/AQ / HUMBERTO / MODL CC: Anthony Pritchett MD documented in this encounter Plan of Treatment Not on file documented as of this encounter Visit Diagnoses Not on filedocumented in this encounter Care Teams Banquet Attendant Relationship Specialty Start Date End Date Landon James MD [address] [place] [address] PCP - General Family Medicine 08/29/24 documented as of this encounter
--- OUTSIDE RECORDS SUMMARY | 2024-09-30 09:21 | XMS_ITS | Encounter Summary ---
Author Organization Healthcare Address [address] [place] [address] Care Team Providers Care Smash Fixer Name Role Phone Patti Penny Noland APRN Primary Care Provider [phone] Encounter Details Date Type Department Care Team (Late st Contact Info) Description 08/22/2024 Orders Only External Location [address] [place] [phone] Provider, External Social History Tobacco Use Types Packs/Day Years [...] place to sleep or slept in a group home (including now)? Patient refused 03/05/2023 PHQ-9 [...] time in the past 12 m [facility], were you homeless or living in a group home (including now)? Patient declined 07/17/2024 Safety [...] Description 10/23/2024 10:00 AM EDT Office Visit [facility] General Surgery [address], [address]st [place] [address] Albina Bonilla MD [address] [place] [address] documented as of this encounter Procedures Procedure Name Priority Date/Time Associated Diagnosis Comments CT MSK OUTSIDE IMAGES 08/22/2024 7:11 AM EDT documented in this encounter Results * CT MSK OUTSIDE IMAGES (08/22/2024 7:11 AM EDT) Anatomical Region Laterality Modality Computed Tomogra phy 08/22/2024 7:11 AM EDT us External Provider IMG CT PROCEDURES Final Result documented in this encounter Visit Diagnoses Not [...] documented as of this encounter Care Teams Smash Fixer Relationship Specialty Start Date End Date Penny Armstrong APRN [address] [place] [address] PCP - General Family Medicine 09/24/23 documented as of this encounter
--- OUTSIDE RECORDS SUMMARY | 2024-09-30 09:21 | XMS_ITS | Encounter Summary ---
Author Organization Healthcare Address [address] [id number] Care Team Providers Care Airplane And Engine Inspector Name Role Phone Penny Armstrong MOUNTAIN SERVICES MANAGER Primary Care Provider [phone] Reason for Visit * Reason Onset Date Comments HCN Clinical Concern/Question 08/28/2024 Encounter Details Date Type Department Care Team (Late st Contact Info) Description 08/28/2024 Telephone [facility] [address] [place] [address] Penny Armstrong, MOUNTAIN SERVICES MANAGER [address] [place] [address] HCN Clinical Concern/Question Social History [...] place to sleep or slept in a fdc (including now)? Patient refused 03/05/2023 PHQ-9 Answer [...] any time in the past 12 m [facility], were you homeless or living in a fdc (including now)? Patient declined 07/17/2024 Safety and [...] encounter Miscellaneous Notes * Telephone Encounter - Yanely Longo - 08/28/2024 4:52 PM EDT Discussed with patient, faxed referral to [facility] (Dr. Tate's office) * Telephone Encounter - Ginny Elaine - 08/28/2024 11:39 AM EDT Clinical Concern/Question Reason for Call: patient spoke with general surgery and they are not able to get her scheduled yet. She is asking to have her referral sent to somewhere outside of that can get her in soon. Please call to discuss. Thanks! Best contact number: [phone] (mobile) Optimal time of day to reach caller: ANYTIME Additional comments/information from caller: None Note: Please do not reply to this message. Follow-up communication and further actions as a result of this message need to be communicated with the patient directly, if the patient is not active onMyChart. If the patient is active on MyChart, they will receive notification of the communication/outcome via MyChart. documented in this encounter Plan of Treatment Upcoming Encounters Date Type Department Care Team (Late st Contact Info) Description 10/23/2024 10:00 AM EDT Office Visit [facility] General Surgery [address], [address]st [place] [address] Albina Bonilla MD [address] [place] [address] documented as of this encounter Visit Diagnoses [...] documented as of this encounter Care Teams Airplane And Engine Inspector Relationship Specialty Start Date End Date Penny Armstrong APRN [address] [place] [address] PCP - General Family Medicine 09/24/23 documented as of this encounter
--- OUTSIDE RECORDS SUMMARY | 2024-09-30 09:21 | XMS_ITS | Encounter Summary ---
Author Organization Healthcare Address [address] [place] [address] Care Team Providers Care Bullet Assembly Press Operator Name Role Phone Patti Penny Noland APRN Primary Care Provider Encounter Details Date Type Department Care Team [...] place to sleep or slept in a prison (including now)? Patient refused 03/05/2023 PHQ-9 Answer [...] in the past [address] [facility], were you homeless or living in a prison (including now)? Patient declined 07/17/2024 Safety and [...] Description 10/23/2024 10:00 AM EDT Office Visit [facility] [address], [address] [place] [address] Albina Bonilla MD [address] [place] [address] documented as of this encounter [...] documented as of this encounter Care Teams Bullet Assembly Press Operator Relationship Specialty Start Date End Date Penny Armstrong, ADITYA [address] [place] [address] PCP - General Family Medicine 09/24/23 documented as of this encounter
--- OUTSIDE RECORDS SUMMARY | 2024-09-30 09:21 | XMS_ITS | Encounter Summary ---
Author Organization [employer] ([place], [place], [place], [place]) Address [address] [place] [address] Care Team Providers Care Student Admissions Clerk Name Role Phone Landon James MD Primary Care Provider [phone] Encounter Details Date Type Department Care Team (Late st Contact Info) Description 01/22/2020 Transcribed Document [facility] Family Medicine [facility] [place] [address] ProviderLuh MD [address] [place] [address] Social History Tobacco Use Types Packs/Day Years Used Date Smoking Tobacco: Never Assessed Comments Unknown Sex and Gender Information Value Date Recorded Sex Assigned at Not on file Legal Sex Female 5:38 PM CDT Gender Identity Not on file Sexual Orientation Not on file documented as of this encounter Miscellaneous Notes * Cerner Conversion Note - Luh Oliveros MD - 01/22/2020 9:09 AM GINNING OPERATOR DATE OF ADMISSION: 01/21/2020 HISTORY OF PRESENT [...] visit and the patient has been afebrile. /[id number] Gadiel Anaya MD, JULIO C Pain Certified KR/AQ / KR / MODL CC: MD Joana Fountain documented in this encounter Plan of Treatment Not on file documented as of this encounter Visit Diagnoses Not on filedocumented in this encounter Care Teams Student Admissions Clerk Relationship Specialty Start Date End Date Landon James MD [address] [place] [phone] PCP - General Family Medicine 08/29/24 documented as of this encounter
--- OUTSIDE RECORDS SUMMARY | 2024-09-30 09:21 | XMS_ITS | Encounter Summary ---
Author Organization Healthcare Address [address] [id number] Care Team Providers Care Bulk Plant Agent Name Role Phone Penny Armstrong HEALTHCARE ECONOMICS CONSULTANT Primary Care Provider [phone] Reason for Visit * Reason Onset Date Comments HCN Clinical Concern/Question 09/02/2024 Encounter Details Date Type Department Care Team (Late st Contact Info) Description 09/02/2024 Telephone [facility] [address] [place] [address] Penny Armstrong, HEALTHCARE ECONOMICS CONSULTANT [address] [place] [address] HCN Clinical Concern/Question Social History [...] place to sleep or slept in a fpc (including now)? Patient refused 03/05/2023 PHQ-9 Answer [...] any time in the past 12 m [facility], were you homeless or living in a fpc (including now)? Patient declined 07/17/2024 Safety and [...] In the past 12 months has e [employer], gas, oil, or water company threatened to shut off services in your home? Patient declined 07/17/2024 Comments No Sex and Gender Information Value Date Recorded Sex Assigned at Not on file Legal Sex Female 7:55 PM EDT Gender Identity Not on file Sexual Orientation Not on file documented as of this encounter Miscellaneous Notes * Telephone Encounter - Yanely Longo - 09/03/2024 8:45 AM EDT Pt notified * Telephone Encounter - Yanely Longo - 09/03/2024 8:40 AM EDT Faxed records to Dr. Edwards's office at [phone]. * Telephone Encounter - Landon Waite - 09/02/2024 3:40 PM EDT Clinical Concern/Question Reason for Call: Pt requesting a nurse call back, please contact for more information. Best contact number: [phone] (mobile) Optimal time of day to reach caller: ANYTIME Additional comments/information from caller: None Note: Please do not reply to this message. Follow-up communication and further actions as a result of this message need to be communicated with the patient directly, if the patient is not active onMyChart. If the patient is active on MyChart, they will receive notification of the communication/outcome via [employer]. documented in this encounter Plan of Treatment Upcoming Encounters Date Type Department Care Team (Late st Contact Info) Description 10/23/2024 10:00 AM EDT Office Visit [facility] General Surgery [address], [address]st [place] [address] Albina Bonilla MD [address] [place] [address] documented as of this encounter [...] documented as of this encounter Care Teams Bulk Plant Agent Relationship Specialty Start Date End Date Penny Armstrong, ADITYA [address] [place] [phone] PCP - General Family Medicine 09/24/23 documented as of this encounter
--- OUTSIDE RECORDS SUMMARY | 2024-09-30 09:21 | XMS_ITS | Encounter Summary ---
Author Organization Healthcare Address [address] [id number] Care Team Providers Care Agency Sales Management Assistant Name Role Phone Patti Penny Noland APRN Primary Care Provider [phone] Reason for Visit * Reason Onset Date Comments HCN - Patient Message 09/01/2024 Consultati on status HCN Status Update Call #1 09/01/2024 Encounter Details Date Type Department Care Team (Late st Contact Info) Description 09/01/2024 Telephone [facility] [address], [address] [place] [address] None, None [address] [id number] HCN - Patient Message (Consultation status ); HCN Status Update Call #1 Social History Tobacco Use Types Packs/Day Years [...] place to sleep or slept in a detention (including now)? Patient refused 03/05/2023 PHQ-9 Answer [...] any time in the past 12 m [facility], were you homeless or living in a detention (including now)? Patient declined 07/17/2024 Safety and [...] In the past 12 months has e [employer], gas, oil, or water [employer] threatened to shut off services in your home? Patient declined 07/17/2024 Comments No Sex and Gender Information Value Date Recorded Sex Assigned at Not on file Legal Sex Female 7:55 PM EDT Gender Identity Not on file Sexual Orientation Not on file documented as of this encounter Miscellaneous Notes * Telephone Encounter - Cass Gunn - 09/02/2024 2:17 PM EDT Clinical Concern/Question Reason for Call: patient called to check status, she has not heard from anyone and the referral is 08/14. She wants to get this done before 09/18. Best contact number: [phone] (mobile) Optimal time of day to reach caller: ANYTIME Additional comments/information from caller: None Note: Please do not reply to this message. Follow-up communication and further actions as a result of this message need to be communicated with the patient directly, if the patient is not active onMyChart. If the patient is active on MyChart, they will receive notification of the communication/outcome via [employer]. * Telephone Encounter - Adri Rm - 09/01/2024 2:34 PM EDT Patient Phone Message Reason for Call: Referring office calling to check status of 08/14 referral for hernia. Best contact number and optimal time of day to reach caller: [phone] Note: Please do not reply to this [...] Description 10/23/2024 10:00 AM EDT Office Visit [facility] [address] [place] [address] Albina Bonilla MD [address] [place] [address] documented as of this encounter [...] documented as of this encounter Care Teams Agency Sales Management Assistant Relationship Specialty Start Date End Date Penny Armstrong APRN [address] [place] [address] PCP - General Family Medicine 09/24/23 documented as of this encounter
--- OUTSIDE RECORDS SUMMARY | 2024-09-30 09:21 | XMS_ITS | Clinical Summary ---
Author Organization Healthcare Address [address] [place] [address] Care Team Providers Care Promotions Intern Name Role Phone Patti Penny Noland APRN Primary Care Provider Allergies Active Allergy [...] a day. 07/07/19 19 Active HYDROcodone-acetam inophen ([place]) 5-325 MG tablet 01/04/20 23 Active budesonide-formote [...] vomiting. 20 tablet 2 08/15/19 25 Active Active Problems Problem Noted Date Diagnosed [...] Encounters Date Type Department Care Team Description 09/02/2024 Telephone [facility] [address] [place] [address] Penny Armstrong, MENTAL HEALTH THERAPIST HCN Clinical Concern/Question 09/01/[address], [address] [place] [address] None, None HCN - Patient Message (Consultation status ); HCN Status Update Call #1 08/28/2024 Telephone [facility] [address] [place] [address] Penny Armstrong, MENTAL HEALTH THERAPIST HCN Clinical Concern/Question 08/27/2024 [address], [address] [place] [address] None, None HCN Clinical Concern/Question 08/25/2024 Telephone [facility] [address] [place] [address] Landon James MD HCN Clinical Concern/Question 08/22/2024 Orders Only External Location [address] [place] [address] Provider, External 08/14/2024 11:00 AM EDT Office Visit [facility] [address] [place] [address] Landon James MD Nausea (Primary Dx); Vertigo; Generalized abdominal pain; Hernia 08/14/2024 Travel 07/18/2024 Refill [facility] [address] [place] [address] Penny Armstrong, MENTAL HEALTH THERAPIST 07/18/2024 Results Follow-Up [facility] [address] [place] [address] Penny Armstrong APRN 07/17/2024 8:00 AM EDT Office Visit [facility] [address] [place] [address] Penny Armstrong, MENTAL HEALTH THERAPIST Annual physical exam (Primary Dx); Prolactinoma (CMS/HCC); [...] any time in the past 12 m [facility], were you homeless or living in [...] 08/14/2024 11:17 AM EDT Plan of Treatment Upcoming Encounters Date Type Department Care Team (Late st Contact Info) Description 10/23/2024 10:00 AM EDT Office Visit [facility] [address], [address] [place] [address] Albina Bonilla MD [address] [place] [address] Health Maintenance Due Date Last Done Comments [facility]-Infant/Child/Adol SDOH Screenings 1984 [facility]-Varicella Vaccines (1 of 2 - 13+ 2-dose series) 1997 [facility]-Hepatitis B Vaccines (1 of 3 - 19+ 3-dose series) 04/23/2003 HPV Vaccines (1 - 3-dose SCDM series) 04/23/2011 COI-HVDFB-31 Vaccine ( season) 2023 05/21/2020, 05/01/2020 [facility]-Influenza Vaccine (#1) [...] [facility] OUTSIDE IMAGES 08/22/2024 7:11 AM EDT ESTRADIOL, ADULT PREMENOPAUSAL, FEMALE Routine 07/17/2024 2:38 [...] exam from Last 3 Months Results * CT MSK OUTSIDE IMAGES (08/22/2024 7:11 AM EDT) Anatomical Region Laterality Modality Computed Tomogra phy 08/22/2024 7:11 AM EDT us External Provider IMG CT PROCEDURES Final Result * Estradiol (07/17/2024 2:38 PM EDT) Estradiol 199 pg/mL 07/17/2024 2:3 8 PM EDT [facility] Blood Venous blood specimen / Unknown 07/17/2024 8:47 AM EDT Narrative [facility] - 07/17/2024 2:38 PM EDT Females >17 Y (pg/mL): Follicular Phase 26 -233 Ovulatory Peak Phase 60 - 600 Luteal Phase 30 - 305 Post-Menopausal <138 Penny Armstrong APRN LAB BLOOD ORDERABLES Final Result Performing Organization Address City/State/[facility] Co de Phone Number [facility] [address] [place] [address] * Thyroid Peroxidase Antibody (07/17/2024 2:14 PM EDT) Thyroid Peroxidase Antibody <5 <=8 IU/mL 07/17/2024 2:14 PM EDT [facility] Blood Venous blood specimen / Unknown 07/17/2024 8:47 AM EDT Penny Armstrong APRN LAB BLOOD ORDERABLES Final Result Performing Organization Address City/State/[facility] de Phone Number [facility] [address] [place] [address] * Luteinizing hormone (07/17/2024 1:59 PM EDT) Luteinizing Hormone 30 mIU/mL 07/17/2024 1:59 PM EDT [facility] Blood Venous blood specimen / Unknown 07/17/2024 8:47 AM EDT Narrative [facility] - 07/17/2024 1:59 PM EDT Female [...] BLOOD ORDERABLES Final Result Performing Organization Address [facility] Co de Phone Number [facility] [address] [place] [address] * FSH (07/17/2024 1:59 PM EDT) FSH 10.2 mIU/mL 07/17/2024 1:[address] [facility] Blood Venous blood specimen / Unknown 07/17/2024 8:47 AM EDT Narrative [facility] - 07/17/2024 1:59 PM EDT FSH [...] BLOOD ORDERABLES Final Result Performing Organization Address [facility] de Phone Number [facility] [address] [place] [address] * TSH Reflex FT4 (07/17/2024 1:32 PM EDT) [facility] Thyroid Stimulating Hormone, Plasma 1.16 0.40 - 4.20 uIU/mL 07/17/2024 1:32 PM EDT [facility] Blood Venous blood specimen / Unknown 07/17/2024 8:47 AM EDT Narrative [facility] - 07/17/2024 1:32 PM EDT Trimester Specific Ranges TSH ( IU/mL) 1st Trimester 0.1 - 3.0 2nd Trimester 0.19 - 4.06 3rd Trimester 0.3 - 3.7 Penny Armstrong APRN LAB BLOOD ORDERABLES Final Result Performing Organization Address [facility] Co de Phone Number [facility] [address] [place] [address] * (ABNORMAL) Lipid Profile, Plasma (07/17/2024 1:32 PM EDT) Cholesterol, Plasma 206(H) <200 mg/dL 07/17/2024 1:32 PM EDT [facility] Comment: Cholesterol Reference Range (age >17 years): Desirable <200 mg/dL Borderline 200 to 239 mg/dL Undesirable >239 mg/dL HDL 62 >=50 mg/dL 07/17/2024 1:32 PM EDT [facility] Comment: HDL Cholesterol Reference Ranges (age >17 years): Female, acceptable > or = 50 mg/dL Male, acceptable > or = 40 mg/dL Triglycerides, Plasma 61 <150 mg/dL 07/17/2024 1:32 PM EDT [facility] Comment: Triglyceride Reference Range (age >17 years): Desirable: <150 mg/dL Borderline high: 150 to 199 mg/dL High: 200 to 499 mg/dL Very high: >499 mg/dL Increased risk of pancreatitis: >1000 mg/dL Cholesterol/HDL Ratio 3 07/17/2024 1:32 PM EDT [facility] LDL, Calculated 133(H) <100 mg/dL 1:32 PM EDT [facility] Comment: LDL Cholesterol Reference Range (age [...] 12 hours? Unknown 07/17/2024 1:32 PM EDT [facility] Blood Venous blood specimen / Unknown 07/17/2024 8:47 AM EDT us Penny Armstrong APRN LAB BLOOD ORDERABLES Final Result [facility] [address] [place] [address] * Comprehensive Metabolic Panel, Plasma (07/17/2024 1:32 PM EDT) Glucose, Plasma 82 74 - 99 mg/dL 07/17/2024 1:32 PM EDT [facility] BUN, Plasma 17 7 - 21 mg/dL 07/17/2024 1:32 PM EDT [facility] Creatinine, Plasma 0.63 0.60 - 1.10 mg/dL 07/17/2024 1:32 PM EDT [facility] BUN/Creatinine Ratio 27 07/17/2024 1:32 PM EDT [facility] Sodium, Plasma 140 136 - 145 mmol/L 07/17/2024 1:32 PM EDT [facility] Potassium, Plasma 3.8 3.6 - 4.9 mmol/L 07/17/2024 1:32 PM EDT [facility] Chloride, Plasma 105 97 - 107 mmol/L 07/17/2024 1:32 PM EDT [facility] CO2, Plasma 25 22 - 29 mmol/L 07/17/2024 1:32 PM EDT [facility] Anion Gap 10 6 - 16 mmol/L 07/17/2024 1:32 PM EDT [facility] Total Calcium, Plasma 9.1 8.9 - 10.2 mg/dL 07/17/2024 1:32 PM EDT [facility] Total Protein 6.8 6.3 - 7.9 g/dL 07/17/2024 1:32 PM EDT [facility] Albumin, Plasma 4.4 3.5 - 5.2 g/dL 07/17/2024 1:32 PM EDT [facility] AST, Plasma 19 10 - 35 U/L 07/17/2024 1:32 PM EDT [facility] ALT, Plasma 12 10 - 35 U/L 07/17/2024 1:32 PM EDT [facility] Alkaline Phosphatase, Plasma 53 35 - 104 U/L 07/17/2024 1:32 PM EDT [facility] Total Bilirubin, Plasma 0.4 0.2 - 1.1 mg/dL 07/17/2024 1:32 PM EDT [facility] eGFRcr 115.2 mL/min/1.7 3m*2 07/17/2024 1:32 PM EDT [facility] Comment:Reported eGFRcr in m L/min/1.73m2 is based the CKD-EPI 2020 equation that does not use a race coefficient. Blood Venous blood specimen / Unknown 07/17/2024 8:47 AM EDT Penny Ludin Patti MENTAL HEALTH THERAPIST LAB BLOOD ORDERABLES Final Result Performing Organization Address [facility] Co de Phone Number [facility] [address] [place] [address] * HIV 1 & 2 Antibody/Antigen Screen (07/17/2024 1:31 PM EDT) Pathologist [facility] HIV 1 & 2 Antibody/Antigen Screen Non Reactive Non Reactive 07/17/2024 1:31 PM EDT [facility] Comment:Screening for HIV 1 & 2 antibodies, and P24 antigen is NONREACTIVE. No confirmatory testing is required. Blood Venous blood specimen / Unknown 07/17/2024 8:47 AM EDT Penny Armstrong APRN LAB BLOOD ORDERABLES Final Result Performing Organization Address [facility] Co de Phone Number [facility] [address] [place] [address] * Hepatitis C Antibody w/Reflex to HCV Quant PCR (07/17/2024 1:31 PM EDT) [facility] Hepatitis C Antibody Negative Negative 07/17/2024 1:[address] [facility] Blood Venous blood specimen / Unknown 07/17/2024 8:47 AM EDT Penny Armstrong MENTAL HEALTH THERAPIST LAB BLOOD ORDERABLES Final Result Performing Organization Address [facility] Co de Phone Number [facility] [address] [place] [address] * Prolactin level (07/17/2024 1:25 PM EDT) [facility] Prolactin, Serum 11.9 4.4 - 23.3 ng/mL 07/17/2024 1:25 PM EDT [facility] Blood Venous blood specimen / Unknown 07/17/2024 8:47 AM EDT Narrative [facility] - 07/17/2024 1:25 PM EDT Performed by Alyssa electrochemiluminescent immunoassay which is traceable to the [facility] 3rd IRP (WHO 84/500). Results obtained with different test methods or kits cannot be used interchangeably. us Penny Armstrong MENTAL HEALTH THERAPIST LAB BLOOD ORDERABLES Final Result [facility] [address] [place] [address] * CBC W/O Differential (07/17/2024 1:13 PM EDT) WBC Count 4.47 3.70 - 10.30 10*3/uL LAB HEMATOLOGY METHOD 07/17/2024 1:13 PM EDT [facility] RBC Count 4.28 3.90 - 5.20 10*6/uL LAB HEMATOLOGY METHOD 07/17/2024 1:13 PM EDT [facility] HGB 12.8 11.2 - 15.7 g/dL LAB HEMATOLOGY METHOD 07/17/2024 1:13 PM EDT [facility] HCT 38.5 34.0 - 45.0 % LAB HEMATOLOGY METHOD 07/17/2024 1:13 PM EDT [facility] Platelet Count 209 155 - 369 10*3/uL LAB HEMATOLOGY METHOD 07/17/2024 1:13 PM EDT [facility] MCV 90 79 - 98 fL LAB HEMATOLOGY METHOD 07/17/2024 1:13 PM EDT [facility] MCH 29.9 26.0 - 32.0 pg LAB HEMATOLOGY METHOD 07/17/2024 1:13 PM EDT [facility] MCHC 33.2 30.7 - 35.5 g/dL LAB HEMATOLOGY METHOD 07/17/2024 1:13 PM EDT [facility] RDW 12.5 11.5 - 14.5 % LAB HEMATOLOGY METHOD 07/17/2024 1:13 PM EDT [facility] MPV 11.9 8.8 - 12.5 fL LAB HEMATOLOGY METHOD 07/17/2024 1:13 PM EDT [facility] nRBC 0.0 <=0.0 per 100 WBCs LAB HEMATOLOGY METHOD 07/17/2024 1:13 PM EDT [facility] Blood Venous blood specimen / Unknown 07/17/2024 8:47 AM EDT Penny Armstrong MENTAL HEALTH THERAPIST LAB BLOOD ORDERABLES Final Result [facility] [address] [place] [address] * Hemoglobin A1c (07/17/2024 8:46 AM EDT) Hemoglobin A1c 4.7 <5.7 % 07/17/2024 2:30 PM EDT [facility] Blood Venous blood specimen / Unknown 07/17/2024 8:46 AM EDT 07/17/2024 8:47 AM EDT Narrative [facility] - 07/17/2024 2:30 PM EDT HA1C Interpretive Data: Diagnosis of Diabetes: Diabetic > or = 6.5% Pre-diabetic 5.7 to 6.4% Non-diabetic < or = 5.6% Glycemic Targets for Type I and Type II Diabetics: Non- Adults <7.0% Adults <6.0% Children and Adolescents <7.5% Source: [place] Diabetes Association. Standards of medical care in diabetes,2017. Diabetes Care.2017:40 (suppl 1):S1-S135. Penny Armstrong APRN LAB BLOOD ORDERABLES Final Result Performing Organization Address City/[facility] Co de Phone Number [facility] [address] [place] [address] from Last 3 Months Insurance ANTH Care Teams Promotions Intern Relationship Specialty Start Date End Date Penny Armstrong, MENTAL HEALTH THERAPIST [address] [place] [address] PCP - General Family Medicine 09/24/23
[2024-09-30 09:58] LABS: Hematocrit 36.8 % (37.0-47.0); Hemoglobin 12.4 g/dL (12.2-16.2); Mean Corpuscular HGB Conc 33.7 g/dL (31.8-35.4); Mean Corpuscular Hemoglobin 29.9 pg (27.0-31.2); Mean Corpuscular Volume 88.7 fl (81-99); Platelet Count 198 K/mm3 (142-424); Red Blood Count 4.15 M/mm3 (4.20-5.40); White Blood Count 4.0 K/mm3 (4.8-10.8)
[2024-09-30 10:24] LABS: Chloride 111 mmol/L (98-107); Potassium 3.9 mmoL/L (3.5-5.1); Sodium 140 mmol/L (136-145)
[2024-09-30 10:27] LABS: Anion Gap 8.9 mEq/L (5-15); Blood Urea Nitrogen 9 mg/dl (7-17); Calcium 8.6 mg/dl (8.4-10.2); Carbon Dioxide 24 mmol/L (22.0-30.0); Creatinine Clearance Estimated 147 mL/min (50-200); Creatinine,Serum 0.60 mg/dl (0.52-1.04); Estimated Glomerular Filt Rate 111 ml/min (>60); GFR (African American) 134 ML/MIN (>60); Glucose 83 mg/dl (74-100)
[2024-09-30 11:19] LABS: RBC Morphology Normal; Total Cells Counted 100
== END 2024-09-30 23:59 | disposition home or self-care (01) ==
LOC: PREOP 09:12
PROVIDERS: PCP Family Medicine; Visit Provider Surgery
DX: Z01.812 Encounter for preprocedural laboratory examination (principal)
CPT/HCPCS: 80048; 85007; 85014; 85018; 85048; 85049

== ENCOUNTER 2024-10-06 06:05 | Day surgery (SDC) | payer BC, SELFPAY ==
[2024-09-30 12:54] VITALS: BMI 29.2
[2024-10-06] VITALS (14 sets, daily range): BP systolic 102–117; BP diastolic 35–74; PULSE 62–76; RESP 12–18; TEMP -11.1–43; O2SAT 96–100
[2024-10-06] MEDS: ACETAMINOPHEN 500MG TAB 1000 MG (06:24)
[2024-10-06] MEDS: GABAPENTIN 300MG CAPSULE 600 MG (06:24)
[2024-10-06] MEDS: LACTATED RINGERS 1000ML 1,000 ML 25 ML IV (06:24)
--- NOTE | 2024-10-06 07:10 | EXP.ANES.CKL ---
[facility] Disclaimer: The information contained in this section may have been updated after the patient was seen, as this information can be updated by other users. Medical History CRPS (complex regional pain syndrome) Asthma Hypotension History of anemia Urinary tract infection Migraine Surgical History History of surgery History of tubal ligation History of tonsillectomy History of hysterectomy History of section Family History Other Family history of atrial fibrillation Family history of cancer Family history of pacemaker Social History (Updated 09/30/24 @ 09:33 by Maxwell Subramanian RN) Smoking Status: Never smoker alcohol intake: never substance use type: denies use current occupational status: disabled Travel in the last 8 weeks?: None [facility] Anesthesia Checklist Patient Identification Patient Identification: Arm Band and Family Structural Data Admitted From: Home Planned Operative Procedure/s: Lap Unbilical hernia repair Consent for Planned Operative Procedure(s) Verified: Yes Verified Documents: Surgical Consent and History and Physical NPO Status Verified Time NPO: 00:00 Additional verifications Patient : No Anesthesia Reactions: No Hx Blood Transfusions: Yes Blood Transfusion Reaction: No Cephalosporin Allergy: No Previous Colonoscopy: No Airway Assessment Mallampati Score:: Class II TMJ Mobility Assessed: Yes Dentition: Partials Neurological Assessment Level of Consciousness: Awake, Alert, Appropriate and Follows Commands Hx Seizures: No Numbness or tingling in extremities: No Anesthesia Plan Anesthesia Risk discussed: Yes ASA Class: II Anesthesia Type: General
[2024-10-06] MEDS: CEFAZOLIN 2GM VIAL 2 GM (07:35)
[2024-10-06] MEDS: LIDOCAINE 1% 20ML MDV 20 ML (07:46)
--- NOTE | 2024-10-06 08:44 | EXP.OP.NOTE ---
Date of procedure: 10/06/24 Pre-op Diagnosis:: Supraumbilical hernia Post-op Diagnosis:: Same Procedure performed:: Laparoscopically directed repair of supraumbilical hernia with placement of 8 cm Bard Ventralex mesh Surgeon:: Messi Edwards MD DIRECTOR TELECOMMUNICATIONS:: Bob Mccallum Anesthesia: GETA Estimated blood loss (mL): 10 Operative findings:: Patient had a small supraumbilical hernia with defect measuring about 12 to 15 mm. It contained chronically incarcerated preperitoneal fatty tissue. Operative note:: Consent was obtained and patient was taken to the operating room. She was given preoperative intravenous antibiotics. Operating room she was placed in spine position. General anesthesia was induced via endotracheal tube. Abdomen was prepped and draped in the standard surgical fashion. Through a tiny left subcostal incision Veress needle was inserted. However good insufflation pressures were not able to be achieved. Therefore 5 mm optical trocar was inserted under laparoscopic visualization at the site after slight extension of the incision. Laparoscopic surveillance was carried out. The palpable site of the hernia was identified. There was minimal peritoneal defect in this. Be consistent with herniated preperitoneal fatty tissues. Therefore incision was made overlying the palpable subcutaneous lesion. Dissection was carried down and there was a well-circumscribed fatty tissues almost consistent with lipoma. However this was herniated preperitoneal fat and dissection was carried down to the defect where the hernia sac and contents were excised using electrocautery. The defect measured about 12 to 15 mm at most. A large sized Bard Ventralex mesh was inserted through the defect. Laparoscopic surveillance was then carried out. An additional 5 mm trocar was inserted in the left lower abdomen. The mesh was oriented to cover the defect with generous overlap. It was secured with some OPTi fix anchor devices around its periphery. CO2 pneumoperitoneum was then evacuated once again. The tails of the mesh were sutured superiorly and inferiorly to the fascial edges with 2-0 PDS suture. Prolene tails were then cut flush with the fascia. Laparoscopic surveillance was carried out once again. Mesh was in good position and secure. There was good hemostasis. Trocars were then removed the CO2 pneumoperitoneum was evacuated. Local anesthetic was infiltrated. Deep dermal tissues were closed with interrupted 2-0 Vicryl suture. Skin incision was closed with 4-0 Monocryl subcuticular fashion. Steri-Strips and dressings were applied. . Condition: stable Disposition: PACU Complications:: None immediately apparent
--- NOTE | 2024-10-06 08:52 | P.PNANES_ITS ---
[facility] Anesthesia Record Part I Anesthesia Record I Intake, IV Amount: 800 Hydration: Adequate Estimated blood loss (mL): 15 Urine output (mL): 0 Blood Products used (#): none Blood Pressure: 102/72 SaO2: 96 Pulse Rate: 76 Airway Patency: Patent Respiratory Rate: 12 Temperature: 12 F Patient is:: Drowsy and Stable Stable to PACU at:: 08:45
[2024-10-06] MEDS: KETOROLAC 30MG/ML VIAL 30 MG IV (09:10)
[2024-10-06] MEDS: HYDROMORPHONE 2MG/ML SYRINGE 2 MG (09:25)
--- NOTE | 2024-10-06 09:37 | SUR.PHASEI ---
0933- Patient's VSS. patient states that pain is tolerable at this time. 0934- Pt transported to post op. detailed report given to Cory Lopez RN.
--- NOTE | 2024-10-07 10:57 | P.PNANES_ITS ---
[facility] Anesthesia Record Part II Anesthesia Record Part II Discharge Time: 12:52 Destination: Surgical Day Care (OP Surgery) PACU nurse assessment reviewed?: Yes Patient Condition:: Good Anesthesia Complications:: None Swallowing reflex intact?: Yes Airway Patency: Patent Cyanosis?: No Blood Pressure: 102/65 SaO2: 100 Respiratory Rate: 17 Pulse Rate: 64 Temperature: 97.0 F Mental Status: Alert & Oriented Pain level:: 7 Nausea and/or vomitting:: None Intake, IV Amount: 0 Hydration: Adequate
[2024-10-07 10:58] VITALS: BP 102/65; PULSE 64; RESP 17; TEMP 36.1; O2SAT 100
== END 2024-10-06 13:02 | disposition home or self-care (01) ==
PROVIDERS: PCP Family Medicine; Visit Provider Surgery
PROC: 0WQF4ZZ Repair Abdominal Wall, Percutaneous Endoscopic Approach (ICD-10-PCS; CPT 49592; principal; 2024-10-06 07:30)
DX: K42.0 Umbilical hernia with obstruction, without gangrene (principal); Z79.899 Other long term (current) drug therapy; I95.9 Hypotension, unspecified
CPT/HCPCS: 49592; 96374; C1781; J0690; J1100; J1171; J1200; J1885; J2003; J2250; J2405; J2704; J2795; J3010; J7120

== ENCOUNTER 2024-12-31 15:03 | Outpatient (CLI) | payer BC, SELFPAY ==
--- OUTSIDE RECORDS SUMMARY | 2024-12-24 08:40 | XMS_ITS | Encounter Summary ---
Author Organization [facility] Address [address] [place] [address] Care Team Providers Care Marketing Underwriter Name Role Phone Penny Armstrong APRN Primary Care Provider [phone] Reason for Referral * Imaging (Routine) - Authorized Specialty Diagnoses / Procedures Referred By Zeus jackson Referred To Contact Diagnoses Cervical spondylosis without myelopathy Procedures MR Cervical Spine wo IV Contrast [place] [address] Phone: tel: fax: Referral ID Status Reason Start Date Expiration Date V isits Requested Visits Authorized [id number] Authorized 12/24/2024 06/25/2026 1 1 * Consultation (Routine) - Authorized Specialty Diagnoses / Procedures Referred By Zeus jackson Referred To Contact Pain Medicine Diagnoses Lumbar spondylosis Complex regional pain syndrome type 1 of right lower extremity Lumbosacral radiculopathy Cervical spondylosis without myelopathy [place] [address] Phone: tel: fax: Referral ID Status Reason Start Date Expiration Date Visits Requested Visits Authorized [id number] Authorized Specialty Services Required 06/25/2026 [address] Anaya at [facility] in [place] (has been following with him at his former practice and would like to follow him here). * Imaging (Routine) - Authorized Specialty Diagnoses / Procedures Referred By Zeus jackson Referred To Contact Diagnoses Lumbar spondylosis Complex regional pain syndrome type 1 of right lower extremity Lumbosacral radiculopathy Procedures MR Lumbar Spine wo IV Contrast Penny Armstrong APRN [address] [place] [address] Phone: tel: fax: Referral ID Status Reason Start Date Expiration Date V isits Requested Visits Authorized [id number] Authorized 12/24/2024 06/25/2026 1 1 Reason for Visit * Reason Comments Back Pain Hip Pain Pain management refe rral Dr. Anaya at [facility] Encounter Details Date Type Department Care Team (Late st Contact Info) Description 12/24/2024 8:40 AM EST [facility] Visit [facility] [address] [place] [address] Penny Armstrong APRN [address] [place] [address] Lumbar spondylosis (Primary Dx); Complex regional pain syndrome type 1 of right lower extremity; Lumbosacral radiculopathy; Cervical spondylosis without myelopathy; Hordeolum externum of left upper eyelid Social History Tobacco Use Types Packs/Day Years Used Date Smoking Tobacco: Never Passive Smoke Exposure: Past Smokeless Tobacco: Never Alcohol Use Standard Drinks/Week Comments Never 0 (1 standard drink = 0.6 oz pur e alcohol) PHQ-2 Answer Date Recorded Patient Health Questionnaire-2 Score 0 12/24/2024 PHQ-9 Answer Date Recorded Patient Health Questionnaire-9 Score 0 12/24/2024 Humiliation, Afraid, Rape, and Kick questionnair e [...] any time in the past 12 m [facility], were you homeless or living in a alf (including now)? Patient declined 07/17/2024 Safety and [...] the past 12 months has th e [employer], gas, oil, or water [employer] threatened to shut off services in your home? Patient declined 07/17/2024 Comments No Sex and Gender Information Value Date Recorded Sex Assigned at Not on file Legal Sex Female 7:55 PM EDT Gender Identity Not on file Sexual Orientation Not on file documented as of this encounter Last Filed Vital Signs Vital Sign Reading Time Taken Comments Blood Pressure 104/74 12/24/2024 8:42 AM EST Pulse 80 12/24/2024 8:42 AM EST Temperature 37.1 C (98.8 F) 12/24/2024 8:42 AM EST Respiratory Rate 18 12/24/2024 8:42 AM EST Oxygen Saturation 99% 12/24/2024 8:42 AM EST Inhaled Oxygen Concentration - - Weight 76 kg (167 lb 8.8 oz) 12/24/2024 8:42 AM EST Height 160 cm (5' 3 ) 12/24/2024 8:42 AM EST Body Mass Index 29.68 12/24/2024 8:42 AM EST documented in this encounter Functional Status * Over the past 2 weeks, how often have you been bothered by any of the following problems? Question Answer Date of Assessment Author Little interest or pleasure in doing things Not at all 12/24/2024 8:42 AM EST Suad Palomares A Feeling down, depressed, or hopeless Not at all 12/13 8:42 AM EST Suad Palomares A Patient Health Questionnaire-2 Score 0 12/13 8:42 AM EST Suad Palomares A * Question Answer Date of Assessment Author Trouble falling or staying a sleep, or sleeping too much Not at all 12/24/2024 8:42 AM EST Suad Palomares A Feeling tired or having jaspal le energy Not at all 12/24/2024 8:42 AM EST Suad Palomares A Poor appetite or overeating Not at all 12/24/2024 8: 42 AM EST Suad Palomares A Feeling bad about yourself - or that you are a failure or have let yourself or your family down Not at all 12/24/2024 8:42 AM EST Kimmie Palomares A Trouble concentrating on thi ngs, such as reading the newspaper or watching television Not at all 12/24/2024 8:42 AM EST Suad Palomares A Moving or speaking so slowly that other people could have noticed? Or the opposite - being so fidgety or restless that you have been moving around a lot more than usual. Not at all 12/24/2024 8:42 AM EST Suad Palomares A Thoughts that you would be b ja off or hurting yourself in some way Not at all 12/24/2024 8:42 AM EST Marielle Suad A Patient Health Questionnaire-9 Score 0 12/13 8:42 AM EST Marielle Suad A * Calculated C-SSRS Risk Score (Lifetime/Recent) Answer Date of Assessment Author No Risk Indicated 12/24/2024 8:42 AM EST Suad Palomares A * How difficult have these problems made it for you to do your work, take care of things at home, or get along with other people? Answer Date of Assessment Author Not difficult at all 12/24/2024 8:42 AM EST Suad Hogan * Question Answer Date of Assessment Author 1. Wish to be (Past 1 Month) No 025 8:42 AM EST Marielle Suad A 2. Non-Specific Active Suici gemma Thoughts (Past 1 Month) No 12/24/2024 8:42 AM EST Marielle Suad A 6. Suicidal Behavior (Lifetime) No 8:42 AM Suad Hanna A documented as of this encounter Miscellaneous Notes * Progress Notes - Penny Armstrong, ADITYA - 12/24/2024 8:40 AM EST Subjective Patient ID: Dayna Alamo is a 39 y.o. female. Chief Complaint Patient presents with Back Pain Hip Pain Pain management referral Dr. Anaya at [facility] HPI Dayna is a 39 year old female who presents to the clinic to follow up on chronic back pain. Reports history of lower and upper back pain over the past 2 years which has progressively worsened over this period of time. She denies having any history of injury or trauma to back. Reports lower back pain is midline and radiates into right hip. Cervical pain radiates into bilateral upper shoulders. She currently follows with Pain Management, Dr Anaya, who is now transferring clinics. She would like to follow him to his new practice. So is needing a new referral placed to be able to do so. Diagnosis history includes lumbar spondylosis, Complex region pain syndrome type 1 of RLE, Lumbosacral rad iculopathy, and cervical spondylosis without myelopathy. Reports that pain has been progressive to the point where she is limited in AROM now, particularly bending and twisting. Reports this is affecting her quality of life and is now waking up crying in the middle of the night due to positional pain. Has tried several methods for pain relief including Injections, physical therapy, pain management, chiropractor, muscle relaxers, oral pain medications, heat, rest, and massage. None of which haveresolved back pain. Denies having any pelvic numbness, incontinent episodes, or loss of function oflower extremities. Additionally, noted a spot appear on left upper lash line yesterday which is slightly bothersome. Denies having any eye pain, discharge, redness, warmth, or tenderness to the area. The following portions of the chart were reviewed this encounter and updated as appropriate: Tobacco Allergies Meds Problems Med Hx Surg Hx Fam Hx Current Medications[1] Review of Systems A 14 point ROS reviewed and is otherwise negative except as per HPI. Objective Blood pressure 104/74, pulse 80, temperature 37.1 ??C (98.8 ??F), temperature source Oral, resp. rate 18, height 1.6 m (5' 3 ), weight 76 kg (167 lb 8.8 oz), last menstrual period 06/12/2018, SpO2 99%, not currently . Body mass index is 29.68 kg/m??. Physical Exam Vitals reviewed. Constitutional: General: She is not in acute distress. Appearance: Normal appearance. Eyes: Comments: White bump present on left upper eyelid along lash line. No surrounding erythema, warmth,or tenderness Cardiovascular: Rate and Rhythm: Regular rhythm. Pulmonary: Effort: Pulmonary effort is normal. Breath sounds: Normal breath sounds. No wheezing, rhonchi or rales. Musculoskeletal: Cervical back: No swelling or tenderness. Pain with movement present. Lumbar back: Tenderness (midline and to the right) present. No swelling or deformity. Decreased range of motion (bending). Right lower leg: No edema. Left lower leg: No edema. Neurological: Mental Status: She is alert and oriented to person, place, and time. Psychiatric: Mood and Affect: Mood normal. Behavior: Behavior normal. Thought Content: Thought content normal. Judgment: Judgment normal. Assessment/Plan Diagnoses and all orders for this visit: Lumbar spondylosis - MR Lumbar Spine wo IV Contrast; Future - Ambulatory referral to Pain Medicine; Future Complex regional pain syndrome type 1 of right lower extremity - MR Lumbar Spine wo IV Contrast; Future - Ambulatory referral to Pain Medicine; Future Lumbosacral radiculopathy - MR Lumbar Spine wo IV Contrast; Future - Ambulatory referral to Pain Medicine; Future Cervical spondylosis without myelopathy - Ambulatory referral to Pain Medicine; Future - MR Cervical Spine wo IV Contrast; Future Hordeolum externum of left upper eyelid Back Pain--Chronic and progressive. Not currently well controlled. Will obtain baseline imaging dueto progressive symptoms and refer back to pain medicine provider for management. If any concerns noted on imaging, may need to consider ortho evaluation as well. Discussed red flag s/s to monitor forthat would require urgent evaluation. Patient voiced understanding. Spot present on left upper lash line concerning for start of stye vs cyst. Advised patient that this could be a meibomian gland cyst vs oil cap vs inclusion cyst vs papilloma vs hordeolum. Would recommend trying warm compress to the area several times per day. If no resolution in area, could consider further evaluation with risk control product liability director. Discussed s/s to monitor for that would cause concern for stye including swelling, warmth, erythema, crusting, or drainage. Penny Armstrong, ADITYA [1] Current Outpatient Medications: albuterol (2.5 MG/3ML) 0.083% nebulizer solution, Take 3 mL (2.5 mg) by nebulization every 6 (six) hours if needed for wheezing., Disp: 75 mL, Rfl: 11 budesonide-formoterol (Symbicort) 80-4.5 MCG/ACT inhaler, Inhale 2 puffs 1 (one) time each day. Rinse mouth with water after use to reduce aftertaste and incidence of candidiasis. Do not swallow., Disp: 6.9 g, Rfl: 0 Calcium Citrate 1040 MG tablet, TAKE 3 TABLET Daily, Disp: , Rfl: cholecalciferol (Vitamin D-3) 50 MCG (2000 UT) capsule, TAKE 3 CAPSULE Daily, Disp: , Rfl: fLuvoxaMINE (Luvox) 50 MG tablet, Take 1 tablet by mouth daily., Disp: , Rfl: gabapentin (Neurontin) 300 MG capsule, Take 300 mg by mouth 2 (two) times a day., Disp: , Rfl: HYDROcodone-acetaminophen ([place]) 5-325 MG tablet, , Disp: , Rfl: lactobacillus (Culturelle) capsule, Take 1 capsule by mouth 1 time each day., Disp: , Rfl: ondansetron ODT (Zofran-ODT) 8 MG disintegrating tablet, Dissolve 1 tablet on the tongue every 8 hours as needed for nausea or vomiting., Disp: 20 tablet, Rfl: 2 polyethylene glycol (Miralax) 17 g packet, Take 17 g by mouth twice a day., Disp: , Rfl: documented in this encounter Plan of Treatment Upcoming Encounters Date Type Department Care Team (Late st Contact Info) Description 02/06/2025 12:30 PM EST Appointment [facility] [address] [address] 02/06/2025 1:00 PM EST Appointment [facility] [address] [address] 02/11/2025 9:10 AM EST Appointment [facility] [address] [place] [address] Beatrice Henderson MD [address] [facility] [address] [place] [address] Scheduled Orders Name Type Priority Associated Diagnoses Orde r Schedule MR Lumbar Spine wo IV Contrast Imaging Routine Lumbar spondylosis Complex regional pain syndrome type 1 of right lower extremity Lumbosacral radiculopathy Expected: 12/24/2024 (Approximate), Expires: 06/27/2026 MR Cervical Spine wo IV Contrast Imaging Routine Cervical spondylosis without myelopathy Expected: 12/24/2024 (Approximate), Expires: 06/27/2026 Scheduled Referrals Name Type Priority Associated Diagnoses Orde r Schedule Ambulatory referral to Pain Medicine Outpatient Referral Routine Lumbar spondylosis Complex regional pain syndrome type 1 of right lower extremity Lumbosacral radiculopathy Cervical spondylosis without myelopathy Expected: 12/24/2024 (Approximate), Expires: 06/27/2026 documented as of this encounter Goals Goal Patient Goal Type Associated Problems Recent Progress Patient-Stated? Author Autogenerat ed Goal Care Plan Autogenerated Problem No Gianna Perez documented as of this encounter Visit Diagnoses Diagnosis Lumbar spondylosis- Primary Lumbosacral spondylosis without myelopathy Complex regional pain syndrome type 1 of right lower extremity Lumbosacral radiculopathy Thoracic or lumbosacral neuritis or radiculitis, unspecified Cervical spondylosis without myelopathy Hordeolum externum of left upper eyelid documented in this encounter Additional Health Concerns Active Problems Noted Date Diagnosed Date Autogenerated Problem 11/27/2024 Assessment Noted Time PHQ-9 Depression Total Score: 0 12/25/19 25 8:42 AM EST A fall risk assessment has been complete d for the patient 03/22/2021 12:36 PM EST A Body Mass Index follow-up plan has been documented for the patient 12/24/2024 9:09 AM EST documented as of this encounter Care Teams Marketing Underwriter Relationship Specialty Start Date End Date Penny Armstrong, FIGHTING [employer] MAINTAINER [address] [place] [address] PCP - General Family Medicine 09/24/23 documented as of this encounter
--- NOTE | 2024-12-31 15:06 | MR_ITS ---
PROCEDURE INFORMATION: Exam: MR Cervical Spine Without Contrast Exam date and time: 12/31/2024 3:49 PM Age: 39 years old Clinical indication: Neck pain; Additional info: Neck pain that radiates to both shoulders TECHNIQUE: Imaging protocol: Magnetic resonance imaging of the cervical spine without contrast. COMPARISON: CT CHEST WO CON 03/15/2023 12:45 PM FINDINGS: Bones/joints: The cervical vertebral bodies are normal in height, without abnormal subluxation. The cervical lordosis is straightened. Spinal cord: No visualized cervical spinal cord edema or compression. Multilevel findings: Mild degenerative changes are noted from C2-C3 through C5-C6, with a mild decrease in the T2 signal intensity of the discs. C2-C3: There is no significant spinal canal stenosis or neural foraminal narrowing. C3-C4: There is no significant spinal canal stenosis or neural foraminal narrowing. C4-C5: Mild disc bulging causes flattening of the ventral thecal sac without significant spinal canal stenosis. There is no significant neural foraminal narrowing bilaterally. C5-C6: Mild disc bulging causes flattening of the ventral thecal sac without significant spinal canal stenosis. There is no significant neural foraminal narrowing bilaterally C6-C7: There is no significant spinal canal stenosis or neural foraminal narrowing. C7-T1: There is no significant spinal canal stenosis or neural foraminal narrowing. Soft tissues: No significant prevertebral soft tissue swelling. Vasculature: Evaluation of flow voids within the vertebral arteries is limited. Lymph nodes: Scattered nonspecific small cervical lymph nodes are identified. IMPRESSION: 1. Mild degenerative changes are visualized involving the cervical spine, as described above. 2. No significant spinal canal stenosis or neural foraminal narrowing at any cervical level. 3. The cervical lordosis is straightened. This can be associated with muscle spasms.
--- NOTE | 2024-12-31 15:06 | MR_ITS ---
PROCEDURE INFORMATION: Exam: MR Lumbar Spine Without Contrast Exam date and time: 12/31/2024 3:49 PM Age: 39 years old Clinical indication: Low back pain that radiates to right hip TECHNIQUE: Imaging protocol: Magnetic resonance imaging of the lumbar spine without contrast. COMPARISON: CT ABDOMEN PELVIS WO CON 08/22/2024 7:11 AM FINDINGS: Bones/joints: The lowermost full-sized intervertebral disc is labeled as L5-S1 for the purpose of this dictation. The lumbar vertebral bodies are normal in height, without abnormal subluxation. Spinal cord: The distal end of the conus medullaris ends at L1, normal in position. L1-L2: There is no significant spinal canal stenosis or neural foraminal narrowing. L2-L3: There is no significant spinal canal stenosis or neural foraminal narrowing. L3-L4: There is no significant spinal canal stenosis or neural foraminal narrowing. L4-L5: Mild left facet arthropathy is visualized. There is no significant spinal canal stenosis or neural foraminal narrowing. L5-S1: There is no significant spinal canal stenosis or neural foraminal narrowing. Soft tissues: Minimal edema is seen within the subcutaneous tissues posteriorly. IMPRESSION: 1. There is no significant spinal canal stenosis or neural foraminal narrowing at any lumbar level. 2. Mild left facet arthropathy is visualized at L4-L5.
--- OUTSIDE RECORDS SUMMARY | 2024-12-31 16:14 | XMS_ITS | Clinical Summary ---
Author Organization [employer] ([place], [place], [place], [place], [place]) Address [address] [place] [address] Care Team Providers Care Stress Test Technician Name Role Phone Landon James MD Primary Care Provider [phone] Allergies Active Allergy Reactions Criticality Noted Date [...] by mouth 2 (two) times daily. Active Active Problems Problem Noted Date Diagnosed Date Umbilical hernia 09/01/2024 Cervicalgia 06/28/2023 Family History Medical History Relation Name Comments Other Father Agent Mason Ex posure Coronary artery disease Maternal Aunt [...] Date Hemal rded Speak language other than Czech at home Not on file 06/12/2023 Want [...] Screening 2002 Pap Smear 2005 COVID-19 VACCINE (2024-2 6 season) 2024 05/21/2020, 05/01/2020 Influenza Vaccine (#1) 2024 11/13/2018 Breast Cancer Screening 06/17/2025 06/18/2023 Tobacco Cessation Counseling and Screening (12+) 09/01/2025 09/01/2024 Lipid Panel 07/18/2027 07/17/2024 DTAP/TDAP/TD VACCINES (2 - T d or Tdap) 07/17/2034 07/17/2024 Pneumococcal Vaccine: 0-49 Years Aged Out No longer eligible b ased on patient's age to complete this topic Insurance BLUE CROSS/BLUE SHIELD Care Teams Stress Test Technician Relationship Specialty Start Date End Date Landon James MD [address] [place] [address] PCP - General Family Medicine 08/29/24
--- OUTSIDE RECORDS SUMMARY | 2024-12-31 16:14 | XMS_ITS | Patient Health Record ---
Author Organization [facility] Address [address] [facility] [address] [place] [address] Care Team Providers Care Scrap Baller Name Role Phone Rosalia Ovalle Unavailable [phone] Allergies Allergen (clinical drug ingredient) Drug/Non Drug [...] Notes Problem Noninflammatory disorder of the vagina (13852589) Bloody vaginal discharge (N89.8) 020 Active confirmed Vaginal discharge Problem Noninflammatory disorder of the vagina (24644052) Bloody vaginal discharge (N89.8) 020 Active confirmed Vaginal irritation Problem Gynecological examination abnormal (163794232539136) *Production Scheduler exam with abnormal finding (Code also - abnormal finding(s) (Z01.411) 021 Active confirmed Annual with abnormal findings Problem Disorder of breast (58288215) Abnormal breast bud (N64.89) Active confirmed Skin disorder of breast Problem Gynecological examination normal (132588521020988) Cervical smear, as part of routine gynecological examination (Z01.419) Active confirmed Annual without abnormal findings Plan Of Treatment No Information Insurance Providers Payer Name Payer Address Payer Phone Subscriber Number Group Number Insured Name Patient Relationship to Insured Coverage Start Date Coverage End Date Akhil PPO [address] [place] [address] [id number] Dayna [place] Self - patient is the insured Medical (General) History Medical History History ICD Code anxiety chronic pelvic pain endometriosis fibroids obesity PCOS UTI yeast infection Tubular adenoma on colonoscopy Surgical History Surgery Date(Month/Year) 06-13-18 TRAVH BS BTL C/S tonsillectomy
--- OUTSIDE RECORDS SUMMARY | 2024-12-31 16:14 | XMS_ITS | Referral Summary ---
Author Organization [email or web address] ([place], [place], [place], [place], [place]) Address [address] [place] [address] Care Team Providers Care Film Printer Name Role Phone Landon James MD Primary Care Provider [phone] Allergies Active Allergy Reactions Criticality Noted Date [...] Date Hemal rded Speak language other than Moroccan at home Not on file 06/12/2023 Want [...] EDT Plan of Treatment Not on file Insurance BLUE CROSS/BLUE SHIELD Care Teams Film Printer Relationship Specialty Start Date End Date Landon James MD [address] [place] [phone] PCP - General Family Medicine 08/29/24
--- OUTSIDE RECORDS SUMMARY | 2024-12-31 16:14 | XMS_ITS | Encounter Summary ---
Author Organization [employer] ([place], [place], [place], [place], [place]) Address [address] [place] [address] Care Team Providers Care Black Ash Burner Operator Name Role Phone Landon James MD Primary Care Provider [phone] Encounter Details Date Type Department Care Team (Late st Contact Info) Description 01/27/2019 Transcribed Document [facility] [place] [facility] [place] [address] ProviderLuh MD [address] [place] [id number] Social History Tobacco Use Types Packs/Day Years Used Date Smoking Tobacco: Never Assessed Comments Unknown Sex and Gender Information Value Date Recorded Sex Assigned at Not on file Legal Sex Female 5:38 PM CDT Gender Identity Not on file Sexual Orientation Not on file documented as of this encounter Miscellaneous Notes * Cerner Conversion Note - Luh Oliveros MD - 01/27/2019 5:04 PM DAYCARE MANAGER DATE OF PROCEDURE: 01/27/2019 SURGEON: Gadiel Anaya [...] I encouraged the patient to see a chief operating officer as well as see the neurologist, then I will be happy to see the patient after one month to re-evaluate her. /[id number] Gadiel Anaya MD, JULIO C Pain Certified ELAINE/JOE / ELAINE / MODL /[id number] documented in this encounter Plan of Treatment Not on file documented as of this encounter Visit Diagnoses Not on filedocumented in this encounter Care Teams Black Ash Burner Operator Relationship Specialty Start Date End Date Landon James MD [address] [place] [phone] PCP - General Family Medicine 08/29/24 documented as of this encounter
--- OUTSIDE RECORDS SUMMARY | 2024-12-31 16:14 | XMS_ITS | Encounter Summary ---
Author Organization [employer] ([place], [place], [place], [place], [place]) Address [address] [place] [address] Care Team Providers Care Face Man Name Role Phone Landon James MD Primary Care Provider [phone] Encounter Details Date Type Department Care Team (Late st Contact Info) Description 01/20/2019 Transcribed Document [facility] [place] [address] ProviderLuh MD [address] [place] [id number] Social History Tobacco Use Types Packs/Day Years Used Date Smoking Tobacco: Never Assessed Comments Unknown Sex and Gender Information Value Date Recorded Sex Assigned at Not on file Legal Sex Female 5:38 PM CDT Gender Identity Not on file Sexual Orientation Not on file documented as of this encounter Miscellaneous Notes * Cerner Conversion Note - Luh Oliveros MD - 01/20/2019 7:18 AM HEAD OF TALENT MANAGEMENT DATE OF ADMISSION: 01/17/2019 HISTORY: This is [...] also going to send her to the [facility] Neurology to rule out any systemic neurological deficit including multiple sclerosis that is causing these symptoms. 3. Once we get the patient some help and relief, we will start her on intense physical therapy to improve the range of movement of the upper and lower extremities. /[id number] Gadiel Anaya MD, JULIO C Pain Certified KR/AQ / KR / MODL CC: Anthony Pritchett Electronically signed by Yesy, [facility] Conversion Cableman Cerner at 06/01/2022 10:09 AM CDT documented in this encounter Plan of Treatment Not on file documented as of this encounter Visit Diagnoses Not on filedocumented in this encounter Care Teams Face Man Relationship Specialty Start Date End Date Landon James MD [address] [place] [phone] PCP - General Family Medicine 08/29/24 documented as of this encounter
--- OUTSIDE RECORDS SUMMARY | 2024-12-31 16:14 | XMS_ITS | Clinical Summary ---
Author Organization [facility] Address [address] [place] [id number] Care Team Providers Care Aircraft Riveter Name Role Phone Melva Foley MD Primary Care Provider [phone] Allergies Active Allergy Reactions Criticality Noted Date [...] ANNUAL PHYSICAL 10/04/2015 HEPATITIS C SCREENING 10/04/2015 INFLUENZA VACCINE 09/12/2024 12/10/2019, 11/13/2018, 11/26/2017 MAMMOGRAM 06/17/2025 06/18/2023 Pneumococcal [...] outer quadrant which correlates with normal tissue. us Teresa Knight CNM IM MAMMOGRAPHY ORDERABLES Fi nal Result from Last 3 Months or Most Recently Relevant to Health Maintenance Insurance BLUE SHIELD PPO Advance Directives * CPR (Attempt to Resuscitate) (Latest Code Status on File) Date Activated Date Inactivated Comments 07/01/2018 2:29 PM 07/02/2018 1:39 PM Question Answer Comments Code Status (Patient has no pulse and is not breathing): CPR (Attempt to Resuscitate) Medical Interventions (Patie nt has pulse or is breathing): Full Level Of Support Discussed With: Patient Care Teams Aircraft Riveter Relationship Specialty Start Date End Date Melva Foley MD [address] [facility] [address] [place] [address] PCP - General Family Medicine 11/13/23
--- OUTSIDE RECORDS SUMMARY | 2024-12-31 16:14 | XMS_ITS | Encounter Summary ---
Author Organization [employer] ([place], [place], [place], [place], [place]) Address [address] [place] [address] Care Team Providers Care Pound Attendant Name Role Phone Landon James MD Primary Care Provider [phone] Encounter Details Date Type Department Care Team (Late st Contact Info) Description 06/16/2019 Transcribed Document [facility] [place] [facility] [place] [address] ProviderLuh MD [address] [place] [phone] Social History Tobacco Use Types Packs/Day Years [...] before bring the patient to the clinic /[id number] Gadiel Anaya MD, JULIO C Pain Certified KR/AQ / KR / MODL CC: Anthony Pritchett MD Electronically signed by Interface, [facility] Conversion Last Model Maker Cerner at 06/01/2022 10:12 AM CDT documented in this encounter Plan of Treatment Not on file documented as of this encounter Visit Diagnoses Not on filedocumented in this encounter Care Teams Pound Attendant Relationship Specialty Start Date End Date Landon James MD [address] [place] [phone] PCP - General Family Medicine 08/29/24 documented as of this encounter
--- OUTSIDE RECORDS SUMMARY | 2024-12-31 16:15 | XMS_ITS | Encounter Summary ---
Author Organization [facility] Address [address] [place] [address] Care Team Providers Care Open Pit Quarry Supervisor Name Role Phone Catalino Evans MD Primary Care Provider Penny Armstrong APRN Primary Care Provider [phone] Encounter Details Date Type Department Care Team (Late st Contact Info) Description 06/18/2023 Orders Only External Location [address] [place] [address] Provider, External Social History Tobacco Use Types Packs/Day Years Used Date Smoking Tobacco: Never Smokeless Tobacco: Never Humiliation, Afraid, Rape, and Kick questionnair e Answer Date Recorded Within the last year, have y ou been afraid of your partner or ex-partner? Patient declined 03/05/2023 Within the last year, have y ou been humiliated or emotionally abused in other ways by your partner or ex-partner? Patient declined 03/05/2023 Within the last year, have y ou been kicked, hit, slapped, or otherwise physically hurt by your partner or ex-partner? Patient declined 03/05/2023 Within the last year, have y ou been raped or forced to have any kind of sexual activity by your partner or ex-partner? Patient declined 03/05/2023 PHQ-2 Answer Date Recorded Patient Health Questionnaire-2 Score 0 03/22/2021 Hunger Vital Sign Answer Date Recorded Within the past 12 months, y ou worried that your food would run out before you got the money to buy more. Patient declined Within the past 12 months, t he food you bought just didn't last and you didn't have money to get more. Patient declined PRAPARE - Transportation Answer Date Re corded In the past 12 months, has l ack of transportation kept you from medical appointments or from getting medications? Patient declined 03/05/2023 In the past 12 months, has l ack of transportation kept you from meetings, work, or from getting things needed for daily living? Patient declined 03/05/2023 Housing Stability Vital Sign Answer [place] e [...] senior care (including now)? Patient refused 03/05/2023 Safety and Environment Answer Date Hemal rded [...] shut off services in your home? Patient refused 03/05/2023 Comments Unknown Sex and Gender Information Value Date Recorded Sex Assigned at Not on file Legal Sex Female 7:55 PM EDT Gender Identity Not on file Sexual Orientation Not on file documented as of this encounter Plan of Treatment Upcoming Encounters Date Type Department Care Team (Late st Contact Info) Description 02/06/2025 12:30 PM EST Appointment [facility] Breast Care [address] [place] [address] 02/06/2025 1:00 PM EST Appointment [facility] Breast [address] [place] [address] 02/11/2025 9:10 AM EST Appointment [facility] [address] [place] [address] Beatrice Henderson MD [address] [place] [phone] documented as of this encounter Procedures Procedure Name Priority Date/Time Associated Diagnosis Comments MAMMOGRAPHY OUTSIDE IMAGES 06/18/2023 12:55 PM EDT documented in this encounter Results * MAMMOGRAPHY OUTSIDE IMAGES (06/18/2023 12:55 PM EDT) Anatomical Region Laterality Modality Breast Mammography 06/18/2023 12:5 5 PM EDT us External Provider IMG BI PROCEDURES Final Result documented in this encounter Visit Diagnoses Not on filedocumented in this encounter Additional Health Concerns Assessment Noted Time A fall risk assessment has been complete d for the patient 03/22/2021 12:36 PM EST A Body Mass Index follow-up plan has been documented for the patient 03/05/2023 2:23 PM EST documented as of this encounter Care Teams Open Pit Quarry Supervisor Relationship Specialty Start Date End Date Catalino Evans MD [address] [place] [phone] PCP - General Family Medicine 08/01/21 09/23/23 Penny Armstrong APRN [address] [place] [phone] PCP - General Family Medicine 09/24/23 documented as of this encounter
--- OUTSIDE RECORDS SUMMARY | 2024-12-31 16:15 | XMS_ITS | Encounter Summary ---
Author Organization [facility] Address [address] [place] [id number] Care Team Providers Care Collections Technician Name Role Phone Patti Penny Noland APRN Primary Care Provider Encounter Details Date Type Department Care Team (Latest Contact Info) Description 12/24/2024 Travel Social History Tobacco Use Types Packs/Day [...] any time in the past 12 m [facility], were you homeless or living in a senior living (including now)? Patient declined 07/17/2024 Safety and [...] Score 0 12/13 8:42 AM Suad Hanna A * Question Answer Date of Assessment Author Trouble falling or staying a sleep, or sleeping too much Not at all 12/24/2024 8:42 AM Suad Hanna A Feeling tired or having jaspal le energy Not at all 12/24/2024 8:42 AM Suad Hanna A Poor appetite or overeating Not at all 12/24/2024 8: 42 AM Suad Hanna A Feeling bad about yourself - or that you are a failure or have let yourself or your family down Not at all 12/24/2024 8:42 AM Kimmie Hanna A Trouble concentrating on thi ngs, such as reading the newspaper or watching television Not at all 12/24/2024 8:42 AM Suad Hanna A Moving or speaking so slowly that other people could have noticed? Or the opposite - being so fidgety or restless that you have been moving around a lot more than usual. Not at all 12/24/2024 8:42 AM Suad Hanna A Thoughts that you would be b ja off or hurting yourself in some way Not at all 12/24/2024 8:42 AM Suad Hanna A Patient Health Questionnaire-9 Score 0 12/13 [...] all 12/24/2024 8:42 AM Suad Stern * Question Answer Date of Assessment Author 1. Wish to be (Past 1 Month) No 025 8:42 AM Suad Hanna 2. Non-Specific Active Suici gemma Thoughts (Past 1 Month) No 12/24/2024 8:42 AM Suad Hanna 6. Suicidal Behavior (Lifetime) No 8:42 AM Suad Hanna A documented as of this encounter Plan of Treatment Upcoming Encounters Date Type Department Care Team (Late st Contact Info) Description 02/06/2025 12:30 PM EST Appointment [facility] [address] [facility] [address] [place] [address] 02/06/2025 1:00 PM EST Appointment [facility] [address] [facility] [address] [place] [address] 02/11/2025 9:10 AM EST Appointment [facility] [address] [place] [address] Beatrice Henderson MD [address] [place] [phone] documented as of this encounter Goals Goal Patient Goal Type Associated Problems Recent Progress Patient-Stated? Author Autogenerat ed Goal Care Plan Autogenerated Problem No Gianna Perez documented as of this encounter Visit Diagnoses Not on filedocumented in this encounter Additional Health Concerns Active [...] documented as of this encounter Care Teams Collections Technician Relationship Specialty Start Date End Date Penny Armstrong, ADITYA [address] [place] [phone] PCP - General Family Medicine 09/24/23 documented as of this encounter
--- OUTSIDE RECORDS SUMMARY | 2024-12-31 16:15 | XMS_ITS | Clinical Summary ---
Author Organization Healthcare Address [address] [id number] Care Team Providers Care [employer] Name Role Phone Patti Penny Noland APRN [...] a day. 07/07/19 19 Active HYDROcodone-acetam inophen ([place]) 5-325 MG tablet 01/04/20 23 Active budesonide-formote rol (Symbicort) 80-4.5 MCG/ACT inhalerIndications :Wheezing Inhale 2 puffs 1 (one) time each day. Rinse mouth with water after use to reduce aftertaste and incidence of candidiasis. Do not swallow. 6.9 g 03/05/19 24 Active albuterol (2.5 MG/3ML) 0.083% nebulizer solutionIndication s:Wheezing [...] Encounters Date Type Department Care Team Description 12/24/2024 8:40 AM EST Office Visit [facility] Medicine [address] [place] [phone] Penny Armstrong, ADITYA Lumbar spondylosis (Primary Dx); Complex regional pain syndrome type 1 of right lower extremity; Lumbosacral radiculopathy; Cervical spondylosis without myelopathy; Hordeolum externum of left upper eyelid 12/24/2024 Travel from Last 3 Months Immunizations Immunization [...] any time in the past 12 m ont, were you homeless or living in a [...] the past 12 months has th e [employer], gas, oil, or water company threatened to [...] Mass Index 29.68 12/24/2024 8:42 AM EST Plan of Treatment Upcoming Encounters Date Type Department Care Team (Late st Contact Info) Description 02/06/2025 12:30 PM EST Appointment [facility] [address] [place] [address] 02/06/2025 1:00 PM EST Appointment [facility] [address] [facility] [address] [place] [address] 02/11/2025 9:10 AM EST Appointment [facility] [address] [place] [address] Beatrice Henderson MD [address] [place] [address] Health Maintenance Due Date Last Done Comments [facility]-/Child/Adol SDOH Screenings 1984 [facility]-Varicella Vaccines (1 of 2 - 13+ 2-dose series) 1997 [facility]-Hepatitis B Vaccines (1 of 3 - 19+ 3-dose series) 04/23/2003 HPV Vaccines (1 - 3-dose SCDM series) 04/23/2011 [facility]-[id number]-16 Vaccine (3 - 2024- season) 2024 05/21/2020, 05/01/2020 [facility]-Influenza Vaccine (#1) 10/13/202412/09, 11/13/2018, 11/26/2017 [facility]- SDOH Screenings 01/16/2025 [facility]-Adult SDOH Screenings 01/16/2025 07/17/2024 [facility]-Depression Screening 12/24/2025 12/24/2024, 12/13 [facility]-Zoster Vaccines (1 of 2) 2034 [facility]-DTaP,Tdap,and Td Vaccines (2 - Td or Tdap) 07/17/2034 07/17/2024 [facility]-HIV Screening Completed 07/17/2024 [facility]-Hepatitis C Screening Completed 07/17/2024 [facility]-Obesity Intervention Completed 025, 08/14/2024, 07/17/2024, Additional history exists [facility]-HIB Vaccines Aged [...] on patient's age to complete this topic Goals Goal Patient Goal Type Associated Problems Recent Progress Patient-Stated? Author Autogenerat ed Goal Care Plan Autogenerated Problem No Gianna Perez Procedures Procedure Name Priority Date/Time Associated Diagnosis Comments HIV 1/2 ANTIBODY/ANTIGEN SCREEN WITH REFLEX TO HIV I/II DIFFERENTIATION Routine 07/17/2024 1:31 PM EDT Screening for human immunodeficiency virus HEPATITIS C ANTIBODY W/REFLEX TO HCV QUANT PCR Routine 07/17/2024 1:31 PM EDT Need for hepatitis C screening test from Last 3 Months or Most Recently Relevant to Health Maintenance Results * HIV 1 & 2 Antibody/Antigen Screen (07/17/2024 1:31 PM EDT) HIV 1 & 2 Antibody/Antigen Screen Non Reactive Non Reactive 07/17/2024 1:[address] [facility] Comment:Screening for HIV 1 & 2 antibodies, and P24 antigen is NONREACTIVE. No confirmatory testing is required. Blood Venous blood specimen / Unknown 07/17/2024 8:47 AM EDT Penny Armstrong APRN LAB BLOOD ORDERABLES Final Result [facility] [address] [place] [address] * Hepatitis C Antibody w/Reflex to HCV Quant PCR (07/17/2024 1:31 PM EDT) Hepatitis C Antibody Negative Negative 07/17/2024 1:[address] [facility] Blood Venous blood specimen / Unknown 07/17/2024 8:47 AM EDT Penny Armstrong APRN LAB BLOOD ORDERABLES Final Result [facility] [address] [place] [address] from Last 3 Months or Most Recently Relevant to Health Maintenance Additional Health Concerns Active Problems Noted Date Diagnosed Date Autogenerated Problem 11/27/2024 Insurance ANTHEM Care Teams [employer] Relationship Specialty Start Date End Date Penny Armstrong APRN [address] [place] [phone] PCP - General Family Medicine 09/24/23
--- OUTSIDE RECORDS SUMMARY | 2024-12-31 16:15 | XMS_ITS | Encounter Summary ---
Author Organization [employer] ([place], [place], [place], [place], [place]) Address [address] [place] [address] Care Team Providers Care Draw Machine Operator Name Role Phone Landon James MD Primary Care Provider [phone] Encounter Details Date Type Department Care Team (Late st Contact Info) Description 07/09/2019 Transcribed Document [facility] Family Medicine [place] [address] ProviderLuh MD [address] [place] [address] [id number] Social History Tobacco Use Types Packs/Day Years [...] we brought the patient to the clinic. /[id number] Gadiel Anaya MD, JULIO C Pain Certified ELAINE/JOE / ELAINE / MODL /[id number] documented in this encounter Plan of Treatment Not on file documented as of this encounter Visit Diagnoses Not on filedocumented in this encounter Care Teams Draw Machine Operator Relationship Specialty Start Date End Date Landon James MD [address] [place] [address] PCP - General Family Medicine 08/29/24 documented as of this encounter
--- OUTSIDE RECORDS SUMMARY | 2024-12-31 16:15 | XMS_ITS | Data Portability ---
Author Organization [facility] Deei c, [facility] CLOSED Address [address] [place] [address] Care Team Providers Care Tight Cooper Name Role Phone GRACEDONYA NOVAK Pain Management JINA HEARN Primary Care Provider [phone] Assessment Encounter Date Assessment Date Assessment LastModified [...] and the clinical opinion of the practitioner. [email or web address] Not available 09/27/2023 08:40:02 10/29/2023 10/29/2023 Note [...] and the clinical opinion of the practitioner. [email or web address] Not available 10/26/2023 07:57:11 Plan of Treatment Reminders Order Date Submit Date Provider Last Modified By Organization Details Last Modified Time Details Appointments None recorded. Lab TSH, serum, reflex free T4 2023 024 [facility], [address] [place] [address], [id number], 4 19:13:49 vitamin D, 25-hydroxy, total, serum 2023 024 [facility], [address] [place] [address], [address], 4 19:22:24 lipid panel, serum 2023 024 [facility], [address] [place] [address], [address], 4 19:20:33 CBC w/ auto diff 2023 024 [facility] [place], [address] [place] [address], [address], 4 20:18:17 CMP, serum or plasma 2023 024 [facility], [address] [place] [address], [address], 4 19:20:30 glycohemogl obin, total, blood 2023 024 [facility], [address] [place] [address], [address], 4 19:03:00 iron + total iron-bindin g capacity (TIBC), serum 2023 024 [facility], [address] [place] [address], [address], 4 19:20:29 ferritin, serum or plasma 2023 024 [facility], [address] [place] [address], [address], 4 19:20:32 vitamin B12 + folate, serum or blood 2023 024 [facility], [address] [place], [address], 19:22:26 Referral None recorded. Procedures holter monitor placement (PROC) 2023 [email or web address] Not available 11:17:49 Surgeries None recorded. Imaging None recorded. Medication Orders duloxetine 30 mg capsule,del ayed release 2023 [facility], [address] [place] [address], [address], 11:31:00 Patient TargetsNo targets recorded. Patient Instructions Encounter Date Encounter Id Patient Instructions Last Modified By Organization Details Last Modified Time 09/28/2023 [id number] Body Mass Index: Care Instructions- [email or web address] Not available 09/28/2023 10:18:06 Reason for Referral None Reported. Results Created Date Observation Date Name Description Value Unit Range Abnormal Flag Note LastModifiedBy Organization Detail LastModifiedTime 09/28/1909/28/2023 GLYCO HEMOG LOBIN A1C glyco HGB A1C 4.6 % 0.0-5. 6 normal Not Available [facility] [address] [place] [address], [address], 09/28/2023 19:03:00 09/28/19 24 09/28/2023 GLYCO HEMOG LOBIN A1C estimated avg. glucose 85 mg/dL _(fiordaliza c) normal A1c value s betwe en 5.7% to 6.4% indic ate predi abete s. Resul ts 6.5% or great er is diagn ostic of diabe gregory. Ameri can [facility]abe gregory [facility] iatio n (diab etes. org) Not Available [facility] [address] [place] [address], [address], 09/28/2023 19:03:00 09/28/19 24 09/28/2023 TSH WITH REFLE X FT4 TSH with reflex FT4 0.850 u[IU] /mL 0.270- 4.200 normal Not Available [facility] [address] [place] [address], [address], 09/28/2023 19:13:48 09/28/19 24 09/28/2023 IRON PANEL -TOTA L AND TIBC iron 78 ug/dL 37-145 normal Not Available [facility] [address] [place] [address], [address], 09/28/2023 19:20:29 09/28/19 24 09/28/2023 IRON PANEL -TOTA L AND TIBC total iron binding cap. 264 ug/dL _(fiordaliza c) 250-45 0 normal Not Available [facility] [address] [place] [address], [address], 09/28/2023 19:20:29 09/28/19 24 09/28/2023 IRON PANEL -TOTA L AND TIBC unsat.iron binding cap. 186 ug/dL 112-34 7 normal Not Available [facility] [address] [place] [address], [address], 09/28/2023 19:20:29 09/28/19 24 09/28/2023 IRON PANEL -TOTA L AND TIBC % saturation 30 %_(ca lc) 15-50 normal Not Available [facility] [address] [place] [address], [address], 09/28/2023 19:20:29 09/28/19 24 09/28/2023 COMP. METAB OLIC PANEL glucose 87 mg/dL 74-100 normal Not Available [facility] [address] [place] [address], [address], 09/28/2023 19:20:30 09/28/19 24 09/28/2023 COMP. METAB OLIC PANEL blood urea nitrogen 13 mg/dL 6-20 normal Not Available [facility] [address] [place] [address], [address], 09/28/2023 19:20:30 09/28/19 24 09/28/2023 COMP. METAB OLIC PANEL creatinine 0.70 mg/dL 0.50-0 .95 normal Not Available [facility] [address] [place] [address], [address], 09/28/2023 19:20:30 09/28/19 24 09/28/2023 COMP. METAB OLIC PANEL BUN/creatini ne ratio 19 (calc ) 10-20 normal Not Available [facility] [address] [place] [address], [address], 09/28/2023 19:20:30 09/28/19 24 09/28/2023 COMP. METAB OLIC PANEL sodium 140 mmol/ L 136-14 5 normal Not Available [facility] [address] [place] [address], [address], 09/28/2023 19:20:30 09/28/19 24 09/28/2023 COMP. METAB OLIC PANEL potassium 4.2 mmol/ L 3.4-5. 0 normal Not Available [facility] [address] [place] [address], [address], 09/28/2023 19:20:30 09/28/19 24 09/28/2023 COMP. METAB OLIC PANEL chloride 105 mmol/ L 98-107 normal Not Available [facility] [address] [place] [address], [address], 09/28/2023 19:20:30 09/28/19 24 09/28/2023 COMP. METAB OLIC PANEL carbon dioxide 25 mmol/ L 22-31 normal Not Available [facility] [address] [place] [address], [address], 09/28/2023 19:20:30 09/28/19 24 09/28/2023 COMP. METAB OLIC PANEL anion gap 10 (calc ) 7-25 normal Not Available [facility] [address] [place] [address], [address], 09/28/2023 19:20:30 09/28/19 24 09/28/2023 COMP. METAB OLIC PANEL calcium 9.3 mg/dL 8.6-10 .2 normal Not Available [facility] [address] [place] [address], [address], 09/28/2023 19:20:30 09/28/19 24 09/28/2023 COMP. METAB OLIC PANEL total protein 7.2 g/dL 6.4-8. 3 normal Not Available [facility] [address] [place] [address], [address], 09/28/2023 19:20:30 09/28/19 24 09/28/2023 COMP. METAB OLIC PANEL albumin 4.3 g/dL 3.5-5. 2 normal Not Available [facility] [address] [place] [address], [address], 09/28/2023 19:20:30 09/28/19 24 09/28/2023 COMP. METAB OLIC PANEL globulin 2.9 1.5-4. 5 normal Not Available [facility] [address] [place] [address], [address], 09/28/2023 19:20:30 09/28/19 24 09/28/2023 COMP. METAB OLIC PANEL albumin/glob ulin ratio 1.5 (calc ) 1.1-2. 5 normal Not Available [facility] [address] [place] [address], [address], 09/28/2023 19:20:30 09/28/19 24 09/28/2023 COMP. METAB OLIC PANEL bilirubin, total 0.5 mg/dL 0.1-1. 2 normal Not Available [facility] [address] [place] [address], [address], 09/28/2023 19:20:30 09/28/19 24 09/28/2023 COMP. METAB OLIC PANEL alkaline phosphatase 52 U/L 30-121 normal Not Available [facility] [address] [place] [address], [address], 09/28/2023 19:20:30 09/28/19 24 09/28/2023 COMP. METAB OLIC PANEL AST 25 U/L 0-32 normal Not Available [facility] [address] [place], [address], 09/28/2023 19:20:30 09/28/19 24 09/28/2023 COMP. METAB OLIC PANEL ALT 14 U/L 0-33 normal Not Available [facility] [address] [place], [address], 09/28/2023 19:20:30 09/28/19 24 09/28/2023 COMP. METAB [...] s/MARLYN QI/gf r_cal culat orPed Not Available [facility] [address] [place] [address], [address], 09/28/2023 19:20:30 09/28/19 24 09/28/2023 FELA TIN ferritin 36 NG/mL 13-157 normal Not Available [facility] [address] [place], [address], 09/28/2023 19:20:32 09/28/19 24 09/28/2023 LIPID PROFI LE HDL cholesterol 55 mg/dL 50-242 normal Not Available [facility] [address] [place], [address], 09/28/2023 19:20:33 09/28/19 24 09/28/2023 LIPID PROFI LE triglyceride s 57 mg/dL 0-149 normal TRIGL YCERI DE RANGE S NOAH L: < 150 BORDE RLINE HIGH: 150 - 199 HIGH: 200 - 499 VERY HIGH: > OR = 500 Not Available [facility] [address] [place] [address], [address], 09/28/2023 19:20:33 09/28/19 24 09/28/2023 LIPID PROFI LE cholesterol 164 mg/dL 0-199 normal ABDIRAHMAN STERO L (TOTA L) RANGE S PURNIMA ABLE: < 200 BORDE RLINE : 200 - 239 HIGHE R RISK: > 239 Not Available [facility] [address] [place] [address], [address], 09/28/2023 19:20:33 09/28/19 24 09/28/2023 LIPID PROFI LE LDL cholesterol 98 mg/dL _(fiordaliza c) 0-99 normal LDL ABDIRAHMAN STERO L RANGE S OPTIM AL: < 100 NEAR/ ABOVE OPTIM AL: 100 - 129 BORDE RLINE HIGH: 130 - 159 HIGH: 160 - 189 VERY HIGH: > OR = 190 Not Available [facility] [address] [place] [address], [address], 09/28/2023 19:20:33 09/28/19 24 09/28/2023 VITAM IN D 25-OH vitamin D 25-oh, total 51 NG/mL >=30 NG/mL normal Not Available [facility] [address] [place] [address], [address], 09/28/2023 19:22:24 09/28/19 24 09/28/2023 B12/F OLIC ACID PANEL folic acid 18.6 NG/mL 4.6-34 .8 normal Not Available [facility] [address] [place] [address], [address], 09/28/2023 19:22:26 09/28/19 24 09/28/2023 B12/F OLIC ACID PANEL vitamin B12 523 pg/mL 232-12 45 normal Not Available [facility] [address] [place] [address], [address], 09/28/2023 19:22:26 09/28/19 24 09/28/2023 COMPL ETE BLOOD COUNT white blood cells 3.5 10*3/ uL 3.8-10 .8 low Not Available [facility] [address] [place] [address], [address], 09/28/2023 20:18:17 09/28/19 24 09/28/2023 COMPL ETE BLOOD COUNT red blood cells 4.38 10*6/ uL 3.80-5 .20 normal Not Available [facility] [address] [place] [address], [address], 09/28/2023 20:18:17 09/28/19 24 09/28/2023 COMPL ETE BLOOD COUNT hemoglobin 13.3 g/dL 12.0-1 6.0 normal Not Available [facility] [address] [place] [address], [address], 09/28/2023 20:18:17 09/28/19 24 09/28/2023 COMPL ETE BLOOD COUNT hematocrit 38.0 % 35.0-4 7.0 normal Not Available [facility] [address] [place] [address], [address], 09/28/2023 20:18:17 09/28/19 24 09/28/2023 COMPL ETE BLOOD COUNT MCV 87 fL 80-100 normal Not Available [facility] [address] [place] [address], [address], 09/28/2023 20:18:17 09/28/19 24 09/28/2023 COMPL ETE BLOOD COUNT MCH 31 pg 26-35 normal Not Available [facility] [address] [place] [address], [address], 09/28/2023 20:18:17 09/28/19 24 09/28/2023 COMPL ETE BLOOD COUNT MCHC 35 g/dL 32-36 normal Not Available [facility] [address] [place] [address], [address], 09/28/2023 20:18:17 09/28/19 24 09/28/2023 COMPL ETE BLOOD COUNT RDW 12.9 % 11.0-1 5.0 normal Not Available [facility] [address] [place] [address], [address], 09/28/2023 20:18:17 09/28/19 24 09/28/2023 COMPL ETE BLOOD COUNT MPV 11.1 fL 6.2-10 .5 high Not Available [facility] [address] [place] [address], [address], 09/28/2023 20:18:17 09/28/19 24 09/28/2023 COMPL ETE BLOOD COUNT platelet count 189 10*3/ uL 150-40 0 normal Not Available [facility] [address] [place] [address], [address], 09/28/2023 20:18:17 09/28/19 24 09/28/2023 COMPL ETE BLOOD COUNT neutrophil,a bsolute 2.1 10*3/ uL 1.6-8. 4 normal Not Available [facility] [address] [place] [address], [address], 09/28/2023 20:18:17 09/28/19 24 09/28/2023 COMPL ETE BLOOD COUNT lymphocyte,a bsolute 1.1 10*3/ uL 0.4-5. 1 normal Not Available [facility] [address] [place] [address], [address], 09/28/2023 20:18:17 09/28/19 24 09/28/2023 COMPL ETE BLOOD COUNT monocyte,abs olute 0.2 10*3/ uL 0.0-1. 2 normal Not Available [facility] [address] [place] [address], [address], 09/28/2023 20:18:17 09/28/19 24 09/28/2023 COMPL ETE BLOOD COUNT eosinophil,a bsolute 0.1 10*3/ uL 0.0-0. 8 normal Not Available [facility] [address] [place] [address], [address], 09/28/2023 20:18:17 09/28/19 24 09/28/2023 COMPL ETE BLOOD COUNT basophil,abs olute 0.0 10*3/ uL 0.0-0. 3 normal Not Available [facility] [address] [place] [address], [address], 09/28/2023 20:18:17 09/28/19 24 09/28/2023 COMPL ETE BLOOD COUNT % neutrophils 59.6 % 42.0-7 8.0 normal Not Available [facility] [address] [place] [address], [address], 09/28/2023 20:18:17 09/28/19 24 09/28/2023 COMPL ETE BLOOD COUNT % lymphocytes 31.3 % 11.0-4 7.0 normal Not Available [facility] [address] [place] [address], [address], 09/28/2023 20:18:17 09/28/19 24 09/28/2023 COMPL ETE BLOOD COUNT % monocytes 6.4 % 0.0-11 .0 normal Not Available [facility] [address] [place] [address], [address], 09/28/2023 20:18:17 09/28/19 24 09/28/2023 COMPL ETE BLOOD COUNT % eosinophils 1.8 % 0.0-7. 0 normal Not Available [facility] [address] [place] [address], [address], 09/28/2023 20:18:17 09/28/19 24 09/28/2023 COMPL ETE BLOOD COUNT % basophils 0.9 % 0.0-3. 0 normal Not Available [facility] [address] [place] [address], [address], 09/28/2023 20:18:17 09/28/19 24 09/28/2023 COMPL ETE BLOOD COUNT nucleated red cells 0.0 % 0.0-0. 9 normal Not Available [facility] [address] [place], [address], 09/28/2023 20:18:17 09/28/19 24 09/28/2023 COMPL ETE BLOOD COUNT nucleated RBCs, absolute 0.00 10*3/ uL not estab. normal Not Available [facility] [address] [place], [address], 09/28/2023 20:18:17 06/17/19 20 06/16/2019 XR, knee, 4 or more view No observ ation record ed. [email or web address] [place] [address] (Main) 1 [facility] , [place], [address], 06/17/2019 16:35:45 11/30/19 24 10/28/[address] or place ment (PROC ) No observ ation record ed. BARCODE Not Available 2023 10:26:12 02/09/20 24 02/09/2024 XR, shoul justin, 2 or more view No observ ation record ed. [email or web address] [facility] (Med Record) [address], [place], [address], 02/11/2024 08:22:04 Result Notes None recorded. Problems Name Problem SNOMED Code Status Onset Date Resolution Date Notes Provider Name and Address Organization Details Recorded Time Pain in left knee Active 2019 Pamela reno, [facility] 0 13:57:38 Chronic pain syndrome 370465188 Active 2023 JINA HEARN MD [address] [place] [address], [address] , [facility] 4 07:59:28 Allergic rhinitis 68071697 Active 2023 JINA HEARN MD [address] [place] [address], [address], [facility] 4 10:05:01 Mild intermitte nt asthma 519656085 Active 2023 JINA HEARN MD [address] [place] [address], [address], [facility] 4 10:05:28 Obsessive- compulsive disorder 206411718 Active 2023 JINA HEARN MD [address] [place] [address], [address], [facility] 4 10:06:05 Vitamin D deficiency 07759175 Active 2023 JINA HEARN MD [address] [place] [address], [address], [facility] 4 10:14:21 Cobalamin deficiency 245870430 Active 2023 JINA HEARN MD [address] [place] [address], [address], [facility] 4 10:14:26 Iron deficiency anemia 18654156 Active 2023 JINA HEARN MD [address] [place] [address], [address], [facility] 4 10:14:30 Palpitatio ns 36633814 Active 2023 JINA HEARN MD [address] [place] [address], [address], [facility] 4 10:14:53 History of vasculitis 007722038 Active 2023 History of IgA vasculitis JINA HEARN MD [address] [place] [address], [address], [facility] 4 10:36:16 Problem Notes None recorded. Procedures Surgical History Date Name Laterality Status Provider Name and Address Organization Details Recorded Time 06/18/19 24 Most Recent Mammogram completed JINA HEARN MD [address] [place] [address], [address], [facility] 09/25/2023 08:01:05 06/23/19 20 Injection - Joint/Bursa, Major completed C KEY CRUZ PA-C [address] [place], [address], [facility] 06/23/2019 14:15:47 Total Hysterectomy completed [facility] 10/03/2023 16:13:55 Tonsillectomy completed [facility] 10/03/2023 16:14:03 Tubal Ligation completed [facility] 10/03/2023 16:14:10 section completed [facility] 10/03/2023 16:14:20 Imaging Results None recorded. Procedure Notes None recorded. Medical Equipment None Reported. Allergies Allergen ID Allergen Name Allergen Category Reaction Reaction Severity Criticality Documentation Date Start Date Code Code System Note Provider Name and Address Organization Details Recorded Time 617569 Zanaflex medicatio n vomiting Not available Not available 09/28/2023 54047 6 [facility] 4 09:54:02 465394 acetamino phen / oxycodone medicatio n Not available Not available Not available 09/28/2023 89982 3 RxNorm anxio [facility] 4 09:54:26 Medications Name Sig Start [...] Updated DateTime 06/23/2019 162.56 cm 24 kg/m2 31722.93 g Pamela [email or web address] [facility] 06/23/2019 13:55:41 Date Recorded Body weight Body mass index (BMI) Body height Body temperature Heart rate Oxygen saturation Oxygen saturation in Arterial blood by Pulse oximetry Systolic And Diastolic Provider Name and Address Organization Details Last Updated DateTime 4 45371.6 2 g 26.5 kg/m2 162.56 cm 97.1 [degF] 64 /min 98 % 98 % 122/78 mm[Hg] Joana Gonzáles [facility] 4 10:01:06 Date Recorded Body height Body mass index (BMI) Body weight Body temperature Heart rate Oxygen saturation Oxygen saturation in Arterial blood by Pulse oximetry Systolic And Diastolic Provider Name and Address Organization Details Last Updated DateTime 4 162.56 cm 27.2 kg/m2 71968.3 9 g 97.1 [degF] 68 /min 99 % 99 % 128/76 mm[Hg] Joana Gonzáles [facility] 4 10:51:50 Social History Question Answer Notes LastModified by Organizat ion Details LastModified Time Tobacco Smoking Status [email or web address] 13:57:46 What Is Your Level Of Caffeine Consumption? None Information not available 06/23/2019 How Much Tobacco Do You Chew? None [email or web address] Information not available 06/23/2019 What Is The Highest Grade Or Level Of School You Have Completed Or The Highest Degree You Have Received? [id number] Information not available 10/03/2023 Date Of Injury: 02/2019 [email or web address] Informati on not available 06/23/2019 Have You Been Treated For This Problem Before? Yes [email or web address] Information not available 06/23/2019 Will This Be Filed As Workers' Compensation? No [email or web address] Information not available 06/23/2019 What Was The Date Of Your Most Recent Tobacco Screening? 09/28/2023 Information not available 09/28/2023 How Many Children Do You Have? 2 Information not available 10/03/2023 What Is Your Relationship Status? Information not available 10/03/2023 Has Tobacco Cessation Counseling Been Provided? No Information not available 09/28/2023 Work Related Injury? No [email or web address] Information not available 06/23/2019 Sex: Unknown Functional Status Question Answer Note LastModified by Organizat ion Details LastModified Time Do you use any illicit or recreational drugs? No [email or web address] Information not available 06/23/2019 Do you or have you ever used any other forms of tobacco or nicotine? No Information not available 09/28/2023 What is your level of alcohol consumption? None Information not available 06/23/2019 Are you currently employed? No Information not available 10/03/2023 Do you or have you ever used e-cigarettes or vape? Never used electronic cigarettes [email or web address] Information not available 06/23/2019 Mental Status None recorded. Family History Relationship Description Onset Age of this Age Resolved Age Notes LastModified by Organization Details LastModified Time Father No current problems or disability [email or web address] Not available 06/22 13:57:42 Mother No current problems or disability [email or web address] Not available 06/22 13:57:42 Mother Asthma Not [...] Condition Response Arthritis Y Kidney Stones Y Blood Transfusion Y Asthma Y Gynecological History Statement/Question Response Date of Last Pap Smear Date of Last Mammogram Date of Last Colonoscopy Most Recent Mammogram 06/18/2023 # of Births 2 Obstetrics History GPAL:G 0 P 0 0 0 0 Immunizations Vaccine Type Date Status Note Provider Nam e and Address Organization Details Recorded Time Influenza, MDCK, quadrivalent, PF 11/13/2018 completed Joana Gonzáles [facility] 09/28/2023 09:51:38 COVID-19, mRNA, LNP-S, PF, 30 mcg/0.3 mL dose 05/01/2020 completed Joana Gonzáles [facility] 09/28/2023 09:51:38 COVID-19, mRNA, LNP-S, PF, 30 mcg/0.3 mL dose 05/21/2020 completed Joana Gonzáles [facility] 09/28/2023 09:51:38 Influenza, split virus, quadrivalent, PF 11/26/2017 completed Joana Gonzáles [facility] 09/28/2023 09:51:38 Influenza, split virus, quadrivalent, PF 12/10/2019 completed Joana Gonzáles [facility] 09/28/2023 09:51:38 Past Encounters Encounter ID Performer Location Encounter Start Date Encounter Closed Date Diagnosis/Indication Diagnosis SNOMED-CT Code Diagnosis ICD10 Code Diagnosis IMO Codes Diagnosis Note [id number] Ludin CRUZ PA-C [facility] [address] [address] 06/23/2019 13:43:25 06/23/2019 14:36:33 Knee pain 27014481 M25.569 knee pain status post fall. possible [...] Otherwise I would follow-up with her she. [id number] JINA HEARN MD [facility] [address] [place] [address] 09/28/2023 09:46:31 09/28/2023 10:35:35 Obsessive-compulsive disorder 796253578 F42.9 Patient identified triggers for anxiety and impact of anxiety and anxious thinking on functionin g. Discussed strategies to regulate symptoms and compliance with treatment. We discussed trial of duloxetine to see if that would also help with her chronic pain syndrome. She will follow-up in 1 month or sooner if needed. Endocrine/ metabolic screening 653753044 Z13.228 Vitamin D deficiency 347 05289 E55.9 Cobalamin deficiency 190 469289 E53.8 Screening for cardiovascular system disease [id number] Z13.6 Diabetes m ellitus screening 927703881 Z13.1 Body mass index 25-29 - overweight 240269437 Z68.26 Iron defic iency anemia 94026361 D50.9 Palpitations 39727192 R0 0.2 ER precaution s discussed. Will place Holter monitor [id number] JINA HEARN MD PRIMARY CARE [address] [place] [address] 10/29/2023 10:43:41 10/29/2023 10:59:03 Obsessive-compulsive disorder [id number] F42.9 Patient identified triggers for anxiety and impact of anxiety and anxious thinking on functionin g. Discussed strategies to regulate symptoms and compliance with treatment. Psych appointmen t Nov 12. States unable to tolerate duloxetine due to side effects. She is frustrated about trial and error approach of medication management . She would like to wait to see psychiatry on November 12. Palpitations 20276970 R0 0.2 ER precaution s discussed. Pending [...] ID Guarantor Name 10/26/2023 1 [employer] [id number] Eric Alamo [id number] 20 Dayna Alamo Notes Date Note Type [...] surgeries on this knee. Ludin CRUZ PA-C [facility] [place], [address], [facility] 06/23/2019 14:34:26 09/28/2023 text/html Presents to establish [...] deficiency in the past. JINA HEARN MD [facility] [place], [address], [facility] 09/28/2023 10:40:49 10/29/2023 text/html Presents to follow-up [...] pending at this time. JINA HEARN MD [facility] [place], [address], [facility] 10/29/2023 11:02:00 OBGyn Episode No OBEpisode recorded.
--- OUTSIDE RECORDS SUMMARY | 2024-12-31 16:15 | XMS_ITS | Encounter Summary ---
Author Organization [employer] ([place], [place], [place], [place], [place]) Address [address] [place] [address] Care Team Providers Care Block Setter Gypsum Name Role Phone Landon James MD Primary Care Provider [phone] Encounter Details Date Type Department Care Team (Late st Contact Info) Description 03/24/2019 Transcribed Document [facility] [place] Family [place] [facility] [place] [address] ProviderLuh MD [address] [place] [address] Social History Tobacco Use Types Packs/Day Years Used Date Smoking Tobacco: Never Assessed Comments Unknown Sex and Gender Information Value Date Recorded Sex Assigned at Not on file Legal Sex Female 5:38 PM CDT Gender Identity Not on file Sexual Orientation Not on file documented as of this encounter Miscellaneous Notes * Cerner Conversion Note - Luh Oliveros MD - 03/24/2019 1:48 PM ONLINE EDUCATION MANAGER DATE OF ADMISSION: 03/24/2019 HISTORY OF PRESENT [...] also scheduled the patient for neurologist and senior wealth advisor consult, and she has followup with them. [...] I am awaiting for the results of senior wealth advisor and neurologist recommendations. to give me more idea about her peripheral joint and nerve issue and problem. 5. I am going to see the patient after 3 months to re-evaluate her. /[id number] Gadiel Anaya MD, JULIO C Pain Certified KR/JOE / ELAINE / MODL CC: Anthony Pritchett MD Electronically signed by [facility], [facility] Conversion Art Museum Aide Cerner at 06/01/2022 10:04 AM CDT documented in this encounter Plan of Treatment Not on file documented as of this encounter Visit Diagnoses Not on filedocumented in this encounter Care Teams Block Setter Gypsum Relationship Specialty Start Date End Date Landon James MD [address] [place] [address] PCP - General Family Medicine 08/29/24 documented as of this encounter
--- OUTSIDE RECORDS SUMMARY | 2024-12-31 16:15 | XMS_ITS | Encounter Summary ---
Author Organization [employer] ([place], [place], [place], [place], [place]) Address [address] [place] [address] Care Team Providers Care Shearing Machine Tender Name Role Phone Landon James MD Primary Care Provider [phone] Encounter Details Date Type Department Care Team (Late st Contact Info) Description 11/17/2019 Transcribed Document [facility] [place] [facility] [place] [address] ProviderLuh MD [address] [place] [address] Social History Tobacco Use Types Packs/Day Years [...] visit and the patient has been afebrile. /[id number] Suzan Maharaj APRN HUMBERTO/AQ / HUMBERTO / MODL CC: Anthony Pritchett MD documented in this encounter Plan of Treatment Not on file documented as of this encounter Visit Diagnoses Not on filedocumented in this encounter Care Teams Shearing Machine Tender Relationship Specialty Start Date End Date Landon James MD [address] [place] [address] PCP - General Family Medicine 08/29/24 documented as of this encounter
--- OUTSIDE RECORDS SUMMARY | 2024-12-31 16:15 | XMS_ITS | Encounter Summary ---
Author Organization [employer] ([place], [place], [place], [place], [place]) Address [address] [place] [address] Care Team Providers Care News Photographer Name Role Phone Lanodn James MD Primary Care Provider [phone] Encounter Details Date Type Department Care Team (Late st Contact Info) Description 12/15/2019 Transcribed Document [facility] [place] Family [place] [facility] [place] [address] ProviderLuh MD [address] [place] [address] Social History Tobacco Use Types Packs/Day Years Used Date Smoking Tobacco: Never Assessed Comments Unknown Sex and Gender Information Value Date Recorded Sex Assigned at Not on file Legal Sex Female 5:38 PM CDT Gender Identity Not on file Sexual Orientation Not on file documented as of this encounter Miscellaneous Notes * Cerner Conversion Note - Luh Oliveros MD - 12/15/2019 1:21 PM POT HOLDER BINDER DATE OF ADMISSION: 12/15/2019 HISTORY OF PRESENT [...] visit and the patient has been afebrile. /[id number] Suzan Maharaj APRN HUMBERTO/AQ / HUMBERTO / MODL CC: Anthony Pritchett MD Electronically signed by [facility] Conversion Weigher Alloy Lucas at 06/01/2022 10:21 AM CDT documented in this encounter Plan of Treatment Not on file documented as of this encounter Visit Diagnoses Not on filedocumented in this encounter Care Teams News Photographer Relationship Specialty Start Date End Date Landon James MD [address] [place] [address] PCP - General Family Medicine 08/29/24 documented as of this encounter
--- OUTSIDE RECORDS SUMMARY | 2024-12-31 16:15 | XMS_ITS | Encounter Summary ---
Author Organization [employer] ([place], [place], [place], [place], [place]) Address [address] [place] [address] Care Team Providers Care Programmer Business Name Role Phone Landon James MD Primary Care Provider [phone] Encounter Details Date Type Department Care Team (Late st Contact Info) Description 07/03/2019 Transcribed Document [facility] [place] [facility] [place] [address] ProviderLuh MD [address] [place] [address] [id number] Social History Tobacco Use Types Packs/Day Years [...] any signs and symptoms related to COVID-19. /[id number] Gadiel Anaya MD, JULIO C Pain Certified KR/JOE / KR / MODL CC: Dr. Anthony Pritchett Electronically signed by [facility], [facility] Conversion Event Promoter Cerner at 06/01/2022 10:24 AM CDT documented in this encounter Plan of Treatment Not on file documented as of this encounter Visit Diagnoses Not on filedocumented in this encounter Care Teams Programmer Business Relationship Specialty Start Date End Date Landon James MD [address] [place] [address] PCP - General Family Medicine 08/29/24 documented as of this encounter
--- OUTSIDE RECORDS SUMMARY | 2024-12-31 16:15 | XMS_ITS | Continuity of Care Document ---
Author Organization [facility] [address] [facility] Address [address] [place] [address] Assessment No assessment recorded. Plan of Treatment Reminders Order Date Submit Date Provider Last Modified By Organization Details Last Modified Time Details Appointments None record ed. Lab None record ed. Referral None record ed. Procedures None record ed. Surgeries None record ed. Imaging None record ed. Medication Orders None record ed. Patient TargetsNo targets recorded. Patient Instructions Encounter Date Encounter Id Patient Instructions Last Modified By Organization Details Last Modified Time 11/10/2024 [id number] Patient presente d for medication refill. Patient tolerating medication well at current dose without adverse effects. Refilled as below. Discussed plan with patient, who expressed understanding. Follow up as noted below. Patient seen today incident to a physician s previously established diagnosis and plan of care. Follow-up care provided today under the plan of care of: Gadiel Anaya MD and supervision of: Alexey Resendez MD. Patient seen in office today for a nursing visit. The service is preformed by Justin Vega, Lead Receiving Weigher. [email or web address] Not available 11/10/2024 10:43:08 Reason for Referral None Reported. Problems Name Problem SNOMED Code Status Onset Date Resolution Date Notes Provider Name and Address Organization Details Recorded Time Opioid dependenc e 33947047 Active 2020 (F11.20)O pioid dependenc e, uncomplic ated Not Available [facility] 2 23:01:33 Chronic pain following trauma 214932776 Active 2020 (G89.21)C hronic pain due to trauma Not Available [facility] 2 23:01:33 Long-term current use of opiate analgesic drug 94951707737 4108 Active 2020 (z79.891) meterman (current) use of opiate analgesic Not Available [facility] 2 23:01:34 Complex regional pain syndrome, type II, lower limb 188447092 Active 2020 (G57.72)C ausalgia of left lower limb Not Available [facility] 2 23:01:33 Pain of right shoulder joint 42695775359 376205 Active 2020 (M25.511) Pain in right shoulder Not Available [facility] 2 23:01:33 Muscle pain 36368932 Active 2020 (M79.10)M yalgia, unspecifi ed site Not Available [facility] 2 23:01:33 Lumbosacr al radiculop athy 5778562 Active 2021 (M54.16)R adiculopa thy, lumbar region Not Available [facility] 2 23:01:33 Spasm 62793589 Active 2021 Suzan reno, [facility] 2 09:27:37 Myofascia l pain syndrome of neck 104325027 Active 2023 Gadiel Anaya MD [address], [place], [address] , [facility] 4 12:02:53 Greater trochante ricardo pain syndrome 3052188 Active 2023 Gadiel Anaya MD [address], [place], [address] , [place] [facility] 4 11:16:14 Trochante ricardo bursitis of left hip 98199563566 9103 Active 2023 Gadiel Anaya MD [address], [place], [address] , [facility] 4 13:02:04 Cervical spondylos is without myelopath y 648658847 Active 2023 MD [address], [place], [address] , [facility] 4 13:02:20 Spondylos is without myelopath y 58431711 Active [address], [place], [address] , [facility] 4 13:02:40 Lumbosacr al spondylos is without myelopath y 08481902 Active [address], [place], [address] , [facility] 4 13:03:09 Complex regional pain syndrome type 1 of right lower extremity 79696622647 9109 Active 2024 MD [address], [place], [address] , [facility] 5 15:11:09 SI (sacroili ac) joint inflammat ion 14550075 Active [address], [place], [address] , [facility] 5 10:19:55 Chronic pain syndrome 623738571 Active [address], [place], [address] , [facility] 5 14:25:37 Spondylos is of lumbar spine 714376286 Active [address], [place], [address] , [facility] 5 14:31:05 Notes:Crushing injury of lef t foot, Sequela - Problem Code: S97.82S Crushing injury of left ankle, Sequela - Problem Code: S97.02S Problem Notes None recorded. Procedures Surgical History Date Name Laterality Status Provider Name and Address Organization Details Recorded Time 10/08/19 24 Greater Trochanteric Bursa Steroid Injection completed Gadiel Anaya MD [address] [place], [address], [facility] 10/08/2023 13:01:51 06/28/19 24 Trigger Point Steroid Injections completed Gadiel Anaya MD [address] [place], [address], [facility] 06/28/2023 12:02:44 Imaging Results None recorded. Procedure Notes None recorded. Medical Equipment None Reported. Allergies Allergen ID Allergen Name Allergen Category Reaction Reaction Severity Criticality Documentation Date Start Date Code Code System Note Provider Name and Address Organization Details Recorded Time 75564 Zanaflex medicatio n Not available Not available Not available 06/14/20212020 27967 6 RxNorm Not Available [facility] 2 22:02:12 25786 andrew extract food,medi cation Not available Not available Not available 06/14/20212020 63603 1 RxNorm Not Available [facility] 2 22:02:12 Medications Name Sig Start Date Stop Date Status Note LastModified by Organization Details LastModified Time PainGel2 Apply 1-2 grams to affected area 3-4 times a day 04/29 completed Not Available Not Available Not Available Neuropath ic Pain Cream 4 Apply 1-2 gm to the affected area 3-4 times a day 2024 active Not Available Not Available Not [...] Not Available Not Available No t Available ketamine gabapenti n lidocaine amitripty line [...] affected ardea 3-4 times daily 2024 active Per Pt. [facility] Not Available Not Available Not Available Neuropath [...] grr Not Available Not Available Not Available compounde d medicatio n Apply 1-2 gm to the affected area 3-4 times a day 2024 active Spoke to Baldemar at the pharmacy and he took a verbal over the phone. grr Not Available Not Available Not Available amoxicill in 500 mg capsule TAKE 1 CAPSULE BY MOUTH 3 TIMES A DAY active Not Available Not Available No t Available promethaz ine-DM 6.25 mg-15 mg/5 mL [...] ne 5 mg-acetam inophen 325 mg tablet TAKE 1 TABLET BY MOUTH DAILY NEEDED active Not Available Not Available No t Available meloxicam 15 mg tablet active Not Available [...] Not Available Not Available No t Available ondansetr on 8 mg disintegr ating tablet DISSOLVE 1 TABLET ON THE TONGUE EVERY 8 HOURS NEEDED FOR NAUSEA OR VOMITING active Not Available Not Available No t Available oxycodone -acetamin ophen 5 mg-325 mg tablet TAKE ONE TABLET BY MOUTH EVERY 4 TO 6 HOURS NEEDED FOR PAIN MAY CAUSE DROWSINE SS active Not Available Not Available No t [...] 4 mg disintegr ating tablet DISSOLVE 1 tablet ON THE TONGUE EVERY 8 HOURS NEEDED FOR NAUSEA AND VOMITING active Not Available Not Available No t [...] completed Not Available Not Available Not Available [facility] Vaccine (PF) 30 mcg/0.3 mL IM susp (purple) 08/08 completed Not Available Not Available Not Available Vitals Date Recorded Body height Body mass index (BMI) Body weight Body temperature Heart rate Respiratory rate Systolic And Diastolic Provider Name and Address Organization Details Last Updated DateTime 5 167.64 cm 26.5 kg/m2 42507.1 5 g 97.9 [degF] 68 /min 16 /min 109/74 mm[Hg] [facility] 5 10:25:07 Social History None recorded. Functional Status None recorded. Mental Status None recorded. Family History Nothing Reported. Medical History No medical history recorded. Gynecological HistoryNo gynecological history recorded. Obstetrics History GPAL:G 0 P 0 0 0 0 Past Encounters Encounter ID Performer Location Encounter Start Date Encounter Closed Date Diagnosis/Indication Diagnosis SNOMED-CT Code Diagnosis ICD10 Code Diagnosis IMO Codes Diagnosis Note [id number] Alexey Resendez MD [facility] [address] [address] 11/10/2024 10:14:34 11/13/2024 11:20:03 Lumbar spondylosis 360206625 M47.816 89373555 Lumbosacra l radiculopathy 6742987 M54.16 Cervical s pondylosis without myelopathy 608686968 M47.812 Complex re gional pain syndrome type I of right lower limb 8122080744 27257 G90.521 97008913 Health Concerns Section Related Observation LastModified by Organization Detai ls LastModified Time None Recorded Concern Status LastModified by Organization Details LastModified Time None Recorded Payers Encounter Date Sequence Insurance Name Policy Number Policy Wisdom Covered Member ID Wisdom Member ID Guarantor Name 11/10/2024 1 [place] [id number] Eric Cally [id number] 20 Dayna Alamo Notes Date Note Type Note Provider Name and Address Organization Details Recorded Time 11/10/2024 text/html Patient presents for medication refill. Patient states meds are working. Patient states pain is pain is the same. Patient has UDS without metabolites. In reviewing Reji Pt picked up her script over 2 weeks late due to second script not being sent. Pt is on Hydrocodone 5's once a day. This makes the urine appropriate. Alexey Resendez MD [address] [facility], [place], [address], [facility] 11/11/2024 16:28:04 OBGyn Episode No OBEpisode recorded.
--- OUTSIDE RECORDS SUMMARY | 2024-12-31 16:15 | XMS_ITS | Encounter Summary ---
Author Organization [employer] ([place], [place], [place], [place], [place]) Address [address] [place] [address] Care Team Providers Care Prosthetics Lab Technician Name Role Phone Landon James MD Primary Care Provider [phone] Encounter Details Date Type Department Care Team (Late st Contact Info) Description 08/25/2019 Transcribed Document [facility] [place] Family Medicine [facility] [address] ProviderLuh MD [address] [place] [address] Social History Tobacco Use Types Packs/Day Years [...] medications for this patient's treatment plan today. /[id number] ADITYA Knight/AQ / HUMBERTO / MODL CC: Anthony Pritchett MD documented in this encounter Plan of Treatment Not on file documented as of this encounter Visit Diagnoses Not on filedocumented in this encounter Care Teams Prosthetics Lab Technician Relationship Specialty Start Date End Date Landon James MD [address] [place], [facility] [address] PCP - General Family Medicine 08/29/24 documented as of this encounter
--- OUTSIDE RECORDS SUMMARY | 2024-12-31 16:15 | XMS_ITS | Encounter Summary ---
Author Organization [employer] ([place], [place], [place], [place], [place]) Address [address] [place] [address] Care Team Providers Care Developing Machine Operator Name Role Phone Landon James MD Primary Care Provider [phone] Encounter Details Date Type Department Care Team (Late st Contact Info) Description 02/24/2019 Transcribed Document [facility] [place] [facility] [place] [address] ProviderLuh MD [address] [place] [address] Social History Tobacco Use Types Packs/Day Years Used Date Smoking Tobacco: Never Assessed Comments Unknown Sex and Gender Information Value Date Recorded Sex Assigned at Not on file Legal Sex Female 5:38 PM CDT Gender Identity Not on file Sexual Orientation Not on file documented as of this encounter Miscellaneous Notes * Cerner Conversion Note - Historical MD Domo - 02/24/2019 3:39 PM BOILER SHOP MECHANIC DATE OF ADMISSION: 02/24/2019 SUBJECTIVE: This is [...] reason, we scheduled her to see a electric needle specialist and neurologist. She is going to see Rheumatology on March 05, 2019. We also sent her to see at the [facility] neurologist and they are going to see [...] and then readjust the dose after that. /[id number] Gadiel Anaya MD, JULIO C Pain Certified KR/JOE / ELAINE / MODL CC: Anthony Pritchett MD Electronically signed by Derek Hayward Conversion Supervisor Slashing Department Cerner at 06/01/2022 10:10 AM CDT documented in this encounter Plan of Treatment Not on file documented as of this encounter Visit Diagnoses Not on filedocumented in this encounter Care Teams Developing Machine Operator Relationship Specialty Start Date End Date Landon James MD [address] [place] [phone] PCP - General Family Medicine 08/29/24 documented as of this encounter
--- OUTSIDE RECORDS SUMMARY | 2024-12-31 16:15 | XMS_ITS | Data Portability ---
Author Organization [facility] [employer] - [facility]zia Res[facility] Address [address] [place] [id number] Assessment No assessment recorded. Plan of Treatment Reminders Order Date Submit Date Provider Last Modified By Organization Details Last Modified Time Details Appointments None recorded. Lab drug screen, urine - Meds:v gabapentin hydrocodone ss 2024 025 SHAHRIAR Resendez MD [facility] (In House Lab), [address] [place] [address], [address], 5 12:47:13 CBC w/ auto diff 2024 025 SHAHRIAR Resendez MD [facility] (In House Lab), [address] [place] [address], [address], 5 16:40:08 hepatic function panel, serum 2024 025 SHAHRIAR Resendez MD [facility] (In House Lab), [address] [place] [address], [address], 5 16:40:08 gamma-gluta myl transferase (ggt), serum 2024 025 SHAHRIAR Resendez MD [facility] (In House Lab), [address] [place] [address], [address], 5 16:40:09 venipunctur e 2024 025 SHAHRIAR Resendez MD [facility] (In House Lab), [address], [place], [address], 5 16:40:07 drug screen, urine - Meds: norco gabapentin 2024 025 john Resendez MD [facility] (In House Lab), [address], [place], [address], 5 10:42:38 drug screen, urine - Meds: norco gabapentin 2023 025 SHAHRIAR Resendez MD [facility] (In House Lab), [address] , [place], [address], 5 15:57:15 CBC w/ auto diff 2023 025 john Resendez MD [facility] (In House Lab), [address] [place], [place] [address] [place], [address], 11:53:35 hepatic function panel, serum 2023 025 john Resendez MD [facility] (In House Lab), [address] , [place], [address], 5 11:53:35 gamma-gluta myl transferase (ggt), serum 2023 025 john Resendez MD [facility] (In House Lab), [facility] [address] , [place], [address], 11:53:35 venipunctur e 2023 025 john Resendez MD [facility] (In House Lab), [facility] [place], [address], 11:53:35 Referral None recorded. Procedures None recorded. Surgeries None recorded. Imaging None recorded. Medication Orders hydrocodone 5 mg-acetamin ophen 325 mg tablet 2024 025 [facility], [address], [place], [id number], 5 14:48:31 hydrocodone 5 mg-acetamin ophen 325 mg tablet [email or web address] [facility]99624, [address], [place], [id number], 5 10:48:04 gabapentin 300 mg capsule 2024 025 [facility] #26856, [address], [place], [id number], 5 14:48:32 hydrocodone 5 mg-acetamin ophen 325 mg tablet 2024 025 [facility] #96307, [address], [place], [id number], 5 14:32:00 compounded medication 2024 025 [facility] #96846, [address], [place], [id number], 5 14:32:01 gabapentin 300 mg capsule 2024 025 [facility] #71069, [address], [place], [id number], 5 14:32:01 hydrocodone 5 mg-acetamin ophen 325 mg tablet 2024 025 [facility] #27508, [address], [place], [id number], 5 14:32:10 hydrocodone 5 mg-acetamin ophen 325 mg tablet 2024 025 [facility] #29999, [address], [place], [id number], 5 12:41:01 gabapentin 300 mg capsule 2024 025 [facility] #34483, [address], [id number], 5 12:41:00 hydrocodone 5 mg-acetamin ophen 325 mg tablet 2024 025 [facility] #93949, [address], [id number], 5 12:40:59 gabapentin 300 mg capsule 2024 025 [facility], [address] [place] [address], [address], 5 14:33:18 hydrocodone 5 mg-acetamin ophen 325 mg tablet 2024 025 [facility], [address] [place] [address], [address], 5 14:33:15 hydrocodone 5 mg-acetamin ophen 325 mg tablet 2024 025 [facility], [address] [place] [address], [address], 5 14:33:10 Neuropathic Pain Cream 3 2024 025 [facility], [address], [place], [address], 5 14:31:32 Patient Targets Encounter Date Encounter Id Patient Goals Patient Target Last Modified By Organization Details Last Modified Time 09/10/2024 [id number] . [email or web address] Not available 08/14 13:12:30 Patient Instructions Encounter Date Encounter Id Patient Instructions Last Modified By Organization Details Last Modified Time 05/05/2024 [id number] 1. continue healthy lifestyles 2. stretching/yoga/wa lking as tolerated 3. take pain medications as prescribed 4. call with any concerns [email or web address] Not available 05/05/2024 11:56:02 Patient seen tod ay incident to a physician s previously established diagnosis and plan of care. Follow-up care provided today under the plan of care of: Gadiel Anaya MD and supervision of: Alexey Resendez MD. Not available 05/05/2024 11:56:20 09/10/[id number] 1. continue healthy lifestyles 2. stretching/yoga/wa lking as tolerated 3. take pain medications as prescribed 4. call with any concerns [email or web address] Not available 09/10/2024 13:12:33 Two ventral abdominal hernias: to be repaired by : [facility]: 10/06/24. Raquel to generate the pain cream formulation from [employer]. Patient requesting a refill of the aforementioned pain cream. Patient seen today incident to a physician s previously established diagnosis and plan of care. Follow-up care provided today under the plan of care of: Gadiel Anaya MD and supervision of: Daylin Velasquez MD. [email or web address] Not available 09/10/2024 13:16:39 11/10/[id number] Patient presente d for medication refill. Patient [...] service is preformed by Justin Vega, Lead Blog Writer. [email or web address] Not available 11/10/2024 10:43:08 Reason for Referral None Reported. Results Created Date Observation Date Name Description Value Unit Range Abnormal Flag Note LastModifiedBy Organization Detail LastModifiedTime 03/12/1903/12/2024 GGT abnormal status high Not Available Yg Resendez MD [facility] (In House Lab) [address] [place], [address], 03/13/2024 11:37:50 03/12/19 25 03/12/2024 GGT abnormal status low Not Available Yg Res[facility] MD [facility] (In House Lab) [address] [place], [address], 03/13/2024 11:37:50 03/12/19 25 03/12/2024 GABAP ENTIN abnormal status abnormal Not Available Yg Resendez MD [facility] (In House Lab) [address] [place] [address], [address], 03/20/2024 15:57:17 03/12/19 25 03/20/2024 OPIAT E DEFIN ITIVE PANEL LC/MS codeine 0.0 NG/mL <75.0 Not Available Fauzia Resendez MD [facility] (In House Lab) [address] [place] [address], [address], 03/20/2024 15:57:16 03/12/19 25 03/20/2024 OPIAT E DEFIN ITIVE PANEL LC/MS morphine 0 NG/mL <75.0 Not Available Fauzia Resendez MD [facility] (In House Lab) [address] [place] [address], [address], 03/20/2024 15:57:16 03/12/19 25 03/20/2024 OPIAT E DEFIN ITIVE PANEL LC/MS 6-DALTON 0 NG/mL <15.0 Not Available Fauzia Resendez MD [facility] (In House Lab) [address] [place] [address], [address], 03/20/2024 15:57:16 03/12/19 25 03/20/2024 OPIAT E DEFIN ITIVE PANEL LC/MS hydromorphon e 0 NG/mL <75.0 Not Available Yg Resendez MD [facility] (In House Lab) [address] [place] [address], [address], 03/20/2024 15:57:16 03/12/19 25 03/20/2024 OPIAT E DEFIN ITIVE PANEL LC/MS hydrocodone 349.7 NG/mL <75.0 abnormal Not Available Addi Resendez MD [facility] (In House Lab) [address] [place] [address], [address], 03/20/2024 15:57:16 03/12/19 25 03/20/2024 OPIAT E DEFIN ITIVE PANEL LC/MS norhydrocodo ne 595.7 NG/mL <75.0 abnormal Not Available Yg Resendez MD [facility] (In House Lab) [address] [place] [address], [address], 03/20/2024 15:57:16 03/12/19 25 03/20/2024 GABAP ENTIN DEFIN ITIVE PANEL -LC/M S gabapentin >72593 NG/mL <5000. 0 abnormal Not Available Fauzia Resendez MD [facility] (In House Lab) [address] [place] [address], [address], 03/20/2024 15:57:16 03/12/1903/13/2024 D-PRE SUMPT FABIANA URINE DRUG REPOR T amphetamine NEGATI VE NG/mL <1000. 0 Not Available Fauzia Resendez MD [facility] (In House Lab) [address] [place] [address], [address], 03/20/2024 15:57:15 03/12/19 25 03/13/2024 D-PRE SUMPT FABIANA URINE DRUG REPOR T benzodiazepi ne <3.3 NG/mL <200.0 Curre nt metho d may not detec t low level s of Klono pin Not Available Fauzia Resendez MD [facility] (In House Lab) [address] [place] [address], [address], 03/20/2024 15:57:15 03/12/19 25 03/13/2024 D-PRE SUMPT FABIANA URINE DRUG REPOR T buprenorphin e NEGATI VE NG/mL <10.0 Not Available Fauzia Resendez MD [facility] (In House [facility]) [address] [place] [address], 08605, 03/20/2024 15:57:15 03/12/19 25 03/13/2024 D-PRE SUMPT FABIANA URINE DRUG REPOR T cannabinoid NEGATI VE NG/mL <50.0 Not Available Fauzia Resendez MD [facility] (In House Lab) [address] [place] [address], 62[address], 03/20/2024 15:57:15 03/12/19 25 03/13/2024 D-PRE SUMPT FABIANA URINE DRUG REPOR T cocaine NEGATI VE NG/mL <300.0 Not Available Fauzia Resendez MD [facility] (In House [facility]) [address] [place] [address], 15990, 03/20/2024 15:57:15 03/12/19 25 03/13/2024 D-PRE SUMPT FABIANA URINE DRUG REPOR T ethanol NEGATI VE mg/dL <50.0 Not Available Fauzia Resendez MD [facility] (In House Lab) [address] [place] [address], [address], 03/20/2024 15:57:15 03/12/19 25 03/13/2024 D-PRE SUMPT FABIANA URINE DRUG REPOR T methadone <0.8 NG/mL <300.0 Not Available Fauzia Resendez MD [facility] (In House [facility]) [address] [place] [address], [address], 03/20/2024 15:57:15 03/12/19 25 03/13/2024 D-PRE SUMPT FABIANA URINE DRUG REPOR T opiates 232.0 NG/mL <300.0 Opiat es inclu radha Codei ne,Mo rphin e, Tenmile morph one,H ydroc odone Not Available Fauzia Resendez MD [facility] (In House [facility]) [address] [place] [address], [address], 03/20/2024 15:57:15 03/12/19 25 03/13/2024 D-PRE SUMPT FABIANA URINE DRUG REPOR T oxycodone 0 NG/mL <300.0 Not Available Fauzia Resendez MD [facility] (In House [facility]) [address] [place] [address], 014[address], 03/20/2024 15:57:15 03/12/19 25 03/13/2024 D-PRE SUMPT FABIANA URINE DRUG REPOR T urine creatinine (validity test) 40.8 mg/dL 20.0 - 300.0 Not Available Fauzia Resendez MD [facility] (In House [facility]) [address] [place] [address], [address], 03/20/2024 15:57:15 03/12/19 25 03/13/2024 RENAL FUNCT ION PANEL /HEPA TIC PANEL glucose 79.0 mg/dL 74.0 - 110.0 Not Available Fauzia Resendez MD [facility] ([facility] House [facility]) [address] [place], [address], 03/13/2024 11:37:49 03/12/19 25 03/13/2024 RENAL FUNCT ION PANEL /HEPA TIC PANEL BUN 17.0 mg/dL 4.0 - 25.0 Not Available Fauzia Resendez MD [facility] ([facility] House [facility]) [address] [place], [address], 03/13/2024 11:37:49 03/12/19 25 03/13/2024 RENAL FUNCT ION PANEL /HEPA TIC PANEL creatinine 0.7 mg/dL 0.6 - 1.8 Not Available Fauzia Resendez [facility] ([facility] House [facility]) [address] [place] [address], [address], 03/13/2024 11:37:49 03/12/19 25 03/13/2024 RENAL FUNCT ION PANEL /HEPA TIC PANEL sodium 139 mEq/L 133 - 145 Not Available Fauzia Resendez MD [facility] ([facility] House [facility]) [address] [place] [address], [address], 03/13/2024 11:37:49 03/12/19 25 03/13/2024 RENAL FUNCT ION PANEL /HEPA TIC PANEL potassium 4.0 mEq/L 3.4 - 5.1 Not Available Fauzia Resendez MD [facility] ([facility]) [address] [place] [address], [address], 03/13/2024 11:37:49 03/12/19 25 03/13/2024 RENAL FUNCT ION PANEL /HEPA TIC PANEL chloride 106.6 mEq/L 93.0 - 106.0 high Not Available Fauzia Resendez MD [facility] ([facility]) [address] [place] [address], [address], 03/13/2024 11:37:49 03/12/19 25 03/13/2024 RENAL FUNCT ION PANEL /HEPA TIC PANEL eco2 25.0 mEq/L 24.6 - 35.8 Not Available Fauzia Resendez MD [facility] ([facility]) [address] [place], [address], 03/13/2024 11:37:49 03/12/19 25 03/13/2024 RENAL FUNCT ION PANEL /HEPA TIC PANEL calcium 9.1 mg/dL 8.3 - 10.1 Not Available Fauzia Resendez MD [facility] (In House Lab) [address] [place], [address], 03/13/2024 11:37:49 03/12/19 25 03/13/2024 RENAL FUNCT ION PANEL /HEPA TIC PANEL phosphorus 3.8 mg/dL 2.3 - 4.8 Not Available Fauzia Resendez MD [facility] (In House Lab) [address] [place], [address], 03/13/2024 11:37:49 03/12/19 25 03/13/2024 RENAL FUNCT ION PANEL /HEPA TIC PANEL total protein 6.9 g/dL 6.0 - 8.5 Not Available Fauzia Resendez MD [facility] (In House [facility]) [address] [place] [address], [address], 03/13/2024 11:37:49 03/12/19 25 03/13/2024 RENAL FUNCT ION PANEL /HEPA TIC PANEL albumin 4.2 g/dL 3.3 - 4.9 Not Available Fauzia Resendez MD [facility] ([facility]) [address] [place] [address], [address], 03/13/2024 11:37:49 03/12/19 25 03/13/2024 RENAL FUNCT ION PANEL /HEPA TIC PANEL ALP 44.0 U/L 46.0 - 116.0 low Not Available Fauzia Resendez [facility] ([facility]) [address] [place] [address], [address], 03/13/2024 11:37:49 03/12/19 25 03/13/2024 RENAL FUNCT ION PANEL /HEPA TIC PANEL AST 18 U/L 6 - 40 Not Available Fauzia Resendez MD [facility] ([facility]) [address] [place], [address], 03/13/2024 11:37:49 03/12/19 25 03/13/2024 RENAL FUNCT ION PANEL /HEPA TIC PANEL ALT 8 U/L 5 - 30 Not Available Fauzia Resendez MD [facility] ([facility]) [address] [place], [address], 03/13/2024 11:37:49 03/12/19 25 03/13/2024 RENAL FUNCT ION PANEL /HEPA TIC PANEL total bilirubin 0.36 mg/dL 0.00 - 1.00 Not Available Fauzia Resendez MD [facility] (In House Lab) [address] [place], [address], 03/13/2024 11:37:49 03/12/19 25 03/13/2024 RENAL FUNCT ION PANEL /HEPA TIC PANEL direct bilirubin 0.06 mg/dL 0.00 - 0.40 Not Available Fauzia Resendez MD [facility] (In House Lab) [address] [place], [address], 03/13/2024 11:37:49 03/12/19 25 03/12/2024 CBC WITH DIFFE RENTI AL/PL ATELE T WBC 5.3 10 4.0 - 11.0 Not Available Fauzia Res[facility] MD [facility] ([facility]) [address] [place], [address], 03/13/2024 11:37:49 03/12/19 25 03/12/2024 CBC WITH DIFFE RENTI AL/PL ATELE T RBC 4.09 10 3.72 - 5.52 Not Available Fauzia Res[facility] MD [facility] ([facility]) [address] [place] [address], [address], 03/13/2024 11:37:49 03/12/19 25 03/12/2024 CBC WITH DIFFE RENTI AL/PL ATELE T HGB 12.5 g/dL 11.0 - 16.6 Not Available Fauzia Resendez MD [facility] (In House Lab) [address] [place], [address], 03/13/2024 11:37:49 03/12/19 25 03/12/2024 CBC WITH DIFFE RENTI AL/PL ATELE T HCT 37.0 % 34.0 - 49.0 Not Available Fauzia Resendez MD [facility] (In House Lab) [address] [place] [address], 254[address], 03/13/2024 11:37:49 03/12/19 25 03/12/2024 CBC WITH DIFFE RENTI AL/PL ATELE T MCV 90.5 fL 79.5 - 101.0 Not Available Fauzia Resendez MD [facility] (In House Lab) [address] [place] [address], 55753, 03/13/2024 11:37:49 03/12/19 25 03/12/2024 CBC WITH DIFFE RENTI AL/PL ATELE T MCH 30.6 pg 26.2 - 34.0 Not Available Fauzia Resendez MD [facility] (In House Lab) [address] [place] [address], 907[address], 03/13/2024 11:37:49 03/12/19 25 03/12/2024 CBC WITH DIFFE RENTI AL/PL ATELE T MCHC 33.8 g/dL 31.3 - 36.0 Not Available Fauzia Resendez MD [facility] (In House Lab) [address] [place], [address], 03/13/2024 11:37:49 03/12/19 25 03/12/2024 CBC WITH DIFFE RENTI AL/PL ATELE T plt 182 10 115 - 421 Not Available Fauzia Resendez MD [facility] (In House Lab) [address] [place] [address], 42[address], 03/13/2024 11:37:49 03/12/19 25 03/12/2024 CBC WITH DIFFE RENTI AL/PL ATELE T RDW-CV 12.3 % 11.3 - 16.1 Not Available Fauzia Resendez MD [facility] (In House Lab) [address] [place] [address], 12498, 03/13/2024 11:37:49 03/12/19 25 03/12/2024 CBC WITH DIFFE RENTI AL/PL ATELE T neut# 3.63 10 0.81 - 9.65 Not Available Fauzia Resendez MD [facility] (In House [facility]) [address] [place] [address], 687[address], 03/13/2024 11:37:49 03/12/19 25 03/12/2024 CBC WITH DIFFE RENTI AL/PL ATELE T lymph# 1.28 10 0.65 - 4.81 Not Available Fauzia Resendez MD [facility] (In House [facility]) [address] [place] [address], 22380, 03/13/2024 11:37:49 03/12/19 25 03/12/2024 CBC WITH DIFFE RENTI AL/PL ATELE T mono# 0.25 10 0.10 - 1.13 Not Available Fauzia Resendez MD [facility] (In House [facility]) [address] [place] [address], 66987, 03/13/2024 11:37:49 03/12/19 25 03/12/2024 CBC WITH DIFFE RENTI AL/PL ATELE T eo# 0.09 10 0.00 - 0.50 Not Available Fauzia Resendez MD [facility] (In House [facility]) [address] [place] [address], 72092, 03/13/2024 11:37:49 03/12/19 25 03/12/2024 CBC WITH DIFFE RENTI AL/PL ATELE T baso# 0.01 10 0.00 - 0.09 Not Available Fauzia Resendez MD [facility] ([facility]) [address] [place] [address], 36960, 03/13/2024 11:37:49 03/12/19 25 03/12/2024 CBC WITH DIFFE RENTI AL/PL ATELE T neut% 69.0 % 37.2 - 78.0 Not Available Fauzia Resendez MD [facility] (In House Lab) [address] [place], [address], 03/13/2024 11:37:49 03/12/19 25 03/12/2024 CBC WITH DIFFE RENTI AL/PL ATELE T lymph% 24.3 % 13.4 - 50.2 Not Available Fauzia Resendez MD [facility] (In House Lab) [address] [place] [address], 47[address], 03/13/2024 11:37:49 03/12/19 25 03/12/2024 CBC WITH DIFFE RENTI AL/PL ATELE T mono% 4.8 % 3.4 - 12.0 Not Available Fauzia Resendez MD [facility] (In [facility]) [address] [place] [address], 35004, 03/13/2024 11:37:49 03/12/19 25 03/12/2024 CBC WITH DIFFE RENTI AL/PL ATELE T eo% 1.7 % 0.0 - 7.0 Not Available Fauzia Resendez MD [facility] (In [facility]) [address] [place] [address], 62004, 03/13/2024 11:37:49 03/12/19 25 03/12/2024 CBC WITH DIFFE RENTI AL/PL ATELE T baso% 0.2 % 0.0 - 3.0 Not Available Fauzia Resendez MD [facility] (In House [facility]) [address] [place], [address], 03/13/2024 11:37:49 09/11/19 25 09/10/2024 GGT abnormal status low Not Available Yg Resendez MD [facility] (In House Lab) [address] [place] [address], 48440, 09/10/2024 16:40:08 09/11/19 25 09/10/2024 GABAP ENTIN abnormal status abnormal Not Available Yg Resenedz MD [facility] ([facility]) [address] [place] [address], 96270, 09/15/2024 12:47:14 09/11/19 25 09/10/2024 RENAL FUNCT ION PANEL /HEPA TIC PANEL glucose 70.0 mg/dL 74.0 - 110.0 low Not Available Fauzia Resendez MD [facility] ([facility]) [address] [place] [address], 21117, 09/10/2024 16:40:08 09/11/19 25 09/10/2024 RENAL FUNCT ION PANEL /HEPA TIC PANEL BUN 10.0 mg/dL 4.0 - 25.0 Not Available Fauzia Resendez MD [facility] ([facility]) [address] [place] [address], 24166, 09/10/2024 16:40:08 09/11/19 25 09/10/2024 RENAL FUNCT ION PANEL /HEPA TIC PANEL creatinine 0.7 mg/dL 0.6 - 1.8 Not Available Fauzia Resendez MD [facility] ([facility]) [address] [place] [address], 01452, 09/10/2024 16:40:08 09/11/19 25 09/10/2024 RENAL FUNCT ION PANEL /HEPA TIC PANEL sodium 138 mEq/L 133 - 145 Not Available Fauzia Resendez MD [facility] ([facility]) [address] [place] [address], 02195, 09/10/2024 16:40:08 09/11/19 25 09/10/2024 RENAL FUNCT ION PANEL /HEPA TIC PANEL potassium 3.7 mEq/L 3.4 - 5.1 Not Available Fauzia Resendez MD [facility] ([facility]) [address] [place] [address], 49183, 09/10/2024 16:40:08 09/11/19 25 09/10/2024 RENAL FUNCT ION PANEL /HEPA TIC PANEL chloride 102.2 mEq/L 93.0 - 106.0 Not Available Fauzia Resendez MD [facility] (In House Lab) [address] [place], [address], 09/10/2024 16:40:08 09/11/19 25 09/10/2024 RENAL FUNCT ION PANEL /HEPA TIC PANEL eco2 30.0 mEq/L 24.6 - 35.8 Not Available Fauzia Resendez MD [facility] (In House Lab) [address] [place] [address], 77615, 09/10/2024 16:40:08 09/11/19 25 09/10/2024 RENAL FUNCT ION PANEL /HEPA TIC PANEL calcium 9.3 mg/dL 8.3 - 10.1 Not Available Fauzia Resendez MD [facility] (In House Lab) [address] [place] [address], 66734, 09/10/2024 16:40:08 09/11/19 25 09/10/2024 RENAL FUNCT ION PANEL /HEPA TIC PANEL phosphorus 3.6 mg/dL 2.3 - 4.8 Not Available Fauzia Resendez MD [facility] (In House Lab) [address] [place] [address], 15521, 09/10/2024 16:40:08 09/11/19 25 09/10/2024 RENAL FUNCT ION PANEL /HEPA TIC PANEL total protein 6.6 g/dL 6.0 - 8.5 Not Available Fauzia Resendez MD [facility] (In House Lab) [address] [place] [address], 32304, 09/10/2024 16:40:08 09/11/19 25 09/10/2024 RENAL FUNCT ION PANEL /HEPA TIC PANEL albumin 4.5 g/dL 3.3 - 4.9 Not Available Fauzia Resendez MD [facility] (In House Lab) [address] [place] [address], 29760, 09/10/2024 16:40:08 09/11/19 25 09/10/2024 RENAL FUNCT ION PANEL /HEPA TIC PANEL ALP 47.0 U/L 46.0 - 116.0 Not Available Fauzia Resendez MD [facility] ([facility]) [address] [place] [address], 08230, 09/10/2024 16:40:08 09/11/19 25 09/10/2024 RENAL FUNCT ION PANEL /HEPA TIC PANEL AST 19 U/L 6 - 40 Not Available Fauzia Resendez MD [facility] (In House Lab) [address] [place] [address], 55951, 09/10/2024 16:40:08 09/11/19 25 09/10/2024 RENAL FUNCT ION PANEL /HEPA TIC PANEL ALT 9 U/L 5 - 30 Not Available Fauzia Resendez MD [facility] ([facility] House [facility]) [address] [place] [address], [id number], 09/10/2024 16:40:08 09/11/19 25 09/10/2024 RENAL FUNCT ION PANEL /HEPA TIC PANEL total bilirubin 0.43 mg/dL 0.00 - 1.00 Not Available Fauzia Resendez MD [facility] (In House Lab) [address] [place] [address], [id number], 09/10/2024 16:40:08 09/11/19 25 09/10/2024 RENAL FUNCT ION PANEL /HEPA TIC PANEL direct bilirubin 0.09 mg/dL 0.00 - 0.40 Not Available Fauzia Resendez MD [facility] (In House Lab) [address] [place] [address], [id number], 09/10/2024 16:40:08 09/11/19 25 09/10/2024 CBC WITH DIFFE RENTI AL/PL ATELE T WBC 4.0 10 4.0 - 11.0 Not Available Fauzia Resendez MD [facility] ([facility]) [address] [place] [address], [id number], 09/10/2024 16:40:08 09/11/19 25 09/10/2024 CBC WITH DIFFE RENTI AL/PL ATELE T RBC 4.51 10 3.72 - 5.52 Not Available Fauzia Resendez MD [facility] ([facility] House [facility]) [address] [place], [id number], 09/10/2024 16:40:08 09/11/19 25 09/10/2024 CBC WITH DIFFE RENTI AL/PL ATELE T HGB 13.6 g/dL 11.0 - 16.6 Not Available Fauzia Resendez MD [facility] ([facility]) [address] [place] [address], [id number], 09/10/2024 16:40:08 09/11/19 25 09/10/2024 CBC WITH DIFFE RENTI AL/PL ATELE T HCT 40.8 % 34.0 - 49.0 Not Available Fauzia Resendez MD [facility] ([facility]) [address] [place] [address], [id number], 09/10/2024 16:40:08 09/11/19 25 09/10/2024 CBC WITH DIFFE RENTI AL/PL ATELE T MCV 90.5 fL 79.5 - 101.0 Not Available Fauzia Resendez MD [facility] ([facility]) [address] [place] [address], [id number], 09/10/2024 16:40:08 09/11/19 25 09/10/2024 CBC WITH DIFFE RENTI AL/PL ATELE T MCH 30.2 pg 26.2 - 34.0 Not Available Fauzia Resendez MD [facility] (In House Lab) [address] [place] [address], [id number], 09/10/2024 16:40:08 09/11/19 25 09/10/2024 CBC WITH DIFFE RENTI AL/PL ATELE T MCHC 33.3 g/dL 31.3 - 36.0 Not Available Fauzia Resendez MD [facility] ([facility]) [address] [place] [address], [id number], 09/10/2024 16:40:08 09/11/19 25 09/10/2024 CBC WITH DIFFE RENTI AL/PL ATELE T plt 209 10 115 - 421 Not Available Fauzia Resendez MD [facility] ([facility]) [address] [place] [address], 61489, 09/10/2024 16:40:08 09/11/19 25 09/10/2024 CBC WITH DIFFE RENTI AL/PL ATELE T RDW-CV 12.5 % 11.3 - 16.1 Not Available Fauzia Resendez MD [facility] ([facility]) [address] [place] [address], 15751, 09/10/2024 16:40:08 09/11/19 25 09/10/2024 CBC WITH DIFFE RENTI AL/PL ATELE T neut# 2.54 10 0.81 - 9.65 Not Available Fauzia Resendez MD [facility] ([facility]) [address] [place] [address], [id number], 09/10/2024 16:40:08 09/11/19 25 09/10/2024 CBC WITH DIFFE RENTI AL/PL ATELE T lymph# 1.15 10 0.65 - 4.81 Not Available Fauzia Resendez MD [facility] ([facility]) [address] [place] [address], 62983, 09/10/2024 16:40:08 09/11/19 25 09/10/2024 CBC WITH DIFFE RENTI AL/PL ATELE T mono# 0.25 10 0.10 - 1.13 Not Available Fauzia Resendez MD [facility] ([facility]) [address] [place] [address], 85580, 09/10/2024 16:40:08 09/11/19 25 09/10/2024 CBC WITH DIFFE RENTI AL/PL ATELE T eo# 0.06 10 0.00 - 0.50 Not Available Fauzia Resendez MD [facility] ([facility]) [address] [place] [address], 91252, 09/10/2024 16:40:08 09/11/19 25 09/10/2024 CBC WITH DIFFE RENTI AL/PL ATELE T baso# 0.01 10 0.00 - 0.09 Not Available Fauzia Resendez MD [facility] (In House Lab) [address] [place] [address], 19486, 09/10/2024 16:40:08 09/11/19 25 09/10/2024 CBC WITH DIFFE RENTI AL/PL ATELE T neut% 63.4 % 37.2 - 78.0 Not Available Fauzia Resendez MD [facility] (In House Lab) [address] [place] [address], 88600, 09/10/2024 16:40:08 09/11/19 25 09/10/2024 CBC WITH DIFFE RENTI AL/PL ATELE T lymph% 28.7 % 13.4 - 50.2 Not Available Fauzia Resendez MD [facility] (In House Lab) [address] [place] [address], 81753, 09/10/2024 16:40:08 09/11/19 25 09/10/2024 CBC WITH DIFFE RENTI AL/PL ATELE T mono% 6.2 % 3.4 - 12.0 Not Available Fauzia Resendez MD [facility] (In House Lab) [address] [place] [address], 69072, 09/10/2024 16:40:08 09/11/19 25 09/10/2024 CBC WITH DIFFE RENTI AL/PL ATELE T eo% 1.5 % 0.0 - 7.0 Not Available Fauzia Resendez MD [facility] (In House Lab) [address] [place] [address], 75660, 09/10/2024 16:40:08 09/11/19 25 09/10/2024 CBC WITH DIFFE RENTI AL/PL ATELE T baso% 0.2 % 0.0 - 3.0 Not Available Fauzia Resendez MD [facility] (In House Lab) [address] [place] [address], 74359, 09/10/2024 16:40:08 09/11/19 25 09/15/2024 OPIAT E DEFIN ITIVE PANEL LC/MS codeine 0.0 NG/mL <75.0 Not Available Fauzia Resednez MD [facility] (In House Lab) [address] [place] [address], 02562, 09/15/2024 12:47:14 09/11/19 25 09/15/2024 OPIAT E DEFIN ITIVE PANEL LC/MS morphine 0 NG/mL <75.0 Not Available Fauzia Resendez MD [facility] (In House Lab) [address] [place] [address], 33886, 09/15/2024 12:47:14 09/11/19 25 09/15/2024 OPIAT E DEFIN ITIVE PANEL LC/MS 6-DALTON 0 NG/mL <15.0 Not Available Fauzia Resendez MD [facility] (In House Lab) [address] [place] [address], 57692, 09/15/2024 12:47:14 09/11/19 25 09/15/2024 OPIAT E DEFIN ITIVE PANEL LC/MS hydromorphon e 0 NG/mL <75.0 Not Available Yg Resendez MD [facility] (In House Lab) [address] [place] [address], 02920, 09/15/2024 12:47:14 09/11/19 25 09/15/2024 OPIAT E DEFIN ITIVE PANEL LC/MS hydrocodone 0 NG/mL <75.0 Not Available Yg Resendez MD [facility] (In House Lab) [address] [place] [address], 30736, 09/15/2024 12:47:14 09/11/19 25 09/15/2024 OPIAT E DEFIN ITIVE PANEL LC/MS norhydrocodo ne 0 NG/mL <75.0 Not Available Yg Resendez MD [facility] (In House Lab) [address] [place] [address], 88920, 09/15/2024 12:47:14 09/11/19 25 09/15/2024 GABAP ENTIN DEFIN ITIVE PANEL -LC/M S gabapentin >59951 NG/mL <5000. 0 abnormal Not Available Fauzia Resendez MD [facility] ([facility]) [address] [place] [address], [id number], 09/15/2024 12:47:13 09/11/19 25 09/10/2024 D-PRE SUMPT FABIANA URINE DRUG REPOR T amphetamine NEGATI VE NG/mL <1000. 0 Not Available Fauzia Resendez MD [facility] (In House Lab) [address] [place] [address], 16587, 09/15/2024 12:47:13 09/11/19 25 09/10/2024 D-PRE SUMPT FABIANA URINE DRUG REPOR T benzodiazepi ne <3.3 NG/mL <200.0 Curre nt metho d may not detec t low level s of Klono pin Not Available Fauzia Resendez MD [facility] (In House Lab) [address] [place] [address], [id number], 09/15/2024 12:47:13 09/11/19 25 09/10/2024 D-PRE SUMPT FABIANA URINE DRUG REPOR T cannabinoid NEGATI VE NG/mL <50.0 Not Available Fauzia Resendez MD [facility] (In House Lab) [address] [place] [address], 68263, 09/15/2024 12:47:13 09/11/19 25 09/10/2024 D-PRE SUMPT FABIANA URINE DRUG REPOR T cocaine NEGATI VE NG/mL <300.0 Not Available Fauzia Resendez MD [facility] (In House Lab) [address] [place] [address], 12787, 09/15/2024 12:47:13 09/11/19 25 09/10/2024 D-PRE SUMPT FABIANA URINE DRUG REPOR T ethanol NEGATI VE mg/dL <50.0 Not Available Fauzia Resendez MD [facility] (In House Lab) [address] [place] [address], 98720, 09/15/2024 12:47:13 09/11/19 25 09/10/2024 D-PRE SUMPT FABIANA URINE DRUG REPOR T methadone <0.8 NG/mL <300.0 Not Available Fauzia Resendez MD [facility] (In House Lab) [address] [place] [address], 42817, 09/15/2024 12:47:13 09/11/19 25 09/10/2024 D-PRE SUMPT FABIANA URINE DRUG REPOR T opiates 16.0 NG/mL <300.0 Opiat es inclu radha Codei ne,Mo rphin e, Tenmile morph one,H ydroc odone Not Available Fauzia Resendez MD [facility] ([facility]) [address] [place] [address], 26599, 09/15/2024 12:47:13 09/11/19 25 09/10/2024 D-PRE SUMPT FABIANA URINE DRUG REPOR T oxycodone 0 NG/mL <300.0 Not Available Fauzia Resendez MD [facility] (In House Lab) [address] [place] [address], 88676, 09/15/2024 12:47:13 09/11/19 25 09/10/2024 D-PRE SUMPT FABIANA URINE DRUG REPOR T urine creatinine (validity test) 37.4 mg/dL 20.0 - 300.0 Not Available Fauzia Resendez MD [facility] (In House Lab) [address] [place] [address], 59687, 09/15/2024 12:47:13 09/11/19 25 09/11/2024 D-PRE SUMPT FABIANA URINE DRUG REPOR T buprenorphin e NEGATI VE NG/mL <10.0 Not Available Fauzia Resendez MD [facility] (In House Lab) [address] [place] [address], 32170, 09/15/2024 12:47:13 Result Notes None recorded. Problems Name Problem SNOMED Code Status Onset Date Resolution Date Notes Provider Name and Address Organization Details Recorded Time Opioid dependenc e 36887880 Active 2020 (F11.20)O pioid dependenc e, uncomplic ated Not Available [facility] 2 23:01:33 Chronic pain following trauma 168541299 Active 2020 (G89.21)C hronic pain due to trauma Not Available [facility] 2 23:01:33 Long-term current use of opiate analgesic drug 96018973546 4108 Active 2020 (z79.891) [facility] (current) use of opiate analgesic Not Available [facility] 2 23:01:34 Complex regional pain syndrome, type II, lower limb 151208896 Active 2020 (G57.72)C ausalgia of left lower limb Not Available [facility] 2 23:01:33 Pain of right shoulder joint 08082177680 480682 Active 2020 (M25.511) Pain in right shoulder Not Available [facility] 2 23:01:33 Muscle pain 78168948 Active 2020 (M79.10)M yalgia, unspecifi ed site Not Available [facility] 2 23:01:33 Lumbosacr al radiculop athy 7472981 Active 2021 (M54.16)R adiculopa thy, lumbar region Not Available [facility] 2 23:01:33 Spasm 96301221 Active 2021 [facility] 2 09:27:37 Myofascia l pain syndrome of neck 836213387 Active 2023 Gadiel Anaya MD [address], [place], [address] , [facility] 4 12:02:53 Greater trochante ricardo pain syndrome 6257105 Active 2023 Gadiel Anaya MD [address], [place], [address] , [facility] 4 11:16:14 Trochante ricardo bursitis of left hip 15581321522 9103 Active 2023 Gadiel Anaya MD [address], [place], [address] , [facility] 4 13:02:04 Cervical spondylos is without myelopath y 736677072 Active 2023 MD [address] [place], [address] , [facility] 4 13:02:20 Spondylos is without myelopath y 33096514 Active [address], [place], [address] , [facility] 4 13:02:40 Lumbosacr al spondylos is without myelopath y 03180720 Active 2023 [place], [address] , [facility] 4 13:03:09 Complex regional pain syndrome type 1 of right lower extremity 36844302974 9109 Active 2024 [place], [address] , [facility] 5 15:11:09 SI (sacroili ac) joint inflammat ion 31172543 Active 2024 [place], [address] , [facility] 5 10:19:55 Chronic pain syndrome 160126486 Active 2024 [place], [address] , [facility] 5 14:25:37 Spondylos is of lumbar spine 272999563 Active [address], [place], [address] , [facility] 14:31:05 Notes:Crushing injury of lef t foot, Sequela - Problem Code: S97.82S Crushing injury of left ankle, Sequela - Problem Code: S97.02S Problem Notes None recorded. Procedures Surgical History Date Name Laterality Status Provider Name and Address Organization Details Recorded Time 10/08/19 24 Greater Trochanteric Bursa Steroid Injection completed Gadiel Anaya MD [address], [place], [address], [facility] 10/08/2023 13:01:51 06/28/19 Trigger Point Steroid Injections completed Gadiel Anaya MD [address] [place], [address], [facility] 06/28/2023 12:02:44 Imaging Results None recorded. Procedure Notes None recorded. Medical Equipment None Reported. Allergies Allergen ID Allergen Name Allergen Category Reaction Reaction Severity Criticality Documentation Date Start Date Code Code System Note Provider Name and Address Organization Details Recorded Time 92374 Zanaflex medicatio n Not available Not available Not available 06/14/20212020 64929 6 RxNorm Not Available [facility] 22:02:12 46260 andrew extract food,medi cation Not available Not available Not available 06/14/20212020 36163 1 RxNorm Not Available [facility] 2 22:02:12 Medications Name Sig Start Date [...] 2024 active Per [facility]. [facility] Not Available Not Available Not Available ketamine [...] completed Not Available Not Available Not Available [facility] COVID-19 Vaccine (PF) 30 mcg/0.3 mL IM susp (purple) 08/08 completed Not Available Not Available Not Available Vitals Date Recorded Body height Body mass index (BMI) Body weight Respiratory rate Heart rate Systolic And Diastolic Provider Name and Address Organization Details Last Updated DateTime 5 167.64 cm 25.6 kg/m2 81975.4 7 g 18 /min 82 /min 126/72 mm[Hg] Raquel TOMPKINS - [facility] 5 14:02:13 Date Recorded Body height Body temperature Respiratory rate Body mass index (BMI) Body weight Heart rate Systolic And Diastolic Provider Name and Address Organization Details Last Updated DateTime 5 167.64 cm 95.1 [degF] 18 /min 27 kg/m2 71964 g 70 /min 109/64 mm[Hg] [facility] 5 11:45:10 Date Recorded Body height Respiratory rate Body mass index (BMI) Body weight Body temperature Heart rate Systolic And Diastolic Provider Name and Address Organization Details Last Updated DateTime 5 167.64 cm 16 /min 27.3 kg/m2 63251.1 1 g 98.3 [degF] 66 /min 98/61 mm[Hg] [facility] 5 13:11:41 Date Recorded Body height Respiratory rate Body temperature Body mass index (BMI) Body weight Heart rate Systolic And Diastolic Provider Name and Address Organization Details Last Updated DateTime 5 167.64 cm 16 /min 97.9 [degF] 27.1 kg/m2 39322.5 2 g 60 /min 102/67 mm[Hg] [facility] 5 12:48:47 Date Recorded Body height Body mass index (BMI) Body weight Body temperature Heart rate Respiratory rate Systolic And Diastolic Provider Name and Address Organization Details Last Updated DateTime 5 167.64 cm 26.5 kg/m2 73481.1 5 g 97.9 [degF] 68 /min 16 /min 109/74 mm[Hg] Roman [facility] 5 10:25:07 Social History [...] ICD10 Code Diagnosis IMO Codes Diagnosis Note [id number] Suzan Maharaj, [employer] [address] [address] 08/30/2021 12:38:41 08/31/2021 16:45:43 Pain of right shoulder joint 1456862231 1771097 M25.511 patient has plans to f/u with ortho related to this issue soon, will await what he says Complex re gional pain syndrome, type II, lower limb 472727988 G57.72 patient gets at least 75% relief from NB for nearly 1 year and she has not been able to have due to deductible for extended period of time, pain is worse and needs to be repeated derek Muscle pain 52993519 M79 .10 has cramping at night especially , she says she is unable to tolerate the tizanidine , flexeril or robaxin due to SE, will try skelaxin to see if it will be effective [id number] Suzan Maharaj, [employer] [address] [address] 10/26/2021 08:58:37 10/28/2021 15:20:29 Long-term current use of opiate analgesic drug 0499084621 67393 Z79.891 Complex re gional pain syndrome, type II, lower limb 070298475 G57.72 got 90% relief from the sympatheti c NB will repeat prn Spasm 46596146 R25.2 was not relieved with skelaxin or baclofen or flexeril, tizanidine , is still not relieved so is unable to walk more, will see to change tx plan [id number] Gadiel Aanya MD [address] [address] 01/10/2022 12:41:06 02/22/2022 12:26:47 Chronic pain following trauma 002676443 G89.21 Complex re gional pain syndrome, type II, lower limb 640094233 G57.72 Long-term current use of opiate analgesic drug 8338565318 67727 Z79.891 Muscle pain 13966679 M79 .10 Pain of ri ght shoulder joint 4352212158 0552776 M25.771 [id number] Randi Arguelles DNP [employer] [address] [place] [address] 03/07/2022 14:31:40 03/20/2022 07:43:56 Complex regional pain syndrome, type II, lower limb 944086606 G57.72 Global Risk Assessment Score:Mode rate Risk.High [...] fill 01/10/2022 Chronic pa in following trauma 053876620 G89.21 Long-term current use of opiate analgesic drug 5838302561 53516 Z79.426 [id number] Randi Arguelles DNP [employer] [address] [place] [address] 04/05/2022 13:53:47 04/18/2022 14:04:28 Complex regional pain syndrome, type II, lower limb 838687255 G57.72 Global Risk Assessment Score:Mode rate Risk.High [...] fill 03/10/2022 Chronic pa in following trauma 930791760 G89.21 Long-term current use of opiate analgesic drug 2752480076 64336 Z79.392 [id number] Randi Arguelles DNP [employer] [address] 4 06/12/2022 09:34:31 06/13/2022 16:05:34 Complex regional pain syndrome, type II, lower limb 850575919 G57.72 Global Risk Assessment Score:Mode rate Risk.High [...] fill 03/10/2022 Chronic pa in following trauma 994061860 G89.21 Long-term current use of opiate analgesic drug 2712898302 95027 Z79.231 [id number] Randi Arguelles DNP [employer] [facility] [address] 4 08/09/2022 10:20:42 08/18/2022 11:14:15 Long-term current use of opiate analgesic drug 4627116661 46910 Z79.891 Diagnostic /Lab: Order Presumptiv e UDT [...] gional pain syndrome, type II, lower limb 634261175 G57.72 Global Risk Assessment Score:Mode rate Risk.High [...] appropriat e Last fill Lumbosacra l radiculopathy 8842284 M54.16 [id number] Randi Arguelles DNP [employer] [address] [address] [place] [address] 10/11/2022 09:53:50 10/17/2022 15:44:14 Lumbosacral radiculopathy 5030969 M54.16 Muscle pain 58486225 M79 .10 Complex re gional pain syndrome, type II, lower limb 515504286 G57.71 Global Risk Assessment Score:Mode rate Risk.High [...] is appropriat e Last fill 09/15/2022 Fibromyalgia 227822430 M 79.7 [id number] Gadiel Anaya MD [address] [place] [address] 4 12/07/2022 09:09:34 12/07/2022 14:59:04 Lumbosacral radiculopathy 6536799 M54.16 Muscle pain 03267931 M79 .10 Complex re gional pain syndrome, type II, lower limb 328795935 G57.71 Long-term current use of opiate analgesic drug 8742509691 74082 Z79.891 Chronic pa in following trauma 472915477 G89.21 Opioid dependence 113025 00 F11.20 [id number] Gadiel Anaya MD [address] [place] [address] 4 01/02/2023 12:33:57 01/03/2023 10:43:09 Complex regional pain syndrome, type II, lower limb 960255264 G57.71 Lumbosacra l radiculopathy 5677460 M54.16 Muscle pain 73935454 M79 .10 [id number] DAMIAN Del Valle [address] [place] [address] 4 03/05/2023 10:29:54 03/05/2023 11:46:50 Long-term current use of opiate analgesic drug 7954535639 70071 Z79.891 Diagnostic /Lab: Order Presumptiv e UDT [...] tapentadol and carisoprod ol). Lumbosacra l radiculopathy 6569430 M54.16 Muscle pain 39186073 M79 .10 Complex re gional pain syndrome, type II, lower limb 983192346 G57.70 [id number] Randi Arguelles DNP [employer] [address] [facility] [address] [place] [address] 04/30/2023 10:42:18 04/30/2023 14:57:57 Complex regional pain syndrome, type II, lower limb 418429843 G57.71 Global Risk Assessment Score:Mode rate Risk.High [...] e Last fill 04/07/2023 Lumbosacra l radiculopathy 3114930 M54.16 Pain of ri ght shoulder joint 7363970255 6493295 M25.511 Long-term current use of opiate analgesic drug 0919676559 48355 Z79.891 Diagnostic /Lab: Order Presumptiv e UDT [...] function due to medication . Muscle pain 66375828 M79 .10 Pain of ri ght shoulder region 2709920002 M25.511 Fibromyalgia 654823468 M 79.7 [id number] Gadiel Anaya MD [address] [place] [address] 06/28/2023 11:24:44 07/06/2023 11:25:31 Pain of right shoulder joint 8147342257 4922700 M25.511 Lumbosacra l radiculopathy 1568932 M54.16 Complex re gional pain syndrome, type II, lower limb 919993409 G57.71 Myofascial pain syndrome of neck 565134098 M54.2 [id number] Gadiel Anaya MD [address] [place] [address] 09/05/2023 09:30:03 09/10/2023 09:17:48 Pain of right shoulder joint 3045074295 9561529 M25.511 Lumbosacra l radiculopathy 3043421 M54.16 Complex re gional pain syndrome, type II, lower limb 568097620 G57.71 Greater tr ochanteric pain syndrome 1122914 M70.62 [id number] Gadiel Anaya MD [address] [address] 10/08/2023 12:26:59 10/17/2023 09:38:16 Complex regional pain syndrome, type II, lower limb 636178573 G57.71 Lumbosacra l radiculopathy 9910267 M54.16 Pain of ri ght shoulder joint 8552806298 5270485 M25.511 Trochanter ic bursitis of left hip 4450001535 33331 M70.62 Lumbosacra l spondylosis without myelopathy 58410389 M47.190 [id number] Gadiel Anaya MD [address] [address] 4 11/07/2023 12:35:09 11/20/2023 10:13:39 Complex regional pain syndrome, type II, lower limb 972460808 G57.71 Lumbosacra l radiculopathy 2158141 M54.16 Pain of ri ght shoulder joint 6452545442 4270104 M25.511 Long-term current use of opiate analgesic drug 7270050757 95268 Z79.891 Spondylosi s without myelopathy 61446068 M47.9 [id number] Gadiel Anaya MD [address] [address] 03/12/2024 13:40:09 05/19/2024 11:39:24 Complex regional pain syndrome, type II, lower limb 403928929 G57.70 Lumbosacra l radiculopathy 0223058 M54.16 Pain of ri ght shoulder joint 6779982557 3505654 M25.511 Long-term current use of opiate analgesic drug 3130128216 47181 Z79.891 Spondylosi s without myelopathy 49238082 M47.9 [id number] Randi Arguelles DNP APRN [facility] [address] 05/05/2024 11:37:39 05/15/2024 10:19:33 Cervical spondylosis without myelopathy 096420159 M47.812 Complex re gional pain syndrome, type II, lower limb 767077354 G57.71 Global Risk Assessment Score:Mode rate Risk.High [...] Last fill 04/07/2023 Chronic pain syndrome 37 7009329 G89.4 29297 [id number] Gadiel Anaya MD [facility] [address] 07/09/2024 13:02:01 07/21/2024 08:14:39 Pain of right shoulder joint 9257862304 9508145 M25.511 Lumbosacra l radiculopathy 4387239 M54.16 Complex re gional pain syndrome, type II, lower limb 722895200 G57.71 Long-term current use of opiate analgesic drug 5326357505 70863 Z79.891 Diagnostic /Lab: Order Presumptiv e UDT [...] carisoprod ol). Cervical s pondylosis without myelopathy 039576399 M47.812 Chronic pain syndrome 37 6367253 G89.4 88398 Lumbar spondylosis [address] 0009 M47.816 56739282 [id number] Randi ArguellesMARAL [employer] SCI[employer] TEACHER 24[address] [facility] [address] [place] [address] 09/10/2024 12:41:04 09/17/2024 17:21:45 Long-term current use of opiate analgesic drug 7844505165 63014 Z79.891 Diagnostic /Lab: Order Presumptiv e UDT (necessary for rapid results) with Definitive confirmati on for chronic pain patient, to define treatment and reinforce therapeuti c compliance ; the following apply:[Pre sumptive UDT includes: (Amp, Judei, Kris, Bup, THC, DIAMOND, ETOH, Meth, Opi, Oxy )]*-Patien t is receiving controlled medication s.*-Presum ptive UDT to identify presence of illicit/no n-prescrib ed substance( s) - Confirm positive for ongoing safe prescribin g of controlled substances .*-Presump tive UDT to identify presence of licit/pres cribed substance( s)-Confirm unexpected results, identify specific drug(s) in large class and ensure appropriat e use of prescribed medication (s). _*-Definit fabiana UDT inadequate ly detected by Presumptiv e UDT (gabapenti n, pregabalin , tramadol, fentanyl, tapentadol and carisoprod ol).HP1 (CBC/Renal /Hepatic/G GT) CBC - ordered to monitor the effects of prescribed medication s. Renal/Hepa tic/GGT - ordered to monitor toxicity of renal hepatic function due to medication . Lumbosacra l radiculopathy 2953545 M54.16 Cervical s pondylosis without myelopathy 897300507 M47.812 Myofascial pain syndrome of neck 638079780 M54.2 Complex re gional pain syndrome type I of right lower limb 3250361129 51121 G90.521 63254392 Complex re gional pain syndrome, type II, lower limb 284027055 G57.71 Global Risk Assessment Score:Mode rate Risk.High [...] TY (prescript ion drug monitoring report):As of 09/10/2024 reviewed and is appropriat e Last fill 07/31/2024 Chronic pain syndrome 37 0028605 G89.4 52417 [id number] Alexey Resendez MD [address] [place] [address] 11/10/2024 10:14:34 11/13/2024 11:20:03 Lumbar spondylosis 060623668 M47.816 [id number] Lumbosacra l radiculopathy 0750862 M54.16 Cervical s pondylosis without myelopathy 698234503 M47.812 Complex re gional pain syndrome type I of right lower limb 8312039555 72812 G90.521 [id number] Health Concerns Section Related Observation LastModified by Organization Detai ls LastModified Time None Recorded Concern Status LastModified by Organization Details LastModified Time None Recorded Advance Directives Directive None Recorded Payers Insurance Date Sequence Insurance Name Policy Number Policy Wisdom Covered Member ID Wisdom Member ID Guarantor Name 11/13/2024 1 [place] [id number] Eric Alamo [id number] Dayna Alamo Notes Date Note Type Note Provider Name and Address Organization Details Recorded Time 03/12/2024 text/html This is 38 years old [...] with right shoulder seperation. Gadiel Anaya MD [address], [place], [place], [id number], [facility] 03/12/2024 14:31:35 05/05/2024 text/html ROS as noted in the [facility] Patient RTC for the management of her [...] sedation, driving problems, or GI problems. Randi Arguelles, MARAL DAIRY SCIENCE TEACHER [address], [place], [address], [facility] 05/06/2024 07:23:27 07/09/2024 [...] the compound cream to have it in [facility]. Gadiel Anaya MD [address], [place], [address], [place] [facility] 07/09/2024 14:31:50 09/10/2024 text/html ROS as noted in the HPI Patient RTC for the management of her chronic lumbar, cervical and CRPS type 1 Right LE.Patient states she is having worsening pain in her right hip area. Quality: legs Charley horses and burning, right lower back: sharp and takes her breath, overall achingImproves somewhat with the pain medsaggravating factors: life , sitting and standing too long, supine position Patient is here for med refills today, reports compliance, states use of medication gives some relief and allows more physical function. Patient reports tolerating the medication well and denies any adverse effects including toxic effects, respiratory sedation, driving problems, or GI problems. Randi Arguelles DNP DAIRY SCIENCE TEACHER [address], [place], [address], [facility] 09/11/2024 07:44:48 11/10/2024 text/html Patient presents for medication refill. Patient states meds are working. Patient states pain is pain is the same. Patient has UDS without metabolites. In reviewing Ty Pt picked up her script over 2 weeks late due to second script not being sent. Pt is on Hydrocodone 5's once a day. This makes the urine appropriate. Alexey Resendez MD [address], [place], [address], [facility] 11/11/2024 16:28:04 OBGyn Episode No OBEpisode recorded.
--- OUTSIDE RECORDS SUMMARY | 2024-12-31 16:15 | XMS_ITS | Encounter Summary ---
Author Organization [employer] ([place], [place], [place], [place], [place]) Address [address] [place] [address] Care Team Providers Care Physical Science Aide Name Role Phone Landon James MD Primary Care Provider [phone] Encounter Details Date Type Department Care Team (Late st Contact Info) Description 01/22/[address] [facility] [facility], [facility]–[address] [place] [address] ProviderLuh MD [address] [place] [id number] Social History Tobacco Use Types Packs/Day Years Used Date Smoking Tobacco: Never Assessed Comments Unknown Sex and Gender Information Value Date Recorded Sex Assigned at Not on file Legal Sex Female 5:38 PM CDT Gender Identity Not on file Sexual Orientation Not on file documented as of this encounter Miscellaneous Notes * Cerner Conversion Note - Luh Oliveros MD - 01/22/2020 9:09 AM CHIP BIN CONVEYOR TENDER DATE OF ADMISSION: 01/21/2020 HISTORY OF PRESENT [...] visit and the patient has been afebrile. /[id number] Gadiel Anaya MD, JULIO C Pain Certified KR/AQ / KR / MODL CC: MD Joana Fountain Electronically signed by Yesy, [facility] Conversion Compressed Air Pile Driver Operator Cerner at 06/01/2022 10:30 AM CDT documented in this encounter Plan of Treatment Not on file documented as of this encounter Visit Diagnoses Not on filedocumented in this encounter Care Teams Physical Science Aide Relationship Specialty Start Date End Date Landon James MD [address] [place] [phone] PCP - General Family Medicine 08/29/24 documented as of this encounter
--- OUTSIDE RECORDS SUMMARY | 2024-12-31 16:15 | XMS_ITS | Encounter Summary ---
Author Organization Healthcare Address [address] [place] [address] Care Team Providers Care Straw Hat Brim Cutter Operator Name Role Phone Catalino Evans MD Primary Care Provider Penny Armstrong APRN Primary Care Provider [phone] Encounter Details Date Type Department Care Team (Late st Contact Info) Description 06/18/2023 Orders Only External Location [address] [place] [address] Provider, External Social History Tobacco Use Types [...] Description 02/06/2025 12:30 PM EST Appointment [facility] Breast Care [address] [place] [address] 02/06/2025 1:00 PM EST Appointment [facility] Breast [address] [place] [address] 02/11/2025 9:10 AM EST Appointment [facility] Endoscopy [address] [place] [address] Beatrice Henderson MD [address] [place] [phone] documented as of this encounter Procedures Procedure Name Priority Date/Time Associated Diagnosis Comments US BREAST OUTSIDE IMAGES 06/18/2023 1:22 PM EDT documented in this encounter Results * US BREAST OUTSIDE IMAGES (06/18/2023 1:22 PM EDT) Anatomical Region Laterality Modality Breast Mammography 06/18/2023 1:22 PM EDT us External Provider IMG BI [...] documented as of this encounter Care Teams Straw Hat Brim Cutter Operator Relationship Specialty Start Date End Date Catalino Evans MD [address] [place] [phone] PCP - General Family Medicine 08/01/21 09/23/23 Penny Armstrong APRN [address] [place] [phone] PCP - General Family Medicine 09/24/23 documented as of this encounter
== END 2024-12-31 23:59 | disposition home or self-care (01) ==
LOC: RAD 15:03
PROVIDERS: PCP Family Medicine; Visit Provider Nurse Practitioner Family
DX: M47.26 Other spondylosis with radiculopathy, lumbar region (principal); M47.812 Spondylosis without myelopathy or radiculopathy, cervical region; M53.82 Other specified dorsopathies, cervical region; G90.521 Complex regional pain syndrome I of right lower limb
CPT/HCPCS: 72141; 72148

== ENCOUNTER 2025-02-10 11:47 | Outpatient (CLI) | payer BC, SELFPAY ==
--- OUTSIDE RECORDS SUMMARY | 2024-12-24 08:40 | XMS_ITS | Encounter Summary ---
Author Organization [facility] Address [address] [place] [address] Care Team Providers Care Foil Stamp Operator Name Role Phone Penny Armstrong APRN Primary Care Provider [phone] Reason for Referral * Imaging (Routine) - Authorized Specialty Diagnoses / Procedures Referred By Zeus jackson Referred To Contact Diagnoses Cervical spondylosis without myelopathy Procedures MR Cervical Spine wo IV [place] [address] Phone: tel: fax: Referral ID Status Reason Start Date Expiration Date V isits Requested Visits Authorized [id number] Authorized 12/24/2024 06/25/2026 1 1 * Consultation (Routine) - Authorized Specialty Diagnoses / Procedures Referred By Zeus jackson Referred To Contact Pain Medicine Diagnoses Lumbar spondylosis Complex regional pain syndrome type 1 of right lower extremity Lumbosacral radiculopathy Cervical spondylosis without myelopathy [place] [address] Phone: tel: fax: Referral ID Status Reason Start Date Expiration Date Visits Requested Visits Authorized [id number] Authorized Specialty Services Required 06/25/2026 [address] Anaya at [facility] in [place] (has been following with him at his former practice and would like to follow him here). * Imaging (Routine) - Authorized Specialty Diagnoses / Procedures Referred By Zeus jackson Referred To Contact Diagnoses Lumbar spondylosis Complex regional pain syndrome type 1 of right lower extremity Lumbosacral radiculopathy Procedures MR Lumbar Spine wo IV Contrast Penny Armstrong APRN [address] [place] [address] Phone: tel: fax: Referral ID Status Reason Start Date Expiration Date V isits Requested Visits Authorized [id number] Authorized 12/24/2024 06/25/2026 1 1 Reason for Visit * Reason Comments Back Pain Hip Pain Pain management refe rral Dr. Anaya at [facility] Encounter Details Date Type Department Care Team (Late st Contact Info) Description 12/24/2024 8:40 AM EST Office Visit [facility] [address] [place] [address] Penny Armstrong APRN [address] [place] [address] Lumbar spondylosis (Primary Dx); Complex [...] any time in the past 12 m [facility], were you homeless or living in a long-term (including now)? Patient declined 07/17/2024 Safety and [...] the past 12 months has th e [employer], gas, oil, or water [employer] threatened to shut off services in your [...] documented in this encounter Functional Status * BP Answer Date of Assessment Author 104/74 12/24/2024 8:42 AM EST Marielle, Le sli * Temp Answer Date of Assessment Author 98.8 12/24/2024 8:42 AM EST Marielle, Le sli * Temp src Answer Date of Assessment Author Oral 12/24/2024 8:42 AM EST Marielle, Le sli * Pulse Answer Date of Assessment Author 80 12/24/2024 8:42 AM EST Marielle, Le sli * Resp Answer Date of Assessment Author 18 12/24/2024 8:42 AM EST Marielle, Le sli * SpO2 Answer Date of Assessment Author 99 12/24/2024 8:42 AM EST Marielle, Le sli * Height Answer Date of Assessment Author 63 12/24/2024 8:42 AM EST Marielle, Le sli * Weight Answer Date of Assessment Author 2680.79 12/24/2024 8:42 AM EST Marielle, Le sli * BMI (Calculated) Answer Date of Assessment Author 29.7 12/24/2024 8:42 AM EST Marielle, Le sli * Percent Excess Weight Loss Answer Date of Assessment Author 0 12/24/2024 8:42 AM EST Marielle, Le sli * Total Weight Change Percent Answer Date of Assessment Author 222112/24/2024 8:42 AM EST Marielle, Le sli * Weight Change Since Preop Answer Date of Assessment Author 75.98 12/24/2024 8:42 AM EST Marielle, Le sli * Initial Excess Weight Answer Date of Assessment Author -52.16 12/24/2024 8:42 AM EST Marielle, Le sli * IBW in lbs (Bariatric) Answer Date of Assessment Author 115 12/24/2024 8:42 AM EST Marielle, Le sli * Weight Change Since Last Visit Answer Date of Assessment Author 75.98 12/24/2024 8:42 AM EST Marielle, Le sli * IBW in kg (Bariatric) Answer Date of Assessment Author 52.16 12/24/2024 8:42 AM EST Marielle, Le sli * Percent of IBW Answer Date of Assessment Author 5,139.55 12/24/2024 8:42 AM EST Marielle, Le sli * EBW (kg) Answer Date of Assessment Author 2,679.31 12/24/2024 8:42 AM EST Marielle, Le sli * EBW (lbs) Answer Date of Assessment Author 2,673.6 12/24/2024 8:42 AM EST Marielle, Le sli * Weight Change 24 hrs Answer Date of Assessment Author -1.7 12/24/2024 8:42 AM EST Marielle, Le sli * Depression Screening Question Answer Date of Assessment Author Will the patient answer the depression risk questions? Yes 12/24/2024 8:42 AM EST Marielle, Suad * BSA (Calculated - sq m) Answer Date of Assessment Author 1.84 12/24/2024 8:42 AM EST Marielle, Le sli * BMI (Calculated) Answer Date of Assessment Author 29.69 12/24/2024 8:42 AM EST Marielle, Le sli * IBW/kg (Calculated) Male Answer Date of Assessment Author 56.9 12/24/2024 8:42 AM EST Marielle, Le sli * IBW/kg (Calculated) Female Answer Date of Assessment Author 52.4 12/24/2024 8:42 AM EST Marielle, Le sli * Restart Vitals Timer Answer Date of Assessment Author Yes 12/24/2024 8:42 AM EST Marielle, Le sli * IBW/kg (Calculated) Answer Date of Assessment Author 52.4 12/24/2024 8:42 AM Zora Hanna * Over the past 2 weeks, how often have you been bothered by any of the following problems? Question Answer Date of Assessment Author Little interest or pleasure in doing things Not at all 12/24/2024 8:42 AM Suad Hanna Feeling down, depressed, or hopeless Not at all 12/13 8:42 AM Suad Hanna Patient Health Questionnaire-2 Score 0 12/13 8:42 AM Suad Hanna * Over the past 2 weeks, how often have you been bothered by any of the following problems? Question Answer Date of Assessment Author Trouble falling or staying a sleep, or sleeping too much Not at all 12/24/2024 8:42 AM Suad Hanna Feeling tired or having little energy Not at all 01/2025 8:42 AM Suad Hnana Poor appetite or overeating Not at all 12/24/2024 8: 42 AM Suad Hanna Feeling bad about yourself - or that you are a failure or have let yourself or your family down Not at all 12/24/2024 8:42 AM Suad Hanna Trouble concentrating on thi ngs, such as reading the newspaper or watching television Not at all 12/24/2024 8:42 AM Suad Hanna Moving or speaking so slowly that other people could have noticed. Or the opposite - being so fidgety or restless that you have been moving around a lot more than usual Not at all 12/24/2024 8:42 AM Kimmie Hanna Thoughts that you would be b ja off or hurting yourself in some way Not at all 12/24/2024 8:42 AM Suad Hanna Patient Health Questionnaire-9 Score 0 12/13 8:42 AM Suad Hanna * Calculated C-SSRS Risk Score (Lifetime/Recent) Answer Date of Assessment Author No Risk Indicated 12/24/2024 8:42 AM Suad Hanna * How difficult have these problems made it for you to do your work, take care of things at home, or get along with other people? Answer Date of Assessment Author Not difficult at all 12/24/2024 8:42 AM EST Stit h, Suad * Weight in (lb) to have BMI = 25 Answer Date of Assessment Author 140.8 12/24/2024 8:42 AM EST Marielle, Le sli * BMI (Calculated) Answer Date of Assessment Author 29.7 12/24/2024 8:42 AM EST Marielle, Le sli * Percent Excess Weight Loss Answer Date of Assessment Author 0 12/24/2024 8:42 AM EST Marielle, Le sli * Weight Change Since Preop Answer Date of Assessment Author 76 12/24/2024 8:42 AM EST Marielle, Le sli * Initial Excess Weight Answer Date of Assessment Author -52.16 12/24/2024 8:42 AM EST Marielle, Le sli * IBW in kg (Bariatric) Answer Date of Assessment Author 52.16 12/24/2024 8:42 AM EST Marielle, Le sli * IBW in lb (Bariatric) Answer Date of Assessment Author 115 12/24/2024 8:42 AM EST Marielle, Le sli * Weight Change Since Last Visit Answer Date of Assessment Author 76 12/24/2024 8:42 AM EST Marielle, Le sli * Percent of IBW Answer Date of Assessment Author 145.7 12/24/2024 8:42 AM EST Marielle, L yovani * EBW (kg) Answer Date of Assessment Author 23.82 12/24/2024 8:42 AM EST Marielle, Le sli * EBW (lb) Answer Date of Assessment Author 52.55 12/24/2024 8:42 AM EST Marielle, Le sli * Difference in Weight Since Last Visit Answer Date of Assessment Author -1.7 12/24/2024 8:42 AM EST Marielle, Le sli * Temp (in Celsius) for [place] IV Answer Date of Assessment Author 37.1 12/24/2024 8:42 AM EST Marielle, Le sli * IBW/kg (Calculated) Answer Date of Assessment Author 52.4 12/24/2024 8:42 AM EST Marielle, Le sli * Adult Low Range Vt 6mL/kg Answer Date of Assessment Author 314.4 12/24/2024 8:42 AM EST Marielle, Le sli * Adult Moderate Range Vt 8mL/kg Answer Date of Assessment Author 419.2 12/24/2024 8:42 AM EST Marielle, Le sli * Adult High Range Vt 10mL/kg Answer Date of Assessment Author 524 12/24/2024 8:42 AM EST Marielle, Le sli * Pain Score Answer Date of Assessment Author 6 12/24/2024 8:42 AM EST Marielle, Le sli * Vitals Timer Question Answer Date of Assessment Author Restart Vitals Timer Yes 12/24/2024 8:[address] Osman Palomaresli * Pain Screening/Additional Assessments Question Answer Date of Assessment Author Pain Screening/Assessments Pain Screening 12/24/2024 8 :42 AM EST Marielle, Suad * Pain Screening Answer Date of Assessment Author 0-10 12/24/2024 8:42 AM EST Marielle, Le sli * C-SSRS (Screener) Question Answer Date of Assessment Author Is patient awake, alert, and able/willing to answer questions appropriately? Yes 12/24/2024 8:[address] Suad almeida 1. Wish to be (Past 1 Month) No 025 8:42 AM EST Marielle, Suad 2. Non-Specific Active Suici gemma Thoughts (Past 1 Month) No 12/24/2024 8:42 AM EST Marielle Suad 6. Suicidal Behavior (Lifetime) No 8:42 AM EST Marielle, Suad * BP Answer Date of Assessment Author 104/74 12/24/2024 8:42 AM EST Marielle, Le sli * Temp Answer Date of Assessment Author 98.8 12/24/2024 8:42 AM EST Marielle, Le sli * Temp src Answer Date of Assessment Author Oral 12/24/2024 8:42 AM EST Marielle, Le sli * Pulse Answer Date of Assessment Author 80 12/24/2024 8:42 AM EST Marielle, Le sli * Resp Answer Date of Assessment Author 18 12/24/2024 8:42 AM EST Marielle, Le sli * SpO2 Answer Date of Assessment Author 99 12/24/2024 8:42 AM EST Marielle, Le sli * Height Answer Date of Assessment Author 63 12/24/2024 8:42 AM Zora Hannai * Weight Answer Date of Assessment Author 2680.79 12/24/2024 8:42 AM Zora Hannai * BSA (Calculated - sq m) Answer Date of Assessment Author 1.84 12/24/2024 8:42 AM EST Marielle, Zora sli * BMI (Calculated) Answer Date of Assessment Author 29.69 12/24/2024 8:42 AM EST Zora Palomaresi * Restart Vitals Timer Answer Date of Assessment Author Yes 12/24/2024 8:42 AM Zora Hanna * Over the past 2 weeks, how often have you been bothered by any of the following problems? Question Answer Date of Assessment Author Little interest or pleasure in doing things Not at all 12/24/2024 8:42 AM Suad Hanna Feeling down, depressed, or hopeless Not at all 12/13 8:42 AM Suad Hanna Patient Health Questionnaire-2 Score 0 12/13 8:42 AM Suad Hanna * Over the past 2 weeks, how often have you been bothered by any of the following problems? Question Answer Date of Assessment Author Trouble falling or staying a sleep, or sleeping too much Not at all 12/24/2024 8:42 AM Suad Hanna Feeling tired or having little energy Not at all 01/2025 8:42 AM Suad Hanna Poor appetite or overeating Not at all 12/24/2024 8: 42 AM Suad Hanna Feeling bad about yourself - or that you are a failure or have let yourself or your family down Not at all 12/24/2024 8:42 AM Suad Hanna Trouble concentrating on thi ngs, such as reading the newspaper or watching television Not at all 12/24/2024 8:42 AM Suad Hanna Moving or speaking so slowly that other people could have noticed. Or the opposite - being so fidgety or restless that you have been moving around a lot more than usual Not at all 12/24/2024 8:42 AM Kimmie Hanna Thoughts that you would be b ja off or hurting yourself in some way Not at all 12/24/2024 8:42 AM Suad Hanna Patient Health Questionnaire-9 Score 0 12/13 8:42 AM Suad Hanna * Calculated C-SSRS Risk Score (Lifetime/Recent) Answer Date of Assessment Author No Risk Indicated 12/24/2024 8:42 AM Suad Hanna * How difficult have these problems made it for you to do your work, take care of things at home, or get along with other people? Answer Date of Assessment Author Not difficult at all 12/24/2024 8:42 AM Suad Stern * Weight in (lb) to have BMI = 25 Answer Date of Assessment Author 140.8 12/24/2024 8:42 AM Zora Hanna * Pain Score Answer Date of Assessment Author 6 12/24/2024 8:42 AM Zora Hanna * Learning Needs Screening Question Answer Date of Assessment Author Are there things (barriers) that make it harder for this patient to learn? No Barriers 12/24/2024 8:44 AM Suad Hanna What is the best language to use for teaching this patient about his/her health? Sami 12/24/2024 8:44 AM Suad Hanna What format does this patient think is most helpful for learning? Listening;Reading;Demons tration 12/24/2024 8:44 AM Suad Hanna Primary Learner Patient 12/24/2024 8:44 AM Suad Rosales * Readiness to Learn Question Answer Date of Assessment Author Readiness Acceptance 12/24/2024 8:44 AM Suad Hanna * C-SSRS (Screener) Question Answer Date of Assessment Author Is patient awake, alert, and able/willing to answer questions appropriately? Yes 12/24/2024 8:42 AM Suad Rosales 1. Wish to be (Past 1 Month) No 025 8:42 AM Suad Hanna 2. Non-Specific Active Suici gemma Thoughts (Past 1 Month) No 12/24/2024 8:42 AM Suad Hanna 6. Suicidal Behavior (Lifetime) No 8:42 AM Suad Hanna documented as of this encounter Mental Status * BP Answer Entry Date Author 104/74 12/24/2024 8:42 AM EST Marielle, Le sli * Temp Answer Entry Date Author 98.8 12/24/2024 8:42 AM EST Marielle, Le sli * Temp src Answer Entry Date Author Oral 12/24/2024 8:42 AM EST Marielle, Le sli * Pulse Answer Entry Date Author 80 12/24/2024 8:42 AM EST Marielle, Le sli * Resp Answer Entry Date Author 18 12/24/2024 8:42 AM EST Marielle, Le sli * SpO2 Answer Entry Date Author 99 12/24/2024 8:42 AM EST Marielle, Le sli * Height Answer Entry Date Author 63 12/24/2024 8:42 AM EST Marielle, Le sli * Weight Answer Entry Date Author 2679.79 12/24/2024 8:42 AM EST Marielle, Le sli * BMI (Calculated) Answer Entry Date Author 29.7 12/24/2024 8:42 AM EST Marielle, Le sli * Percent Excess Weight Loss Answer Entry Date Author 0 12/24/2024 8:42 AM EST Marielle, Le sli * Total Weight Change Percent Answer Entry Date Author 222112/24/2024 8:42 AM EST Marielle, Le sli * Weight Change Since Preop Answer Entry Date Author 75.98 12/24/2024 8:42 AM EST Marielle, Le sli * Initial Excess Weight Answer Entry Date Author -52.16 12/24/2024 8:42 AM EST Marielle, Le sli * IBW in lbs (Bariatric) Answer Entry Date Author 115 12/24/2024 8:42 AM EST Marielle, Le sli * Weight Change Since Last Visit Answer Entry Date Author 75.98 12/24/2024 8:42 AM EST Marielle, Le sli * IBW in kg (Bariatric) Answer Entry Date Author 52.16 12/24/2024 8:42 AM EST Marielle, Le sli * Percent of IBW Answer Entry Date Author 5,139.55 12/24/2024 8:42 AM EST Marielle, Le sli * EBW (kg) Answer Entry Date Author 2,679.31 12/24/2024 8:42 AM EST Marielle, Le sli * EBW (lbs) Answer Entry Date Author 2,673.6 12/24/2024 8:42 AM EST Marielle, Le sli * Weight Change 24 hrs Answer Entry Date Author -1.7 12/24/2024 8:42 AM EST Marielle, Le sli * Depression Screening Question Answer Entry Date Author Will the patient answer the depression risk questions? Yes 12/24/2024 8:42 AM EST Marielle, Suad * BSA (Calculated - sq m) Answer Entry Date Author 1.84 12/24/2024 8:42 AM EST Marielle, Le sli * BMI (Calculated) Answer Entry Date Author 29.69 12/24/2024 8:42 AM EST Marielle, Le sli * IBW/kg (Calculated) Male Answer Entry Date Author 56.9 12/24/2024 8:42 AM EST Marielle, Le sli * IBW/kg (Calculated) Female Answer Entry Date Author 52.4 12/24/2024 8:42 AM EST Marielle, Le sli * Restart Vitals Timer Answer Entry Date Author Yes 12/24/2024 8:42 AM EST Marielle, Le sli * IBW/kg (Calculated) Answer Entry Date Author 52.4 12/24/2024 8:42 AM EST Marielle, Le sli * Over the past 2 weeks, how often have you been bothered by any of the following problems? Question Answer Entry Date Author Little interest or pleasure in doing things Not at all 12/24/2024 8:42 AM EST Osman Palomaresli Feeling down, depressed, or hopeless Not at all 12/13 8:42 AM EST Marielle Suad Patient Health Questionnaire-2 Score 0 12/13 8:42 AM EST Marielle, Suad * Over the past 2 weeks, how often have you been bothered by any of the following problems? Question Answer Entry Date Author Trouble falling or staying a sleep, or sleeping too much Not at all 12/24/2024 8:42 AM EST Marielle Suad Feeling tired or having little energy Not at all 01/2025 8:42 AM EST Marielle Suad Poor appetite or overeating Not at all 12/24/2024 8: 42 AM EST Marielle, Suad Feeling bad about yourself - or that you are a failure or have let yourself or your family down Not at all 12/24/2024 8:42 AM Suad Hanna Trouble concentrating on thi ngs, such as reading the newspaper or watching television Not at all 12/24/2024 8:42 AM Suad Hanna Moving or speaking so slowly that other people could have noticed. Or the opposite - being so fidgety or restless that you have been moving around a lot more than usual Not at all 12/24/2024 8:42 AM Kimmie Hanna Thoughts that you would be b ja off or hurting yourself in some way Not at all 12/24/2024 8:42 AM Suad Hanna Patient Health Questionnaire-9 Score 0 12/13 8:42 AM Suad Hanna * [facility] Calculation Answer Entry Date Author 3 12/24/2024 8:42 AM Zora Hanna * Calculated C-SSRS Risk Score (Lifetime/Recent) Answer Entry Date Author No Risk Indicated 12/24/2024 8:42 AM Suad Hanna * How difficult have these problems made it for you to do your work, take care of things at home, or get along with other people? Answer Entry Date Author Not difficult at all 12/24/2024 8:42 AM Suad Stern * Restart Pain Assessment Timer Answer Entry Date Author Yes 12/24/2024 8:42 AM Zora Hanna * Weight in (lb) to have BMI = 25 Answer Entry Date Author 140.8 12/24/2024 8:42 AM Zora Hanna * BMI (Calculated) Answer Entry Date Author 29.7 12/24/2024 8:42 AM Zora Hanna * Percent Excess Weight Loss Answer Entry Date Author 0 12/24/2024 8:42 AM Zora Hanna * Weight Change Since Preop Answer Entry Date Author 76 12/24/2024 8:42 AM Zora Hanna * Initial Excess Weight Answer Entry Date Author -52.16 12/24/2024 8:42 AM Zora Hanna * IBW in kg (Bariatric) Answer Entry Date Author 52.16 12/24/2024 8:42 AM EST Marielle, Le sli * IBW in lb (Bariatric) Answer Entry Date Author 115 12/24/2024 8:42 AM EST Marielle, Le sli * Weight Change Since Last Visit Answer Entry Date Author 76 12/24/2024 8:42 AM EST Marielle, Le sli * Percent of IBW Answer Entry Date Author 145.7 12/24/2024 8:42 AM EST Marielle, Le sli * EBW (kg) Answer Entry Date Author 23.82 12/24/2024 8:42 AM EST Marielle, Le sli * EBW (lb) Answer Entry Date Author 52.55 12/24/2024 8:42 AM EST Marielle, Le sli * Difference in Weight Since Last Visit Answer Entry Date Author -1.7 12/24/2024 8:42 AM EST Marielle, Le sli * Temp (in Celsius) for [place] IV Answer Entry Date Author 37.1 12/24/2024 8:42 AM EST Marielle, Le sli * IBW/kg (Calculated) Answer Entry Date Author 52.4 12/24/2024 8:42 AM EST Marielle, Le sli * Adult Low Range Vt 6mL/kg Answer Entry Date Author 314.4 12/24/2024 8:42 AM EST Marielle, Le sli * Adult Moderate Range Vt 8mL/kg Answer Entry Date Author 419.2 12/24/2024 8:42 AM EST Marielle, Le sli * Adult High Range Vt 10mL/kg Answer Entry Date Author 524 12/24/2024 8:42 AM EST Marielle, Le sli * Pain Score Answer Entry Date Author 6 12/24/2024 8:42 AM EST Marielle, Le sli * SERENITY-7 Question Answer Entry Date Author Feeling Nervous, Anxious, or on Edge 1 12/24/2024 8:43 AM EST Suad Palomares Not Being Able to Stop or Control Worrying 0 12/24/2024 8:43 AM EST Suad Palomares Worrying too Much About Different Things 1 12/24/2024 8:43 AM EST Suad Palomares Trouble Relaxing 0 12/24/2024 8:43 AM EST Suad Payne Being so Restless That it is Hard to Sit Still 0 12/24/2024 8:43 AM EST MarielleOsman ayalali Becoming Easily Annoyed or Irritable 0 12/24/2024 8:43 AM EST MarielleOsman ayalali Feeling Afraid as if Something Awful Might Happen 0 12/24/2024 8:43 AM EST Kimmie Palomares SERENITY-7 Total Score 2 12/24/2024 8:43 AM EST Osman Palomaresli If you checked off any problems, how difficult have these problems made it for you to do your work, take care of things at home, or get along with other people? Not difficult at all 12/24/2024 8:43 AM EST Osman Palomaresli * Vitals Timer Question Answer Entry Date Author Restart Vitals Timer Yes 12/24/2024 8:[address] Suad Palomares * Pain Screening Answer Entry Date Author 0-10 12/24/2024 8:42 AM EST Zora Palomaresi * C-SSRS (Screener) Question Answer Entry Date Author Is patient awake, alert, and able/willing to answer questions appropriately? Yes 12/24/2024 8:[address] Suad almeida 1. Wish to be (Past 1 Month) No 025 8:42 AM EST Suad Palomares 2. Non-Specific Active Suici gemma Thoughts (Past 1 Month) No 12/24/2024 8:42 AM EST Suad Palomares 6. Suicidal Behavior (Lifetime) No 8:42 AM Suad Hanna documented in this encounter Miscellaneous Notes * Progress Notes - Penny Armstrong, PROGRAM CLINICIAN - 12/24/2024 8:40 AM EST Subjective Patient ID: Dayna Alamo is a 39 y.o. female. Chief Complaint Patient presents with Back Pain Hip Pain Pain management referral Dr. Anaya at [facility] HPI Dayna is a [...] in area, could consider further evaluation with plant control aide. Discussed s/s to monitor for that would cause concern for stye including swelling, warmth, erythema, crusting, or drainage. Penny Armstrong APRN [1] Current Outpatient Medications: albuterol (2.5 MG/3ML) [...] , Rfl: cholecalciferol (Vitamin D-3) 50 MCG (1999 UT) capsule, TAKE 3 CAPSULE Daily, Disp: , Rfl: fLuvoxaMINE (Luvox) 50 MG tablet, Take 1 tablet by mouth daily., Disp: , Rfl: gabapentin (Neurontin) 300 MG capsule, Take 300 mg by mouth 2 (two) times a day., Disp: , Rfl: HYDROcodone-acetaminophen (Doucette) 5-325 MG tablet, , Disp: , Rfl: [...] Care Team (Late st Contact Info) Description 02/11/2025 9:10 AM EST Appointment [facility] [address] [place] [address] Beatrice Henderson MD [address] [facility] [address] [place] [address] Filipe Mello, DO [address] [place] [address] Yvonne Bueno, MAYANK [address] [place] [address] Scheduled Orders Name Type Priority Associated Diagnoses [...] documented as of this encounter Care Teams Foil Stamp Operator Relationship Specialty Start Date End Date Penny Armstrong, ADITYA [address] [place] [id number] PCP - General Family Medicine 09/24/23 documented as of this encounter
--- OUTSIDE RECORDS SUMMARY | 2025-02-06 12:12 | XMS_ITS | Encounter Summary ---
Author Organization Healthcare Address [address] [place] [address] Care Team Providers Care Anti Tank Missileman Name Role Phone Penny Armstrong APRN Primary Care Provider Encounter Details Date Type Department Care Team (Latest Contact Info) Description 02/06/2025 12:12 PM EST - 02/06/2025 12:59 PM [facility] Hospital Encounter [facility] Breast Care Center [facility] Breast [facility] [address] [phone] Abnormal findings on diagnostic imaging of breast Discharge Disposition: Home or Self Care Social [...] any time in the past 12 m [facility], were you homeless or living in a assisted (including now)? Patient declined 07/17/2024 Safety and [...] In the past 12 months has e [employer], gas, oil, or water company threatened to [...] Sign Reading Time Taken Comments Blood Pressure - - Pulse - - Temperature - - Respiratory Rate - - Oxygen Saturation - - Inhaled Oxygen Concentration - - Weight 75.8 kg (167 lb) 02/06/2025 12:28 PM EST Height 160 cm (5' 3 ) 02/06/2025 12:28 PM EST Body Mass Index 29.58 02/06/2025 12:28 PM EST documented in this encounter Functional Status * BMI (Calculated) Answer Date of Assessment Author 29.6 02/06/2025 12:28 PM EST Ella Perez * Percent Excess Weight Loss Answer Date of Assessment Author 0 02/06/2025 12:28 PM EST Ella Perez * Total Weight Change Percent Answer Date of Assessment Author 2222 02/06/2025 12:28 PM EST Ella Perez * Weight Change Since Preop Answer Date of Assessment Author 75.73 02/06/2025 12:28 PM EST Ella Perez * Initial Excess Weight Answer Date of Assessment Author -52.16 02/06/2025 12:28 PM EST Ella Perez * IBW in lbs (Bariatric) Answer Date of Assessment Author 115 02/06/2025 12:28 PM EST Ella Perez * Weight Change Since Last Visit Answer Date of Assessment Author 75.73 02/06/2025 12:28 PM EST Ella Perez * IBW in kg (Bariatric) Answer Date of Assessment Author 52.16 02/06/2025 12:28 PM Ella Delgado * Percent of IBW Answer Date of Assessment Author 5,122.7 02/06/2025 12:28 PM Ella Delgado * EBW (kg) Answer Date of Assessment Author 2,670.52 02/06/2025 12:28 PM Ella Delgado * EBW (lbs) Answer Date of Assessment Author 2,664.81 02/06/2025 12:28 PM EST Ella Perez * Weight Change 24 hrs Answer Date of Assessment Author -.249 02/06/2025 12:28 PM EST Ella Perez * BSA (Calculated - sq m) Answer Date of Assessment Author 1.83 02/06/2025 12:28 PM EST Ella Perez * BMI (Calculated) Answer Date of Assessment Author 29.59 02/06/2025 12:28 PM Ella Delgado * IBW/kg (Calculated) Male Answer Date of Assessment Author 56.9 02/06/2025 12:28 PM EST Ella Perez * IBW/kg (Calculated) Female Answer Date of Assessment Author 52.4 02/06/2025 12:28 PM EST Ella Perez * IBW/kg (Calculated) Answer Date of Assessment Author 52.4 02/06/2025 12:28 PM EST Ella Perez * Weight in (lb) to have BMI = 25 Answer Date of Assessment Author 140.8 02/06/2025 12:28 PM EST Ella Perez * BMI (Calculated) Answer Date of Assessment Author 29.6 02/06/2025 12:28 PM EST Ella Perez * Percent Excess Weight Loss Answer Date of Assessment Author 0 02/06/2025 12:28 PM Ella Delgado * Weight Change Since Preop Answer Date of Assessment Author 75.75 02/06/2025 12:28 PM Ella Delgado * Initial Excess Weight Answer Date of Assessment Author -52.16 02/06/2025 12:28 PM Ella Delgado * IBW in kg (Bariatric) Answer Date of Assessment Author 52.16 02/06/2025 12:28 PM Ella Delgado * IBW in lb (Bariatric) Answer Date of Assessment Author 115 02/06/2025 12:28 PM Ella Delgado * Weight Change Since Last Visit Answer Date of Assessment Author 75.75 02/06/2025 12:28 PM Ella Delgado * Percent of IBW Answer Date of Assessment Author 145.22 02/06/2025 12:28 PM Ella Delgado * EBW (kg) Answer Date of Assessment Author 23.57 02/06/2025 12:28 PM Ella Delgado * EBW (lb) Answer Date of Assessment Author 52 02/06/2025 12:28 PM Ella Delgado * Difference in Weight Since Last Visit Answer Date of Assessment Author -0.25 02/06/2025 12:28 PM Ella Delgado * IBW/kg (Calculated) Answer Date of Assessment Author 52.4 02/06/2025 12:28 PM Ella Delgado * Adult Low Range Vt 6mL/kg Answer Date of Assessment Author 314.4 02/06/2025 12:28 PM EST Ella Perez * Adult Moderate Range Vt 8mL/kg Answer Date of Assessment Author 419.2 02/06/2025 12:28 PM EST Ella Perez * Adult High Range Vt 10mL/kg Answer Date of Assessment Author 524 02/06/2025 12:28 PM EST Ella Perez * Enter Height and Weight Question Answer Date of Assessment Author Height 63 02/06/2025 12:28 PM EST Hemalatha Ella mena Weight 2672 02/06/2025 12:28 PM EST Hemalatha ayBhaveshy * BSA (Calculated - sq m) Answer Date of Assessment Author 1.83 02/06/2025 12:28 PM EST Ella Perez * BMI (Calculated) Answer Date of Assessment Author 29.59 02/06/2025 12:28 PM EST Ella Perez * Weight in (lb) to have BMI = 25 Answer Date of Assessment Author 140.8 02/06/2025 12:28 PM EST Ella Perez * Enter Height and Weight Question Answer Date of Assessment Author Height 63 02/06/2025 12:28 PM EST Hemalatha Ella mena Weight 2672 02/06/2025 12:28 PM EST Hemalatha Ella mena documented as of this encounter Mental Status * BMI (Calculated) Answer Entry Date Author 29.6 02/06/2025 12:28 PM Ella Delgado * Percent Excess Weight Loss Answer Entry Date Author 0 02/06/2025 12:28 PM Ella Delgado * Total Weight Change Percent Answer Entry Date Author 22202/06/2025 12:28 PM Ella Delgado * Weight Change Since Preop Answer Entry Date Author 75.73 02/06/2025 12:28 PM Ella Delgado * Initial Excess Weight Answer Entry Date Author -52.16 02/06/2025 12:28 PM Ella Delgado * IBW in lbs (Bariatric) Answer Entry Date Author 115 02/06/2025 12:28 PM Ella Delgado * Weight Change Since Last Visit Answer Entry Date Author 75.73 02/06/2025 12:28 PM Ella Delgado * IBW in kg (Bariatric) Answer Entry Date Author 52.16 02/06/2025 12:28 PM Ella Delgado * Percent of IBW Answer Entry Date Author 5,122.7 02/06/2025 12:28 PM Ella Delgado * EBW (kg) Answer Entry Date Author 2,670.52 02/06/2025 12:28 PM Ella Delgado * EBW (lbs) Answer Entry Date Author 2,664.81 02/06/2025 12:28 PM Ella Delgado * Weight Change 24 hrs Answer Entry Date Author -.249 02/06/2025 12:28 PM EST Ella Perez * BSA (Calculated - sq m) Answer Entry Date Author 1.83 02/06/2025 12:28 PM Ella Delgado * BMI (Calculated) Answer Entry Date Author 29.59 02/06/2025 12:28 PM Ella Delgado * IBW/kg (Calculated) Male Answer Entry Date Author 56.9 02/06/2025 12:28 PM Ella Delgado * IBW/kg (Calculated) Female Answer Entry Date Author 52.4 02/06/2025 12:28 PM Ella Delgado * IBW/kg (Calculated) Answer Entry Date Author 52.4 02/06/2025 12:28 PM Ella Delgado * Weight in (lb) to have BMI = 25 Answer Entry Date Author 140.8 02/06/2025 12:28 PM Ella Delgado * BMI (Calculated) Answer Entry Date Author 29.6 02/06/2025 12:28 PM Ella Delgado * Percent Excess Weight Loss Answer Entry Date Author 0 02/06/2025 12:28 PM Ella Delgado * Weight Change Since Preop Answer Entry Date Author 75.75 02/06/2025 12:28 PM Ella Delgado * Initial Excess Weight Answer Entry Date Author -52.16 02/06/2025 12:28 PM Ella Delgado * IBW in kg (Bariatric) Answer Entry Date Author 52.16 02/06/2025 12:28 PM Ella Delgado * IBW in lb (Bariatric) Answer Entry Date Author 115 02/06/2025 12:28 PM Ella Delgado * Weight Change Since Last Visit Answer Entry Date Author 75.75 02/06/2025 12:28 PM Ella Delgado * Percent of IBW Answer Entry Date Author 145.22 02/06/2025 12:28 PM Ella Delgado * EBW (kg) Answer Entry Date Author 23.57 02/06/2025 12:28 PM Ella Delgado * EBW (lb) Answer Entry Date Author 52 02/06/2025 12:28 PM Ella Delgado * Difference in Weight Since Last Visit Answer Entry Date Author -0.25 02/06/2025 12:28 PM Ella Delgado * IBW/kg (Calculated) Answer Entry Date Author 52.4 02/06/2025 12:28 PM Ella Delgado * Adult Low Range Vt 6mL/kg Answer Entry Date Author 314.4 02/06/2025 12:28 PM Ella Delgado * Adult Moderate Range Vt 8mL/kg Answer Entry Date Author 419.2 02/06/2025 12:28 PM Ella Delgado * Adult High Range Vt 10mL/kg Answer Entry Date Author 524 02/06/2025 12:28 PM Ella Delgado * Enter Height and Weight Question Answer Entry Date Author Height 63 02/06/2025 12:28 PM Ella Collazo Weight 2672 02/06/2025 12:28 PM Ella Collazo documented in this encounter Medications at Time of Discharge albuterol (2.5 MG/3ML) 0.083% nebulizer solutionIndications :Wheezing Take 3 mL (2.5 mg) by nebulization every 6 (six) hours if needed for wheezing. 75 mL 11 4 bisacodyl (Bisacodyl EC) 5 MG EC tablet Take all 4 tablets at 4 PM on day before colonoscopy IF INSURANCE DOES NOT COVER, please inform pt to purchase OTC 4 tablet 5 budesonide-formoter ol (Symbicort) 80-4.5 MCG/ACT inhalerIndications: Wheezing Inhale 2 puffs 1 (one) time each day. Rinse mouth with water after use to reduce aftertaste and incidence of candidiasis. Do not swallow. 6.9 g 4 Calcium Citrate 1040 MG tablet TAKE 3 TABLET Daily 1 cholecalciferol (Vitamin D-3) 50 MCG (1999 UT) capsule TAKE 3 CAPSULE Daily 1 fLuvoxaMINE (Luvox) 50 MG tablet Take 1 tablet by mouth daily. gabapentin (Neurontin) 300 MG capsule Take 300 mg by mouth 2 (two) times a day. 1 HYDROcodone-acetami nophen ([place]) 5-325 MG tablet 3 lactobacillus (Culturelle) capsule Take 1 capsule by mouth 1 time each day. ondansetron ODT (Zofran-ODT) 8 MG disintegrating tablet Dissolve 1 tablet on the tongue every 8 hours as needed for nausea or vomiting. 20 tablet 2 5 polyethylene glycol (GoLYTELY) 236 g solution SEE PHARMACY NOTES FOR PATIENT LABEL INSTRUCTIONS- for Colonoscopy prep protocol 4000 mL 5 polyethylene glycol (Miralax) 17 g packet Take 17 g by mouth twice a day. 9 documented as of this encounter Plan of Treatment Upcoming Encounters Date Type Department Care Team (Late st Contact Info) Description 02/11/2025 9:10 AM EST Appointment [facility]oscopy [address] [place] [address] Beatrice Henderson MD [address] [place] [address] Filipe Mello, DO [address] [place] [address] Yvonne Bueno, MAYANK [address] [place] [address] documented as of this encounter Goals Goal Patient Goal Type Associated Problems Recent Progress Patient-Stated? Author Autogenerat ed Goal Care Plan Autogenerated Problem No Gianna Perez documented as of this encounter Procedures Procedure Name Priority Date/Time Associated Diagnosis Comments MAMMOGRAPHY BREAST DIAGNOSTIC TOMOSYNTHESIS BILATERAL Routine 02/06/2025 12:42 PM EST Abnormal findings on diagnostic imaging of breast documented in this encounter Results * Mammography Breast Diagnostic Tomosynthesis Bilateral (02/06/2025 12:42 PM EST) Anatomical Region Laterality Modality Breast Bilateral Mammography, Oth er Addenda Addendum by Zay Rodriguez MD on 02/06/2025 3:09 PM EST Addendum: ADDENDUM: Correction of CLINICAL INDICATION: 39-year-old female who presents for follow-up of left breast finding outside ultrasound, BI-RADS 3. Patient is also due for annual mammogram. Drafted by Soo Rodriguez MD on 02/06/2025 3:09 PM Final report signed by Soo Rodriguez MD on 02/06/2025 3:09 PM Impressions 02/06/2025 2:22 PM EST Right Breast BI-RADS Code: BI-RADS 1, Negative. Left Breast BI-RADS Code: BI-RADS 3, Probably benign finding. RECOMMENDATIONS: Right Breast Recommendations: Diagnostic Mammogram in 1 Year Left Breast Recommendations: Diagnostic Mammogram in 6 Months Breast Ultrasound 6 Months this will document the approximately 1 year follow- up. CRITICAL RESULT: No. COMMUNICATION: The results and recommendations were discussed with the patient and a printed lay language version of the imaging report was given to the patient at the time of the visit. The mammogram was read with the assistance of CAD and tomosynthesis. By electronically signing this report, I, the attending physician, attest that I have personally reviewed the images/data for the above examination(s) and agree with the final edited report. Drafted by Hong Joe MD on 02/06/2025 2:03 PM Final report signed by Soo Rodriguez MD on 02/06/2025 2:22 PM Narrative 02/06/2025 2:22 PM EST CLINICAL INDICATION: 39-year-old female who presents for follow-up of left breast finding outside ultrasound, by 3. Patient is also due for annual mammogram. TECHNIQUE: Bilateral diagnostic mammogram was performed. Computer assisted detection was used in the interpretation of this study. Tomosynthesis was used in the interpretation of this study. Multiplanar, mendoza scale directed ultrasound of left breast with limited Doppler vascular ultrasound was performed. Elastography was performed. COMPARISON: Outside mammogram and ultrasound 06/18/2023 Bilateral Breast Density: The breasts are heterogeneously dense, which may obscure small masses. FINDINGS: Mammogram Findings: Right breast: No suspicious mass, calcification, or architectural distortion. Left breast: No suspicious mass, calcification, or architectural distortion. Left Breast Ultrasound Findings: Follow-up ultrasound of the left breast at the 3:00 position 4 cm from the nipple demonstrates an oval circumscribed hypoechoic avascular mass measuring 5 mm x 2 mm x 3 mm in size. The mass is soft on elastography. This finding correlates with the finding seen in the outside ultrasound study from 06/18/2023, and has now been stable for 7 months. Probably benign. BI-RADS 3. Procedure Note Zay Rodriguez MD - 02/06/2025 CLINICAL INDICATION: 39-year-old female who presents for follow-up of left breast findingoutside ultrasound, by 3. Patient is also due for annual mammogram. TECHNIQUE: Bilateral diagnostic mammogram was performed. Computer assisted detection was used in the interpretation of this study.Tomosynthesis was used in the interpretation of this study. Multiplanar, mendoza scale directed ultrasound of left breast with limitedDoppler vascular ultrasound was performed. Elastography was performed. COMPARISON: Outside mammogram and ultrasound 06/18/2023 Bilateral Breast Density: The breasts are heterogeneously dense, which mayobscure small masses. FINDINGS: Mammogram Findings: Right breast: No suspicious mass, calcification, or architecturaldistortion. Left breast: No suspicious mass, calcification, or architecturaldistortion. Left Breast Ultrasound Findings: Follow-up ultrasound of the left breastat the 3:00 position 4 cm from the nipple demonstrates an ovalcircumscribed hypoechoic avascular mass measuring 5 mm x 2 mm x 3 mm insize. The mass is soft on elastography. This finding correlates with thefinding seen in the outside ultrasound study from 06/18/2023, and has nowbeen stable for 7 months. Probably benign. BI-RADS 3. IMPRESSION: Right Breast BI-RADS Code: BI-RADS 1, Negative. Left Breast BI-RADS Code: BI-RADS 3, Probably benign finding. RECOMMENDATIONS: Right Breast Recommendations: Diagnostic Mammogram in 1 Year Left Breast Recommendations: Diagnostic Mammogram in 6 Months BreastUltrasound 6 Months this will document the approximately 1 yearfollow-up. CRITICAL RESULT: No. COMMUNICATION: The results and recommendations were discussed with the patient and aprinted lay language version of the imaging report was given to thepatient at the time of the visit. The mammogram was read with theassistance of CAD and tomosynthesis. By electronically signing this report, I, the attending physician, samantha I have personally reviewed the images/data for the aboveexamination(s) and agree with the final edited report. Drafted by Hong Jeo MD on 02/06/2025 2:03 PM Final report signed by Soo Rodriguez MD on 02/06/2025 2:22 PM Penny Armstorng APRN IMG BI PROCEDURES Edited Re sult - Final documented in this encounter Visit Diagnoses Diagnosis Abnormal findings on diagnostic imaging of breast Other (abnormal) findings on radiological examination of breast documented in this encounter Additional Health Concerns [...] documented as of this encounter Care Teams Anti Tank Missileman Relationship Specialty Start Date End Date Penny Armstrong APRN [address] [place] [phone] PCP - General Family Medicine 09/24/23 documented as of this encounter
--- OUTSIDE RECORDS SUMMARY | 2025-02-06 13:00 | XMS_ITS | Encounter Summary ---
Author Organization Healthcare Address [address] [place] [address] Care Team Providers Care Assistant Corporate Controller Name Role Phone Penny Armstrong APRN Primary Care Provider Encounter Details Date Type Department Care Team (Latest Contact Info) Description 02/06/2025 1:00 PM EST - 02/06/2025 1:13 PM [facility] Hospital Encounter [facility] Breast Care Center [facility] Breast Care Center [address] [address] Abnormal findings on diagnostic imaging of breast [...] [facility] the [facility] or living in a residential (including now)? Patient declined 07/17/2024 Safety and [...] In the past 12 months has e [employer], gas, oil, or water company threatened to shut off services in your home? Patient declined 07/17/2024 Comments No Sex and Gender Information Value Date Recorded Sex Assigned at Not on file Legal Sex Female 7:55 PM EDT Gender Identity Not on file Sexual Orientation Not on file documented as of this encounter Medications at Time of Discharge [...] Daily 1 cholecalciferol (Vitamin D-3) 50 MCG (2000 UT) capsule TAKE 3 CAPSULE Daily 1 fLuvoxaMINE (Luvox) 50 MG tablet Take 1 tablet by mouth daily. gabapentin (Neurontin) 300 MG capsule Take 300 mg by mouth 2 (two) times a day. 1 HYDROcodone-acetami nophen (Beckley) 5-325 MG tablet 3 lactobacillus (Culturelle) capsule [...] EST Appointment [facility] [address] [place] [address] Beatrice Henderson MD [address] [place] [address] FunmilayoFilipe yanes R, DO [address] [place] [address] Yvonne Bueno, AUDIO/VIDEO ENGINEER [address] [place] [address] Scheduled Orders Name Type Priority Associated Diagnoses Orde r Schedule US Breast Limited Right Imaging Routine Abnormal findings on diagnostic imaging of breast Once for 1 Occurrences starting 02/06/2025 until 02/06/2025 documented as of this encounter Goals Goal Patient Goal Type Associated Problems Recent Progress Patient-Stated? Author Autogenerat ed Goal Care Plan Autogenerated Problem No Gianna Perez documented as of this encounter Procedures Procedure Name Priority Date/Time Associated Diagnosis Comments US BREAST LIMITED LEFT Routine 02/06/2025 1:26 PM EST Abnormal findings on diagnostic imaging of breast documented in this encounter Results * US Breast Limited Left (02/06/2025 1:26 PM EST) Anatomical Region Laterality Modality Breast Left Ultrasound Addenda Addendum by Zay Rodriguez MD on [...] Soo Rodriguez MD on 02/06/2025 2:22 PM us Penny Armstrong APRN IMG BI PROCEDURES Edited Re sult [...] documented as of this encounter Care Teams Assistant Corporate Controller Relationship Specialty Start Date End Date Penny Armstrong, ADITYA [address] [place] [phone] PCP - General Family Medicine 09/24/23 documented as of this encounter
--- OUTSIDE RECORDS SUMMARY | 2025-02-06 13:14 | XMS_ITS | Encounter Summary ---
Author Organization Healthcare Address [address] [place] [address] Care Team Providers Care Mohs Surgeon Name Role Phone Penny Armstrong APRN Primary Care Provider [phone] Encounter Details Date Type Department Care Team (Latest Contact Info) Description 02/06/2025 1:14 PM EST - 02/06/2025 11:59 PM [facility] Encounter [facility] [address] [phone] Discharge Disposition: Home or Self Care Social [...] any time in the past 12 m [facility], were you homeless or living in a chcf (including now)? Patient declined 07/17/2024 Safety and [...] In the past 12 months has e [employer], gas, oil, or water company threatened to [...] (two) times a day. 1 HYDROcodone-acetami nophen ([place]) 5-325 MG tablet 3 lactobacillus (Culturelle) capsule [...] Appointment [facility] [address] [place] [address] Beatrice Henderson MD [address] [place] [phone] Filipe Mello, DO [address] [place] [address] Myles Yvonne L, PRIMER ASSEMBLER [address] [place] [address] documented as of this encounter [...] signing this report, I, the attending physician, attyenat I have personally reviewed the images/data for the aboveexamination(s) and agree with the final edited report. Drafted by Hong Joe MD on 02/06/2025 2:03 PM Final report signed by Soo Rodriguez MD on 02/06/2025 2:22 PM Penny Armstrong METAL PATTERNMAKER IMG BI PROCEDURES Edited Re sult - Final * Mammography Breast Diagnostic Tomosynthesis Bilateral (02/06/2025 [...] signing this report, I, the attending physician, attestthat I have personally reviewed the images/data for the aboveexamination(s) and agree with the final edited report. Drafted by Hong Joe MD on 02/06/2025 2:03 PM Final report signed by Soo Rodriguez MD on 02/06/2025 2:22 PM us Penny C Patti METAL PATTERNMAKER IMG BI PROCEDURES Edited Re sult - Final documented in this encounter Visit Diagnoses Not [...] documented as of this encounter Care Teams Mohs Surgeon Relationship Specialty Start Date End Date Penny Armstrong, ADITYA [address] [place] [address] PCP - General Family Medicine 09/24/23 documented as of this encounter
--- OUTSIDE RECORDS SUMMARY | 2025-02-10 11:50 | XMS_ITS | Clinical Summary ---
Author Organization [facility] Address [address] [place] [id number] Care Team Providers Care Parts Expediter Name Role Phone Melva Foley MD Primary Care Provider [phone] Allergies Active Allergy Reactions Criticality Noted Date [...] INFLUENZA VACCINE 09/12/2024 12/10/2019, 11/13/2018, 11/26/2017 MAMMOGRAM 02/06/2027 02/06/2025, 06/18/2023 Pneumococcal Vaccine 0-49 Aged Out No [...] which correlates with normal tissue. Teresa Knight CNM IM MAMMOGRAPHY ORDERABLES Fi nal Result from Last 3 Months or Most Recently Relevant to Health Maintenance Insurance [facility] PPO Advance Directives * CPR (Attempt to Resuscitate) (Latest Code Status on File) Date Activated Date Inactivated Comments 07/01/2018 2:29 PM 07/02/2018 1:39 PM Question Answer Comments Code Status (Patient has no pulse and is not breathing): CPR (Attempt to Resuscitate) Medical Interventions (Patie nt has pulse or is breathing): Full Level Of Support Discussed With: Patient Care Teams Parts Expediter Relationship Specialty Start Date End Date Melva Foley MD [address] [facility] [address] [place] [address] PCP - General Family Medicine 11/13/23
--- OUTSIDE RECORDS SUMMARY | 2025-02-10 11:51 | XMS_ITS | Encounter Summary ---
Author Organization [employer] ([place], [place], [place], [place], [place]) Address [address] [place] [address] Care Team Providers Care Rubbish Collector Name Role Phone Landon James MD Primary Care Provider [phone] Encounter Details Date Type Department Care Team (Late st Contact Info) Description 01/27/2019 Transcribed Document [facility] [place] [facility] [place] [address] ProviderLuh MD [address] [place] [address] Social History Tobacco Use Types Packs/Day Years Used Date Smoking Tobacco: Never Assessed Comments Unknown Sex and Gender Information Value Date Recorded Sex Assigned at Not on file Legal Sex Female 5:38 PM CDT Gender Identity Not on file Sexual Orientation Not on file documented as of this encounter Miscellaneous Notes * Cerner Conversion Note - Luh Oliveros MD - 01/27/2019 5:04 PM DEMOLITION WORKER DATE OF PROCEDURE: 01/27/2019 SURGEON: Gadiel Anaya [...] I encouraged the patient to see a radio message router as well as see the neurologist, then I will be happy to see the patient after one month to re-evaluate her. /[id number] Gadiel Anaya MD, JULIO C Pain Certified ELAINE/JOE / ELAINE / MODL /[id number] Electronically signed by Arnav Hayward Conversion Bottle Packing Machine Cleaner Cerner at 06/01/2022 10:29 AM CDT documented in this encounter Plan of Treatment Not on file documented as of this encounter Visit Diagnoses Not on filedocumented in this encounter Care Teams Rubbish Collector Relationship Specialty Start Date End Date Landon James MD [address] [place] [address] PCP - General Family Medicine 08/29/24 documented as of this encounter
--- OUTSIDE RECORDS SUMMARY | 2025-02-10 11:51 | XMS_ITS | Encounter Summary ---
Author Organization Healthcare Address [address] [place] [address] Care Team Providers Care Analysis Evaluator Name Role Phone Penny Armstrong MASTER OCEAN YACHT Primary Care Provider [phone] Reason for Visit * Reason Onset Date Comments HCN Clinical Concern/Question 01/12/2025 kaden pitt Encounter Details Date Type Department Care Team (Late st Contact Info) Description 01/12/2025 Telephone [facility] Medicine [address] [place] [address] Penny Armstrong, MASTER OCEAN YACHT [address] [place] [address] HCN Clinical Concern/Question (results) Social History Tobacco Use Types Packs/Day Years [...] any time in the past 12 m [facility], were you homeless or living in a usp (including now)? Patient declined 07/17/2024 Safety and [...] encounter Miscellaneous Notes * Telephone Encounter - Suad Palomares - 01/14/2025 10:07 AM EST Sent mychart message * Telephone Encounter - Suad Palomares - 01/14/2025 9:08 AM EST Attempted to call no answer, left VM * Telephone Encounter - Suad Palomares - 01/13/2025 11:24 AM EST Attempted to call no answer, left VM * Telephone Encounter - Tita Quintero - 01/12/2025 11:59 AM EST Clinical Concern/Question Reason for Call: calling for explanation of MRI results done at [facility]. She didn't get the mychart message with them on 01/01. Best contact number: [phone] Optimal time of day to reach caller: Additional comments/information from caller: Note: Please do not reply to this message. Follow-up communication and further actions as a result of this message need to be communicated with the patient directly, if the patient is not active onMyChart. If the patient is active on MyChart, they will receive notification of the communication/outcome via [employer]. documented in this encounter Plan of Treatment Upcoming Encounters Date Type Department Care Team (Late st Contact Info) Description 02/11/2025 9:10 AM EST Appointment [facility] [address] [place] [address] Beatrice Henderson MD [address] [place] [address] Filipe Mello, DO [address] [place] [address] Yvonne Bueno, ROOM COOLER INSTALLER [address] [place] [address] documented as of this encounter [...] documented as of this encounter Care Teams Analysis Evaluator Relationship Specialty Start Date End Date Penny Armstrong, ADITYA [address] [place] [address] PCP - General Family Medicine 09/24/23 documented as of this encounter
--- OUTSIDE RECORDS SUMMARY | 2025-02-10 11:51 | XMS_ITS | Encounter Summary ---
Author Organization Healthcare Address [address] [place] [address] Care Team Providers Care Steel Fitter Name Role Phone Catalino Evans MD Primary Care Provider Penny Armstrong APRN Primary Care Provider [phone] Encounter Details Date Type Department Care Team (Late st Contact Info) Description 06/18/2023 Orders Only External Location [address] [place] [address] Provider, External Social History Tobacco Use Types [...] a custodial (including now)? Patient refused 03/05/2023 Safety and [...] EST Appointment [facility] [address] [place] [address] Beatrice Henderson MD [address] [place] [address] Filipe Mello, DO [address] [place] [address] Yvonne Bueno, FLOATING OPERATOR [address] [place] [address] documented as of this encounter Procedures Procedure [...] documented as of this encounter Care Teams Steel Fitter Relationship Specialty [place] [address] [place] [phone] PCP - General Family Medicine 08/01/21 09/23/23 Penny Armstrong APRN [address] [place] [address] PCP - General Family Medicine 09/24/23 documented as of this encounter
--- OUTSIDE RECORDS SUMMARY | 2025-02-10 11:51 | XMS_ITS | Encounter Summary ---
Author Organization [employer] ([place], [place], [place], [place], [place]) Address [address] [place] [address] Care Team Providers Care Dredge Pump Operator Name Role Phone Landon James MD Primary Care Provider [phone] Encounter Details Date Type Department Care Team (Late st Contact Info) Description 06/16/2019 Transcribed Document [facility] [place] [facility] [place] [address] ProviderLuh MD [address] [place] [address] Social History Tobacco Use Types Packs/Day Years [...] before bring the patient to the clinic /[id number] Gadiel Anaya MD, JULIO C Pain Certified KR/AQ / KR / MODL CC: Anthony Pritchett MD Electronically signed by Interface, [facility] Conversion Assistant Baseball Coach Cerner at 06/01/2022 10:12 AM CDT documented in this encounter Plan of Treatment Not on file documented as of this encounter Visit Diagnoses Not on filedocumented in this encounter Care Teams Dredge Pump Operator Relationship Specialty Start Date End Date Landon James MD [address] [place] [address] PCP - General Family Medicine 08/29/24 documented as of this encounter
--- OUTSIDE RECORDS SUMMARY | 2025-02-10 11:51 | XMS_ITS | Encounter Summary ---
Author Organization [employer] ([place], [place], [place], [place], [place]) Address [address] [place] [address] Care Team Providers Care Country Singer Name Role Phone Landon James MD Primary Care Provider [phone] Encounter Details Date Type Department Care Team (Late st Contact Info) Description 07/09/2019 Transcribed Document [facility] [place] Family [place] [facility] [place] [address] ProviderLuh MD [address] [place] [address] Social History Tobacco Use Types Packs/Day Years [...] we brought the patient to the clinic. /[id number] Gadiel Anaya MD, JULIO C Pain Certified ELAINE/JOE / ELAINE / MODL /[id number] documented in this encounter Plan of Treatment Not on file documented as of this encounter Visit Diagnoses Not on filedocumented in this encounter Care Teams Country Singer Relationship Specialty Start Date End Date Landon James MD [address] [place] [address] PCP - General Family Medicine 08/29/24 documented as of this encounter
--- OUTSIDE RECORDS SUMMARY | 2025-02-10 11:51 | XMS_ITS | Referral Summary ---
Author Organization [employer] ([place], [place], [place], [place], [place]) Address [address] [place] [address] Care Team Providers Care Ink Maker Name Role Phone Landon James MD Primary Care Provider [phone] Allergies Active Allergy Reactions Criticality Noted Date [...] Date Hemal rded Speak language other than [place] at home Not on file 06/12/2023 Want [...] file Insurance BLUE CROSS/BLUE SHIELD Care Teams Ink Maker Relationship Specialty Start Date End Date Landon James MD [address] [place] [address] PCP - General Family Medicine 08/29/24
--- OUTSIDE RECORDS SUMMARY | 2025-02-10 11:51 | XMS_ITS | Encounter Summary ---
Author Organization Healthcare Address [address] [place] [address] Care Team Providers Care Sand Tester Name Role Phone Patti Penny Noland APRN Primary Care Provider [phone] Encounter Details Date Type Department Care Team (Latest Contact Info) Description 02/06/2025 Travel Social History Tobacco Use Types Packs/Day [...] any time in the past 12 m [facility], were you homeless or living in [...] as of this encounter Functional Status * Communicable Disease Screening Question Answer Date of Assessment Author Have you been in contact with someone who was sick? No / Unsure 02/06/2025 12:11 PM Halie Donnelly Do you have any of the following new or worsening symptoms? None of these 02/06/2025 12:11 PM Halie Harris * Travel Screening Question Answer Date of Assessment Author Have you traveled internatio moe or domestically in the last month? No 02/06/2025 12:11 PM EST Halie Armas documented as of this encounter Mental Status * Communicable Disease Screening Question Answer Entry Date Author Have you been in contact with someone who was sick? No / Unsure 02/06/2025 12:11 PM EST Halie Richards Do you have any of the following new or worsening symptoms? None of these 02/06/2025 12:11 PM EST Halie Hope * Travel Screening Question Answer Entry Date Author Have you traveled internatio moe or domestically in the last month? No 02/06/2025 12:11 PM EST aHlie Armas documented in this encounter Plan of Treatment Upcoming Encounters Date Type Department Care Team (Late st Contact Info) Description 02/11/2025 9:10 AM EST Appointment [facility] [address] [place] [address] Beatrice Henderson MD [address] [place] [address] Filipe Mello, DO [address] [place] [address] Yvonne Bueno, HEAD BOOKKEEPER [address] [place] [address] documented as of this encounter [...] documented as of this encounter Care Teams Sand Tester Relationship Specialty Start Date End Date Penny Armstrong, FIELD SERVICE POULTRY TECHNICIAN [address] [place] [address] PCP - General Family Medicine 09/24/23 documented as of this encounter
--- OUTSIDE RECORDS SUMMARY | 2025-02-10 11:51 | XMS_ITS | Encounter Summary ---
Author Organization [employer] ([place], [place], [place], [place], [place]) Address [address] [place] [address] Care Team Providers Care Greens Planter Name Role Phone Landon James MD Primary Care Provider [phone] Encounter Details Date Type Department Care Team (Late st Contact Info) Description 02/24/2019 Transcribed Document [facility] [place] [address] ProviderLuh MD [address] [place] [address] Social History Tobacco Use Types Packs/Day Years Used Date Smoking Tobacco: Never Assessed Comments Unknown Sex and Gender Information Value Date Recorded Sex Assigned at Not on file Legal Sex Female 5:38 PM CDT Gender Identity Not on file Sexual Orientation Not on file documented as of this encounter Miscellaneous Notes * Cerner Conversion Note - Historical MD Domo - 02/24/2019 3:39 PM LAB NURSE DATE OF ADMISSION: 02/24/2019 SUBJECTIVE: This is [...] reason, we scheduled her to see a smoke tester and neurologist. She is going to see Rheumatology on March 05, 2019. We also sent her to see at the [facility] neurologist and they are going [...] and then readjust the dose after that. /[id number] Gadiel Anaya MD, JULIO C Pain Certified KR/JOE / ELAINE / MODL CC: Anthony Pritchett MD documented in this encounter Plan of Treatment Not on file documented as of this encounter Visit Diagnoses Not on filedocumented in this encounter Care Teams Greens Planter Relationship Specialty Start Date End Date Landon James MD [address] [place] [phone] PCP - General Family Medicine 08/29/24 documented as of this encounter
--- OUTSIDE RECORDS SUMMARY | 2025-02-10 11:51 | XMS_ITS | Encounter Summary ---
Author Organization [employer] ([place], [place], [place], [place], [place]) Address [address] [place] [address] Care Team Providers Care Hardening Machine Operator Helper Name Role Phone Landon James MD Primary Care Provider [phone] Encounter Details Date Type Department Care Team (Late st Contact Info) Description 07/03/2019 Transcribed Document [facility] [place] [facility] [place] [address] ProviderLuh MD [address] [place] [phone] Social History Tobacco Use Types Packs/Day Years [...] any signs and symptoms related to COVID-19. /[id number] aGdiel Anaya MD, JULIO C Pain Certified KR/JOE / KR / MODL CC: Dr. Anthony Pritchett Electronically signed by [facility], [facility] Conversion Director Of Event Sales Cerner at 06/01/2022 10:24 AM CDT documented in this encounter Plan of Treatment Not on file documented as of this encounter Visit Diagnoses Not on filedocumented in this encounter Care Teams Hardening Machine Operator Helper Relationship Specialty Start Date End Date Landon James MD [address] [place] [address] PCP - General Family Medicine 08/29/24 documented as of this encounter
--- OUTSIDE RECORDS SUMMARY | 2025-02-10 11:51 | XMS_ITS | Encounter Summary ---
Author Organization Healthcare Address [address] [place] [address] Care Team Providers Care Junior Java Developer Name Role Phone Catalino Evans MD Primary Care Provider Penny Armstrong APRN Primary Care Provider [phone] Encounter Details Date Type Department Care Team (Late st Contact Info) Description 06/18/2023 Orders Only External Location [address] [place] [address] Provider, External Social History Tobacco Use Types [...] place to sleep or slept in a assisted (including now)? Patient refused 03/05/2023 Safety and [...] EST Appointment [facility] [address] [place] [address] Beatrice Henderson MD [address] [place] [address] Filipe Mello, DO [address] [place] [address] Yvonne Bueno, RECREATIONAL SPECIALIST [address] [place] [address] documented as of this encounter Procedures Procedure [...] documented as of this encounter Care Teams Junior Java Developer Relationship Specialty [place] [address] [place] [phone] PCP - General Family Medicine 08/01/21 09/23/23 Penny Armstrong APRN [address] [place] [address] PCP - General Family Medicine 09/24/23 documented as of this encounter
--- OUTSIDE RECORDS SUMMARY | 2025-02-10 11:51 | XMS_ITS | Encounter Summary ---
Author Organization [employer] ([place], [place], [place], [place], [place]) Address [address] [place] [address] Care Team Providers Care Graduate Engineer Name Role Phone Landon James MD Primary Care Provider [phone] Encounter Details Date Type Department Care Team (Late st Contact Info) Description 12/15/2019 Transcribed Document [facility] [place] Family Medicine [facility] [place] [address] ProviderLuh MD [address] [place] [address] Social History Tobacco Use Types Packs/Day Years Used Date Smoking Tobacco: Never Assessed Comments Unknown Sex and Gender Information Value Date Recorded Sex Assigned at Not on file Legal Sex Female 5:38 PM CDT Gender Identity Not on file Sexual Orientation Not on file documented as of this encounter Miscellaneous Notes * Cerner Conversion Note - Luh Oliveros MD - 12/15/2019 1:21 PM SENIOR ELECTRICAL DESIGN ENGINEER DATE OF ADMISSION: 12/15/2019 HISTORY OF PRESENT [...] visit and the patient has been afebrile. /[id number] Suzan Maharaj APRN HUMBERTO/AQ / HUMBERTO / MODL CC: Anthony Pritchett MD Electronically signed by [facility] Conversion Music Theory Teacher Lucas at 06/01/2022 10:21 AM CDT documented in this encounter Plan of Treatment Not on file documented as of this encounter Visit Diagnoses Not on filedocumented in this encounter Care Teams Graduate Engineer Relationship Specialty Start Date End Date Landon James MD [address] [place] [address] PCP - General Family Medicine 08/29/24 documented as of this encounter
--- OUTSIDE RECORDS SUMMARY | 2025-02-10 11:51 | XMS_ITS | Encounter Summary ---
Author Organization [employer] ([place], [place], [place], [place], [place]) Address [address] [place] [address] Care Team Providers Care Imaging Account Manager Name Role Phone Landon James MD Primary Care Provider [phone] Encounter Details Date Type Department Care Team (Late st Contact Info) Description 01/20/2019 Transcribed Document [facility] [place] Medicine [place]ending [place] [address] ProviderLuh MD [address] [place] [address] Social History Tobacco Use Types Packs/Day Years Used Date Smoking Tobacco: Never Assessed Comments Unknown Sex and Gender Information Value Date Recorded Sex Assigned at Not on file Legal Sex Female 5:38 PM CDT Gender Identity Not on file Sexual Orientation Not on file documented as of this encounter Miscellaneous Notes * Cerner Conversion Note - Luh Oliveros MD - 01/20/2019 7:18 AM LAY BROTHER DATE OF ADMISSION: 01/17/2019 HISTORY: This is [...] movement of the upper and lower extremities. /[id number] Gadiel Anaya MD, JULIO C Pain Certified KR/AQ / KR / MODL CC: Anthony Pritchett documented in this encounter Plan of Treatment Not on file documented as of this encounter Visit Diagnoses Not on filedocumented in this encounter Care Teams Imaging Account Manager Relationship Specialty Start Date End Date Landon James MD [address] [place] [address] [phone] PCP - General Family Medicine 08/29/24 documented as of this encounter
--- OUTSIDE RECORDS SUMMARY | 2025-02-10 11:51 | XMS_ITS | Clinical Summary ---
Author Organization [facility] [employer] ([place], [place], [place], [place], [place]) Address [address] [place] [address] Care Team Providers Care Rn Orthopaedics Name Role Phone Landon James MD Primary Care Provider [phone] Allergies Active Allergy Reactions Criticality Noted Date [...] History Relation Name Comments Other Father Agent [place] Ex posure Coronary artery disease Maternal Aunt [...] Date Hemal rded Speak language other than Azeri at home Not on file 06/12/2023 Want [...] topic Insurance BLUE CROSS/BLUE SHIELD Care Teams Rn Orthopaedics Relationship Specialty Start Date End Date Landon James MD [address] [place] [address] PCP - General Family Medicine 08/29/24
--- OUTSIDE RECORDS SUMMARY | 2025-02-10 11:51 | XMS_ITS | Encounter Summary ---
Author Organization [employer] ([place], [place], [place], [place], [place]) Address [address] [place] [address] Care Team Providers Care Clinical Engineering Manager Name Role Phone Landon James MD Primary Care Provider [phone] Encounter Details Date Type Department Care Team (Late st Contact Info) Description 01/22/2020 Transcribed Document [facility] [place] [facility] [place] [address] ProviderLuh MD [address] [place] [phone] Social History Tobacco Use Types Packs/Day Years Used Date Smoking Tobacco: Never Assessed Comments Unknown Sex and Gender Information Value Date Recorded Sex Assigned at Not on file Legal Sex Female 5:38 PM CDT Gender Identity Not on file Sexual Orientation Not on file documented as of this encounter Miscellaneous Notes * Cerner Conversion Note - Luh Oliveros MD - 01/22/2020 9:09 AM METER REPAIRER HELPER DATE OF ADMISSION: 01/21/2020 HISTORY OF PRESENT [...] visit and the patient has been afebrile. /[id number] Gadiel Anaya MD, JULIO C Pain Certified KR/AQ / KR / MODL CC: MD Joana Fountain Electronically signed by Yesy, [facility] Conversion Neck Band Maker Cerner at 06/01/2022 10:30 AM CDT documented in this encounter Plan of Treatment Not on file documented as of this encounter Visit Diagnoses Not on filedocumented in this encounter Care Teams Clinical Engineering Manager Relationship Specialty Start Date End Date Landon James MD [address] [place] [address] [phone] PCP - General Family Medicine 08/29/24 documented as of this encounter
--- OUTSIDE RECORDS SUMMARY | 2025-02-10 11:51 | XMS_ITS | Encounter Summary ---
Author Organization [employer] ([place], [place], [place], [place], [place]) Address [address] [place] [address] Care Team Providers Care Specialty Trimmer Name Role Phone Landon James MD Primary Care Provider [phone] Encounter Details Date Type Department Care Team (Late st Contact Info) Description 11/17/2019 Transcribed Document [facility] [place] [facility] [place] [address] ProviderLuh MD [address] [place] [phone] Social History Tobacco Use Types Packs/Day Years [...] visit and the patient has been afebrile. /[id number] Suzan Maharaj APRN HUMBERTO/AQ / HUMBERTO / MODL CC: Anthony Pritchett MD documented in this encounter Plan of Treatment Not on file documented as of this encounter Visit Diagnoses Not on filedocumented in this encounter Care Teams Specialty Trimmer Relationship Specialty Start Date End Date Landon James MD [address] [place] [phone] PCP - General Family Medicine 08/29/24 documented as of this encounter
--- OUTSIDE RECORDS SUMMARY | 2025-02-10 11:51 | XMS_ITS | Encounter Summary ---
Author Organization [employer] ([place], [place], [place], [place], [place]) Address [address] [place] [address] Care Team Providers Care Boatbuilder Supervisor Name Role Phone Landon James MD Primary Care Provider [phone] Encounter Details Date Type Department Care Team (Late st Contact Info) Description 03/24/2019 Transcribed Document [facility] [place] [facility] [place] [address] ProviderLuh MD [address] [place] [address] Social History Tobacco Use Types Packs/Day Years Used Date Smoking Tobacco: Never Assessed Comments Unknown Sex and Gender Information Value Date Recorded Sex Assigned at Not on file Legal Sex Female 5:38 PM CDT Gender Identity Not on file Sexual Orientation Not on file documented as of this encounter Miscellaneous Notes * Cerner Conversion Note - Luh Oliveros MD - 03/24/2019 1:48 PM MEDICAL CODING INSTRUCTOR DATE OF ADMISSION: 03/24/2019 HISTORY OF PRESENT [...] also scheduled the patient for neurologist and winter sports manager consult, and she has followup with them. [...] I am awaiting for the results of winter sports manager and neurologist recommendations. to give me more idea about her peripheral joint and nerve issue and problem. 5. I am going to see the patient after 3 months to re-evaluate her. /[id number] Gadiel Anaya MD, JULIO C Pain Certified KR/JOE / ELAINE / MODL CC: Anthony Pritchett MD Electronically signed by [facility], [facility] Conversion Anger Control Counselor Cerner at 06/01/2022 10:04 AM CDT documented in this encounter Plan of Treatment Not on file documented as of this encounter Visit Diagnoses Not on filedocumented in this encounter Care Teams Boatbuilder Supervisor Relationship Specialty Start Date End Date Landon James MD [address] [place] [phone] PCP - General Family Medicine 08/29/24 documented as of this encounter
--- OUTSIDE RECORDS SUMMARY | 2025-02-10 11:51 | XMS_ITS | Encounter Summary ---
Author Organization [employer] ([place], [place], [place], [place], [place]) Address [address] [place] [address] Care Team Providers Care Triage Technician Name Role Phone Landon James MD Primary Care Provider [phone] Encounter Details Date Type Department Care Team (Late st Contact Info) Description 08/25/2019 Transcribed Document [facility] [place] Family Medicine [facility] [place] [address] ProviderLuh MD [address] [place] [address] Social History Tobacco Use Types Packs/Day Years [...] medications for this patient's treatment plan today. /[id number] ADITYA Knight/AQ / HUMBERTO / MODL CC: Anthony Pritchett MD documented in this encounter Plan of Treatment Not on file documented as of this encounter Visit Diagnoses Not on filedocumented in this encounter Care Teams Triage Technician Relationship Specialty Start Date End Date Landon James MD [address] [place], [place] [phone] PCP - General Family Medicine 08/29/24 documented as of this encounter
--- OUTSIDE RECORDS SUMMARY | 2025-02-10 11:51 | XMS_ITS | Clinical Summary ---
Author Organization Healthcare Address [address] [id number] Care Team Providers Care Esthetic Dermatologist Name Role Phone Patti Penny Noland APRN Primary Care Provider [phone] Allergies Active Allergy Reactions Criticality Noted Date [...] a day. 07/07/19 19 Active HYDROcodone-acetam inophen (Thebes) 5-325 MG tablet 01/04/20 23 Active budesonide-formote [...] vomiting. 20 tablet 2 08/15/19 25 Active bisacodyl (Bisacodyl EC) 5 MG EC tablet Take all 4 tablets at 4 PM on day before colonoscopy IF INSURANCE DOES NOT COVER, please inform pt to purchase OTC 4 tablet 02/03/20 25 Active polyethylene glycol (GoLYTELY) 236 g solution SEE PHARMACY NOTES FOR PATIENT LABEL INSTRUCTIONS- for Colonoscopy prep protocol 4000 mL 02/03/20 25 Active Active Problems Problem Noted Date [...] Encounters Date Type Department Care Team Description 02/06/2025 1:14 PM EST - 02/06/2025 11:59 PM EST Hospital Encounter [facility] [address] [phone] Discharge Disposition: Home or Self Care 02/06/2025 1:00 PM EST - 02/06/2025 1:13 PM EST Hospital Encounter [facility] [address] [phone] Abnormal findings on diagnostic imaging of breast Discharge Disposition: Home or Self Care 02/06/2025 12:12 PM EST - 02/06/2025 12:59 PM EST Hospital Encounter [facility] [address] [phone] Abnormal findings on diagnostic imaging of breast Discharge Disposition: Home or Self Care 02/06/2025 Travel 01/12/2025 Telephone [facility] [address] [place] [address] Pneny Armstrong APRN HCN Clinical Concern/Question (results) 12/24/2024 8:40 AM EST Office Visit [facility] [address] [place] [address] Penny Armstrong APRN Lumbar spondylosis (Primary Dx); Complex regional pain [...] Mother's Sister 1 Hypothyroidism Mother's Sister 2 Breast cancer Other Maternal Grandmas sister Stroke Paternal Grandmother Relation Name Status Comments Father Maternal Grandfather Maternal Grandmother Mother Mother's Sister 1 Mother's Sister 2 Other Maternal Grandmas sister Paternal Grandmother Social History Tobacco Use Types [...] any time in the past 12 m [facility], were you homeless or living in [...] past 12 months has [facility], gas, oil, or water [employer] threatened to shut off services in your [...] EST Inhaled Oxygen Concentration - - Weight 75.8 kg (167 lb) 02/06/2025 12:28 PM EST Height 160 cm (5' 3 ) 02/06/2025 12:28 PM EST Body Mass Index 29.58 02/06/2025 12:28 PM EST Plan of Treatment Upcoming Encounters Date Type Department Care Team (Late st Contact Info) Description 02/11/2025 9:10 AM EST Appointment [facility] [address] [place] [address] Beatrice Henderson MD [address] [place] [address] Filipe Mello, DO [address] [place] [address] Yvonne Bueno, MAYANK [address] [place] [phone] Health Maintenance Due Date Last Done Comments [facility]-Infant/Child/Adol SDOH Screenings 1984 [facility]-Varicella Vaccines (1 of 2 - 13+ 2-dose series) 1997 [facility]-Hepatitis B Vaccines (1 of 3 - 19+ 3-dose series) 04/23/2003 [id number] Vaccine (3 - 2024- season) 2024 05/21/2020, 05/01/2020 [facility]-Influenza Vaccine (#1) 10/13/202412/09, 11/13/2018, 11/26/2017 [facility]- SDOH Screenings 01/16/2025 [facility]-Adult SDOH Screenings 01/16/2025 07/17/2024 [facility]-Depression Screening 12/24/2025 12/24/2024, 12/13 [facility]-Zoster Vaccines (1 of 2) 2034 [facility]-DTaP,Tdap,and Td Vaccines (2 - Td or Tdap) 07/17/2034 07/17/2024 [facility]-HIV Screening Completed 07/17/2024 [facility]-Hepatitis C Screening Completed 07/17/2024 [facility]-Obesity Intervention Completed 025, 08/14/2024, 07/17/2024, Additional history exists HPV Vaccines (No Doses Required) Completed [facility]-HIB Vaccines Aged Out No longer e [...] Diagnosis Comments US BREAST LIMITED LEFT Routine 1:26 PM EST Abnormal findings on diagnostic imaging of breast MAMMOGRAPHY BREAST DIAGNOSTIC TOMOSYNTHESIS BILATERAL Routine 02/06/2025 12:42 PM EST Abnormal findings on diagnostic imaging of breast HIV 1/2 ANTIBODY/ANTIGEN SCREEN WITH REFLEX TO HIV I/II DIFFERENTIATION Routine 07/17/2024 1:31 PM EDT Screening for human immunodeficiency virus HEPATITIS C ANTIBODY W/REFLEX TO HCV QUANT PCR Routine 07/17/2024 1:31 PM EDT Need for hepatitis C screening test from Last 3 Months or Most Recently Relevant to Health Maintenance Results * US Breast Limited Left (02/06/2025 [...] on 02/06/2025 2:22 PM us Penny Armstrong LACQUER SIZER IMG BI PROCEDURES Edited Re sult - [...] on 02/06/2025 2:22 PM us Penny Armstrong LACQUER SIZER IMG BI PROCEDURES Edited Re sult - Final * HIV 1 & 2 Antibody/Antigen Screen (07/17/2024 1:31 PM EDT) HIV 1 & 2 Antibody/Antigen Screen Non Reactive Non Reactive 07/17/2024 1:31 PM EDT [facility] Comment:Screening for HIV 1 & 2 antibodies, and P24 antigen is NONREACTIVE. No confirmatory testing is required. Blood Venous blood specimen / Unknown 07/17/2024 8:47 AM EDT Penny Armstrong APRN LAB BLOOD ORDERABLES Final Result [facility] [address] [place] [address] * Hepatitis C Antibody w/Reflex to HCV Quant PCR (07/17/2024 1:31 PM EDT) Hepatitis C Antibody Negative Negative 07/17/2024 1:31 PM EDT [facility] Blood Venous blood specimen / Unknown 07/17/2024 8:47 AM EDT Penny Armstrong APRN LAB BLOOD ORDERABLES Final Result Performing Organization Address City/[facility]/ZIP Co de Phone Number [facility] [address] [place] [address] from Last 3 Months or Most Recently Relevant to Health Maintenance Additional Health Concerns Active Problems Noted Date Diagnosed Date Autogenerated Problem 11/27/2024 Insurance ANTHEM Care Teams Esthetic Dermatologist Relationship Specialty Start Date End Date Penny Armstrong, ADITYA [address] [place] [address] PCP - General Family Medicine 09/24/23
--- OUTSIDE RECORDS SUMMARY | 2025-02-10 11:52 | XMS_ITS | Encounter Summary ---
Author Organization Healthcare Address [address] [id number] Care Team Providers Care Tool Keeper Name Role Phone Patti Penny Noland APRN [...] any time in the past 12 m [facility], were you homeless or living in a snf (including now)? Patient declined 07/17/2024 Safety and [...] Assessment Author Have you been in contact wit h someone who was sick? No / Unsure 12/24/2024 8:35 AM Re Godinez Do you have any of the following new or worsening symptoms? None of these 12/24/2024 8:35 AM Re Godinez * Travel Screening Question Answer Date of Assessment Author Have you traveled internatio moe or domestically in the last month? No 12/24/2024 8:35 AM EST Re Moya documented as of this encounter Mental Status * Communicable Disease Screening Question Answer Entry Date Author Have you been in contact wit h someone who was sick? No / Unsure 12/24/2024 8:35 AM EST Re Barroso Do you have any of the following new or worsening symptoms? None of these 12/24/2024 8:35 AM EST Re Barroso * Travel Screening Question Answer Entry Date Author Have you traveled internatio moe or domestically in the last month? No 12/24/2024 8:35 AM EST Re Moya documented in this encounter Plan of Treatment Upcoming Encounters Date Type Department Care Team (Late st Contact Info) Description 02/11/2025 9:10 AM EST Appointment [facility] [address] [place] [address] Beatrice Henderson MD [address] [place] [address] Filipe Mello, DO [address] [place] [address] Yvonne Bueno, WELT STITCHER [address] [place] [address] documented as of this encounter [...] documented as of this encounter Care Teams Tool Keeper Relationship Specialty Start Date End Date Penny Armstrong, CLAY BURNER [address] [place] [address] PCP - General Family Medicine 09/24/23 documented as of this encounter
--- NOTE | 2025-02-10 12:00 | XR_ITS ---
FINAL REPORT CLINICAL HISTORY: PAIN rt si jt FINDINGS: AP and lateral views of the sacrum and coccyx were obtained. There is no prior exam for comparison. There is no acute fracture or other acute osseous abnormality. The SI joints are symmetric bilaterally. No evidence of sacroiliitis. The sacrococcygeal articulation appears within normal limits. No acute soft tissue abnormality is present. IMPRESSION: No acute abnormality of the sacrum or coccyx. Reviewed, Interpreted and Dictated by Joan Sampson MD Transcribed by Yoon Foley Authenticated and [facility][1]
== END 2025-02-10 23:59 | disposition home or self-care (01) ==
LOC: RAD 11:48
PROVIDERS: PCP Family Medicine; Visit Provider Anesthesiology Pain Medicine
DX: M53.3 Sacrococcygeal disorders, not elsewhere classified (principal)
CPT/HCPCS: 72220